=== PATIENT | female | born 1945 | race Caucasian/White ===

== ENCOUNTER → 2017-10-28 12:21 | Outpatient (CLI) | payer MEDICARE, SELFPAY ==
[2017-10-28 13:33] LABS: AST(SGOT) 45 U/L (15-37); Alanine Aminotransfer ALT/SGPT 38 U/L (13-56); Albumin, Serum 3.5 g/dL (3.2-5.0); Alkaline Phosphatase 51 U/L (45-117); Anion Gap 8 (5-15); BUN 20 mg/dL (7-18); BUN/Creat Ratio 28.6 RATIO (10-20); Calcium,Total 8.3 mg/dL (8.5-10.1); Chloride 106 mmol/L (98-107); EST Glomerular Filtration Rate 88 mL/min (>60); Est Glom Filt Rate - Afr Amer 106 mL/min (>60); Globulin 3.4 g/dL (2.2-4.2); Glucose 100 mg/dL (74-106); Protein, Total 6.9 g/dL (6.4-8.2); Sodium Level 142 mmol/L (136-145); Thyroid Stim Hormone (TSH) 0.43 uIU/mL (0.358-3.74)
[2017-10-28 18:14] LABS: Absolute Neutrophil Count 2.5 X10^3/uL (2.0-7.7); Basophil# 0.01 X10^3/uL; Basophil% 0.3 % (0-1); Eosinophil# 0.04 X10^3/uL; Eosinophils% 1.1 % (0-5); Hematocrit 38.7 % (37-47); Hemoglobin 12.6 g/dl (12.0-15.0); Mean Corp Hgb Conc 32.6 g/gl (32-36); Mean Corpuscular Volume 98.2 fL (81-99); Mean Platelet Vol. 10.3 fl (6.2-12.0); Monocyte# 0.27 X10^3/uL; Monocyte% 7.7 % (0-10); Neutrophil # 2.48 X10^3/uL (2.7-7.7); Neutrophil % 70.9 % (47-70); Platelet Count 155 K/mm3 (150-450); RBC Distribution Width CV 13.2 % (11.6-14.6); RBC Distribution Width SD 47.4 fl (35.1-43.9); Red Blood Count 3.94 M/mm3 (4.2-5.4); White Blood Count 3.5 K/mm3 (4.4-11.0)
[2017-10-28 18:18] LABS: POSITIVE COUNT NO; POSITIVE DIFFERENTIAL NO; POSITIVE MORPHOLOGY NO
[2017-10-29 09:44] LABS: Vitamin D,25 Hydroxy 54.5 ng/mL (29.95-100.01)
[2017-10-29 11:44] LABS: Hep C Antibodies 0.1 s/co ratio (0.0-0.9)
== END ==
PROVIDERS: Family Provider Family Medicine Geriatric Medicine; PCP Family Medicine Geriatric Medicine; Visit Provider Family Medicine Geriatric Medicine
DX: E11.9 Type 2 diabetes mellitus without complications (principal); E55.9 Vitamin D deficiency, unspecified; E78.4 Other hyperlipidemia; Z13.89 Encounter for screening for other disorder
CPT/HCPCS: 36415; 80053; 82306; 84443; 85025; 86803

== ENCOUNTER → 2017-12-12 12:04 | Outpatient (CLI) | payer MEDICARE, SELFPAY ==
[2017-12-12 13:15] LABS: ALB/GLOB Ratio 0.8 RATIO (0.9-2.4); AST(SGOT) 42 U/L (15-37); Alanine Aminotransfer ALT/SGPT 32 U/L (13-56); Albumin, Serum 3.1 g/dL (3.2-5.0); Alkaline Phosphatase 50 U/L (45-117); Anion Gap 8 (5-15); BUN 15 mg/dL (7-18); BUN/Creat Ratio 22.5 RATIO (10-20); Calcium,Total 8.1 mg/dL (8.5-10.1); Chloride 108 mmol/L (98-107); Creatinine, Serum 0.67 mg/dL (0.55-1.02); EST Glomerular Filtration Rate 93 mL/min (>60); Est Glom Filt Rate - Afr Amer 112 mL/min (>60); Globulin 3.7 g/dL (2.2-4.2); Glucose 76 mg/dL (74-106); Potassium 4.4 mmol/L (3.5-5.1); Protein, Total 6.8 g/dL (6.4-8.2); Sodium Level 138 mmol/L (136-145)
[2017-12-12 13:25] LABS: Absolute Lymphocyte Count 0.72 X10^3/ul (0.83-4.51); Absolute Neutrophil Count 1.8 X10^3/uL (2.0-7.7); Basophil# 0.02 X10^3/uL; Basophil% 0.6 % (0-1); Eosinophil# 0.04 X10^3/uL; Eosinophils% 1.3 % (0-5); Hematocrit 39.3 % (37-47); Hemoglobin 13.2 g/dl (12.0-15.0); Lymphocyte # 0.72 X10^3/ul (4.0); Lymphocyte % 23.2 % (19-41); Mean Corp Hgb Conc 33.6 g/gl (32-36); Mean Corpuscular Hgb 32.6 pg (27.0-32.0); Mean Platelet Vol. 9.8 fl (6.2-12.0); Monocyte% 16.1 % (0-10); Neutrophil # 1.83 X10^3/uL (2.7-7.7); Neutrophil % 58.8 % (47-70); Platelet Count 109 K/mm3 (150-450); RBC Distribution Width CV 13.7 % (11.6-14.6); Red Blood Count 4.05 M/mm3 (4.2-5.4); White Blood Count 3.1 K/mm3 (4.4-11.0)
[2017-12-12 13:31] LABS: POSITIVE COUNT NO; POSITIVE DIFFERENTIAL NO; POSITIVE MORPHOLOGY NO
--- NOTE | 2017-12-12 15:40 | RAD_ITS ---
STUDY: X-RAY - ABDOMEN/PELVIS REASON FOR EXAM: Female, 72 years old. Diarrhea. TECHNIQUE: AP supine and upright views of the abdomen and pelvis. COMPARISON: None. FINDINGS: Normal visualized lung bases. There is an abundance of fecal material throughout the colon. There is no demonstrated free abdominal air. The visualized liver, spleen and kidneys are grossly normal in size and morphology. Normal soft tissue structures. Narrowing and sclerosis of the symphysis pubis. RAD/Abd Inc Decub and/or Erect IMPRESSION: Large amount of fecal material is seen in the colon. Electronically Signed: Paulo Gray MD at 15:54 EDT Tel [phone], Service support ,
== END ==
PROVIDERS: Family Provider Family Medicine Geriatric Medicine; PCP Family Medicine Geriatric Medicine; Visit Provider Family Medicine Geriatric Medicine
DX: R19.7 Diarrhea, unspecified (principal)
CPT/HCPCS: 36415; 74019; 80053; 85025

== ENCOUNTER → 2017-12-15 15:16 | Outpatient (CLI) | payer MEDICARE, SELFPAY | PROVIDERS: Family Provider Family Medicine Geriatric Medicine; PCP Family Medicine Geriatric Medicine; Visit Provider Family Medicine Geriatric Medicine | DX: R19.7 Diarrhea, unspecified (principal) | CPT/HCPCS: 82274; 83630; 87177; 87209; 87493; 87506 ==

== ENCOUNTER → 2018-04-28 11:50 | Outpatient (CLI) | payer MEDICARE, SELFPAY ==
[2018-04-28 11:50] VITALS: BMI 25.0
[2018-04-28 13:23] LABS: Absolute Neutrophil Count 2.4 X10^3/uL (2.0-7.7); Basophil# 0.01 X10^3/uL; Basophil% 0.3 % (0-1); Eosinophils% 2.8 % (0-5); Hemoglobin 13.6 g/dl (12.0-15.0); Lymphocyte % 19.9 % (19-41); Mean Corp Hgb Conc 32.4 g/gl (32-36); Mean Corpuscular Hgb 32.3 pg (27.0-32.0); Mean Corpuscular Volume 99.8 fL (81-99); Mean Platelet Vol. 11.6 fl (6.2-12.0); Monocyte% 8.5 % (0-10); Neutrophil # 2.41 X10^3/uL (2.7-7.7); Neutrophil % 68.5 % (47-70); Platelet Count 139 K/mm3 (150-450); RBC Distribution Width CV 13.3 % (11.6-14.6); RBC Distribution Width SD 47.9 fl (35.1-43.9); Red Blood Count 4.21 M/mm3 (4.2-5.4); White Blood Count 3.5 K/mm3 (4.4-11.0)
[2018-04-28 13:24] LABS: POSITIVE COUNT NO; POSITIVE DIFFERENTIAL NO; POSITIVE MORPHOLOGY NO
[2018-04-28 13:45] LABS: AST(SGOT) 48 U/L (15-37); Alanine Aminotransfer ALT/SGPT 46 U/L (13-56); Albumin, Serum 3.6 g/dL (3.2-5.0); Alkaline Phosphatase 59 U/L (45-117); Anion Gap 7 (5-15); BUN 20 mg/dL (7-18); BUN/Creat Ratio 28.8 RATIO (10-20); Calcium,Total 8.7 mg/dL (8.5-10.1); Chloride 108 mmol/L (98-107); Creatinine, Serum 0.69 mg/dL (0.55-1.02); EST Glomerular Filtration Rate 88 mL/min (>60); Est Glom Filt Rate - Afr Amer 107 mL/min (>60); Globulin 3.6 g/dL (2.2-4.2); Glucose 70 mg/dL (74-106); Protein, Total 7.2 g/dL (6.4-8.2); Sodium Level 141 mmol/L (136-145); Thyroid Stim Hormone (TSH) 1.02 uIU/mL (0.358-3.74)
[2018-04-28 13:46] LABS: Vitamin D,25 Hydroxy 44.7 ng/mL (29.95-100.01)
== END ==
PROVIDERS: Family Provider Family Medicine Geriatric Medicine; PCP Family Medicine Geriatric Medicine; Visit Provider Family Medicine Geriatric Medicine
DX: E11.9 Type 2 diabetes mellitus without complications (principal); E55.9 Vitamin D deficiency, unspecified
CPT/HCPCS: 36415; 80053; 82306; 84443; 85025

== ENCOUNTER → 2018-08-25 13:19 | Outpatient (CLI) | payer MEDICARE, SELFPAY ==
[2018-06-24 15:16] VITALS: BMI 23.1
--- NOTE | 2018-08-25 13:22 | BI_ITS ---
MAMMOGRAPHY - BILATERAL SCREENING REASON FOR EXAM: Female, 72 years old. Routine annual screening examination. PERTINENT HISTORY: Remote left excisional breast biopsy. TECHNIQUE: Digital bilateral breast troy (3D mammographic acquisition) in the CC and MLO projections. 2-D mediolateral oblique (MLO) and craniocaudad (CC) views of both breasts were obtained. CAD: Full Field Digital Mammography with Computer Added Detection was performed. COMPARISON: Comparison is made with prior study March 28, 2016 and October 26, 2013. FINDINGS: Breast Composition: The breasts are heterogeneously dense, which may obscure small masses. There are no dominant masses or suspicious calcifications. Once again, focal area of architectural distortion is seen in the upper the mid aspect of the left breast most likely secondary to prior site of the biopsy and representing post operative scarring. No other significant abnormalities are identified. There has been no significant change since the prior study. BI/SCREEN MAMM (CAD) W/TROY BILAT IMPRESSION: Stable bilateral screening mammogram. Yearly follow-up mammogram recommended. (A) ASSESSMENT CATEGORY: BIRADS Category 2: Benign. A letter regarding these results will be sent to the patient by the facility within 30 days. Approximately 10% of breast cancers are not detected by mammography. A normal mammogram should not delay biopsy of a clinically suspicious abnormality. [id number] Electronically Signed: Paulo Gray, at 15:06 EDT , Service support ,
== END ==
PROVIDERS: Family Provider Family Medicine Geriatric Medicine; PCP Family Medicine Geriatric Medicine; Referring Provider Family Medicine Geriatric Medicine; Visit Provider Family Medicine Geriatric Medicine
DX: Z12.31 Encounter for screening mammogram for malignant neoplasm of breast (principal)
CPT/HCPCS: 77063; 77067

== ENCOUNTER → 2018-11-03 09:07 | Outpatient (CLI) | payer MEDICARE, SELFPAY ==
[2018-06-24 15:16] VITALS: BMI 23.1
[2018-11-03 13:05] LABS: Absolute Lymphocyte Count 0.57 X10^3/uL (0.83-4.51); Absolute Neutrophil Count 2.5 X10^3/uL (2.0-7.7); Basophil# 0.02 X10^3/uL; Basophil% 0.6 % (0-1); Eosinophil# 0.05 X10^3/uL; Eosinophils% 1.4 % (0-5); Hematocrit 41.4 % (37-47); Hemoglobin 13.8 g/dL (12.0-15.0); Lymphocyte # 0.57 X10^3/ul (4.0); Lymphocyte % 16.4 % (19-41); Mean Corp Hgb Conc 33.3 g/dL (32-36); Mean Platelet Vol. 10.9 fl (6.2-12.0); Monocyte% 8.6 % (0-10); NRBC Flagged by Analyzer 0 % (0-5); Neutrophil # 2.53 X10^3/uL (2.7-7.7); Neutrophil % 72.7 % (47-70); POSITIVE DIFFERENTIAL YES; Platelet Count 153 K/mm3 (150-450); RBC Distribution Width CV 12.6 % (11.6-14.6); RBC Distribution Width SD 45.3 fl (35.1-43.9); Red Blood Count 4.18 M/mm3 (4.2-5.4); White Blood Count 3.5 K/mm3 (4.4-11.0)
[2018-11-03 13:21] LABS: Differential Indicated SCAN CRITERIA MET
[2018-11-03 13:23] LABS: Differential Comment SCANNED; Platelet Estimate ADEQUATE (ADEQ); Red Cell Morphology NORM C+C NORMAL (NORM C&C)
[2018-11-03 13:25] LABS: Vitamin D,25 Hydroxy 56.3 ng/mL (29.95-100.01)
[2018-11-03 13:37] LABS: Albumin, Serum 3.4 g/dL (3.2-5.0); BUN 17 mg/dL (7-18); BUN/Creat Ratio 25.3 RATIO (10-20); Creatinine, Serum 0.67 mg/dL (0.55-1.02); EST Glomerular Filtration Rate 92 mL/min (>60); Est Glom Filt Rate - Afr Amer 111 mL/min (>60); Glucose 103 mg/dL (74-106); Protein, Total 7.1 g/dL (6.4-8.2)
[2018-11-03 13:38] LABS: ALB/GLOB Ratio 0.9 RATIO (0.9-2.4); AST(SGOT) 42 U/L (15-37); Alanine Aminotransfer ALT/SGPT 31 U/L (13-56); Alkaline Phosphatase 67 U/L (45-117); Anion Gap 4 (5-15); Calcium,Total 8.7 mg/dL (8.5-10.1); Chloride 105 mmol/L (98-107); Globulin 3.7 g/dL (2.2-4.2); Potassium 4.1 mmol/L (3.5-5.1); Sodium Level 138 mmol/L (136-145); Thyroid Stim Hormone (TSH) 1.91 uIU/mL (0.358-3.74)
[2018-11-04 14:26] LABS: Pathologist Review Reviewed
== END ==
PROVIDERS: Family Provider Family Medicine Geriatric Medicine; PCP Family Medicine Geriatric Medicine; Visit Provider Family Medicine Geriatric Medicine
DX: E55.9 Vitamin D deficiency, unspecified (principal); R53.83 Other fatigue
CPT/HCPCS: 36415; 80053; 82306; 84443; 85025

== ENCOUNTER → 2018-11-19 09:54 | Outpatient (CLI) | payer MEDICARE, SELFPAY ==
[2018-06-24 15:16] VITALS: BMI 23.1
--- NOTE | 2018-11-19 09:59 | BD_ITS ---
STUDY: DUAL ENERGY X-RAY ABSORPTIOMETRY / DXA REASON FOR EXAM: Female, 73 years old. The patient is postmenopausal. Loss of height. TECHNIQUE: Bone Mineral Density (BMD) measurements of lumbar spine and bilateral hips were obtained. COMPARISON: Comparison is made with prior examination dated April 03, 2016. FINDINGS: Lumbar Spine (L1-L4): g/cm2 (0.958) / T-score (-1.8) / Z-score (-0.1) Findings are suggestive of osteopenia with a moderate fracture risk. Increased thoracic kyphosis. Left Femur Total: g/cm2 (0.933) / T-score (-0.6) / Z-score (1.0) Left Femoral Neck: g/cm2 (0.962) / T-score (-0.5) / Z-score (1.2) Right Femur Total: g/cm2 (0.931) / T-score (-0.6) / Z-score (1.0) Right Femoral Neck: g/cm2 (0.964) / T-score (-0.5) / Z-score (1.2) The T-Scores on the most recent prior examination were: Lumbar Spine (L1-L4): There has been improvement of bone density since the previous examination. Left Femur Total: which represents a worsening of 1.5%. Right Femur Total: which represents a worsening of 1.4%. BD/Dexa Bone Density Study IMPRESSION: The patient is considered osteopenic as outlined below according to World [employer] Organization (WHO) criteria with a moderate fracture risk. There has been improvement of bone density since the previous examination. Reference Information: The T-score is the number of standard deviations above or below the standard which is normal for young adults at their peak bone mineral density. The World Health Organization (WHO) interprets the T-scores as follows: Above -1 Normal bone density Between -1 and -2.5 Osteopenia Equal to / or below -2.5 Osteoporosis As a practical clinical guideline, osteopenia may be graded as follows: Mild -1 through -1.5 Moderate -1.6 through -2.0 Severe -2.1 through -2.4 The Z-score is the number of standard deviations above or below age-matched controls. A Z-score of less than -1.5 would be considered abnormal. References: 1. NIH Osteoporosis and Related Bone Diseases http://www.osteo.org 2. International Society for Clinical Densitometry http://www.iscd.org 3. National Osteoporosis Foundation http://www.nof.org Electronically Signed: Paulo Gray, at 15:15 EDT , Service support ,
== END ==
PROVIDERS: Family Provider Family Medicine Geriatric Medicine; PCP Family Medicine Geriatric Medicine; Referring Provider Family Medicine Geriatric Medicine; Visit Provider Family Medicine Geriatric Medicine
DX: Z78.0 Asymptomatic menopausal state (principal)
CPT/HCPCS: 77080

== ENCOUNTER → 2018-11-25 15:04 | Outpatient (CLI) | payer MEDICARE, SELFPAY ==
[2018-06-24 15:16] VITALS: BMI 23.1
[2018-11-25 17:08] LABS: Absolute Lymphocyte Count 0.76 X10^3/uL (0.83-4.51); Basophil# 0.02 X10^3/uL; Basophil% 0.6 % (0-1); Eosinophil# 0.04 X10^3/uL; Eosinophils% 1.2 % (0-5); Hematocrit 40.9 % (37-47); Hemoglobin 13.5 g/dL (12.0-15.0); Lymphocyte # 0.76 X10^3/ul (4.0); Lymphocyte % 22.8 % (19-41); Mean Corpuscular Hgb 33.1 pg (27.0-32.0); Mean Corpuscular Volume 100.2 fL (81-99); Mean Platelet Vol. 10.9 fl (6.2-12.0); Monocyte# 0.52 X10^3/uL; Monocyte% 15.6 % (0-10); NRBC Flagged by Analyzer 0 % (0-5); Neutrophil # 1.99 X10^3/uL (2.7-7.7); Neutrophil % 59.8 % (47-70); Platelet Count 144 K/mm3 (150-450); RBC Distribution Width CV 13.2 % (11.6-14.6); Red Blood Count 4.08 M/mm3 (4.2-5.4); White Blood Count 3.3 K/mm3 (4.4-11.0)
[2018-11-25 17:37] LABS: ALB/GLOB Ratio 0.9 RATIO (0.9-2.4); AST(SGOT) 37 U/L (15-37); Alanine Aminotransfer ALT/SGPT 31 U/L (13-56); Albumin, Serum 3.3 g/dL (3.2-5.0); Alkaline Phosphatase 63 U/L (45-117); Anion Gap 6 (5-15); BUN 17 mg/dL (7-18); Calcium,Total 8.7 mg/dL (8.5-10.1); Chloride 109 mmol/L (98-107); Creatinine, Serum 0.65 mg/dL (0.55-1.02); EST Glomerular Filtration Rate 95 mL/min (>60); Est Glom Filt Rate - Afr Amer 115 mL/min (>60); Globulin 3.7 g/dL (2.2-4.2); Glucose 89 mg/dL (74-106); Sodium Level 141 mmol/L (136-145)
== END ==
PROVIDERS: Family Provider Family Medicine Geriatric Medicine; PCP Family Medicine Geriatric Medicine; Visit Provider Family Medicine Geriatric Medicine
DX: R53.83 Other fatigue (principal)
CPT/HCPCS: 36415; 80053; 85025

== ENCOUNTER 2018-12-04 07:55 | Day surgery (SDC) | payer MEDICARE, SELFPAY ==
[2018-06-24 15:16] VITALS: BMI 23.1
[2018-12-04] VITALS (7 sets, daily range): BP systolic 102–114; BP diastolic 57–68; PULSE 53–64; RESP 16; TEMP 36.4–36.6; O2SAT 96–100; BMI 22.3
[2018-12-04] MEDS: Lactated Ringers 1,000 ML 80 ML IV ×2 (08:36→14:06)
--- NOTE | 2018-12-04 09:30 | RAD_ITS ---
STUDY: X-RAY - RIGHT FOOT CLINICAL: Deformity, ORIF. TECHNIQUE: 7 intraoperative images of the foot. COMPARISON: None. FINDINGS: Status post bunionectomy with osteotomy of the first metatarsal bridged with 2 orthopedic screws. There is a threaded screw transfixing fusion of the second proximal interphalangeal joint. 48.6 seconds of fluoroscopy time was used. Electronically Signed: Jesu Cornejo MD at 15:00 EDT Tel , Service support , RAD/Foot min 3 Views
[2018-12-04] MEDS: Cefazolin 2 GM in 0.9% Normal Saline 100 ML IV (11:10)
[2018-12-04] MEDS: Bupivacaine Mpf 0.5% 30 ML VIAL (13:28)
--- NOTE | 2018-12-04 13:40 | RAD_ITS ---
STUDY: X-RAY - RIGHT FOOT CLINICAL: Postoperative. TECHNIQUE: 3 view(s) of the foot. COMPARISON: Intraoperative images obtained earlier the same day. FINDINGS: Normal talus, calcaneus, and tarsal bones. Normal visualized subtalar, talonavicular, calcaneocuboid, tarsal and tarsometatarsal articulations. Status post bunionectomy with osteotomy of the first metatarsal bridged with 2 orthopedic screws. Normal metatarsophalangeal joint of the great toe. Normal interphalangeal joint of the great toe. Normal phalanges of the great toe. Normal second through fifth metatarsophalangeal joints. There is a threaded screw transfixing fusion of the second proximal interphalangeal joint.. There is an overlying cast. RAD/Foot min 3 Views IMPRESSION: Status post bunionectomy and fusion of the second proximal interphalangeal joint. Electronically Signed: Jesu Cornejo MD at 14:59 EDT Tel , Service support ,
--- NOTE | 2018-12-04 13:41 | DCINST_ITS ---
Discharge Diet: No Restrictions Discharge Activity: May not drive while taking narcotic pain medications., May Not Shower Weight Bearing Status: No weight bearing - use crutches Keep extremity elevated above heart level: Right Leg Call your doctor if your incision/area has: Continuous Slow Oozing, Sudden Increased Bleeding, Increased Pain/ Swelling, Increased Redness, Foul Smelling Discharge, Swelling at the incision site Call your doctor if you observe: Fever of 101 or Higher, Coldness, Increased Pain, Numbness or Tingling, Swelling in the ankles, Prolonged hiccoughing, Calf discomfort, Uncontrolled pain Cleanse incision/area with: Keep Dressing Clean & Dry Allergies/Adverse Reactions: Allergies carbamazepine [From Tegretol] Allergy (Verified 12/04/18 08:18) Hives clonazepam [From Klonopin] Allergy (Verified 12/04/18 08:18) Other DIDN'T WORK TO REDUCE SEIZURES phenytoin sodium [From Dilantin] Allergy (Verified 12/04/18 08:18) Hives phenytoin sodium extended [From Dilantin] Allergy (Verified 12/04/18 08:18) Hives Medications to take at Discharge Niacin 50 mg PO DAILY 09/24/13 Primidone [Mysoline] 250 mg PO BID 09/24/13 Atorvastatin Calcium [Lipitor] 40 mg PO QHS 07/22/16 Calcium Carbonate [Calcium] 1,200 mg PO DAILY 07/22/16 Cranberry 500 mg PO DAILY 07/22/16 Lutein 20 mg PO DAILY 07/22/16 Multivitamin [Daily Multiple Vitamin] 1 ea PO DAILY 07/22/16 Alendronate Sodium [Fosamax] 70 mg PO QWEEK 10/31/16 Metoprolol Tartrate [Lopressor (beta chintan)] 75 mg PO BID #60 tab 11/01/16 Rivaroxaban [Xarelto] 20 mg PO DAILY@0600 #30 tab 11/01/16 levothyroxine 100 mcg capsule 100 mcg PO QDAY cap 04/28/17 Biotin 1 mg PO DAILY 12/01/18 Primary Care Physician: Neil Apodaca Chi, MD [Primary Care Provider] - Test Results: Test results from this visit will be discussed in further detail at your follow- up appointment, if applicable. Please Follow Up With: Alina Reyes DPM When: [facility]. Call [phone] sooner if questions. Proposed Discharge Date: 12/04/18
--- NOTE | 2018-12-04 14:12 | PCM.OPRPT ---
Problem List (1) Hallux valgus (acquired), right foot Status: Chronic (2) Hammer toe of right foot Status: Chronic (3) Right foot pain Status: Chronic Report of Operation Date of Procedure: 12/04/18 Pre-Operative Diagnosis: Hallux valgus with bunion deformity right foot. 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 Hammertoe correction with arthrodesis of the proximal interphalangeal joint and internal fixation, right foot Description of Surgical Findings:: Hemostasis: Well-padded pneumatic right ankle tourniquet, 98 minutes, 250 mmHg Materials: one mini FT Arthrex compression screw (28 mm), two 3.0 cannulated Arthrex short thread screws (16 and 18 mm) Complications: None Specimens: None The patient tolerated the procedure and anesthesia well. She was transported to the PACU with vital signs stable and vascular status intact the right lower extremity. Postoperative x-rays were obtained prior to leaving the operating room with deformity correction of the first ray and second toe now with a rectus hallux, reduced sesamoid apparatus, and rectus second toe. Hardware is in ideal alignment and trajectory. There are no acute injuries noted. She will remain nonweightbearing. Her postoperative orders were entered electronically. physician assistant: none - Surgeon: Alina Reyes DPM. Assistant Property Manager: Gisella Tinsley PGY3 Type of Anesthesia:: Local - Preoperative: One-to-one mixture of 1% lidocaine plain and 0.5% Marcaine plain administered in typical first and second ray block fashion, 10 mL Postoperative: One-to-one mixture 1% lidocaine plain and 0.5% Marcaine plain administered to right foot 7 mL, MAC Specimen's removed: none Estimated Blood Loss (mL): < 50 mL Description of Procedure: Indications: This 73-year-old female with significant past medical history of atrial fibrillation, diet controlled diabetes, hypertension, previous seizure, and previous pulmonary embolism on chronic anticoagulation continues to complain of right foot pain. She is unable to perform her exercise walking regiment that she is required to maintain proper cardiac health. Her pain is affecting her daily activities and she has failed conservative care including orthotics, improved shoe gear, padding, activity modification, and icing. Her preoperative x-rays demonstrate lateral hallux deviation abutting the second toe with increased intermetatarsal angle position and lateral sesamoid apparatus appearance. She has a prominent and hypertrophic medial eminence of the first metatarsal head with no cystic changes or other acute injuries. There is narrowing of the first metatarsal phalangeal joint with dorsal spurring noted consistent with degenerative joint change. The right second toe is dorsally contracted mainly at the proximal interphalangeal joint and appears to be long. The preoperative indications, planned procedure, possible benefits, risk, complication, and anticipated healing time is were discussed in detail with the patient. She understands and elects to proceed with surgery at this time. No guarantees were made. She understands risks and complications may include but are not limited to the following: pain, swelling, scarring, over under correction, hardware failure, blood clot, allergic reaction, chronic pain, need for further surgery, loss of limb, function, life. The surgical consent and limb were signed and I answered her questions. Medical clearance for the procedure was obtained by her primary care physician I reviewed her preoperative diagnostic data. It is noted she is on chronic anticoagulation including Xarelto and this was temporarily stopped; this will be resumed on postoperative day #1. Procedure in detail: The patient was transported to the operating room via cart and placed on the operating table in the supine position. Final verification of patient, surgery, limb designation was performed via the timeout procedure. MAC anesthesia was initiated by the anesthesia team. Local anesthetic was administered by the podiatry team. Preoperative Ancef was administered. A well-padded pneumatic right ankle tourniquet was placed. The right lower extremity was prepped and draped in the usual aseptic manner. An Esmarch bandage was used to exsanguinate the right lower extremity and the tourniquet was inflated at this time. Surgery began in the following manner: Attention was first directed to the dorsal medial first ray in which a 4 cm linear incision was made through the skin. Blunt dissection was performed down to the first metatarsophalangeal joint capsule layer taking care to identify, protect, and retract all neurovascular structures at this time and the remaining parts of the surgical case. Next, a fresh scalpel was used to perform a capsule incision and this was carefully reflected off of the first metatarsal head and proximal phalanx base to allow good exposure. The hypertrophic medial and dorsal eminence of the first metatarsal head was next resected with a sagittal saw taking care to preserve the sagittal sulcus. Next, lateral release was performed including the superficial intermetatarsal ligament, adductor tendon, and fibular sesamoid metatarsal ligament including the distal and proximal poles. The lateral collateral ligament was kept intact. Some plantar adhesions were still noted and a McGlamry elevator was used to help release this. The first metatarsal head was evaluated and is noted that the cartilage appears to be intact without osteochondral defects. Adequate lateral release was noted. At this time the osteotomy was performed with chevron shaped manner. The salima modification was performed to allow a larger dorsal arm. This was performed with a sagittal saw successfully and the capital fragment was transposed in a medial manner taking care not to shorten the first ray. The short thread screws were applied according to standard AO technique and solid fixation was achieved. Proper positioning of the osteotomy and hardware was confirmed with intraoperative fluoroscopy and direct visualization. A sagittal saw was next used to resect the remaining first metatarsal eminence due to transposition of the capital fragment as well as the proximal phalanx base. This was copiously irrigated with normal saline. Additional dorsal first metatarsal head and proximal phalanx base were resected utilizing rongeur and sagittal saw. This allowed improved dorsiflexion passive range of motion at this joint level. Copious irrigation was performed and the capsule was next reapproximated utilizing a biased closure to tighten the capsule with the hallux in a rectus functional loaded position. Next, attention was directed to the dorsal right second toe in which a 1 1/2 cm linear incision was made over the proximal interphalangeal joint. Blunt dissection was performed down to the extensor tendon taking care to identify, protect, and retract any neurovascular structures. A transverse incision was made through the extensor tendon and the proximal interphalangeal joint was entered with a 15 blade. The collateral ligaments were gently reflected off of the head of the proximal phalanx and also the base of the middle phalanx. A sagittal saw was next used to resect each joint surface to healthy bleeding subchondral bone. This was performed in total without difficulty. Next a wire was applied in a retrograde fashion across this joint and the FT Arthrex compression screw was applied. The arthrodesis site was well approximated and aligned and healthy bleeding subchondral bone was noted. Solid fixation was also achieved and this was confirmed clinically and with intraoperative fluoroscopy. The Kelikian push-up test was performed and additional correction was not deemed necessary at this time. Deep closure was performed with Vicryl including tendon reapproximation and deep layer. The tourniquet was deflated at this time and brisk capillary refill time was noted to all digits of the right foot. No pulsatile bleeding was noted. Minimal electrocauterization and pressure was applied to maintain hemostasis. The skin was next reapproximated utilizing 4-0 and 5-0 nylon utilizing horizontal mattress and simple suture technique. The postoperative injection was administered. A postoperative dressing consisting of Betadine soaked Adaptic, 4 x 4 gauze, abdominal pad, Kerlix, and Rad wrap were applied. Next, a well-padded right lower extremity posterior mold splint was applied with the right lower extremity in a rectus position. After procedure: The patient tolerated the procedure anesthesia well. She was transferred to the PACU with vital signs stable and vascular status intact to the right lower extremity. She was advised to ice and elevate for pain inflammation management. She was also provided with a postoperative pain medication prescription for use if needed. She was advised on safe and proper use. She was advised to remain nonweightbearing to the right lower extremity and to keep the dressing and splint intact. She has crutches to assist with this. Postoperative x-rays were reviewed as previously noted. No specimens were sent. She will follow-up at the [facility] in one week. She will be discharged home today. The postoperative orders were entered electronically. Alina Reyes DPM, [facility] Grafts/Implants Used: arthrex screws as noted - Complications none - Admit VTE Documentation VTE Present on Admission: No VTE Mechan Device Prophylaxis: SCD's VTE Pharm Prophylaxis ordered?: Yes
--- NOTE | 2018-12-15 14:17 | HP.PCM_ITS ---
Problem List (1) Hallux valgus (acquired), right foot Status: Chronic (2) Hammer toe of right foot Status: Chronic (3) Right foot pain Status: Chronic History of Present Illness Date of Admission: 12/04/18 Chief Complaint: The H & P performed by Dr. Apodaca on 11/25/18 was reviewed preoperative on 12/04/18. No changes were noted. The patient is a 73 year old F [] Past Medical History Past Medical History (Chronic Problems): Chronic Problems (Last Updated 11/10/17 @ 15:16 by Gisel Ryan) Hallux valgus (acquired), right foot (Chronic) Hammer toe of right foot (Chronic) Right foot pain (Chronic) Atrial flutter (Chronic) Pulmonary embolism (Chronic) Hyperlipidemia (Chronic) Paroxysmal atrial fibrillation (Chronic) Seizure disorder (Chronic) Medical History: Medical History (Last Updated 11/10/17 @ 15:16 by Gisel Ryan) Atrial flutter (Chronic) I48.92 Pulmonary embolism (Chronic) I26.99 Hyperlipidemia (Chronic) E78.5 Paroxysmal atrial fibrillation (Chronic) I48.0 Seizure disorder (Chronic) G40.909 Basal cell carcinoma C44.91 Hypothyroidism E03.9 Allergies carbamazepine [From Tegretol] Allergy (Verified 12/04/18 08:18) Hives clonazepam [From Klonopin] Allergy (Verified 12/04/18 08:18) Other DIDN'T WORK TO REDUCE SEIZURES phenytoin sodium [From Dilantin] Allergy (Verified 12/04/18 08:18) Hives phenytoin sodium extended [From Dilantin] Allergy (Verified 12/04/18 08:18) Hives Home Medications: Ambulatory Orders Medication Instructions Recorded Niacin 50 mg PO DAILY 09/24/13 Primidone [Mysoline] 250 mg PO BID 09/24/13 Atorvastatin Calcium [Lipitor] 40 mg PO QHS 07/22/16 Calcium Carbonate [Calcium] 1,200 mg PO DAILY 07/22/16 Cranberry 500 mg PO DAILY 07/22/16 Lutein 20 mg PO DAILY 07/22/16 Multivitamin [Daily Multiple 1 ea PO DAILY 07/22/16 Vitamin] Alendronate Sodium [Fosamax] 70 mg PO QWEEK 10/31/16 Metoprolol Tartrate [Lopressor 75 mg PO BID #60 tab 11/01/16 (beta chintan)] Rivaroxaban [Xarelto] 20 mg PO DAILY@0600 #30 tab 11/01/16 levothyroxine 100 mcg capsule 100 mcg PO QDAY cap 04/28/17 Biotin 1 mg PO DAILY 12/01/18 Surgical History: Surgical History (Last Reviewed 11/10/17 @ 08:34 by Gisel Ryan) H/O basal cell carcinoma excision Z98.890, Z85.828 History of lumpectomy of left breast Z98.890 History of tonsillectomy Z98.890, Z90.89 left carpal tunnel release Surgical History: no surgical history Psychiatric History: No pertinent psych hx SURVEILLANCE INSPECTOR History: No pertinent SURVEILLANCE INSPECTOR history Smoking Status: Never smoker Tobacco Use: Non-smoker - *Family History Maternal History Items: No pertinent history VTE Information - Inpt Only VTE Present on Admission: No VTE Mechan Device Prophylaxis: SCD's VTE Pharm Prophylaxis ordered?: Yes - Physical Exam Vital Signs Temp Pulse Resp BP Pulse Ox 97.8 F 61 16 114/68 100 12/04/18 14:05 12/04/18 14:05 12/04/18 14:05 12/04/18 14:05 12/04/18 14:05 Oxygen Delivery Method Room Air Weight: 60.8 kg Body Mass Index (BMI) 22.3
== END 2018-12-04 15:13 | disposition home or self-care (01) ==
LOC: SDC 08:01 → AC 08:02
PROVIDERS: Family Provider Family Medicine Geriatric Medicine; PCP Family Medicine Geriatric Medicine; Referring Provider Podiatrist; Visit Provider Podiatrist
PROC: (CPT 28292; principal; 2018-12-04 09:15)
DX: M20.11 Hallux valgus (acquired), right foot (principal); M21.611 Bunion of right foot; M20.41 Other hammer toe(s) (acquired), right foot; I48.91 Unspecified atrial fibrillation; I10 Essential (primary) hypertension; E78.00 Pure hypercholesterolemia, unspecified; E06.9 Thyroiditis, unspecified; R73.03 Prediabetes; Z86.711 Personal history of pulmonary embolism; Z79.01 Long term (current) use of anticoagulants; Z79.899 Other long term (current) drug therapy
CPT/HCPCS: 28285; 28296; 73630; 76000; C1713; J7120

== ENCOUNTER → 2019-02-17 14:21 | Outpatient (CLI) | payer MEDICARE, SELFPAY ==
[2019-01-28 14:20] VITALS: BMI 22.1
--- NOTE | 2019-02-17 14:23 | ECHOD_ITS ---
Reason For Study: AFIB Procedure This was a 2D Doppler, Color Flow transthoracic echocardiogram. Exam performed in department. Left Ventricle Normal size and thickness. The estimated ejection fraction is 65 %. Stage 2 diastolic dysfunction. No regional wall motion abnormalities noted. Right Ventricle Mildly dilated right ventricle. Normal systolic function. Atria Normal left atrium. Normal right atrium. Normal atrial septum. Mitral Valve The mitral valve is structurally normal. No prolapse or stenosis seen. Trivial mitral valve insufficiency. Tricuspid Valve Normal tricuspid valve. Mild (1+) tricuspid valve insufficiency. Right ventricular systolic pressure estimated to be 27 mmHg. Aortic Valve Trisinus/trileaflet aortic valve. Mild diffuse aortic valve thickening. Trivial aortic valve insufficiency. Pulmonic Valve Normal pulmonic valve. Trivial pulmonic valve insufficiency. Great Vessels Normal aortic root. Normal arch. Possible filling defect located in proximal main pulmonary artery vs echo artifact. Cannot exclude thrombus. Normal inferior vena cava. Inferior vena cava collapse with sniff. Pericardium/Pleural No pericardial effusion. MMode/2D Measurements & Calculations LVIDd: 4.2 cm IVSd: 0.95 cm Ao root diam: 3.3 cm LVIDs: 2.7 cm LVPWd: 0.92 cm RVDd: 3.8 cm FS: 35.1 % LAV(MOD-bp): 46.2 ml LA A4 area: 17.7 cm2 LA dimension(2D): 3.9 cm LAV(MOD-bp) Indexed: 27.4 ml/m2 LAV(MOD-sp2): 44.6 ml LAV(MOD-sp4): 47.6 ml RA A4 area: 18.9 cm2 Time Measurements MV dec time: 0.17 sec Doppler Measurements & Calculations MV E max ty: 86.1 cm/sec Lat Peak E' Ty: 9.8 cm/sec Med Peak E' Ty: 7.0 cm/sec MV A max ty: 74.1 cm/sec E/E' lat: 8.8 E/E' med: 12.4 MV E/A: 1.2 Ao V2 max: 137.5 cm/sec LV V1 max: 125.6 cm/sec PA V2 max: 96.1 cm/sec Ao max P.6 mmHg LV V1 max P.3 mmHg TR max ty: 249.2 cm/sec TR max P.9 mmHg Interpretation Summary The estimated ejection fraction is 65 %. Stage 2 diastolic dysfunction. Mildly dilated right ventricle. Trivial mitral valve insufficiency. Mild (1+) tricuspid valve insufficiency. Right ventricular systolic pressure estimated to be 27 mmHg. Trivial aortic valve insufficiency. Possible filling defect located in proximal main pulmonary artery vs echo artifact. Cannot exclude thrombus. Recommend clinical correlation or f/u CTA to exclude PA thrombus. Compared to echo report dated 10/31/2016, LV function has remained the same and RVSP has improved from 38 to 27 mm Hg. Ordering Physician: aRmos Sheridan Referring Physician: PER PIZARRO CHI Performed By: Beverly Vernon, ELAINE, RVT
== END ==
PROVIDERS: Family Provider Family Medicine Geriatric Medicine; PCP Family Medicine Geriatric Medicine; Referring Provider Internal Medicine Cardiovascular Disease; Visit Provider Internal Medicine Cardiovascular Disease
DX: I48.91 Unspecified atrial fibrillation (principal); I48.92 Unspecified atrial flutter; I26.99 Other pulmonary embolism without acute cor pulmonale
CPT/HCPCS: 93306

== ENCOUNTER 2019-02-25 13:30 | Outpatient (RCR) | payer MEDICARE, SELFPAY ==
[2018-12-04 08:20] VITALS: BMI 22.3
--- NOTE | 2019-01-19 15:59 | HP.PTEVAL_ITS ---
Patient's Visit Information RADHA ALEMAN is a 73 year old F referred to Physical Therapy by Alina Reyes DPM with a diagnosis of R s/p bunionectomy with internal fixation adn 2 hammer toe correction. Date of Evaluation: 01/19/19 Physical Therapist: Garth Garcia DPT, OCS, CSCS - Visit Plan Frequency: 3x /Week Duration: 2 Months Plan: 3x/week for 4-8 weeks. Start with: 1. foot STM, desensitazation massage to incisions, mobs to big toe and ankle and metatarsals grade 4 adn PROM big toe, metatarsals and ankle, distraction. . Progress to strenghtening and gait training as tolerated. Pt will be FWB out of boot 01/29 but is FWB in boot until that time. Gait training. - Subjective Findings: 7 weeks ago had a bunionectomy adn hammer toe correction due to pain. Sakshi cast then boot ever since. Starteing now to drive in athletic shoe. Wearing shoe to drive and no boot to walk at store etc. Not much pain lately. Only gets pain if she wears the shoes to walk out of the boot. Wears juliet bandage on foot. Sleeps well, has to be careful with foot in bed as it is sensitive. Using cane to get around much of time, no need prior to surgery. Not employed. Spends day doing yard work adn working out on TM at and some of equipment. Wants to get back to [employer]. 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 Lives alone in ranch with basement and can make it down there withotu much difficulty but slow in a step to pattern with handrail. Basic ADLs are OK juist slow. - Objective Walks with adn without cane with boot on R foot I, turns foot out and unable to push off at ankle due to boot. Trasnfers I to adn fro sit adn supine. L big toe stiff at 8 degrees passive ext adn 5 degrees felxion with slight discomfort. Incisions on top of foot adn 2nd toe have two steristrips left adn are healed without excessive redness or heat. Slightly expectedly swollen foot. Metatarsals medially are stiff in R foot, much better laterally. Ankle aROM R 0 DF, 40 PF, 15 inv adn 5 ev. L are 5 DF, 55 PF, 23 inv adn 12 eversion. Strength in R ankle not tested, L ankle 4/5 in all directions. 4+/5 knee strength B adn 4/5 hip strength B. Tightness present in HS and gastroc moderately. Sensation WNL to gross light touch in LE, slightly hypersensitve over 2nd tow incision R. SLS 20 L and 2-3 R. - Goals Goal 1:: Full Active ext ext R big toe, ankle DF to 5 degrees to walk normal Goal Time Frame: 6-8 Weeks Goal 2:: Walk without boot without antalgia normal community disatnces Goal Time Frame: 6-8 Weeks Goal 3:: steps reciprocal without rail without pain Goal Time Frame: 6-8 Weeks Goal 4:: Patient feel back to 100% normal activity including full HP workout adn TM walking Goal Time Frame: 6-8 Weeks - Rehabilitation Potential Physical Therapy Diagnosis: s/p bunionectomy and hammer toe. stiff and poor walking Rehabilitation Potential: Good - Anticipated Interventions Patient/Client Instruction: Educate patient on: Condition, Plan of Care For the Purpose of:: To increase ROM, To improve nutrient delivery to tissue, To improve muscle performance and motor function, To improve performance and independence with ADL's, To improve ability of physical actions for home/community/work/leisure, To improve gait and locomotor functions Therapeutic Exercise to Include: Strength training, Balance training, Postural training, Flexibilty training, Gait and locomotor training, In an aquatic setting For the Purpose of:: To improve nutrient delivery to tissue, To improve muscle performance and motor function, To increase tolerance to activity/condition/position, To improve ability of physical actions for home/community/work/leisure, To improve gait and locomotor functions Manual Therapy Techniques to Include: Mobilization, Passive ROM, Soft tissue mobilization For the Purpose of:: To increase ROM, To improve muscle performance and motor function, To increase tolerance to activity/condition/position, To improve ability of physical actions for home/community/work/leisure, To increase flexibility/ROM, To improve safety with gait Thank you for the opportunity to evaluate your patient. For Medicare and Medicare HMO plans, please review the plan of care and approve it. It will need to be FAXED BACK to us at [phone] for Medicare purposes. For Medicare only, by signing this I certify the plan of care. Please let me know if there are questions or concerns regarding this plan of care. Physician Signature: Date:
--- NOTE | 2019-02-12 14:57 | HP.PTREVAL ---
Alina Reyes DPM, It has been my pleasure to treat RADHA ALEMAN over the last 9 visits for R s/p bunionectomy with internal fixation adn 2 hammer toe correction. Please see the progress note below for an update on the physical therapy plan of care! Subjective: Better. I can move ankle better. I limp when I walk. Still in boot sometimes at home. No falls. No pain except base of big toe at times with stretching. Walking is not painful. Back to doctor in 3 weeks. saw her last week and is doig OK with healing. Sleep is good. Is walking on TM at home for 30 minutes Objective/Function: 20 passive ext big toe and flexion, actively to 10 ext adn 12 flexion. Ankle DF 5 degrees but tends to invert. Inversion 25 degrees, eversion 8. strength inv 4+, eversion4, DF 4, big toe flexion adn ext 3+. WWalking appears slow but normal, in [place] today. safe and good B step length. Stairs are reciprocal up and down with rail. Fair prognosis for continued improvement. Plan Plan: Pt wishes to f/u in two weeks to check big toe ROM that shw will continue to work on at home. vs 2x/week in PT. Will recheck for big toe ROM, walking, steps and consider back up to 2x/week if needed for ROM Goals Goal 1:: Full Active ext ext R big toe, ankle DF to 5 degrees to walk normal Goal Time Frame: 6-8 Weeks Goal Progress: Progressing Goal 2:: Walk without boot without antalgia normal community disatnces Goal Time Frame: 6-8 Weeks Goal Progress: Progressing Goal 3:: steps reciprocal without rail without pain Goal Time Frame: 6-8 Weeks Goal Progress: Goal Met Goal 4:: Patient feel back to 100% normal activity including full HP workout adn TM walking Goal Time Frame: 6-8 Weeks Goal Progress: Progressing Anticipated Interventions Patient/Client Instruction: Educate patient on: Condition, Plan of Care For the Purpose of:: To increase ROM, To improve nutrient delivery to tissue, To improve muscle performance and motor function, To improve performance and independence with ADL's, To improve ability of physical actions for home/community/work/leisure, To improve gait and locomotor functions Therapeutic Exercise to Include: Strength training, Balance training, Postural training, Flexibilty training, Gait and locomotor training, In an aquatic setting For the Purpose of:: To improve nutrient delivery to tissue, To improve muscle performance and motor function, To increase tolerance to activity/condition/position, To improve ability of physical actions for home/community/work/leisure, To improve gait and locomotor functions Manual Therapy Techniques to Include: Mobilization, Passive ROM, Soft tissue mobilization For the Purpose of:: To increase ROM, To improve muscle performance and motor function, To increase tolerance to activity/condition/position, To improve ability of physical actions for home/community/work/leisure, To increase flexibility/ROM, To improve safety with gait Please do not hesitate to contact me at [phone] by phone or if you have questions or concerns regarding this new plan of care! Sincerely, Garth Garcia, DPT, OCS, CSCS
--- NOTE | 2019-02-25 14:04 | HP.PTDCSUM ---
HP - PT D/C Summary It has been my pleasure to treat RADHA ALEMAN under orders from Alina Reyes DPM, for the diagnosis of R s/p bunionectomy with internal fixation adn 2 hammer toe correction for a total of 10 visit(s). Discharge Date: 02/25/19 Please see the following information for a summary of their discharge status. - Subjective Subjective: Been doing leg lifts for fitness. L anterior hip felt weird. Raked leaves a couple weeks ago and felt it in L hip which got worse. R foot foot doing really well. Will see doctor next week. Life is pretty normal with the foot. Not sure she is at 45 degree of toe flexion. Ankle moving well adn painfree. Toe or ankle not holding back a whole lot, may avoid bending toe when ambulating. Activities at home pretty normal due to foot adn sleeping well. - Overall Improvement % Improvement: 80 - Objective Objective/Function: 8 degrees active DF R. Has 28 degrees R big toe flexion and extension. Walking normally without antalgia and steps are normal reciprocal up and slight avoidance of big toe ext upon planting descending but not bothersome to patient at all. - Goals Goal 1:: Full Active ext ext R big toe, ankle DF to 5 degrees to walk normal Goal Progress: Progressing Goal 2:: Walk without boot without antalgia normal community disatnces Goal Progress: Goal Met Goal 3:: steps reciprocal without rail without pain Goal Progress: Goal Met Goal 4:: Patient feel back to 100% normal activity including full HP workout adn TM walking Goal Progress: Goal Met, L hip holds oanh - Plan Plan: d/c ...pt to doctor next week and should be sent back if doctor thinks she needs more motion, otherwise she is functionally doing rather well and without unexpected soreness. - D/C Information Discharge Comments: Doing well adn will f/u with doctor next week. still missing some big toe extension but functionally is sound. If there are questions or concerns regarding this patient's physical therapy, please feel free to call me at [phone]. Thank you for the referral of this patient. Sincerely, Garth Garcia, DPT, OCS, CSCS
== END 2019-02-25 19:00 | disposition home or self-care (01) ==
LOC: PT 13:30
PROVIDERS: Family Provider Family Medicine Geriatric Medicine; PCP Family Medicine Geriatric Medicine; Referring Provider Podiatrist; Visit Provider Podiatrist
DX: Z98.890 Other specified postprocedural states (principal)
CPT/HCPCS: 97110; 97140; 97162; 97530

== ENCOUNTER → 2019-03-03 07:50 | Outpatient (CLI) | payer MEDICARE, SELFPAY ==
[2019-01-28 14:20] VITALS: BMI 22.1
--- NOTE | 2019-03-03 07:53 | CT_ITS ---
STUDY: CTA CHEST REASON FOR EXAM: Female, 73 years old. Abnormal echo cardiogram. Questionable proximal pulmonary thrombus. Patient has a history of atrial fibrillation and basal cell carcinoma. RADIATION DOSAGE (If Supplied By Facility): CTDIvol = ( 3.74 ) mGy, DLP = ( 155.90 ) mGycm TECHNIQUE: The examination was performed with the intravenous administration of 75mL Isovue-370. Post-processing of the angiographic images was performed, with multiplanar reformation and 3D reconstruction. Individualized dose optimization techniques were used for this CT. COMPARISON: None. FINDINGS: Normal enhancement of the main pulmonary artery and right and left pulmonary arteries. Normal enhancement of the bilateral peripheral pulmonary arteries. There is no demonstrated pulmonary embolism. Normal thoracic aorta and visualized great vessels. There is no demonstrated aortic dissection. Normal heart and pericardium. There are visualized mediastinal lymph nodes, which are within normal size limits, and with normal morphology. Normal hilar regions. Normal visualized trachea and bronchi. The lungs are well expanded. Mild increased markings at the lung bases suggest mild linear atelectasis and/or scarring. Normal pleura. Normal chest wall structures. There are degenerative changes of thoracic spine. Normal visualized upper abdomen. CT/CTA Chest W/WO Contrast IMPRESSION: No evidence of pulmonary embolism. Findings suggestive of linear atelectasis and/or scarring at the lung bases. Electronically Signed: Paulo Gray, at 15:39 EST , Service support ,
[2019-03-03 08:11] LABS: CREATININE FINGERSTICK < 0.6 mg/dL (0.55-1.02); EGFR FINGERSTICK > 60.0000 mL/min (>60)
== END ==
PROVIDERS: Family Provider Family Medicine Geriatric Medicine; PCP Family Medicine Geriatric Medicine; Referring Provider Internal Medicine Cardiovascular Disease; Visit Provider Internal Medicine Cardiovascular Disease
DX: I48.0 Paroxysmal atrial fibrillation (principal); I26.99 Other pulmonary embolism without acute cor pulmonale; I48.92 Unspecified atrial flutter; Z79.01 Long term (current) use of anticoagulants
CPT/HCPCS: 71275; Q9967

== ENCOUNTER → 2019-05-04 11:53 | Outpatient (CLI) | payer MEDICARE, SELFPAY ==
[2019-01-28 14:20] VITALS: BMI 22.1
[2019-05-04 13:05] LABS: Absolute Lymphocyte Count 0.72 X10^3/uL (0.83-4.51); Absolute Neutrophil Count 1.7 X10^3/uL (2.0-7.7); Basophil# 0.01 X10^3/uL; Basophil% 0.3 % (0-1); Eosinophil# 0.05 X10^3/uL; Eosinophils% 1.7 % (0-5); Hematocrit 40.6 % (37-47); Hemoglobin 13.1 g/dL (12.0-15.0); Lymphocyte # 0.72 X10^3/ul (4.0); Lymphocyte % 25.1 % (19-41); Mean Corp Hgb Conc 32.3 g/dL (32-36); Mean Corpuscular Hgb 31.2 pg (27.0-32.0); Mean Corpuscular Volume 96.7 fL (81-99); Mean Platelet Vol. 10.7 fl (6.2-12.0); Monocyte# 0.39 X10^3/uL; Monocyte% 13.6 % (0-10); NRBC Flagged by Analyzer 0 % (0-5); Neutrophil % 59.3 % (47-70); Platelet Count 123 K/mm3 (150-450); RBC Distribution Width CV 13.1 % (11.6-14.6); RBC Distribution Width SD 46.8 fl (35.1-43.9); White Blood Count 2.9 K/mm3 (4.4-11.0)
[2019-05-04 13:25] LABS: ALB/GLOB Ratio 0.9 RATIO (0.9-2.4); AST(SGOT) 39 U/L (15-37); Alanine Aminotransfer ALT/SGPT 36 U/L (13-56); Albumin, Serum 3.5 g/dL (3.2-5.0); Alkaline Phosphatase 59 U/L (45-117); Anion Gap 6 (5-15); BUN 20 mg/dL (7-18); BUN/Creat Ratio 28.7 RATIO (10-20); Calcium,Total 8.7 mg/dL (8.5-10.1); Chloride 109 mmol/L (98-107); EST Glomerular Filtration Rate 88 mL/min (>60); Est Glom Filt Rate - Afr Amer 106 mL/min (>60); Globulin 3.7 g/dL (2.2-4.2); Glucose 85 mg/dL (74-106); Potassium 3.8 mmol/L (3.5-5.1); Protein, Total 7.2 g/dL (6.4-8.2); Sodium Level 142 mmol/L (136-145); Thyroid Stim Hormone (TSH) 0.95 uIU/mL (0.358-3.74); Vitamin D,25 Hydroxy 35.7 ng/mL (29.95-100.01)
== END ==
PROVIDERS: PCP Family Medicine Geriatric Medicine; Visit Provider Family Medicine Geriatric Medicine
DX: E11.9 Type 2 diabetes mellitus without complications (principal); E55.9 Vitamin D deficiency, unspecified
CPT/HCPCS: 36415; 80053; 82306; 84443; 85025

== ENCOUNTER → 2019-09-04 10:58 | Outpatient (CLI) | payer MEDICARE, SELFPAY ==
[2019-09-02 13:07] VITALS: BMI 21.8
[2019-09-04 12:03] LABS: AST(SGOT) 36 U/L (15-37); Alanine Aminotransfer ALT/SGPT 33 U/L (13-56); Albumin, Serum 3.5 g/dL (3.2-5.0); Alkaline Phosphatase 57 U/L (45-117); Bilirubin, Direct 0.13 mg/dL (0.00-0.30); Cholesterol 132 mg/dL (200); Globulin 3.6 g/dL (2.2-4.2); High Density Lipoprotein 71 mg/dL; Protein, Total 7.1 g/dL (6.4-8.2); Triglycerides 37 mg/dL; Very Low Density Lipoprotein 7 mg/dL (5-40)
== END ==
PROVIDERS: PCP Family Medicine Geriatric Medicine; Referring Provider Internal Medicine Cardiovascular Disease; Visit Provider Internal Medicine Cardiovascular Disease
DX: E78.5 Hyperlipidemia, unspecified (principal)
CPT/HCPCS: 36415; 80061; 80076

== ENCOUNTER → 2019-09-27 10:36 | Outpatient (CLI) | payer MEDICARE, SELFPAY ==
[2019-09-02 13:07] VITALS: BMI 21.8
--- NOTE | 2019-09-27 10:39 | STE_ITS ---
Reason For Study: ATRIAL FLUTTER/PALPITATIONS Stress Results Protocol: Shun Protocol Maximum Predicted HR: 148 bpm Target HR: 126 bpm % Maximum Predicted HR: 89 % DurationHeart Rate Stage (mm:ss) (bpm) BP Comment BASELINE 51 120/76 STAGE 1 3:00 97 120/62 STAGE 2 3:00 125 130/64SOB NOTED STAGE 3 1:00 131 / INCREASED SOB RECOVERY 72 120/62 Stress Duration: 7:00 mm:ss Maximum Stress HR: 131 bpm Baseline Echocardiogram Findings The estimated ejection fraction is 65 %. Stress Echo Wall motion Data Resting WM Intermediate WM Stress WM Resting Wall Motion Wall Motion Stress No regional wall motion No regional wall motion abnormalities noted. abnormalities noted. EKG Data The baseline ECG displays normal sinus rhythm. The patient exercised according to the regular Shun protocol for a total duration of 7:00. The maximum heart rate attained was 139 beats per minute. This was 93% of maximum predicted heart rate. The patient exercised into stage 3 of the Shun protocol. During stress, there were no ST or T wave changes noted to suggest ischemia. No clinical angina was noted. Interpretation Summary The estimated ejection fraction is 65 %. Normal, adequate, treadmill echocardiogram. Negative for ischemia by EKG and echocardiographic criteria. No anginal symptoms noted. Rare PVC noted. Appropriate blood pressure response to exercise. Average exercise capacity for age. Test terminated due to target heart rate achieved and dyspnea. Final LVEF is 75%. Patient tolerated procedure well. No complications. Ordering Physician: Ramos Sheridan Referring Physician: Ramos Sheridan Performed By: Thao Crenshaw RDCS, RVT
== END ==
PROVIDERS: PCP Family Medicine Geriatric Medicine; Referring Provider Internal Medicine Cardiovascular Disease; Visit Provider Internal Medicine Cardiovascular Disease
DX: I51.7 Cardiomegaly (principal); I48.92 Unspecified atrial flutter; I26.99 Other pulmonary embolism without acute cor pulmonale; I48.0 Paroxysmal atrial fibrillation; E78.5 Hyperlipidemia, unspecified; R00.2 Palpitations; I49.3 Ventricular premature depolarization; R06.00 Dyspnea, unspecified
CPT/HCPCS: 93017; 93350

== ENCOUNTER → 2019-11-09 12:03 | Outpatient (CLI) | payer MEDICARE, SELFPAY ==
[2019-09-02 13:07] VITALS: BMI 21.8
[2019-11-09 12:28] LABS: Absolute Lymphocyte Count 0.86 X10^3/uL (0.83-4.51); Absolute Neutrophil Count 2.2 X10^3/uL (2.0-7.7); Basophil# 0.01 X10^3/uL; Basophil% 0.3 % (0-1); Eosinophil# 0.06 X10^3/uL; Eosinophils% 1.7 % (0-5); Hematocrit 40.1 % (37-47); Hemoglobin 13.2 g/dL (12.0-15.0); Lymphocyte # 0.86 X10^3/ul (4.0); Lymphocyte % 24.9 % (19-41); Mean Corp Hgb Conc 32.9 g/dL (32-36); Mean Corpuscular Hgb 32.4 pg (27.0-32.0); Mean Corpuscular Volume 98.5 fL (81-99); Mean Platelet Vol. 10.5 fl (6.2-12.0); Monocyte# 0.35 X10^3/uL; Monocyte% 10.1 % (0-10); NRBC Flagged by Analyzer 0 % (0-5); Neutrophil # 2.18 X10^3/uL (2.7-7.7); Platelet Count 139 K/mm3 (150-450); RBC Distribution Width CV 12.8 % (11.6-14.6); RBC Distribution Width SD 46.7 fl (35.1-43.9); Red Blood Count 4.07 M/mm3 (4.2-5.4); White Blood Count 3.5 K/mm3 (4.4-11.0)
[2019-11-09 13:26] LABS: AST(SGOT) 42 U/L (15-37); Alanine Aminotransfer ALT/SGPT 38 U/L (13-56); Albumin, Serum 3.6 g/dL (3.2-5.0); Alkaline Phosphatase 57 U/L (45-117); Anion Gap 4 (5-15); BUN 19 mg/dL (7-18); BUN/Creat Ratio 27.8 RATIO (10-20); Calcium,Total 8.4 mg/dL (8.5-10.1); Chloride 107 mmol/L (98-107); Creatinine, Serum 0.68 mg/dL (0.55-1.02); EST Glomerular Filtration Rate 90 mL/min (>60); Est Glom Filt Rate - Afr Amer 108 mL/min (>60); Globulin 3.5 g/dL (2.2-4.2); Glucose 79 mg/dL (74-106); Potassium 4.1 mmol/L (3.5-5.1); Protein, Total 7.1 g/dL (6.4-8.2); Sodium Level 139 mmol/L (136-145); Thyroid Stim Hormone (TSH) 3.34 uIU/mL (0.358-3.74)
== END ==
PROVIDERS: PCP Family Medicine Geriatric Medicine; Visit Provider Family Medicine Geriatric Medicine
DX: R53.83 Other fatigue (principal); E55.9 Vitamin D deficiency, unspecified
CPT/HCPCS: 36415; 80053; 82306; 84443; 85025

== ENCOUNTER → 2019-12-28 14:52 | Outpatient (CLI) | payer MEDICARE, SELFPAY ==
[2019-09-02 13:07] VITALS: BMI 21.8
--- NOTE | 2019-12-28 14:59 | RAD_ITS ---
STUDY: X-RAY - ABDOMEN/PELVIS REASON FOR EXAM: Female, 74 years old. Diarrhea TECHNIQUE: Two AP supine views of the abdomen and pelvis. COMPARISON: None. FINDINGS: There is no bowel obstruction. There is a large amount of stool in the colon, consistent with constipation. The visualized osseous structures are within normal limits. RAD/Abdomen Single View IMPRESSION: No bowel obstruction. Constipation. Electronically Signed: Andrew Ritchie, at 16:32 EDT Tel , Service support ,
[2019-12-28 15:10] LABS: Absolute Lymphocyte Count 0.74 X10^3/uL (0.83-4.51); Absolute Neutrophil Count 4.2 X10^3/uL (2.0-7.7); Basophil# 0.02 X10^3/uL; Basophil% 0.4 % (0-1); Eosinophil# 0.08 X10^3/uL; Eosinophils% 1.4 % (0-5); Hematocrit 41.8 % (37-47); Hemoglobin 13.6 g/dL (12.0-15.0); Lymphocyte # 0.74 X10^3/ul (4.0); Lymphocyte % 13.2 % (19-41); Mean Corp Hgb Conc 32.5 g/dL (32-36); Mean Corpuscular Hgb 32.4 pg (27.0-32.0); Mean Corpuscular Volume 99.5 fL (81-99); Mean Platelet Vol. 10.9 fl (6.2-12.0); Monocyte% 10.7 % (0-10); NRBC Flagged by Analyzer 0 % (0-5); Neutrophil # 4.16 X10^3/uL (2.7-7.7); Neutrophil % 74.1 % (47-70); Platelet Count 157 K/mm3 (150-450); RBC Distribution Width CV 13.2 % (11.6-14.6); RBC Distribution Width SD 48.3 fl (35.1-43.9); White Blood Count 5.6 K/mm3 (4.4-11.0)
[2019-12-28 15:26] LABS: ALB/GLOB Ratio 0.9 RATIO (0.9-2.4); AST(SGOT) 34 U/L (15-37); Alanine Aminotransfer ALT/SGPT 30 U/L (13-56); Albumin, Serum 3.6 g/dL (3.2-5.0); Alkaline Phosphatase 69 U/L (45-117); Anion Gap 3 (5-15); BUN 26 mg/dL (7-18); BUN/Creat Ratio 30.2 RATIO (10-20); Calcium,Total 8.8 mg/dL (8.5-10.1); Chloride 108 mmol/L (98-107); Creatinine, Serum 0.86 mg/dL (0.55-1.02); EST Glomerular Filtration Rate 69 mL/min (>60); Est Glom Filt Rate - Afr Amer 83 mL/min (>60); Globulin 3.8 g/dL (2.2-4.2); Glucose 109 mg/dL (74-106); Protein, Total 7.4 g/dL (6.4-8.2); Sodium Level 139 mmol/L (136-145)
== END ==
LOC: POLAB3 14:53 → RAD 14:58
PROVIDERS: PCP Family Medicine Geriatric Medicine; Referring Provider Family Medicine Geriatric Medicine; Visit Provider Family Medicine Geriatric Medicine
DX: R19.7 Diarrhea, unspecified (principal); N39.0 Urinary tract infection, site not specified
CPT/HCPCS: 36415; 74018; 80053; 85025; 87086; 87088

== ENCOUNTER → 2020-05-09 14:10 | Outpatient (CLI) | payer MEDICARE, SELFPAY ==
[2020-04-10 13:47] VITALS: BMI 23.6
[2020-05-09 14:30] LABS: Absolute Lymphocyte Count 0.69 X10^3/uL (0.83-4.51); Absolute Neutrophil Count 3.8 X10^3/uL (2.0-7.7); Eosinophil# 0.04 X10^3/uL; Eosinophils% 0.8 % (0-5); Hematocrit 39.4 % (37-47); Hemoglobin 12.9 g/dL (12.0-15.0); Lymphocyte # 0.69 X10^3/ul (4.0); Lymphocyte % 14.1 % (19-41); Mean Corp Hgb Conc 32.7 g/dL (32-36); Mean Corpuscular Hgb 32.2 pg (27.0-32.0); Mean Corpuscular Volume 98.3 fL (81-99); Mean Platelet Vol. 9.9 fl (6.2-12.0); Monocyte# 0.34 X10^3/uL; NRBC Flagged by Analyzer 0 % (0-5); Neutrophil % 77.9 % (47-70); Platelet Count 157 K/mm3 (150-450); RBC Distribution Width CV 13.2 % (11.6-14.6); RBC Distribution Width SD 47.8 fl (35.1-43.9); Red Blood Count 4.01 M/mm3 (4.2-5.4); White Blood Count 4.9 K/mm3 (4.4-11.0)
[2020-05-09 15:03] LABS: ALB/GLOB Ratio 1.1 RATIO (0.9-2.4); AST(SGOT) 36 U/L (15-37); Alanine Aminotransfer ALT/SGPT 36 U/L (13-56); Albumin, Serum 3.7 g/dL (3.2-5.0); Alkaline Phosphatase 56 U/L (45-117); Anion Gap 5 (5-15); BUN 22 mg/dL (7-18); BUN/Creat Ratio 29.5 RATIO (10-20); Calcium,Total 8.9 mg/dL (8.5-10.1); Chloride 107 mmol/L (98-107); Creatinine, Serum 0.75 mg/dL (0.55-1.02); EST Glomerular Filtration Rate 81 mL/min (>60); Est Glom Filt Rate - Afr Amer 98 mL/min (>60); Globulin 3.5 g/dL (2.2-4.2); Glucose 80 mg/dL (74-106); Potassium 3.9 mmol/L (3.5-5.1); Protein, Total 7.2 g/dL (6.4-8.2); Sodium Level 140 mmol/L (136-145); Thyroid Stim Hormone (TSH) 0.88 uIU/mL (0.358-3.74)
== END ==
PROVIDERS: PCP Family Medicine Geriatric Medicine; Referring Provider Family Medicine Geriatric Medicine; Visit Provider Family Medicine Geriatric Medicine
DX: E11.9 Type 2 diabetes mellitus without complications (principal); E55.9 Vitamin D deficiency, unspecified
CPT/HCPCS: 36415; 80053; 82306; 84443; 85025

== ENCOUNTER → 2020-07-24 10:31 | Outpatient (CLI) | payer MEDICARE, SELFPAY ==
[2020-04-10 13:47] VITALS: BMI 23.6
--- NOTE | 2020-07-24 10:33 | VDLE_ITS ---
Reason For Study: EDEMA RIGHT LEFT CFV is compressible, spontaneous, phasic, GSV is normal. competent and demonstrates normal CFV is compressible, spontaneous, phasic, augmentation. competent, and demonstrates normal Procedure augmentation. This is a venous duplex using B-mode, color FV is compressible, spontaneous, phasic, flow and spectral Doppler. competent and demonstrates normal Exam performed in department. augmentation. A preliminary report was called and/or faxed POP V is compressible, spontaneous, phasic, to Dr. Apodaca @ 11 am. and demonstrates reflux > 1.0 seconds. T/P Trunk is compressible. PTV is compressible. LT PerV is compressible. VL/Venous Duplex US, Unilateral Interpretation Summary There is no evidence of left lower extremity deep vein thrombosis. Left great s aphenous vein appears patent and compressible segmentally. Incompetent left popliteal vein Patent and compressible right common femoral vein Ordering Physician: Neil Apodaca Referring Physician: Neil Apodaca Chi Performed By: Thao Crenshaw, ELAINE, RVT
--- NOTE | 2020-07-24 10:55 | RAD_ITS ---
STUDY: X-RAY - LEFT KNEE REASON FOR EXAM: Female, 74 years old. KNEE PAIN TECHNIQUE: 4 view(s) of the knee. COMPARISON: None. FINDINGS: No acute fracture, dislocation or osseous destruction. Moderate lateral compartment arthrosis. Minimal medial compartment arthrosis. Normal patellofemoral spacing. Mild soft tissue swelling. Small joint effusion. Chondrocalcinosis. RAD/Knee 4 or More Views IMPRESSION: Left knee intact Degenerative changes, as about Small joint effusion with mild soft tissue swelling Electronically Signed: Garth Ma DO at 11:10 EDT Tel , Service support ,
== END ==
PROVIDERS: PCP Family Medicine Geriatric Medicine; Referring Provider Family Medicine Geriatric Medicine; Visit Provider Family Medicine Geriatric Medicine
DX: R60.0 Localized edema (principal); M17.12 Unilateral primary osteoarthritis, left knee
CPT/HCPCS: 73564; 93971

== ENCOUNTER → 2020-08-22 10:09 | Outpatient (CLI) | payer MEDICARE, SELFPAY ==
[2020-04-10 13:47] VITALS: BMI 23.6
--- NOTE | 2020-08-22 10:45 | MRI_ITS ---
STUDY: MRI LEFT KNEE REASON FOR EXAM: Left knee joint pain, posterior swelling for several months. TECHNIQUE: Standardized fat and water weighted pulse sequences were obtained in all 3 orthogonal planes. COMPARISON: Radiographs 07/24/2020. FINDINGS: There is a small radial tear at the root of the posterior horn of the medial meniscus (T2 coronal image 12) and a very small vertical tear of the inferior articular surface of the posterior horn of the medial meniscus (proton-density sagittal image 10). There is mild arthrosis of the medial femorotibial compartment with mild partial-thickness chondral loss of the medial femoral condyle (T2 sagittal image 8). There is slight subchondral bone edema of the lateral tibial plateau, a stress phenomenon. Normal medial collateral ligamentous complex (MCL). Normal distal semimembranosus, gracilis and semitendinosus tendons. Normal lateral meniscus. Normal hyaline cartilage of the lateral femorotibial compartment. Normal lateral femoral condyle and tibial plateau. Normal proximal tibiofibular articulation. Normal lateral collateral (fibular) ligament. Normal popliteus tendon. Normal biceps femoris tendon. Normal anterior cruciate ligament (ACL). Normal posterior cruciate ligament (PCL). Normal congruent patellofemoral articulation. There is low-grade chondromalacia of the lateral patellar facet (T2 axial image 11). Normal medial and lateral patellar retinaculum. There is mild tendinosis of the distal quadriceps and proximal patellar tendons (T2 sagittal images 12-14). Normal Hoffa''s fat pad. There is a [id number] sized joint effusion. There is no popliteal cyst. There is mild edema in the anterior subcutis adipose space. The otherwise visualized osseous structures are unremarkable. MRI/Lower Ext Joint Only (Routine) IMPRESSION: Small medial meniscal tears. Mild arthrosis of the medial femorotibial compartment. Low-grade chondromalacia patellae. Mild tendinosis of the distal quadriceps and proximal patellar tendons. Joint effusion. Electronically Signed: Jesu Cornejo MD at 8:28 EDT Tel , Service support ,
== END ==
PROVIDERS: PCP Family Medicine Geriatric Medicine; Referring Provider Family Medicine Geriatric Medicine; Visit Provider Family Medicine Geriatric Medicine
DX: M17.12 Unilateral primary osteoarthritis, left knee (principal)
CPT/HCPCS: 73721

== ENCOUNTER → 2020-11-09 09:56 | Outpatient (CLI) | payer MEDICARE, SELFPAY ==
[2020-11-09 12:26] LABS: Absolute Lymphocyte Count 0.62 X10^3/uL (0.83-4.51); Absolute Neutrophil Count 2.2 X10^3/uL (2.0-7.7); Basophil# 0.02 X10^3/uL; Basophil% 0.6 % (0-1); Eosinophil# 0.07 X10^3/uL; Eosinophils% 2.1 % (0-5); Hemoglobin 12.3 g/dL (12.0-15.0); Lymphocyte # 0.62 X10^3/ul (0.83-4.51); Lymphocyte % 18.7 % (19-41); Mean Corp Hgb Conc 32.4 g/dL (32-36); Mean Corpuscular Hgb 32.4 pg (27.0-32.0); Mean Platelet Vol. 11.2 fl (6.2-12.0); Monocyte# 0.41 X10^3/uL; Monocyte% 12.3 % (0-10); NRBC Flagged by Analyzer 0 % (0-5); Neutrophil # 2.19 X10^3/uL (2.7-7.7); Platelet Count 142 K/mm3 (150-450); RBC Distribution Width SD 47.8 fl (35.1-43.9); White Blood Count 3.3 K/mm3 (4.4-11.0)
[2020-11-09 12:47] LABS: Vitamin D,25 Hydroxy 58.4 ng/mL
[2020-11-09 12:51] LABS: AST(SGOT) 32 U/L (15-37); Alanine Aminotransfer ALT/SGPT 32 U/L (13-56); Albumin, Serum 3.5 g/dL (3.2-5.0); Alkaline Phosphatase 50 U/L (45-117); Anion Gap 4 (5-15); BUN 17 mg/dL (7-18); BUN/Creat Ratio 29.8 RATIO (10-20); Calcium,Total 8.5 mg/dL (8.5-10.1); Chloride 108 mmol/L (98-107); Creatinine, Serum 0.57 mg/dL (0.55-1.02); EST Glomerular Filtration Rate 110 mL/min (>60); Est Glom Filt Rate - Afr Amer 133 mL/min (>60); Globulin 3.4 g/dL (2.2-4.2); Glucose 84 mg/dL (74-106); Protein, Total 6.9 g/dL (6.4-8.2); Sodium Level 141 mmol/L (136-145); Thyroid Stim Hormone (TSH) 1.01 uIU/mL (0.358-3.74)
== END ==
PROVIDERS: PCP Family Medicine Geriatric Medicine; Visit Provider Family Medicine Geriatric Medicine
DX: E55.9 Vitamin D deficiency, unspecified (principal); R53.83 Other fatigue
CPT/HCPCS: 36415; 80053; 82306; 84443; 85025

== ENCOUNTER 2020-11-13 13:00 | Outpatient (RCR) | payer MEDICARE, SELFPAY ==
[2020-08-30 13:37] VITALS: BMI 22.8
--- NOTE | 2020-09-27 13:56 | HP.PTEVAL_ITS ---
Patient's Visit Information RADHA ALEMAN is a 74 year old F referred to Physical Therapy by Dr. Hussein Burr MD with a diagnosis of UNILATERAL PRIMARY OA,AND MEDIAL MENISCUS TEAR ,LEFT KNEE,PAIN R- SHOULDER. Date of Evaluation: 09/27/20 Physical Therapist: Renan Saavedra, PT, Cert MDT, OCS - Visit Plan Frequency: 1-2x /Week Duration: 2-4 Weeks Plan: PT INTERVETIONS RTC/SCAPULAR STRENGTHENING,POSTURAL EX'S,QUADS/HAMS/HIP STRENGTEHNING AND FUNCTION STRENGTHENING - Subjective This 74 y/o female presents to physical therapy with left knee and right shoulder pain. Patient has had knee pain in May no mechanism of injury . Initially seen family DR did cortisone injections ,didn't' get better recommended to DR Burr. Although , knee is better in August . Patient had MRI knee showed small meniscus tear.Aggravating factors initial symptoms difficulty with squatting ,kneeling and stairs. Alleviating factors rest. Had MRI showed mild tear. But pain is better. Pain in shoulder many years . Aggravating factors lifting OH and reaching. Alleviating factors rest. Denies paresthesia/tingling. Pain located anterior shoulder. Described as ache . Patient symptoms can affects sleep. Patient initially had swelling in knee. Patient symptoms knee and back affects QOL and function with housework tasks. Patient goal to get stronger and decrease knee pain. SOCIAL: . VOCATION: RETIRED - Pain Right Shoulder Pain Intensity (Out of 10): 2 Pain Intensity Range: 10 Comment: MOVEMENTS - Objective POSTURE: mild forward posture, round heads mild/mod thoracic posture. GAIT: reciprocal pattern ,. NEURO: denies paresthesia/tingling ,reflexes intact. PALPATION: UNREMRAKABLE. EDEMA: absent. AROM: supine knee flexion 0-140 degrees. FLEXABLITY: hams mild tight. MMT: QUADS/HAMS 4/5,HIP FLEXION ,HIP ABD,HIP ADD,ER/R 4-/5. AROM SHOULDER: flexion/abduction 150 degrees ,ER 90 degrees 90 ,IR T10. MMT: RTC 4/5 ,deltoid strength 4-/5,scapular 4-/5 - Special Tests L Knee Danie - Meniscus: Negative L Knee Apley - Meniscus: Negative L Knee Disco Test - Meniscus: Negative L Knee Fauzia - ACL: Negative L Knee Anterior Drawer - ACL: Negative L Knee Valgus - MCL: Negative L Knee Varus - LCL: Negative L Knee Patellar Apprehension - PFS: Negative L Knee Patellar Grind - PFS: Negative R Shoulder External Rotation Lag Test - RC Tear: Negative R Shoulder Supine Impingement Test - RC Tear: Negative R Shoulder Lift Off Test - Subscapular Tear: Negative R Shoulder Neer - Impingement: Negative R Shoulder Marley José - Impingement: Negative R Shoulder Speeds Test - Labrum/Biceps: Negative R Shoulder AC Resisted - AC: Negative R Shoulder Shrug Sign - OA/Adhesive Capsulitis: Negative - Goals Goal 1:: I with HEP Goal Time Frame: 2-4 Weeks Goal 2:: pain with left knee and right shoulder by 75% or> to improve function and ADL'S Goal Time Frame: 2-4 Weeks Goal 3:: Patient improve IADL'S and function with gait and stairs with min limitations Goal Time Frame: 2-4 Weeks Goal 4:: Patient to improve LFES score by 5 points > to improve QOL Goal Time Frame: 2-4 Weeks - Rehabilitation Potential Physical Therapy Diagnosis: Patient had knee pain with mild meniscus tear with pain and weakness, along with right shoulder pain with tendonitis thus impairs function and ADLS' Rehabilitation Potential: Good - Anticipated Interventions Patient/Client Instruction: Educate patient on: Condition, Plan of Care For the Purpose of:: To decrease pain, To increase ROM, To improve muscle performance and motor function, To improve ability to perform ADL's, To increase tolerance to activity/condition/position, To improve performance and independence with ADL's, To improve ability of physical actions for home/community/work/leisure, To decrease soft tissue restriction, To increase flexibility/ROM, To assume or resume ADL's, To reduce risk of recurrence, To improve tolerance to ADL's Therapeutic Exercise to Include: Strength training, Endurance training, Postural training, Active ROM, Scapular Strength/Stabilization Comment: QUAD/HAMS,. RTC For the Purpose of:: To decrease pain, To increase ROM, To increase oxygenation perfusion, To improve ability to perform ADL's, To increase tolerance to activity/condition/position, To improve performance and independence with ADL's, To improve ability of physical actions for home/community/work/leisure, To improve gait and locomotor functions, To improve health of tissue, To decrease soft tissue restriction, To increase flexibility/ROM, To assume or resume ADL's, To reduce risk of recurrence, To improve ability to perform tasks related to life management Thank you for the opportunity to evaluate your patient. For Medicare and Medicare HMO plans, please review the plan of care and approve it. It will need to be FAXED BACK to us at [phone] for Medicare purposes. For Medicare only, by signing this I certify the plan of care. Please let me know if there are questions or concerns regarding this plan of care. Physician Signature: Date:
--- NOTE | 2020-11-13 13:41 | HP.PTDCSUM ---
It has been my pleasure to treat RADHA ALEMAN referred by Dr. Hussein Burr MD, with the diagnosis of UNILATERAL PRIMARY OA,AND MEDIAL MENISCUS TEAR ,LEFT KNEE,PAIN R- SHOULDER for a total of 4 visit(s). Discharge Date: Please see the following information for a summary of their discharge status. Subjective: Doing well no pain . Ready for d/c have been exercises om own Right Shoulder Pain Intensity (Out of 10): 0 % Improvement: 90 Objective/Function: GAIT : NORMAL. AROM:0-135 DEGREES. MMT: QUADS/HAMS 5/5,RTC 4/5,DELTOID 4/5. AROM SHOULDER WNL Goal 1:: I with HEP Goal Progress: Goal Met Goal 2:: pain with left knee and right shoulder by 75% or> to improve function and ADL'S Goal 3:: Patient improve IADL'S and function with gait and stairs with min limitations Goal Progress: Goal Met Goal 4:: Patient to improve LFES score by 5 points > to improve QOL Goal Progress: Goal Met Plan: D/C TO HEP If there are questions or concerns regarding this patient's physical therapy, please feel free to call me at [phone]. Thank you for the referral of this patient. Sincerely, Renan Saavedra, PT, Cert MDT, OCS Balance/Gait/Functional tests - Balance/Special Test Scores Lower Extremity Functional Score: 71
== END 2020-11-13 19:00 | disposition home or self-care (01) ==
LOC: PT 13:00
PROVIDERS: PCP Family Medicine Geriatric Medicine; Referring Provider Orthopaedic Surgery; Visit Provider Orthopaedic Surgery
DX: S83.242D Other tear of medial meniscus, current injury, left knee, subsequent encounter (principal); M17.12 Unilateral primary osteoarthritis, left knee; M25.511 Pain in right shoulder
CPT/HCPCS: 97110; 97162

== ENCOUNTER → 2020-12-04 13:31 | Outpatient (CLI) | payer MEDICARE, SELFPAY ==
--- NOTE | 2020-12-04 13:32 | BI_ITS ---
MAMMOGRAPHY - BILATERAL SCREENING REASON FOR EXAM: Female, 75 years old. Routine annual screening examination. PERTINENT HISTORY: Non-contributory. Remote left excisional breast biopsy. TECHNIQUE: Digital bilateral breast troy (3D mammographic acquisition) in the CC and MLO projections. 2-D mediolateral oblique (MLO) and craniocaudad (CC) views of both breasts were obtained. CAD: Full Field Digital Mammography with Computer Added Detection was performed. COMPARISON: Comparison is made with prior study dated 08/25/2018 and 03/28/2016. FINDINGS: Breast Composition: The breasts are heterogeneously dense, which may obscure small masses. There are no dominant masses or suspicious calcifications. Stable focal area of architectural distortion in the upper mid aspect of the left breast suggestive of prior biopsy. No other significant abnormalities are identified. There has been no significant change since the prior study. BI/SCRN MAMM (CAD)W/TROY BILAT IMPRESSION: Stable bilateral screening mammogram. Yearly follow-up mammogram recommended. (A) ASSESSMENT CATEGORY: BIRADS Category 2: Benign. A letter regarding these results will be sent to the patient by the facility within 30 days. Approximately 10% of breast cancers are not detected by mammography. A normal mammogram should not delay biopsy of a clinically suspicious abnormality. [id number] Electronically Signed: Paulo Gray MD at 14:29 EDT , Service support ,
== END ==
PROVIDERS: PCP Family Medicine Geriatric Medicine; Visit Provider Family Medicine Geriatric Medicine
DX: Z12.31 Encounter for screening mammogram for malignant neoplasm of breast (principal)
CPT/HCPCS: 77063; 77067

== ENCOUNTER → 2021-01-30 17:21 | Outpatient (CLI) | payer MEDICARE, SELFPAY ==
--- NOTE | 2021-01-30 17:45 | RAD_ITS ---
STUDY: X-RAY - ABDOMEN/PELVIS REASON FOR EXAM: Female, 75 years old. ABD PAIN TECHNIQUE: AP supine and upright views of the abdomen and pelvis. COMPARISON: None. FINDINGS: Normal visualized lung bases. There is an unremarkable bowel gas pattern. There is no demonstrated free abdominal air. The visualized liver, spleen and kidneys are grossly normal in size and morphology. Normal soft tissue structures. Normal visualized osseous structures. RAD/Abd Inc Decub and/or Erect IMPRESSION: Normal x-ray examination of the abdomen and pelvis. Electronically Signed: Clay Carbone MD at 17:06 EST Tel , Service support ,
== END ==
PROVIDERS: PCP Family Medicine Geriatric Medicine; Referring Provider Family Medicine Geriatric Medicine; Visit Provider Family Medicine Geriatric Medicine
DX: R10.9 Unspecified abdominal pain (principal)
CPT/HCPCS: 74019

== ENCOUNTER 2021-05-10 11:20 | Outpatient (CLI) | payer MEDICARE, SELFPAY ==
[2021-05-10 12:37] LABS: Absolute Lymphocyte Count 0.75 X10^3/uL (0.83-4.51); Basophil# 0.01 X10^3/uL; Basophil% 0.3 % (0-1); Eosinophil# 0.04 X10^3/uL; Eosinophils% 1.3 % (0-5); Hematocrit 38.2 % (37-47); Hemoglobin 12.6 g/dL (12.0-15.0); Lymphocyte # 0.75 X10^3/ul (0.83-4.51); Lymphocyte % 23.7 % (19-41); Mean Platelet Vol. 11.1 fl (6.2-12.0); Monocyte% 12.7 % (0-10); NRBC Flagged by Analyzer 0 % (0-5); Neutrophil # 1.96 X10^3/uL (2.7-7.7); Platelet Count 150 K/mm3 (150-450); RBC Distribution Width CV 13.3 % (11.6-14.6); RBC Distribution Width SD 47.8 fl (35.1-43.9); Red Blood Count 3.94 M/mm3 (4.2-5.4); White Blood Count 3.2 K/mm3 (4.4-11.0)
[2021-05-10 13:00] LABS: AST(SGOT) 34 U/L (15-37); Alanine Aminotransfer ALT/SGPT 29 U/L (13-56); Albumin, Serum 3.4 g/dL (3.2-5.0); Alkaline Phosphatase 65 U/L (45-117); Anion Gap 5 (5-15); BUN 23 mg/dL (7-18); Calcium,Total 8.5 mg/dL (8.5-10.1); Chloride 107 mmol/L (98-107); Creatinine, Serum 0.66 mg/dL (0.55-1.02); EST Glomerular Filtration Rate 93 mL/min (>60); Est Glom Filt Rate - Afr Amer 113 mL/min (>60); Globulin 3.4 g/dL (2.2-4.2); Glucose 79 mg/dL (74-106); Protein, Total 6.8 g/dL (6.4-8.2); Sodium Level 138 mmol/L (136-145); Thyroid Stim Hormone (TSH) 1.53 uIU/mL (0.358-3.74)
[2021-05-10 13:15] LABS: Vitamin D,25 Hydroxy 48.5 ng/mL
== END 2021-05-10 23:59 | disposition home or self-care (01) ==
LOC: POLAB3 11:22
PROVIDERS: PCP Family Medicine Geriatric Medicine; Visit Provider Family Medicine Geriatric Medicine
DX: E55.9 Vitamin D deficiency, unspecified (principal); R53.83 Other fatigue
CPT/HCPCS: 36415; 80053; 82306; 84443; 85025

== ENCOUNTER → 2021-10-16 | Outpatient (CLI) | payer MEDICARE, SELFPAY ==
[2021-10-16 16:25] LABS: Absolute Lymphocyte Count 0.83 X10^3/uL (0.83-4.51); Basophil# 0.01 X10^3/uL; Basophil% 0.3 % (0-1); Eosinophil# 0.06 X10^3/uL; Eosinophils% 1.8 % (0-5); Hemoglobin 12.9 g/dL (12.0-15.0); Lymphocyte # 0.83 X10^3/ul (0.83-4.51); Lymphocyte % 25.2 % (19-41); Mean Corp Hgb Conc 33.1 g/dL (32-36); Mean Corpuscular Hgb 32.5 pg (27.0-32.0); Mean Corpuscular Volume 98.2 fL (81-99); Mean Platelet Vol. 10.8 fl (6.2-12.0); Monocyte# 0.37 X10^3/uL; Monocyte% 11.2 % (0-10); NRBC Flagged by Analyzer 0 % (0-5); Neutrophil # 2.01 X10^3/uL (2.7-7.7); Neutrophil % 61.2 % (47-70); Platelet Count 156 K/mm3 (150-450); RBC Distribution Width CV 13.2 % (11.6-14.6); RBC Distribution Width SD 47.5 fl (35.1-43.9); Red Blood Count 3.97 M/mm3 (4.2-5.4); White Blood Count 3.3 K/mm3 (4.4-11.0)
[2021-10-16 16:52] LABS: Anion Gap 5 (5-15); BUN 19 mg/dL (7-18); Calcium,Total 8.9 mg/dL (8.5-10.1); Chloride 108 mmol/L (98-107); Creatinine, Serum 0.63 mg/dL (0.55-1.02); EST Glomerular Filtration Rate 97 mL/min (>60); Est Glom Filt Rate - Afr Amer 118 mL/min (>60); Glucose 97 mg/dL (74-106); Potassium 4.1 mmol/L (3.5-5.1); Sodium Level 140 mmol/L (136-145)
== END | disposition home or self-care (01) ==
LOC: POLAB3 14:41
PROVIDERS: PCP Family Medicine Geriatric Medicine; Visit Provider Family Medicine Geriatric Medicine
DX: R42 Dizziness and giddiness (principal)
CPT/HCPCS: 36415; 80048; 85025

== ENCOUNTER → 2021-11-15 | Outpatient (CLI) | payer MEDICARE, SELFPAY ==
[2021-11-15 12:22] LABS: Absolute Lymphocyte Count 0.76 X10^3/uL (0.83-4.51); Absolute Neutrophil Count 2.6 X10^3/uL (2.0-7.7); Basophil# 0.01 X10^3/uL; Basophil% 0.3 % (0-1); Eosinophil# 0.07 X10^3/uL; Eosinophils% 1.9 % (0-5); Hematocrit 38.7 % (37-47); Hemoglobin 12.6 g/dL (12.0-15.0); Lymphocyte # 0.76 X10^3/ul (0.83-4.51); Lymphocyte % 20.1 % (19-41); Mean Corp Hgb Conc 32.6 g/dL (32-36); Mean Corpuscular Volume 98.2 fL (81-99); Mean Platelet Vol. 10.6 fl (6.2-12.0); Monocyte# 0.38 X10^3/uL; Monocyte% 10.1 % (0-10); NRBC Flagged by Analyzer 0 % (0-5); Neutrophil # 2.55 X10^3/uL (2.7-7.7); Neutrophil % 67.3 % (47-70); Platelet Count 154 K/mm3 (150-450); RBC Distribution Width CV 13.1 % (11.6-14.6); RBC Distribution Width SD 46.9 fl (35.1-43.9); Red Blood Count 3.94 M/mm3 (4.2-5.4); White Blood Count 3.8 K/mm3 (4.4-11.0)
[2021-11-15 12:51] LABS: AST(SGOT) 37 U/L (15-37); Alanine Aminotransfer ALT/SGPT 26 U/L (13-56); Albumin, Serum 3.4 g/dL (3.2-5.0); Alkaline Phosphatase 65 U/L (45-117); Anion Gap 6 (5-15); BUN 20 mg/dL (7-18); BUN/Creat Ratio 27.1 RATIO (10-20); Calcium,Total 8.6 mg/dL (8.5-10.1); Chloride 108 mmol/L (98-107); Creatinine, Serum 0.74 mg/dL (0.55-1.02); EST Glomerular Filtration Rate 81 mL/min (>60); Est Glom Filt Rate - Afr Amer 99 mL/min (>60); Globulin 3.3 g/dL (2.2-4.2); Glucose 107 mg/dL (74-106); Potassium 4.4 mmol/L (3.5-5.1); Protein, Total 6.7 g/dL (6.4-8.2); Sodium Level 141 mmol/L (136-145); Thyroid Stim Hormone (TSH) 1.44 uIU/mL (0.358-3.74)
== END | disposition home or self-care (01) ==
LOC: POLAB3 09:30
PROVIDERS: PCP Family Medicine Geriatric Medicine; Visit Provider Family Medicine Geriatric Medicine
DX: E55.9 Vitamin D deficiency, unspecified (principal); R53.83 Other fatigue
CPT/HCPCS: 36415; 80053; 82306; 84443; 85025

== ENCOUNTER → 2021-12-18 | Outpatient (CLI) | payer MEDICARE, SELFPAY ==
--- NOTE | 2021-12-18 16:19 | RAD_ITS ---
STUDY: X-RAY - PELVIS AND LEFT HIP REASON FOR EXAM: Female, 76 years old. HIP PAIN TECHNIQUE: 3 views of the pelvis and hip. COMPARISON: None. FINDINGS: There is a non-specific bowel gas pattern. Normal visualized soft tissue structures. Normal bilateral iliac wings, sacroiliac joints and visualized sacrum. Normal bilateral superior and inferior pubic rami. Normal pubic symphysis. Normal bilateral ischial tuberosities. There are osteoarthritic changes of the femoral head with marginal osteophyte formation. There is cortical sclerosis with sub-cortical cyst formation of the acetabulum. There is mild articular joint space narrowing of the hip. RAD/HIP, UNI W/ Pelvis 2-3 Views IMPRESSION: Mild arthrosis. Electronically Signed: Clay Carbone MD at 16:58 EDT ,
--- NOTE | 2021-12-18 16:38 | RAD_ITS ---
STUDY: X-RAY - LUMBAR SPINE REASON FOR EXAM: Female, 76 years old. LOW BACK PAIN TECHNIQUE: 3 view(s) of the lumbar spine were obtained. COMPARISON: 02/03/2013 FINDINGS: Normal lumbar lordosis. There is no substantial scoliosis. There is a normal alignment of the vertebrae. There is multilevel endplate spondylosis of the lumbar vertebrae. There is multi-level degenerative disc disease with multi-level disc space narrowing. Facet hypertrophy in the lower lumbar spine. The soft tissue structures are unremarkable. RAD/Lumbar Spine 2 or 3 Views IMPRESSION: Degenerative changes of the spine, as detailed above. MRI may be useful. Electronically Signed: Clay Carbone MD at 16:57 EDT ,
== END | disposition home or self-care (01) ==
LOC: RAD 16:18
PROVIDERS: PCP Family Medicine Geriatric Medicine; Referring Provider Family Medicine Geriatric Medicine; Visit Provider Family Medicine Geriatric Medicine
DX: M54.50 Low back pain, unspecified (principal); M16.12 Unilateral primary osteoarthritis, left hip
CPT/HCPCS: 72100; 73502

== ENCOUNTER → 2022-04-11 | Outpatient (CLI) | payer MEDICARE, SELFPAY ==
--- NOTE | 2022-04-11 14:06 | ECHOD_ITS ---
Reason For Study: MURMUR Procedure This was a 2D Doppler, Color Flow transthoracic echocardiogram. The exam was of adequate technical quality. Exam performed in department. Left Ventricle Normal LV size. Left ventricular systolic function is normal. The estimated ejection fraction is 70 %. No evidence for diastolic dysfunction. No regional wall motion abnormalities noted. Right Ventricle Normal RV size. Normal systolic function. Atria Normal left atrium. Normal right atrium. No doppler evidence for ASD. Mitral Valve There is no mitral annular calcification. Normal mitral valve. Mild (1+) mitral valve insufficiency. Tricuspid Valve Normal tricuspid valve. Mild eccentric tricuspid valve insufficiency. Right ventricular systolic pressure estimated to be 28 mmHg. Aortic Valve Trisinus/trileaflet aortic valve. Normal aortic valve. Pulmonic Valve The pulmonic valve is not well visualized. Great Vessels Normal sized aortic root. Pericardium/Pleural Trivial pericardial effusion. There are no echocardiographic indications of cardiac tamponade. MMode/2D Measurements & Calculations LVIDd: 4.1 cm IVSd: 1.1 cm Ao root diam: 3.5 cm LVIDs: 3.0 cm LVPWd: 1.1 cm RVDd: 3.1 cm FS: 27.2 % LAV(MOD-bp): 48.2 ml LVAd ap4: 25.7 cm2 LVAd ap2: 27.3 cm2 LAV(MOD-bp) Indexed: 27.5 ml/m2 LVLd ap4: 7.0 cm LVLd ap2: 7.3 cm LAV(MOD-sp2): 53.4 ml EDV(MOD-sp4): 75.5 ml EDV(MOD-sp2): 84.8 ml LAV(MOD-sp4): 42.4 ml EDV(sp4-el): 79.7 ml EDV(sp2-el): 87.2 ml LVAs ap4: 12.7 cm2 LVAs ap2: 12.4 cm2 LVLs ap4: 5.6 cm LVLs ap2: 5.8 cm ESV(MOD-sp4): 25.0 ml ESV(MOD-sp2): 22.8 ml ESV(sp4-el): 24.6 ml ESV(sp2-el): 22.5 ml EF(MOD-sp4): 66.9 % EF(MOD-sp2): 73.1 % EF(sp4-el): 69.1 % SV(MOD-sp4): 50.5 ml SV(MOD-sp2): 62.0 ml SV(sp4-el): 55.1 ml LA dimension(2D): 4.2 cm LA A4 area: 16.0 cm2 RA A4 area: 20.2 cm2 Time Measurements MV dec time: 0.21 sec Doppler Measurements & Calculations MV E max ty: 80.7 cm/sec Lat Peak E' Ty: 9.4 cm/sec Med Peak E' Ty: 7.3 cm/sec MV A max ty: 95.8 cm/sec E/E' lat: 8.6 E/E' med: 11.1 MV E/A: 0.84 MV dec slope: 379.4 cm/sec2 Ao V2 max: 159.1 cm/sec LV V1 max: 144.1 cm/sec Ao max P.1 mmHg LV V1 max P.3 mmHg Ao V2 mean: 116.2 cm/sec LV V1 mean P.3 mmHg Ao mean P.1 mmHg LV V1 mean: 96.7 cm/sec Ao V2 VTI: 42.5 cm LV V1 VTI: 35.5 cm AV (velocity ratio): 0.84 PA V2 max: 116.5 cm/sec TR max ty: 248.6 cm/sec TR max P.7 mmHg ECHO/Echo Complete Interpretation Summary Left ventricular systolic function is normal. The estimated ejection fraction is 70 %. Mild (1+) mitral valve insufficiency. Mild eccentric tricuspid valve insufficiency. Trivial pericardial effusion. There are no echocardiographic indications of cardiac tamponade. Right ventricular systolic pressure estimated to be 28 mmHg. No evidence for diastolic dysfunction. Ordering Physician: Michael Lepe Referring Physician: Neil Apodaca Chi Performed By: Thao Crenshaw, RDSIERRA, RVT
== END | disposition home or self-care (01) ==
LOC: CVS 14:05
PROVIDERS: PCP Family Medicine Geriatric Medicine; Visit Provider Internal Medicine Cardiovascular Disease
DX: R01.1 Cardiac murmur, unspecified (principal)
CPT/HCPCS: 93306

== ENCOUNTER → 2022-05-15 | Outpatient (CLI) | payer MEDICARE, SELFPAY ==
[2022-05-15 13:27] LABS: Absolute Lymphocyte Count 0.62 X10^3/uL (0.83-4.51); Absolute Neutrophil Count 1.8 X10^3/uL (2.0-7.7); Basophil# 0.01 X10^3/uL; Basophil% 0.4 % (0-1); Eosinophil# 0.04 X10^3/uL; Eosinophils% 1.4 % (0-5); Hematocrit 39.5 % (37-47); Hemoglobin 13.1 g/dL (12.0-15.0); Lymphocyte # 0.62 X10^3/ul (0.83-4.51); Mean Corp Hgb Conc 33.2 g/dL (32-36); Mean Corpuscular Hgb 32.2 pg (27.0-32.0); Mean Corpuscular Volume 97.1 fL (81-99); Mean Platelet Vol. 10.5 fl (6.2-12.0); Monocyte# 0.31 X10^3/uL; NRBC Flagged by Analyzer 0 % (0-5); Neutrophil # 1.82 X10^3/uL (2.7-7.7); Neutrophil % 64.5 % (47-70); Platelet Count 160 K/mm3 (150-450); RBC Distribution Width CV 12.7 % (11.6-14.6); RBC Distribution Width SD 45.5 fl (35.1-43.9); Red Blood Count 4.07 M/mm3 (4.2-5.4); White Blood Count 2.8 K/mm3 (4.4-11.0)
[2022-05-15 14:44] LABS: Vitamin D,25 Hydroxy 54.4 ng/mL
[2022-05-15 15:00] LABS: ALB/GLOB Ratio 1.1 RATIO (0.9-2.4); AST(SGOT) 33 U/L (15-37); Alanine Aminotransfer ALT/SGPT 28 U/L (13-56); Albumin, Serum 3.6 g/dL (3.2-5.0); Alkaline Phosphatase 54 U/L (45-117); Anion Gap 9 (5-15); BUN 17 mg/dL (7-18); BUN/Creat Ratio 25.8 RATIO (10-20); Calcium,Total 9.1 mg/dL (8.5-10.1); Chloride 108 mmol/L (98-107); Creatinine, Serum 0.66 mg/dL (0.55-1.02); EST Glomerular Filtration Rate 93 mL/min (>60); Est Glom Filt Rate - Afr Amer 112 mL/min (>60); Globulin 3.2 g/dL (2.2-4.2); Glucose 85 mg/dL (74-106); Potassium 4.2 mmol/L (3.5-5.1); Protein, Total 6.8 g/dL (6.4-8.2); Sodium Level 142 mmol/L (136-145)
== END | disposition home or self-care (01) ==
LOC: POLAB3 11:37
PROVIDERS: PCP Family Medicine Geriatric Medicine; Visit Provider Family Medicine Geriatric Medicine
DX: R53.83 Other fatigue (principal); E55.9 Vitamin D deficiency, unspecified
CPT/HCPCS: 36415; 80053; 82306; 84443; 85025

== ENCOUNTER → 2022-06-28 | Outpatient (CLI) | payer SELFPAY ==
--- NOTE | 2022-06-28 13:11 | CT_ITS ---
STUDY: CT CHEST, LIMITED REASON FOR EXAM: Female, [address] cardiac exam with Overread. RADIATION DOSAGE (If Supplied By Facility): CTDIvol = ( 12.19 ) mGy, DLP = ( 195.04 ) mGycm. Individualized dose optimization techniques were used for this CT.? TECHNIQUE: Axial CT images of the mid chest are obtained. COMPARISON: None. FINDINGS: No evidence of underlying cardiac definitive calcifications are present. No pericardial effusion is present. Lung parenchyma demonstrates mild peripheral chronic fibrotic changes with no evidence of focal consolidation or acute process. Surrounding soft tissues are normal in appearance. No evidence of mediastinal lymphadenopathy. Osseous structures demonstrate degenerative changes with no evidence of focal lytic lesions. CT/Limited Chest CT Cardiac Only IMPRESSION: Limited evaluation of the chest demonstrates minimal peripheral chronic fibrotic changes with no evidence of acute process or focal consolidation. Electronically Signed: Deepak Julian DO at 16:57 EDT ,
--- NOTE | 2022-07-10 16:01 | CA.SCORE ---
Calcium Scoring Date of Study:: 06/28/22 Coronary Calcium Scoring: High-resolution Computed Tomographic imaging of the chest was performed on [06/28/2022], with particular attention paid to the coronary arteries. Images from the examination were analyzed for the presence and extent of coronary artery calcification , using coronary calcium quantification software. The patient tolerated the procedure well and there were no complications. The results of the coronary calcification analysis are provided below. Findings Coronary Artery Left Main (LM): 0 Left Anterior Descending (LAD): 0 Left Circumflex (LCX): 0 Right Coronary Artery (RCA): 0 Total Agatston Score: 0 Percentile Rankin Calcium Scoring Interpretation: Different methods to categorize the overall amount of coronary plaque. Overall amount CAC SIS Visual of coronary plaque P1 Mild -100 <2 1-2 vessels with mild amount of plaque P2 Moderate 101-300 3-4 1-2 vessels with moderate amount, 3 vessels with mild amount of plaque P3 Severe 301-999 5-7 3 vessels with moderate amount, 1 vessel with severe amount of plaque P4 Extensive >1000 >8 2-3 vessels with severe amount of plaque Conclusion: No significant atherosclerotic plaque noted.
== END | disposition home or self-care (01) ==
LOC: CT 13:09
PROVIDERS: PCP Family Medicine Geriatric Medicine; Referring Provider Family Medicine Geriatric Medicine; Visit Provider Family Medicine Geriatric Medicine
DX: R07.9 Chest pain, unspecified (principal)
CPT/HCPCS: 75571; 76380

== ENCOUNTER → 2022-07-08 | Outpatient (CLI) | payer MEDICARE, SELFPAY ==
--- NOTE | 2022-07-08 15:01 | CT_ITS ---
INDICATION: Trauma, closed head injury EXAMINATION: CT BRAIN - CT Head or Brain W/O Contrast Injection TECHNIQUE: Multiple axial images were obtained of the head without intravenous contrast. A radiation dose optimization technique was used for this scan. IV Contrast dosage and agent: None. COMPARISON: None FINDINGS: BRAIN PARENCHYMA: No intra- or extra-axial hemorrhage. No evidence of acute infarct. No intracranial mass or mass effect. Posterior fossa structures are unremarkable. CSF SPACES: Appropriate for age. No hydrocephalus. Basal cisterns are patent. CALVARIUM, SKULL BASE, PARANASAL SINUSES AND MASTOID AIR CELLS: Clear. No acute fracture. ORBITS: Both globes, extraocular muscles, optic nerves and retrobulbar fat appear unremarkable. CT/Brain/Head without Contrast IMPRESSION: No acute intracranial findings. Electronically Signed: Michael Lucio MD at 16:21 EDT ,
--- NOTE | 2022-07-08 15:02 | RAD_ITS ---
INDICATION: Trauma, fall, wrist pain EXAMINATION/TECHNIQUE: X-RAY - RIGHT XR Wrist Min 3 Views 3 VIEWS COMPARISON: Right hand series same date FINDINGS: SOFT TISSUES: No soft tissue swelling or gas. No radiopaque foreign body. Calcifications in the triangular fibrocartilage. BONES/JOINTS: No acute fracture. Joint spaces anatomically aligned with mild degenerative changes. No sclerotic or destructive changes observed. RAD/Wrist min 3 Views IMPRESSION: No acute bony injury. Electronically Signed: Michael Lucio MD at 16:12 EDT ,
--- NOTE | 2022-07-08 15:05 | RAD_ITS ---
INDICATION: Trauma, fall, wrist pain EXAMINATION/TECHNIQUE: X-RAY - RIGHT XR Hand Min 3 Views 3 VIEWS COMPARISON: Right wrist series same date FINDINGS: SOFT TISSUES: No soft tissue swelling or gas. Metallic ring obscures portions of the fourth proximal phalanx. Calcifications in the triangular fibrocartilage. BONES/JOINTS: No acute fracture. Joint spaces anatomically aligned with mild degenerative changes. No sclerotic or destructive changes observed. RAD/Hand Min 3 Views IMPRESSION: No acute bony injury. Electronically Signed: Michael Lucio MD at 15:49 EDT ,
== END | disposition home or self-care (01) ==
PROVIDERS: PCP Family Medicine Geriatric Medicine; Referring Provider Family Medicine Geriatric Medicine; Visit Provider Family Medicine Geriatric Medicine
DX: S09.90XA Unspecified injury of head, initial encounter (principal); M25.531 Pain in right wrist
CPT/HCPCS: 70450; 73110; 73130

== ENCOUNTER → 2022-08-06 08:37 | Outpatient (REF) | payer SELFPAY | LOC: NS 08:37 | PROVIDERS: PCP Family Medicine Geriatric Medicine | DX: Z00.00 Encounter for general adult medical examination without abnormal findings (principal) ==

== ENCOUNTER 2022-09-24 14:20 | Inpatient (IN) | payer MEDICARE, SELFPAY ==
[2022-09-24 14:21] VITALS: BP 145/60; PULSE 58; RESP 16; TEMP 36.4; O2SAT 97; BMI 23.4
--- NOTE | 2022-09-24 15:51 | EDS_ITS ---
HPI History of Present Illness Chief Complaint: Abd Pain [facility] Medical History Atrial flutter Basal cell carcinoma Degeneration of meniscus of left knee Encounter for screening for COVID-19 Encounter for screening for other viral diseases Hyperlipidemia Hypothyroidism Paroxysmal atrial fibrillation Pulmonary embolism Seizure disorder Synovial cyst of popliteal space [Aragon], left knee Home Medications primidone 250 mg tablet 250 mg PO BID seizure 09/24/13 [History Last Taken 10/30/16] atorvastatin 40 mg tablet 40 mg PO QHS cholesterol 07/22/16 [History Last Taken 10/30/16] lutein 20 mg capsule 20 mg PO DAILY 07/22/16 [History Last Taken 10/30/16] multivitamin 1 ea PO DAILY 07/22/16 [History Last Taken 10/30/16] rivaroxaban 20 mg tablet 20 mg PO DAILY@0600 A-Fib #30 tabs 11/01/16 [Rx Last Taken 12/01/18] calcium carbonate 600 mg-vitamin D3 12.5 mcg (500 unit) capsule (Calcium 600 with Vitamin D3) 1 cap PO DAILY 04/10/20 [History Last Taken Unknown] magnesium oxide 500 mg tablet 500 mg PO DAILY 04/10/20 [History Last Taken Unknown] levothyroxine 100 mcg tablet 100 mcg PO DAILY hypothyroid 03/05/21 [History Last Taken Unknown] Saccharomyces boulardii 250 mg capsule (Daily Probiotic (S. boulardii)) 250 mg PO BID 09/06/21 [History Last Taken Unknown] diclofenac sodium 1 % topical gel (Voltaren Arthritis Pain) 4 g topical TID #100 grams 09/07/21 [Rx Last Taken Unknown] metoprolol tartrate 50 mg tablet 50 mg PO BID BP 04/03/22 [History Last Taken Unknown] niacin 50 mg tablet 50 mg PO DAILY 04/03/22 [History Last Taken Unknown] turmeric 400 mg capsule 400 mg PO DAILY 04/03/22 [History Last Taken Unknown] Allergy/AdvReac Type Severity Reaction Status Date / Time carbamazepine [From Tegretol] Allergy Hives Verified 04/03/22 13:44 clonazepam [From Klonopin] Allergy Other Verified 04/03/22 13:44 phenytoin sodium Allergy Hives Verified 04/03/22 13:44 [From Dilantin] phenytoin sodium extended Allergy Hives Verified 04/03/22 13:44 [From Dilantin] Family History Father FHx: prostate cancer Other Diabetes Heart disease Surgical History H/O basal cell carcinoma excision History of bunionectomy of right great toe (12/04/18) History of lumpectomy of left breast History of ptosis repair (~01/2021) History of tonsillectomy left carpal tunnel release Social History Smoking Status: Never smoker alcohol intake: never substance use type: does not use caffeine: No EXAM Physical Exam Const Vital Signs: 09/24/22 14:21 09/24/22 17:52 Temperature 97.5 F L Temperature Source Temporal Pulse Rate 58 L 50 L Respiratory Rate 16 16 Blood Pressure 145/60 H 111/54 L Blood Pressure Mean 88 73 Pulse Ox 97 98 Oxygen Delivery Method Room Air Room Air MDM MDM MDM Narrative Medical decision making narrative: HISTORY OF PRESENT ILLNESS: 76-year-old female here with abdominal pain. She states approximately 8 AM she developed severe epigastric pain. States the pain is constant severe nonradiating. Denies any syncope. Notes history of H. pylori and gallstones. Denies any history of cholecystectomy. No vomiting no fever. No chest pain or shortness of breath endorsed. REVIEW OF SYSTEMS: Pertinent positives: Abdominal pain Pertinent negatives: Chest pain, shortness of breath PHYSICAL EXAM: Nursing triage notes reviewed, Vital signs reviewed Constitutional: please see mdm HENT: MMM Eyes: Pupils equal round and reactive to light, Extraocular muscles intact Neck: No stridor, no JVD, full neck ROM Lungs: Clear to auscultation, No wheezing or rales. No increased work of breathing, no conversational dyspnea, no accessory muscle use, no nasal flaring. No respiratory distress noted Heart: Regular rate and rhythm, No murmurs, No rubs and No gallops, 2+ distal pulses (radial, femoral, posterior tibial) in all extremities Abdomen: Soft, epigastric and right upper quadrant TTP, negative Zaidi sign. No rigidity, rebound or guarding, no obvious peritoneal signs, no palpable pulsatile abdominal masses, no auscultated abdominal bruit : No CVAT Extremities: No edema Neuro: No focal neurological deficits, cranial nerves II through XII intact, 5/5 strength in all extremities. Intact sensation to light touch in all extremities, 2+ reflexes bilateral patella tendons. Normal gait. No ataxia. Skin: No rash or lesions noted MEDICAL DECISION MAKING: Chief Complaint: Abdominal pain External records reviewed: No recent CT scans of the abdomen or pelvis Factors affecting care: A-fib on Xarelto Consults: General surgery ALL IMAGES (IF OBTAINED) HAVE BEEN PERSONALLY REVIEWED AND INTERPRETED BY MYSELF. EKG with sinus bradycardia, normal axis, normal ID interval, no obvious STEMI MDM Narrative: Patient was hemodynamically stable, afebrile, nontoxic-appearing I considered the following differential diagnosis: Obstruction, perforation, pancreatitis, hepatobiliary pathology, UTI, appendicitis, intra-abdominal abscess, diverticulitis, pyelonephritis, AAA I obtained a broad lab and imaging including right quadrant ultrasound and CT scan and ultrasound work-up to further elucidate the etiology of the patient's complaints. Retrocardial ultrasound was remarkable for acute cholecystitis. CT scan showed no evidence of acute pathology in the abdomen. Labs surprisingly were unremarkable for elevations in lipase, signs of obstruction with elevations in LFTs or alkaline phosphatase, no evidence of systemic inflammation with a normal white blood cell count. Despite this I did consult general surgery for recommendations in regards to the patient's concerning ultrasound findings. Dr. Brand recommended admission for observation and possible surgical invention patient was admitted in stable condition. The patient and/or family, caregivers express understanding. The patient and/or family, caregivers agrees with the plan. Total critical care time today provided was at least 0 minutes. This excludes separately billable procedures. Critical care time (if documented) is secondary to the patient having high probability of clinically significant/life threatening deterioration in the patient's condition which required my urgent intervention. Shared decision making: I will have a discussion with the patient and or visitors regarding risk/benefits of further testing or admission. They will be made aware of of the risk/benefits inherent in this decision they will be given the opportunity to voice understanding. Lab Data Attestation: I reviewed the patient's lab results. Labs: Laboratory Results - last 24 hr 09/24/22 09/24/22 09/24/22 16:30 17:07 17:45 WBC 6.3 RBC 4.20 Hgb 14.2 Hct 40.9 MCV 97.4 MCH 33.8 H MCHC 34.7 RDW Std Deviation 48.1 H RDW Coeff of Ismael 13.4 Plt Count 169 MPV 9.9 Immature Gran % (Auto) 0.200 Neut % (Auto) 92.0 H Lymph % (Auto) 3.2 L [place] % (Auto) 4.4 Eos % (Auto) 0.0 Baso % (Auto) 0.2 Absolute Neuts (auto) 5.8 Absolute Lymphs (auto) 0.20 L Nucleated RBC % 0 Differential Comment SCANNED Sodium Cancelled 138 Potassium Cancelled 3.8 Chloride Cancelled 107 Carbon Dioxide Cancelled 24.0 Anion Gap Cancelled 7 BUN Cancelled 15 Creatinine Cancelled 0.67 Estim Creat Clear Calc Cancelled 43.74 Est GFR (MDRD) Af Amer Cancelled 110 Est GFR (MDRD) Non-Af Cancelled 91 BUN/Creatinine Ratio Cancelled 22.3 H Glucose Cancelled 125 H Calcium Cancelled 8.7 Total Bilirubin 0.40 Direct Bilirubin 0.16 AST 30 ALT 26 Alkaline Phosphatase 69 Troponin I High Sens Cancelled 17 Total Protein 7.2 Albumin 3.8 Globulin 3.4 Lipase Cancelled 27 Urine Color Yellow Urine Clarity Clear Urine pH 6.0 Ur Specific [place] 1.015 Urine Protein 15 H Urine Glucose (UA) Normal Urine Ketones 150 A* Urine Occult Blood Negative Urine Nitrite Negative Urine Bilirubin Negative Urine Urobilinogen Normal Ur Leukocyte Esterase 25 H Urine RBC 0 SEEN Urine WBC 0-5 SEEN Ur Squamous Epith Cells 0 SEEN Urine Bacteria 0 SEEN Urine Mucus 1+ Radiography Diagnostic Testing: Clinical Impression(s) from Imaging Studies Abdomen/Pelvis CT 09/24/22 16:14 IMPRESSION: 1. Biliary stasis with suspected acalculous cholecystitis. 2. Distal large bowel thickening, urinary bladder wall thickening, and periportal edema raise suspicion for portal hypertension. Electronically Signed: Michael Aguilar MD at 19:29 EDT , Gallbladder Ultrasound 09/24/22 16:15 IMPRESSION: Diffuse biliary dilation suspicious for distal obstruction. Distended gallbladder with debris and sludge, gallbladder wall thickening, and pericholecystic fluid is suspicious for acute cholecystitis. Electronically Signed: Michael Aguilar MD at 18:21 EDT , Discharge Plan Dx/Rx/DC Orders Clinical Impression: Acute cholecystitis Disposition Disposition: Acute Care Hospital [facility] Discharge Date/Time: 09/24/22 21:30
--- NOTE | 2022-09-24 16:12 | EKG12_ITS ---
Test Reason : ABD PAIN Blood Pressure : / mmHG Vent. Rate : 041 BPM Atrial Rate : 041 BPM P-R Int : 186 ms QRS Dur : 088 ms QT Int : 480 ms P-R-T Axes : 051 038 068 degrees QTc Int : 396 ms Marked sinus bradycardia with Premature atrial complexes Abnormal ECG Confirmed by BRENDA LOGAN, CHALINO ([id number]), editor school photograph KEENA BALL ([id number]) on 09/25/2022 10:57:02 AM Referred By: Confirmed By:CHALINO GUTIERREZ MD
--- NOTE | 2022-09-24 16:14 | CT_ITS ---
STUDY: CT ABDOMEN AND PELVIS WITH CONTRAST REASON FOR EXAM: Female, 76 years old. Epigastric abdominal pain RADIATION DOSAGE (If Supplied By Facility): CTDIvol = ( 19.32 ) mGy, DLP = ( 451.76 ) mGycm TECHNIQUE: IV 97mL Isovue-370 was administered. Transaxial images were obtained from the dome of the diaphragm to the symphysis pubis. Multiplanar coronal and sagittal images were reformatted. Individualized Dose Optimization Techniques Were Used For This CT. COMPARISON: Concurrent gallbladder ultrasound FINDINGS: The visualized lung bases are unremarkable. The visualized portions of the heart are within normal limits. Periportal edema. Distended gallbladder with wall thickening/pericholecystic fluid. No radiodense calculus. Dilated common bile duct. Normal spleen. Normal pancreas. Normal bilateral adrenal glands. Normal visualized stomach. Normal small intestine. Decompressed large bowel distal to the splenic flecture with diffuse circumferential wall thickening. The appendix is visualized and appears normal. Normal abdominal aorta. No retroperitoneal adenopathy. Normal right kidney. Normal left kidney. Circumferential urinary bladder wall thickening. Small right urinary bladder diverticulum. Normal visualized uterus. Normal abdominal wall. Normal osseous structures. CT/Abdomen/Pelvis W IV Cont ONLY IMPRESSION: 1. Biliary stasis with suspected acalculous cholecystitis. 2. Distal large bowel thickening, urinary bladder wall thickening, and periportal edema raise suspicion for portal hypertension. Electronically Signed: Michael Aguilar MD at 19:29 EDT ,
--- NOTE | 2022-09-24 16:15 | US_ITS ---
INDICATION: PAIN EXAMINATION: Ultrasound US Abdomen RUQ (limited) TECHNIQUE: Morrow scale and color doppler imaging was performed of the right upper quadrant. COMPARISON: None. FINDINGS: LIVER: There is heterogeneous echotexture. Dilated intrahepatic bile ducts. No focal hepatic lesion. There is no free fluid. GALLBLADDER AND BILIARY TREE: Distended gallbladder with debris, sludge, and trace pericholecystic fluid. 4 mm gallbladder wall thickness. The proximal common bile duct measures 21 mm. Sonographic Zaidi''s sign: Negative. PANCREAS: No focal abnormality is demonstrated in the pancreas. No pancreatic ductal dilatation. RIGHT KIDNEY: 10.4 x 5.5 x 4.0 cm. No hydronephrosis. US/Gallbladder IMPRESSION: Diffuse biliary dilation suspicious for distal obstruction. Distended gallbladder with debris and sludge, gallbladder wall thickening, and pericholecystic fluid is suspicious for acute cholecystitis. Electronically Signed: Michael Aguilar MD at 18:21 EDT ,
[2022-09-24] MEDS: 0.9% Normal Saline 1,000 ML 1000 ML IV (16:29)
[2022-09-24] MEDS: Ondansetron 4 MG/2 ML Vial IV (16:29)
[2022-09-24] MEDS: Morphine 4 MG/ML Syringe IV ×2 (16:30→19:55)
[2022-09-24 17:15] LABS: Absolute Neutrophil Count 5.8 X10^3/uL (2.0-7.7); Basophil# 0.01 X10^3/uL; Basophil% 0.2 % (0-1); Differential Indicated SCAN CRITERIA MET; Hematocrit 40.9 % (37-47); Hemoglobin 14.2 g/dL (12.0-15.0); Lymphocyte % 3.2 % (19-41); Mean Corp Hgb Conc 34.7 g/dL (32-36); Mean Corpuscular Hgb 33.8 pg (27.0-32.0); Mean Corpuscular Volume 97.4 fL (81-99); Mean Platelet Vol. 9.9 fl (6.2-12.0); Monocyte# 0.28 X10^3/uL; Monocyte% 4.4 % (0-10); NRBC Flagged by Analyzer 0 % (0-5); Neutrophil # 5.82 X10^3/uL (2.7-7.7); POSITIVE DIFFERENTIAL YES; Platelet Count 169 K/mm3 (150-450); RBC Distribution Width CV 13.4 % (11.6-14.6); RBC Distribution Width SD 48.1 fl (35.1-43.9); White Blood Count 6.3 K/mm3 (4.4-11.0)
[2022-09-24 17:17] LABS: Differential Comment SCANNED
[2022-09-24 17:42] LABS: Anion Gap 7 (5-15); BUN 15 mg/dL (7-18); BUN/Creat Ratio 22.3 RATIO (10-20); Calcium,Total 8.7 mg/dL (8.5-10.1); Chloride 107 mmol/L (98-107); Creatinine, Serum 0.67 mg/dL (0.55-1.02); EST Glomerular Filtration Rate 91 mL/min (>60); Est Glom Filt Rate - Afr Amer 110 mL/min (>60); Estimated Creatinine Clearance 43.74 ml/min; Glucose 125 mg/dL (74-106); Lipase 27 U/L (13-75); Potassium 3.8 mmol/L (3.5-5.1); Sodium Level 138 mmol/L (136-145); Troponin-I HS 17 pg/mL (3.0-54.0)
[2022-09-24 17:51] LABS: Bacteria 0 SEEN /hpf (None Seen); Red Blood Cells-Urine 0 SEEN /hpf (0-5); Squamous Epithelial Cells - UA 0 SEEN /hpf (5-10)
[2022-09-24 17:52] VITALS: BP 111/54; PULSE 50; RESP 16; O2SAT 98
[2022-09-24 17:54] LABS: Color, Urine Yellow (Yellow); Glucose, Dipstick Normal (Normal); Leukocyte Esterase-Dipstick 25 /ul (Negative); Nitrite-Dipstick Negative (Negative); Occult Blood-Urine Negative /ul (Negative); Protein-Dipstick 15 mg/dl (Negative); Specific Gravity, Urine 1.015 (1.002-1.030); Urine Bilirubin Dipstick Negative (Negative); Urine Clarity Clear (Clear); Urine Urobilinogen Normal (Normal)
[2022-09-24 17:56] LABS: Ketone-Dipstick 150 mg/dl (Negative)
[2022-09-24 18:00] LABS: White Blood Cells 0-5 SEEN /hpf (0-5)
[2022-09-24 18:01] LABS: Mucous, Urine 1+ /hpf (<or=2+)
[2022-09-24 19:09] LABS: AST(SGOT) 30 U/L (15-37); Alanine Aminotransfer ALT/SGPT 26 U/L (13-56); Albumin, Serum 3.8 g/dL (3.2-5.0); Alkaline Phosphatase 69 U/L (45-117); Bilirubin, Direct 0.16 mg/dL (0.00-0.30); Globulin 3.4 g/dL (2.2-4.2); Protein, Total 7.2 g/dL (6.4-8.2)
--- NOTE | 2022-09-24 20:30 | PCM.CONS.GEN ---
Assessment & Plan Assessment/Plan (1) Cholecystitis: (2) Intractable abdominal pain: PLAN: Plan Intractable right upper quadrant pain Likely cholecystitis; primary biliary cholangitis; primary sclerosing cholangitis or other. Impression of abdomen/pelvis CT radiologist: 1. Biliary stasis with suspected acalculous cholecystitis. 2. Distal large bowel thickening, urinary bladder wall thickening, and periportal edema raise suspicion for portal hypertension. Abdomen/pelvis CT was interpreted by radiologist and I agree with interpretation. Gallbladder ultrasound: Impression by radiologist: Diffuse biliary dilation suspicious for distal obstruction. Distended gallbladder with debris and sludge, gallbladder wall thickening, and pericholecystic fluid is suspicious for acute cholecystitis. Hold home Lipitor. Trend CMP Started on [facility] emergency department and continued. General surgery is primary and is considering getting a HIDA scan since patient does not have leukocytosis, fever or does not look extremely sick. We will get anti-smooth body antibody; antimitochondrial antibodies; copper level; EBV and CMV antibodies. Acute hepatitis panel. White count of 9000 on presentation. Trend. History of PE/A-flutter/A-fib Xarelto held as patient is surgical candidate. Sinus rhythm with first-degree AV block and PACs. Hold metoprolol. Seizure disorder Stable Primidone continued. DVT prophylaxis: SCDs ordered HPI Consult Data Date of Consult: 09/25/22 HPI Narrative Reason for Consultation: Right upper quadrant HPI Narrative: RADHA ALEMAN, is a 76 F with a significant history of atrial flutter/paroxysmal A-fib/pulmonary embolism and seizure disorder who presents to emergency department with right upper quadrant pain that radiates to her entire upper part of her abdomen. The pain started about 8:45 AM. The pain started suddenly. She ate a large food before her pain started between 2:30 PM to 4:15 PM a day before presentation. The food consisted of lentil spaghetti, vegetarian meat, 3 piece of bread, one fourth chocolate cream pie and milk. The pain came on suddenly. Of note on Aug 02 2022 patient also had abdominal pain. Her pain started instantly after eating ice cream. She felt gas at the abdomen at that time. Also on September 22 2022 six hours after eating fruit salads; scrambled eggs sandwich,; 3 piece of bread; almond butter; 1 piece cheese; milk and cookies she began to have pain. She got into a habit of documenting what she eats after her primary care doctor in 2014 diagnosis her with prediabetes. Because she lost about 50 pounds weight with she did not develop diabetes. She reports some nausea without vomiting. She denies fever. She denies any aggravating factor to her pain. She reported morphine at the emergency department helped her pain. [facility] Medical History Atrial flutter Basal cell carcinoma Degeneration of meniscus of left knee Encounter for screening for COVID-19 Encounter for screening for other viral diseases Hyperlipidemia Hypothyroidism Paroxysmal atrial fibrillation Pulmonary embolism Seizure disorder Synovial cyst of popliteal space [Aragon], left knee Home Medications primidone 250 mg tablet 250 mg PO BID seizure 09/24/13 [History Last Taken 10/30/16] atorvastatin 40 mg tablet 40 mg PO QHS cholesterol 07/22/16 [History Last Taken 10/30/16] lutein 20 mg capsule 20 mg PO DAILY 07/22/16 [History Last Taken 10/30/16] multivitamin 1 ea PO DAILY 07/22/16 [History Last Taken 10/30/16] rivaroxaban 20 mg tablet 20 mg PO DAILY@0600 A-Fib #30 tabs 11/01/16 [Rx Last Taken 12/01/18] calcium carbonate 600 mg-vitamin D3 12.5 mcg (500 unit) capsule (Calcium 600 with Vitamin D3) 1 cap PO DAILY 04/10/20 [History Last Taken Unknown] magnesium oxide 500 mg tablet 500 mg PO DAILY 04/10/20 [History Last Taken Unknown] levothyroxine 100 mcg tablet 100 mcg PO DAILY hypothyroid 03/05/21 [History Last Taken Unknown] Saccharomyces boulardii 250 mg capsule (Daily Probiotic (S. boulardii)) 250 mg PO BID 09/06/21 [History Last Taken Unknown] diclofenac sodium 1 % topical gel (Voltaren Arthritis Pain) 4 g topical TID #100 grams 09/07/21 [Rx Last Taken Unknown] metoprolol tartrate 50 mg tablet 50 mg PO BID BP 04/03/22 [History Last Taken Unknown] niacin 50 mg tablet 50 mg PO DAILY 04/03/22 [History Last Taken Unknown] turmeric 400 mg capsule 400 mg PO DAILY 04/03/22 [History Last Taken Unknown] Allergy/AdvReac Type Severity Reaction Status Date / Time carbamazepine [From Tegretol] Allergy Hives Verified 04/03/22 13:44 clonazepam [From Klonopin] Allergy Other Verified 04/03/22 13:44 phenytoin sodium Allergy Hives Verified 04/03/22 13:44 [From Dilantin] phenytoin sodium extended Allergy Hives Verified 04/03/22 13:44 [From Dilantin] Family History Father FHx: prostate cancer Other Diabetes Heart disease Surgical History H/O basal cell carcinoma excision History of bunionectomy of right great toe (12/04/18) History of lumpectomy of left breast History of ptosis repair (~01/2021) History of tonsillectomy left carpal tunnel release Social History Smoking Status: Never smoker alcohol intake: never substance use type: does not use caffeine: No ROS ROS Narrative Pertinent positives and pertinent negatives as noted in HPI. All other systems were reviewed and are negative Physical Exam Narrative Physical exam: General: Well-nourished, well-developed. Head: Normocephalic, atraumatic, no tenderness Eyes: Vision is grossly intact. EOMI ENT, no trauma, dry mucous membranes, no rhinorrhea Neck: Nontender, No thyromegaly. CVS: Regular rate and rhythm. S1-S2 present. No murmur, gallop or rub. Respiratory : clear to auscultation bilaterally, chest wall nontender Abdomen: Soft, tender to palpation, nondistended, normal bowel sounds, no masses : Deferred Back: Nontender, no CVA tenderness, no midline spinal tenderness. Extremities: Nontender full range of motion, no trauma Skin: Normal color, no trauma, abrasions Neuro: Alert, oriented, cranial nerves II through XII grossly intact. Psychiatry: Normal mood. Normal affect. Not depressed. Not anxious. Lab / Micro Data 09/25/22 04:30 09/25/22 04:30 Labs: Laboratory Results - last 24 hr 09/24/22 16:30: Sodium Cancelled, Potassium Cancelled, Chloride Cancelled, Carbon Dioxide Cancelled, Anion Gap Cancelled, BUN Cancelled, Creatinine Cancelled, Estim Creat Clear Calc Cancelled, Est GFR (MDRD) Af Amer Cancelled, Est GFR (MDRD) Non-Af Cancelled, BUN/Creatinine Ratio Cancelled, Glucose Cancelled, Calcium Cancelled, Troponin I High Sens Cancelled, Lipase Cancelled 09/24/22 17:07: WBC 6.3, RBC 4.20, Hgb 14.2, Hct 40.9, MCV 97.4, MCH 33.8 H, MCHC 34.7, RDW Std Deviation 48.1 H, RDW Coeff of Ismael 13.4, Plt Count 169, MPV 9.9, Immature Gran % (Auto) 0.200, Neut % (Auto) 92.0 H, Lymph % (Auto) 3.2 L, [place] % (Auto) 4.4, Eos % (Auto) 0.0, Baso % (Auto) 0.2, Absolute Neuts (auto) 5.8, Absolute Lymphs (auto) 0.20 L, Nucleated RBC % 0, Differential Comment SCANNED, Sodium 138, Potassium 3.8, Chloride 107, Carbon Dioxide 24.0, Anion Gap 7, BUN 15, Creatinine 0.67, Estim Creat Clear Calc 43.74, Est GFR (MDRD) Af Amer 110, Est GFR (MDRD) Non-Af 91, BUN/Creatinine Ratio 22.3 H, Glucose 125 H, Calcium 8.7, Total Bilirubin 0.40, Direct Bilirubin 0.16, AST 30, ALT 26, Alkaline Phosphatase 69, Troponin I High Sens 17, Total Protein 7.2, Albumin 3.8, Globulin 3.4, Lipase 27 09/24/22 17:45: Urine Color Yellow, Urine Clarity Clear, Urine pH 6.0, Ur Specific [place] 1.015, Urine Protein 15 H, Urine Glucose (UA) Normal, Urine Ketones 150 A*, Urine Occult Blood Negative, Urine Nitrite Negative, Urine Bilirubin Negative, Urine Urobilinogen Normal, Ur Leukocyte Esterase 25 H, Urine RBC 0 SEEN, Urine WBC 0-5 SEEN, Ur Squamous Epith Cells 0 SEEN, Urine Bacteria 0 SEEN, Urine Mucus 1+ Radiology Impression Abdomen/Pelvis CT 09/24/22 16:14 IMPRESSION: 1. Biliary stasis with suspected acalculous cholecystitis. 2. Distal large bowel thickening, urinary bladder wall thickening, and periportal edema raise suspicion for portal hypertension. Electronically Signed: Michael Aguilar MD at 19:29 EDT , Gallbladder Ultrasound 09/24/22 16:15 IMPRESSION: Diffuse biliary dilation suspicious for distal obstruction. Distended gallbladder with debris and sludge, gallbladder wall thickening, and pericholecystic fluid is suspicious for acute cholecystitis. Electronically Signed: Michael Aguilar MD at 18:21 EDT , Charges/Coding Visit Charges Inpatient E&M: 04772 Init Hosp L3
--- NOTE | 2022-09-24 20:34 | HP.PCM.SX_ITS ---
HPI - General HPI Narrative RADHA ALEMAN, is a 76 F who presents with abdominal pain. She reports abdominal pain started this morning. She reports no nausea or vomiting. She says the pain is in her epigastric and right upper quadrant. She says she had similar pain about a month ago and a month before that. It is usually after eating f atty foods. Patient does not report any radiation of pain. She denies any other abdominal pain. [facility]LY [facility] Medical History Atrial flutter Basal cell carcinoma Degeneration of meniscus of left knee Encounter for screening for COVID-19 Encounter for screening for other viral diseases Hyperlipidemia Hypothyroidism Paroxysmal atrial fibrillation Pulmonary embolism Seizure disorder Synovial cyst of popliteal space [Aragon], left knee Home Medications primidone 250 mg tablet 250 mg PO BID 09/24/13 [History Last Taken 10/30/16] atorvastatin 40 mg tablet 40 mg PO QHS 07/22/16 [History Last Taken 10/30/16] lutein 20 mg capsule 20 mg PO DAILY 07/22/16 [History Last Taken 10/30/16] multivitamin 1 ea PO DAILY 07/22/16 [History Last Taken 10/30/16] rivaroxaban 20 mg tablet 20 mg PO DAILY@0600 #30 tabs 11/01/16 [Rx Last Taken 12/01/18] calcium carbonate 600 mg-vitamin D3 12.5 mcg (500 unit) capsule (Calcium 600 with Vitamin D3) 1 cap PO DAILY 04/10/20 [History Last Taken Unknown] magnesium oxide 500 mg tablet 500 mg PO DAILY 04/10/20 [History Last Taken Unknown] levothyroxine 100 mcg tablet 100 mcg PO DAILY 03/05/21 [History Last Taken Unk nown] Saccharomyces boulardii 250 mg capsule (Daily Probiotic (S. boulardii)) 250 mg PO BID 09/06/21 [History Last Taken Unknown] diclofenac sodium 1 % topical gel (Voltaren Arthritis Pain) 4 g topical TID #100 grams 09/07/21 [Rx Last Taken Unknown] metoprolol tartrate 50 mg tablet 50 mg PO BID 04/03/22 [History Last Taken Unknown] niacin 50 mg tablet 50 mg PO DAILY 04/03/22 [History Last Taken Unknown] turmeric 400 mg capsule 400 mg PO DAILY 04/03/22 [History Last Taken Unknown] Allergy/AdvReac Type Severity Reaction Status Date / Time carbamazepine [From Tegretol] Allergy Hives Verified 04/03/22 13:44 clonazepam [From Klonopin] Allergy Other Verified 04/03/22 13:44 phenytoin sodium Allergy Hives Verified 04/03/22 13:44 [From Dilantin] phenytoin sodium extended Allergy Hives Verified 04/03/22 13:44 [From Dilantin] Surgical History H/O basal cell carcinoma excision History of bunionectomy of right great toe (12/04/18) History of lumpectomy of left breast History of ptosis repair (~01/2021) History of tonsillectomy left carpal tunnel release Social History Smoking Status: Never smoker alcohol intake: never substance use type: does not use caffeine: No ROS Constitutional Constitutional: Denies anorexia, chills, fatigue or fever(s) Eyes Eyes: Denies blurry vision ENT HEENT: Denies abnormal hearing Cardiovascular Cardiovascular: Denies chest pain Respiratory/Chest Respiratory/Chest: Denies cough or dyspnea Gastrointestinal Gastrointestinal: Reports abdominal pain and diarrhea; Denies dysphagia, hematemesis, nausea or vomiting Genitourinary Genitourinary: Denies change in urinary stream Musculoskeletal Musculoskeletal: Denies abnormal gait Integumentary Integumentary: Denies jaundice Neurologic Neurologic: Denies dizziness Psychiatric Psychiatric: Denies anxiety Endocrine Endocrinology: Denies flushing Hematologic/Lymphatic Hematologic/Lymphatic: Denies easy bleeding Vital Signs Vital Signs Vital Signs: 09/24/22 14:21 09/24/22 17:52 Temperature 97.5 F L Temperature Source Temporal Pulse Rate 58 L 50 L Respiratory Rate 16 16 Blood Pressure 145/60 H 111/54 L Blood Pressure Mean 88 73 Pulse Ox 97 98 Oxygen Delivery Method Room Air Room Air Weight Weight: 141 lb Body Mass Index (BMI) 23.4 Physical Exam Const oriented x3 and no apparent distress Resp normal respiratory effort Cardio regular rate and regular rhythm GI soft to palpation Inspection: Negative for abdominal distention Palpation: tender RUQ Extremity normal to inspection Results Lab / Micro Data 09/24/22 17:07 09/24/22 17:07 Labs: Laboratory Results - last 24 hr 09/24/22 16:30: Sodium Cancelled, Potassium Cancelled, Chloride Cancelled, Carbon Dioxide Cancelled, Anion Gap Cancelled, BUN Cancelled, Creatinine Cancelled, Estim Creat Clear Calc Cancelled, Est GFR (MDRD) Af Amer Cancelled, Est GFR (MDRD) Non-Af Cancelled, BUN/Creatinine Ratio Cancelled, Glucose Cancelled, Calcium Cancelled, Troponin I High Sens Cancelled, Lipase Cancelled 09/24/22 17:07: WBC 6.3, RBC 4.20, Hgb 14.2, Hct 40.9, MCV 97.4, MCH 33.8 H, MCHC 34.7, RDW Std Deviation 48.1 H, RDW Coeff of Ismael 13.4, Plt Count 169, MPV 9.9, Immature Gran % (Auto) 0.200, Neut % (Auto) 92.0 H, Lymph % (Auto) 3.2 L, [place] % (Auto) 4.4, Eos % (Auto) 0.0, Baso % (Auto) 0.2, Absolute Neuts (auto) 5.8, Absolute Lymphs (auto) 0.20 L, Nucleated RBC % 0, Differential Comment SCANNED, Sodium 138, Potassium 3.8, Chloride 107, Carbon Dioxide 24.0, Anion Gap 7, BUN 15, Creatinine 0.67, Estim Creat Clear Calc 43.74, Est GFR (MDRD) Af Amer 110, Est GFR (MDRD) Non-Af 91, BUN/Creatinine Ratio 22.3 H, Glucose 125 H, Calcium 8.7, Total Bilirubin 0.40, Direct Bilirubin 0.16, AST 30, ALT 26, Alkaline Phosphatase 69, Troponin I High Sens 17, Total Protein 7.2, Albumin 3.8, Globulin 3.4, Lipase 27 09/24/22 17:45: Urine Color Yellow, Urine Clarity Clear, Urine pH 6.0, Ur Specific [employer] 1.015, Urine Protein 15 H, Urine Glucose (UA) Normal, Urine Ketones 150 A*, Urine Occult Blood Negative, Urine Nitrite Negative, Urine Bilirubin Negative, Urine Urobilinogen Normal, Ur Leukocyte Esterase 25 H, Urine RBC 0 SEEN, Urine WBC 0-5 SEEN, Ur Squamous Epith Cells 0 SEEN, Urine Bacteria 0 SEEN, Urine Mucus 1+ Radiology Impression Abdomen/Pelvis CT 09/24/22 16:14 IMPRESSION: 1. Biliary stasis with suspected acalculous cholecystitis. 2. Distal large bowel thickening, urinary bladder wall thickening, and periportal edema raise suspicion for portal hypertension. Electronically Signed: Michael Aguilar MD at 19:29 EDT , Gallbladder Ultrasound 09/24/22 16:15 IMPRESSION: Diffuse biliary dilation suspicious for distal obstruction. Distended gallbladder with debris and sludge, gallbladder wall thickening, and pericholecystic fluid is suspicious for acute cholecystitis. Electronically Signed: Michael Aguilar MD at 18:21 EDT , Assessment & Plan Assessment/Plan (1) Cholecystitis: PLAN: The patient presents to the emergency room with right upper quadrant pain. Her white count is normal but she does have a left shift. Patient's ultrasound showed thickening of the gallbladder wall but no gallstones. The patient CT scan shows biliary stasis and a thickened ascending colon and thickened bladder and there was suggestion of portal hypertension. Patient's LFTs are normal. This seems confusing as the picture does not line up to acute cholecystitis. It would be abnormal for somebody to get a calculus cholecystitis at her age who is normal eating a regular diet. I will admit the patient and start her on antibiotics and check a HIDA in the morning. I am also consulting medicine and GI for their input to see if they have any idea as to what is going on. I will hold the patient's Xarelto and her turmeric. Juan Diego Brand MD Pager: [facility] [address] [place] [address], [address] [place] [address] Office:
[2022-09-24 21:20] VITALS: BP 122/89; PULSE 84; RESP 18; TEMP 36.4; O2SAT 99
[2022-09-24 21:36] VITALS: BMI 23.5
[2022-09-24 21:49] VITALS: BP 114/67; PULSE 58; RESP 16; TEMP 37.6; O2SAT 97
[2022-09-24] MEDS: 0.9% Normal Saline 1,000 ML 125 ML IV (22:00)
[2022-09-25] MEDS: Ondansetron 4 MG/2 ML Vial IV ×3 (00:20→21:53)
[2022-09-25] MEDS: Morphine 2 MG/ML Syringe IV ×4 (00:20→21:53)
[2022-09-25 02:33] VITALS: BP 113/53; PULSE 58; RESP 18; TEMP 37.4; O2SAT 96
[2022-09-25] MEDS: 0.9% Saline Lock 10 ML Syringe IV (02:34)
[2022-09-25 04:16] VITALS: BP 109/56; PULSE 56; RESP 18; TEMP 37.2; O2SAT 93
[2022-09-25 05:03] LABS: Absolute Neutrophil Count 7.6 X10^3/uL (2.0-7.7); Hematocrit 36.7 % (37-47); Hemoglobin 12.4 g/dL (12.0-15.0); Lymphocyte % 4.5 % (19-41); Mean Corp Hgb Conc 33.8 g/dL (32-36); Mean Corpuscular Hgb 32.5 pg (27.0-32.0); Mean Corpuscular Volume 96.1 fL (81-99); Mean Platelet Vol. 10.1 fl (6.2-12.0); Monocyte% 10.1 % (0-10); NRBC Flagged by Analyzer 0 % (0-5); Neutrophil # 7.62 X10^3/uL (2.7-7.7); Neutrophil % 85.1 % (47-70); POSITIVE DIFFERENTIAL YES; Platelet Count 156 K/mm3 (150-450); RBC Distribution Width CV 13.5 % (11.6-14.6); RBC Distribution Width SD 47.7 fl (35.1-43.9); Red Blood Count 3.82 M/mm3 (4.2-5.4)
[2022-09-25 05:19] LABS: Differential Indicated SCAN CRITERIA MET
[2022-09-25] MEDS: 0.9% Normal Saline 1,000 ML 125 ML IV ×3 (05:44→21:53)
[2022-09-25 05:48] LABS: AST(SGOT) 35 U/L (15-37); Alanine Aminotransfer ALT/SGPT 26 U/L (13-56); Albumin, Serum 3.1 g/dL (3.2-5.0); Alkaline Phosphatase 58 U/L (45-117); Anion Gap 5 (5-15); BUN 13 mg/dL (7-18); BUN/Creat Ratio 17.2 RATIO (10-20); Calcium,Total 7.8 mg/dL (8.5-10.1); Chloride 107 mmol/L (98-107); Creatinine, Serum 0.76 mg/dL (0.55-1.02); EST Glomerular Filtration Rate 79 mL/min (>60); Est Glom Filt Rate - Afr Amer 96 mL/min (>60); Estimated Creatinine Clearance 43.74 ml/min; Globulin 3.1 g/dL (2.2-4.2); Glucose 128 mg/dL (74-106); Potassium 3.7 mmol/L (3.5-5.1); Protein, Total 6.2 g/dL (6.4-8.2); Sodium Level 137 mmol/L (136-145)
--- NOTE | 2022-09-25 05:55 | NM_ITS ---
CLINICAL: 76-year-old female with history of abdominal pain and nausea. RADIONUCLIDE HEPATOBILIARY SCINTIGRAPHY COMPARISON: Abdominal ultrasound report 09/24/2022 CT of the abdomen-pelvis report 09/24/2022 FINDINGS: Following the intravenous administration of 5.6 mCi of 99m Tc Mebrofenin, hepatobiliary images reveal: 1. Relatively prompt and homogeneous radiopharmaceutical concentration is noted by a normal sized liver. No parenchymal defects are identified. 2. Gallbladder activity is not identified during 120 minutes of sequential imaging. 3. Small intestinal tract is observed at 7 minutes post radiopharmaceutical administration. 4. Washout of the radiopharmaceutical by the hepatic parenchyma occurs appears qualitatively normal. NM/Hepatobilliary Imaging IMPRESSION: 1. ABNORMAL 99m Tc Mebrofenin hepatobiliary imaging examination. A. Nonvisualization of the gallbladder at 60, 240 minutes post radiopharmaceutical administration is consistent with a high probability of cholecystitis (acute or chronic) in patients with intermediate to high pretest probabilities of hepatobiliary disease and who have fasted for more than 4 and less than 24 hours. (Sofi et al, Nucl Med Olga [employer] Press pg. 35, 1980). Electronically Signed: Clay West, at 10:19 EDT ,
[2022-09-25 06:36] LABS: Differential Comment SCANNED
[2022-09-25 10:15] VITALS: BP 110/58; PULSE 58; RESP 18; TEMP 38.4; O2SAT 96
--- NOTE | 2022-09-25 11:06 | PCM.PN.SRG ---
Subjective Subjective Patient complaining of right upper quadrant pain and nausea Objective Data Objective Data Vital Signs: Vital Signs Temp Pulse Resp BP Pulse Ox O2 Del Method 101.1 F H 58 L 18 110/58 L 96 Room Air 09/25/22 10:15 09/25/22 10:15 09/25/22 10:15 09/25/22 10:15 09/25/22 10:15 09/25/22 10:15 Oxygen Delivery Method Room Air Weight: 141 lb 5.061 oz Body Mass Index (BMI) 23.5 Intake & Output: Intake and Output for Last 24 Hours 09/23/22 09/24/22 09/25/22 23:59 23:59 23:59 Intake Total 1110 / 1110 1066.67 / 1066.67 Balance 1110 / 1110 1066.67 / 1066.67 Lab / Micro Data 09/25/22 04:30 09/25/22 04:30 Labs: Laboratory Results - last 24 hr 09/24/22 16:30: Sodium Cancelled, Potassium Cancelled, Chloride Cancelled, Carbon Dioxide Cancelled, Anion Gap Cancelled, BUN Cancelled, Creatinine Cancelled, Estim Creat Clear Calc Cancelled, Est GFR (MDRD) Af Amer Cancelled, Est GFR (MDRD) Non-Af Cancelled, BUN/Creatinine Ratio Cancelled, Glucose Cancelled, Calcium Cancelled, Troponin I High Sens Cancelled, Lipase Cancelled 09/24/22 17:07: WBC 6.3, RBC 4.20, Hgb 14.2, Hct 40.9, MCV 97.4, MCH 33.8 H, MCHC 34.7, RDW Std Deviation 48.1 H, RDW Coeff of Ismael 13.4, Plt Count 169, MPV 9.9, Immature Gran % (Auto) 0.200, Neut % (Auto) 92.0 H, Lymph % (Auto) 3.2 L, [place] % (Auto) 4.4, Eos % (Auto) 0.0, Baso % (Auto) 0.2, Absolute Neuts (auto) 5.8, Absolute Lymphs (auto) 0.20 L, Nucleated RBC % 0, Differential Comment SCANNED, Sodium 138, Potassium 3.8, Chloride 107, Carbon Dioxide 24.0, Anion Gap 7, BUN 15, Creatinine 0.67, Estim Creat Clear Calc 43.74, Est GFR (MDRD) Af Amer 110, Est GFR (MDRD) Non-Af 91, BUN/Creatinine Ratio 22.3 H, Glucose 125 H, Calcium 8.7, Total Bilirubin 0.40, Direct Bilirubin 0.16, AST 30, ALT 26, Alkaline Phosphatase 69, Troponin I High Sens 17, Total Protein 7.2, Albumin 3.8, Globulin 3.4, Lipase 27 09/24/22 17:45: Urine Color Yellow, Urine Clarity Clear, Urine pH 6.0, Ur Specific [place] 1.015, Urine Protein 15 H, Urine Glucose (UA) Normal, Urine Ketones 150 A*, Urine Occult Blood Negative, Urine Nitrite Negative, Urine Bilirubin Negative, Urine Urobilinogen Normal, Ur Leukocyte Esterase 25 H, Urine RBC 0 SEEN, Urine WBC 0-5 SEEN, Ur Squamous Epith Cells 0 SEEN, Urine Bacteria 0 SEEN, Urine Mucus 1+ 09/25/22 04:30: WBC 9.0, RBC 3.82 L, Hgb 12.4, Hct 36.7 L, MCV 96.1, MCH 32.5 H, MCHC 33.8, RDW Std Deviation 47.7 H, RDW Coeff of Ismael 13.5, Plt Count 156, MPV 10.1, Immature Gran % (Auto) 0.300, Neut % (Auto) 85.1 H, Lymph % (Auto) 4.5 L, [place] % (Auto) 10.1 H, Eos % (Auto) 0.0, Baso % (Auto) 0.0, Absolute Neuts (auto) 7.6, Absolute Lymphs (auto) 0.40 L, Nucleated RBC % 0, Differential Comment SCANNED, Sodium 137, Potassium 3.7, Chloride 107, Carbon Dioxide 25.0, Anion Gap 5, BUN 13, Creatinine 0.76, Estim Creat Clear Calc 43.74, Est GFR (MDRD) Af Amer 96, Est GFR (MDRD) Non-Af 79, BUN/Creatinine Ratio 17.2, Glucose 128 H, Calcium 7.8 L, Total Bilirubin 0.50, AST 35, ALT 26, Alkaline Phosphatase 58, Total Protein 6.2 L, Albumin 3.1 L, Globulin 3.1, Albumin/Globulin Ratio 1.0 Radiography Diagnostic Testing: Radiology Impression Abdomen/Pelvis CT 09/24/22 16:14 IMPRESSION: 1. Biliary stasis with suspected acalculous cholecystitis. 2. Distal large bowel thickening, urinary bladder wall thickening, and periportal edema raise suspicion for portal hypertension. Electronically Signed: Michael Aguilar MD at 19:29 EDT , Gallbladder Ultrasound 09/24/22 16:15 IMPRESSION: Diffuse biliary dilation suspicious for distal obstruction. Distended gallbladder with debris and sludge, gallbladder wall thickening, and pericholecystic fluid is suspicious for acute cholecystitis. Electronically Signed: Michael Aguilar MD at 18:21 EDT , Hepatobiliary Scan Nuclear Medicine 09/25/22 05:55 IMPRESSION: 1. ABNORMAL 99m Tc Mebrofenin hepatobiliary imaging examination. A. Nonvisualization of the gallbladder at 60, 240 minutes post radiopharmaceutical administration is consistent with a high probability of cholecystitis (acute or chronic) in patients with intermediate to high pretest probabilities of hepatobiliary disease and who have fasted for more than 4 and less than 24 hours. (Sofi et al, Nucl Med [employer]ga [employer]io Press pg. 35, 1981). Electronically Signed: Clay West, at 10:19 EDT , Physical Exam Const oriented x3 Resp normal respiratory effort Cardio regular rate and regular rhythm GI soft to palpation Palpation: tender RUQ Assessment & Plan Assessment/Plan (1) Acute cholecystitis: PLAN: Patient had a HIDA scan today which shows nonfilling of the gallbladder. Plan for laparoscopic cholecystectomy tomorrow. Patient is on Xarelto and turmeric which are being held and I will give it 1 more day and operate tomorrow. I discussed the procedure in detail with the patient. I discussed the risks, benefits, and alternatives of the procedure. I discussed the risks including but not limited to bleeding, infection, injury to surrounding organs such as the liver, bile duct, bowels. I did discuss the possibility of having to convert to an open procedure as well as the possibility that if any injuries occurred this may necessitate further surgery at a tertiary care center. Juan Diego Brand MD Pager: [facility] [place] [facility] [address] [place] [address] [address] [place] [address] Office:
--- NOTE | 2022-09-25 15:04 | CASEMGMT ---
PARIS BRANNON Assessment: Face to Face with pt for initial transition planning/care coordination assessment. RN SALUD introduced self and role at [facility], pt voices understanding and consents to assessment. Pt is A/O x4 and answers all questions appropriately at this time. Pt sitting up in chair in no distress. Care providers, pharmacy, and demographics verified/updated. Admitting Dx: cholecystitis PCP:Paulie Specialists:KE, cardio Preferred Pharmacy: [facility] Retail Insurance: FFWD [facility] Prescription Benefit: yes LNOK: Humphrey Myers, brother; Jannet Almanza, cousin Living Arrangements: Pt lives alone in a single story home with 2 steps to enter. Pt reports she is I in ADL's and denies concerns at home. Transportation: Pt drives self and denies concerns with transportation. DME/HHC/SNF: Pt has a cane and walker at home, she sometimes uses the cane. Pt denies hx of HHC or SNF stays. Pt states no concerns with going home at time of dc. Pt states no further concerns/needs. CM to follow. Advised pt to ask CM if any further question/concerns/needs arise, voices understanding. Pt Goal: Home Plan: Home
[2022-09-25 16:00] VITALS: PULSE 56; RESP 18
[2022-09-25 17:52] VITALS: BP 103/49; PULSE 57; RESP 18; TEMP 37.2; O2SAT 96
[2022-09-25 21:33] VITALS: BP 109/54; PULSE 69; RESP 18; TEMP 36.6; O2SAT 94
[2022-09-25] MEDS: Primidone 250 MG Tablet PO (21:52)
[2022-09-26] VITALS (19 sets, daily range): BP systolic 116–137; BP diastolic 58–70; PULSE 61–89; RESP 15–18; TEMP 36.1–37.7; O2SAT 92–100; BMI 23.5; BMI 23.3
--- NOTE | 2022-09-26 | GALL_PTH ---
PATIENT: RADHA ALEMAN LOC: MS3 U#:[id number] AGE/SX: 76/F ROOM: SC316 RE09/24/[address]: Dr. Juan Diego Brand MD : 1945 BED: 1 DIS: 09/28/2022 SPEC #: [id number] RECD: 09/26/22 13:10 STATUS: CORNELIA RUBI #: [id number] LIDYA: 09/26/22 00:[address]: Juan Diego Brand DEPT: SURGICAL PATHOLOGY RECD BY: Irlanda García ENTERED: 09/26/22 14:01 SP TYPE: OLINDA MENDEZ DR: DO Dr. Tobi Dailey MD Dr. Tai Chi Kwok, MD Tissues: Gallbladder, NOS Procedures: Surgery Specimen Level III HEADER OPERATION: Laparoscopic cholecystectomy with IOC PRE-OP DIAGNOSIS: Cholecystitis TISSUE SUBMITTED: Gallbladder MICROSCOPIC DIAGNOSIS Gallbladder, cholecystectomy: Acute and chronic cholecystitis. AM:mickey 09/27/2022 MICROSCOPIC DESCRIPTION Slides are reviewed. GROSS DESCRIPTION Received is one container labeled with the patient's name and designated gallbladder. The specimen consists of a gallbladder measuring 12.5 cm in length and up to 6.5 cm in diameter. The external surface is pink-donovan, smooth and glistening for the most part. Focally it is granular, hemorrhagic and contains cautery artifact. The gallbladder contains hemorrhagic bile. No stones are identified in the container or in the gallbladder. The mucosa is congested and hemorrhagic. The gallbladder wall measures up to 0.8 cm in thickness. [employer] sections from the gallbladder and the cystic duct are submitted in two cassette. / SJ:mickey 09/26/2022 TC:2 CPT: 99862
[2022-09-26] MEDS: 0.9% Normal Saline 1,000 ML 125 ML IV (04:11)
[2022-09-26 05:07] LABS: CMV Acute Antibody IgM < 30.0 AU/mL (0.0-29.9)
[2022-09-26 05:23] LABS: Thyroid Stim Hormone (TSH) 2.52 uIU/mL (0.358-3.74)
[2022-09-26] MEDS: Levothyroxine 100 MCG Tablet PO (05:51)
--- NOTE | 2022-09-26 06:00 | EKG12_ITS ---
Test Reason : PRE-OP Blood Pressure : / mmHG Vent. Rate : 082 BPM Atrial Rate : 082 BPM P-R Int : 178 ms QRS Dur : 086 ms QT Int : 382 ms P-R-T Axes : 030 033 021 degrees QTc Int : 446 ms Normal sinus rhythm Normal ECG When compared with ECG of 24-SEP-2022 16:25, Premature atrial complexes are no longer Present Vent. rate has increased BY 41 BPM Nonspecific T wave abnormality now evident in Inferior leads Confirmed by BRENDA LOGAN, CHALINO ([id number]), film editor KEENA BALL ([id number]) on 09/27/2022 12:57:24 PM Referred By: PRIYA Confirmed By:CHALINO GUTIERREZ MD
--- NOTE | 2022-09-26 08:41 | PCM.PN.SRG ---
Subjective Subjective Patient reports ongoing right upper quadrant pain. Objective Data Objective Data Vital Signs: Vital Signs Temp Pulse Resp BP Pulse Ox O2 Del Method 99.8 F H 81 18 120/58 L 92 Room Air 09/26/22 04:05 09/26/22 04:05 09/26/22 04:05 09/26/22 04:05 09/26/22 04:05 09/26/22 04:05 Oxygen Delivery Method Room Air Weight: 141 lb 5.061 oz Body Mass Index (BMI) 23.5 Intake & Output: Intake and Output for Last 24 Hours 09/24/22 09/25/22 09/26/22 23:59 23:59 23:59 Intake Total 1110 / 1110 3345.42 / 3345.42 907.5 / 907.5 Output Total 200 / 200 Balance 1110 / 1110 3345.42 / 3345.42 707.5 / 707.5 Lab / Micro Data 09/25/22 04:30 09/25/22 04:30 Labs: Laboratory Results - last 24 hr 09/25/22 04:30: CMV IgM Ab < 30.0 09/26/22 04:35: TSH 2.52 Radiography Diagnostic Testing: Radiology Impression Hepatobiliary Scan Nuclear Medicine 09/25/22 05:55 IMPRESSION: 1. ABNORMAL 99m Tc Mebrofenin hepatobiliary imaging examination. A. Nonvisualization of the gallbladder at 60, 240 minutes post radiopharmaceutical administration is consistent with a high probability of cholecystitis (acute or chronic) in patients with intermediate to high pretest probabilities of hepatobiliary disease and who have fasted for more than 4 and less than 24 hours. (Sofi et al, Nucl Med Olga Rosio Press pg. 35, 1980). Electronically Signed: Clay West, at 10:19 EDT , Physical Exam Const oriented x3 Resp normal respiratory effort GI Palpation: tender RUQ Assessment & Plan Assessment/Plan (1) Acute cholecystitis: PLAN: Patient will have laparoscopic cholecystectomy this morning. She has been off her Xarelto for 3 days now. I discussed the procedure in detail with the patient. I discussed the risks, benefits, and alternatives of the procedure. I discussed the risks including but not limited to bleeding, infection, injury to surrounding organs such as the liver, bile duct, bowels. I did discuss the possibility of having to convert to an open procedure as well as the possibility that if any injuries occurred this may necessitate further surgery at a tertiary care center. Juan Diego Brand MD Pager: [facility] [address] [place] [address] [address] [place] [address] Office:
[2022-09-26] MEDS: 0.9% Normal Saline 1,000 ML 15 ML IV (09:01)
--- NOTE | 2022-09-26 09:36 | NURSING ---
This Nurse attempt to update listed contacts on profile as per pt request. Pt has lost her cell phone and is unable to make calls. No success with updates.
[2022-09-26] MEDS: Bupivacaine 0.25% 30 ML Vial (11:06)
--- NOTE | 2022-09-26 11:10 | RAD_ITS ---
STUDY: INTRAOPERATIVE CHOLANGIOGRAM. REASON FOR EXAM: Female, 76 years old. Laparoscopic cholecystectomy. FLUOROSCOPY TIME (if supplied): ( 14.5 seconds ) minutes/seconds 6.09 mGy TECHNIQUE: An intraoperative cholangiogram was performed by the surgeon. Imaging was submitted. COMPARISON: None. FINDINGS: Minimally dilated common bile duct. No intraluminal filling defect is seen. There is free flow contrast into the duodenum. RAD/Cholangiogram/ O R,Initial IMPRESSION: Minimally dilated common bile duct. No intraluminal filling defect is seen. Electronically Signed: Paulo Gray MD at 12:34 EDT ,
--- NOTE | 2022-09-26 11:16 | OP.PCM_ITS ---
Report of Operation Date of Procedure: 09/26/22 Pre-Operative Diagnosis: Acute cholecystitis Post-Operative Diagnosis: Acute cholecystitis with hydrops Surgery/Procedure Performed:: Laparoscopic cholecystectomy with cholangiogram Specimen's removed: Gallbladder Description of Procedure: After obtaining informed consent patient was brought back to the operating room. General anesthesia was induced. The abdomen was prepped and draped in usual sterile fashion. A small midline incision was made superior to the umbilicus and deepened to the level of fascia. The fascia was elevated and incised. Next the peritoneum was elevated and incised in the same fashion. Finger sweep was performed and the Balbuena trocar was placed into the abdomen. The balloon was inflated. The abdomen was inflated to 15 mmHg. Next a camera was introduced into the abdomen and the abdomen was inspected. Next under direct visualization three 5-mm ports were placed one subxiphoid and 2 subcostal. Next the gallbladder was elevated and retracted toward the right shoulder. The peritoneum was stripped from the gallbladder. The infundibulum was located and retracted laterally. Next the triangle of Calot was dissected and the cystic duct and cystic artery were identified. Cholangiograms were performed. The Squires clamp was used to clamp across the infundibulum and the catheter needle was inserted into the gallbladder. The gallbladder did not flush into the cystic duct. Next a maite was made in the right upper quadrant and a Ranfac catheter was placed into the abdomen. A clip was placed on the proximal cystic duct and then scissors were used to open the cystic duct and the Ranfac was placed into the cystic duct and then a clip was placed over it and it was flush. Under fluoroscopy contrast was instilled into the gallbladder and the common duct, cystic duct as well as proximal hepatic ducts were identified. There was good filling of the duodenum. There were no filling defects noted in the common bile duct. The clip was removed as well as the catheter and the infundibulum was grasped once more. Three hemolock clips were placed across the cystic duct. The cystic duct was then divided leaving 2 clips on the stump. The cystic artery was clipped and divided in the same fashion. The hook cautery was then used to take the gallbladder off of the gallbladder bed. Hemostasis was obtained using argon beam and Surgicel powder.. Gallbladder fossa was irrigated and no active bleeding or bile leakage was noted. Next the camera was introduced in the subxiphoid port. An Endopouch bag was placed through the u mbilical port and the gallbladder was placed into it. The gallbladder was then removed through the umbilical incision. The camera was then reinserted through the umbilical port. The gallbladder fossa was inspected once more and noted to be hemostatic with no leaking bile. The abdomen was suctioned dry. The 5 mm ports were removed under direct visualization. The umbilical port was then removed and the air was removed from the abdomen. Next using an 0 Vicryl suture the umbilical fascia was closed in a [id number] fashion. The umbilical port site was irrigated local anesthetic was administered to all the incisions. All the incisions were closed with interrupted subcuticular 4-0 Monocryl sutures followed by Steri-Strips and dressings. The patient was awoken and taken to PACU in stable condition. Admit VTE Documentation VTE Mechan Device Prophylaxis: SCD's
[2022-09-26 13:07] LABS: Anti-Mitochondrial AB <20.0 Units (0.0-20.0)
[2022-09-26] MEDS: 0.9% Saline Lock 10 ML Syringe IV (18:59)
[2022-09-26] MEDS: Morphine 2 MG/ML Syringe IV (18:59)
--- NOTE | 2022-09-26 20:14 | PN.HOSP_ITS ---
Reason for Visit Reason for Visit: Diagnoses Acute cholecystitis (09/24/22) Cholecystitis, unspecified (09/24/22) Unspecified abdominal pain (09/24/22) Subjective Subjective Patient was seen and examined tonight, she underwent a laparoscopic layton cystectomy today, she states she would like to get up tonight to walk around and passed gas. Patient denies any chills or fever at this time, she denies any severe abdominal discomfort. Objective Data Objective Data Vital Signs: Vital Signs Temp Pulse Resp BP Pulse Ox O2 Del Method O2 Flow Rate 99.0 F 78 18 119/64 98 Room Air 2 09/26/22 18:46 09/26/22 18:46 09/26/22 18:46 09/26/22 18:46 09/26/22 18:46 09/26/22 18:46 09/26/22 14:57 Oxygen Flow Rate (L/min) 2 Oxygen Delivery Method Room Air Weight: 64.1 kg Body Mass Index (BMI) 23.5 Intake & Output: Intake and Output for Last 24 Hours 09/24/22 09/25/22 09/26/22 23:59 23:59 23:59 Intake Total 1110 / 1110 3345.42 / 3345.42 1717.5 / 1717.5 Output Total 200 / 200 Balance 1110 / 1110 3345.42 / 3345.42 1517.5 / 1517.5 Lab / Micro Data 09/27/22 06:15 09/27/22 06:15 Labs: Laboratory Results - last 24 hr 09/25/22 04:30: Anti-Mitochondrial Ab <20.0, CMV IgM Ab < 30.0 09/26/22 04:35: TSH 2.52 Radiography Diagnostic Testing: Radiology Impression Cholangiogram 09/26/22 11:10 IMPRESSION: Minimally dilated common bile duct. No intraluminal filling defect is seen. Electronically Signed: Paulo Gray MD at 12:34 EDT , Physical Exam Const alert, oriented x3 and no apparent distress General Appearance: cooperative, well kempt and well developed Orientation / Consciousness: awake, oriented to person, oriented to place and oriented to time HEENT normocephalic, head/scalp atraumatic and moist oral mucous membranes Eyes PERRL, EOMs intact bilaterally and conjunctivae normal Neck supple, no JVD, thyroid normal and no carotid bruits General: trachea midline Resp normal respiratory effort and clear to auscultation bilaterally Auscultation: Negative for rales, rhonchi or wheezes Cardio regular rate, regular rhythm, no murmurs, no rub and no gallops GI GI Narrative: Abdomen is not distended at this time, there are no bowel sounds noted on auscultation Extremity no clubbing, cyanosis or edema Skin no rashes or lesions noted General Skin Exam: no breakdown Neuro oriented x3, CN's II-XII intact bilaterally, no focal motor deficits and no sensory deficits noted Sensorium / Orientation: awake and alert Speech: speech normal Psych affect normal Assessment & Plan Assessment/Plan (1) Acute cholecystitis: PLAN: Plan 1. Acute cholecystitis-again patient underwent laparoscopic cholecystectomy today, postop care per surgery at this time #2 paroxysmal atrial fib/flutter-patient is off Xarelto at this time, patient's metoprolol is being held due to her n.p.o. status #3 hyperlipidemia-patient is n.p.o., however statin is being held at this time #4 seizure disorder-patient's primidone is being held at this time Total clinical time spent by myself addressing the patient's medical issues, reviewing all of her data, and collaborating with patient's care team: 35- minutes Charges/Coding Visit Charges Inpatient E&M: 38837 Subs Hosp L2
[2022-09-26] MEDS: Primidone 250 MG Tablet PO (21:10)
[2022-09-27 03:37] VITALS: BP 111/64; PULSE 72; RESP 18; TEMP 36.9; O2SAT 96
[2022-09-27 03:42] VITALS: BMI 23.3
[2022-09-27] MEDS: 0.9% Normal Saline 1,000 ML 60 ML IV ×2 (06:16→22:36)
[2022-09-27] MEDS: Levothyroxine 100 MCG Tablet PO (06:24)
[2022-09-27 06:51] LABS: Absolute Lymphocyte Count 0.52 X10^3/uL (0.83-4.51); Absolute Neutrophil Count 6.4 X10^3/uL (2.0-7.7); Basophil# 0.01 X10^3/uL; Basophil% 0.1 % (0-1); Hematocrit 37.6 % (37-47); Hemoglobin 12.3 g/dL (12.0-15.0); Lymphocyte # 0.52 X10^3/ul (0.83-4.51); Lymphocyte % 6.8 % (19-41); Mean Corp Hgb Conc 32.7 g/dL (32-36); Mean Corpuscular Hgb 32.3 pg (27.0-32.0); Mean Corpuscular Volume 98.7 fL (81-99); Mean Platelet Vol. 11.1 fl (6.2-12.0); Monocyte# 0.61 X10^3/uL; NRBC Flagged by Analyzer 0 % (0-5); Neutrophil # 6.44 X10^3/uL (2.7-7.7); Neutrophil % 84.4 % (47-70); POSITIVE DIFFERENTIAL YES; Platelet Count 152 K/mm3 (150-450); RBC Distribution Width CV 13.6 % (11.6-14.6); Red Blood Count 3.81 M/mm3 (4.2-5.4); White Blood Count 7.6 K/mm3 (4.4-11.0)
[2022-09-27 06:54] LABS: Differential Indicated SCAN CRITERIA MET
[2022-09-27 07:40] LABS: ALB/GLOB Ratio 0.6 RATIO (0.9-2.4); AST(SGOT) 43 U/L (15-37); Alanine Aminotransfer ALT/SGPT 34 U/L (13-56); Albumin, Serum 2.1 g/dL (3.2-5.0); Alkaline Phosphatase 52 U/L (45-117); Anion Gap 5 (5-15); BUN 13 mg/dL (7-18); BUN/Creat Ratio 22.8 RATIO (10-20); Calcium,Total 7.7 mg/dL (8.5-10.1); Chloride 111 mmol/L (98-107); Creatinine, Serum 0.57 mg/dL (0.55-1.02); EST Glomerular Filtration Rate 110 mL/min (>60); Est Glom Filt Rate - Afr Amer 133 mL/min (>60); Estimated Creatinine Clearance 43.74 ml/min; Globulin 3.7 g/dL (2.2-4.2); Glucose 94 mg/dL (74-106); Potassium 3.4 mmol/L (3.5-5.1); Protein, Total 5.8 g/dL (6.4-8.2); Sodium Level 140 mmol/L (136-145)
[2022-09-27 08:11] LABS: Platelet Estimate ADEQUATE (ADEQ); Red Cell Morphology NORM C+C NORMAL (NORM C&C)
--- NOTE | 2022-09-27 08:27 | PN.SURG_ITS ---
Subjective Subjective Patient still does not report any bowel function. She denies nausea. Objective Data Objective Data Vital Signs: Vital Signs Temp Pulse Resp BP Pulse Ox O2 Del Method O2 Flow Rate 98.5 F 72 18 111/64 96 Nasal Cannula 2 09/27/22 03:37 09/27/22 03:37 09/27/22 03:37 09/27/22 03:37 09/27/22 03:37 09/27/22 03:37 09/27/22 03:37 Oxygen Flow Rate (L/min) 2 Oxygen Delivery Method Nasal Cannula Weight: 141 lb 5.061 oz Body Mass Index (BMI) 23.5 Intake & Output: Intake and Output for Last 24 Hours 09/25/22 09/26/22 09/27/22 23:59 23:59 23:59 Intake Total 3345.42 / 3345.42 1717.5 / 1717.5 110 / 110 Output Total 600 / 600 200 / 200 Balance 3345.42 / 3345.42 1117.5 / 1117.5 -90 / -90 Lab / Micro Data 09/27/22 06:15 09/27/22 06:15 Labs: Laboratory Results - last 24 hr 09/25/22 04:30: Anti-Mitochondrial Ab <20.0 09/27/22 06:15: WBC 7.6, RBC 3.81 L, Hgb 12.3, Hct 37.6, MCV 98.7, MCH 32.3 H, MCHC 32.7, RDW Std Deviation 50.0 H, RDW Coeff of Ismael 13.6, Plt Count 152, MPV 11.1, Immature Gran % (Auto) 0.700, Neut % (Auto) 84.4 H, Lymph % (Auto) 6.8 L, Taliaferro % (Auto) 8.0, Eos % (Auto) 0.0, Baso % (Auto) 0.1, Absolute Neuts (auto) 6.4, Absolute Lymphs (auto) 0.52 L, Nucleated RBC % 0, Platelet Estimate ADEQUATE, RBC Morphology NORM C+C, Sodium 140, Potassium 3.4 L, Chloride 111 H, Carbon Dioxide 24.0, Anion Gap 5, BUN 13, Creatinine 0.57, Estim Creat Clear Calc 43.74, Est GFR (MDRD) Af Amer 133, Est GFR (MDRD) Non-Af 110, BUN/Creatinine Ratio 22.8 H, Glucose 94, Calcium 7.7 L, Total Bilirubin 0.50, AST 43 H, ALT 34, Alkaline Phosphatase 52, Total Protein 5.8 L, Albumin 2.1 L, Globulin 3.7, Albumin/Globulin Ratio 0.6 L Radiography Diagnostic Testing: Radiology Impression Cholangiogram 09/26/22 11:10 IMPRESSION: Minimally dilated common bile duct. No intraluminal filling defect is seen. Electronically Signed: Paulo Gray MD at 12:34 EDT , Physical Exam Const oriented x3 Resp normal respiratory effort GI soft to palpation Palpation: tender Assessment & Plan Assessment/Plan (1) Acute cholecystitis: PLAN: Patient had acute cholecystitis. I will wait 1 more day to resume her blood thinners. The patient is not passing any flatus yet and she had a very distended cecum during surgery. When she starts passing flatus I will start advancing her diet. I discontinued her antibiotics today. Juan Diego Brand MD Pager: [facility] [address] [place] [address], [address] [place] [address] Office:
[2022-09-27 09:30] VITALS: BP 118/76; PULSE 76; RESP 18; TEMP 36.8; O2SAT 97
[2022-09-27] MEDS: Potassium Chloride 10mEq/100mL 10 MEQ/100 ML IV.SOLN. 100 MEQ IV BOLUS (09:50)
[2022-09-27] MEDS: Primidone 250 MG Tablet PO ×2 (09:50→19:48)
[2022-09-27 10:46] VITALS: BMI 23.3
[2022-09-27] MEDS: Potassium Chloride 10mEq/100mL 10 MEQ/100 ML IV.SOLN. 80 MEQ IV BOLUS (10:47)
[2022-09-27 14:46] VITALS: BMI 23.3
[2022-09-27 15:30] VITALS: BP 117/72; PULSE 83; RESP 18; TEMP 36.9; O2SAT 97
--- NOTE | 2022-09-27 17:46 | PN.HOSP_ITS ---
Reason for Visit Reason for Visit: Diagnoses Acute cholecystitis (09/24/22) Cholecystitis, unspecified (09/24/22) Unspecified abdominal pain (09/24/22) Subjective Subjective Patient was seen and examined today, she was placed on oxygen last night to make her feel better according to the patient, I discouraged her use of oxygen stating that she could get bloating in the abdomen from wearing the oxygen. Patient is passing flatus, she has bowel sounds today. Objective Data Objective Data Vital Signs: Vital Signs Temp Pulse Resp BP Pulse Ox O2 Del Method O2 Flow Rate 98.5 F 83 18 117/72 97 Room Air 2 09/27/22 15:30 09/27/22 15:30 09/27/22 15:30 09/27/22 15:30 09/27/22 15:30 09/27/22 16:00 09/27/22 10:00 Oxygen Flow Rate (L/min) 2 Oxygen Delivery Method Room Air Weight: 64.1 kg Body Mass Index (BMI) 23.5 Intake & Output: Intake and Output for Last 24 Hours 09/25/22 09/26/22 09/27/22 23:59 23:59 23:59 Intake Total 3345.42 / 3345.42 1717.5 / 1717.5 464.79 / 464.79 Output Total 600 / 600 500 / 500 Balance 3345.42 / 3345.42 1117.5 / 1117.5 -35.21 / -35.21 Lab / Micro Data 09/27/22 06:15 09/27/22 06:15 Labs: Laboratory Results - last 24 hr 09/27/22 06:15: WBC 7.6, RBC 3.81 L, Hgb 12.3, Hct 37.6, MCV 98.7, MCH 32.3 H, MCHC 32.7, RDW Std Deviation 50.0 H, RDW Coeff of Ismael 13.6, Plt Count 152, MPV 11.1, Immature Gran % (Auto) 0.700, Neut % (Auto) 84.4 H, Lymph % (Auto) 6.8 L, [place] % (Auto) 8.0, Eos % (Auto) 0.0, Baso % (Auto) 0.1, Absolute Neuts (auto) 6.4, Absolute Lymphs (auto) 0.52 L, Nucleated RBC % 0, Platelet Estimate ADEQUATE, RBC Morphology NORM C+C, Sodium 140, Potassium 3.4 L, Chloride 111 H, Carbon Dioxide 24.0, Anion Gap 5, BUN 13, Creatinine 0.57, Estim Creat Clear Calc 43.74, Est GFR (MDRD) Af Amer 133, Est GFR (MDRD) Non-Af 110, BUN/Creatinine Ratio 22.8 H, Glucose 94, Calcium 7.7 L, Total Bilirubin 0.50, AST 43 H, ALT 34, Alkaline Phosphatase 52, Total Protein 5.8 L, Albumin 2.1 L, Globulin 3.7, Albumin/Globulin Ratio 0.6 L Physical Exam Const alert, no apparent distress and healthy appearing General Appearance: cooperative, well kempt and well developed Orientation / Consciousness: awake, oriented to person, oriented to place and oriented to time HEENT normocephalic and moist oral mucous membranes Eyes PERRL, EOMs intact bilaterally and conjunctivae normal Neck supple, no JVD, thyroid normal and no carotid bruits General: trachea midline Resp normal respiratory effort, no retractions, no use of accessory muscles and clear to auscultation bilaterally Auscultation: Negative for rales, rhonchi or wheezes Cardio regular rate, regular rhythm, S1 normal heart sound, S2 normal heart sound, no murmurs, no rub and no gallops GI normal to inspection, nondistended, normoactive bowel sounds, soft to palpation and non-tender Extremity no clubbing, cyanosis or edema Skin no rashes or lesions noted General Skin Exam: no breakdown Neuro CN's II-XII intact bilaterally, moves all extremities, no focal motor deficits and no sensory deficits noted Sensorium / Orientation: awake, alert, oriented to person and oriented to place Speech: speech normal Psych affect normal Assessment & Plan Assessment/Plan (1) Acute cholecystitis: PLAN: Plan 1. Acute cholecystitis-again patient underwent laparoscopic cholecystectomy yesterday, postop care per general surgery #2 paroxysmal atrial fib/flutter-patient is off Xarelto at this time, patient's metoprolol is being held due to her n.p.o. status #3 hyperlipidemia-patient is n.p.o., however statin is being held at this time #4 seizure disorder-patient's primidone is being held at this time Total clinical time spent by myself addressing the patient's medical issues, reviewing all of her data, and collaborating with patient's care team: 25-yodit regina Charges/Coding Visit Charges Inpatient E&M: 57790 Subs Hosp L1
[2022-09-27 18:36] VITALS: BMI 23.3
[2022-09-27 19:41] VITALS: BP 118/67; PULSE 65; RESP 18; TEMP 37.9; O2SAT 96
[2022-09-27] MEDS: Acetaminophen 325 MG Tablet 650 MG PO (19:47)
[2022-09-27 22:39] VITALS: TEMP 36.9
[2022-09-28 01:50] VITALS: BP 127/68; PULSE 61; RESP 20; TEMP 37.1; O2SAT 97
[2022-09-28 01:56] VITALS: PULSE 70
[2022-09-28 03:08] LABS: Anti-Smooth Muscle ABS 20 Units (0-19); Copper, Serum or Plasma 73 ug/dL (80-158); EBV Acute VCA IgM < 36.0 U/mL (0.0-35.9); EBV-VCA IgG > 600.0 U/mL (0.0-17.9); HEPATITIS B SURFACE AG Negative (Negative); Hep C Antibodies Non Reactive (Non Reactive); Hepatitis A IgM Antibody Negative (Negative); Hepatitis B Core AB IgM Negative (Negative)
[2022-09-28] MEDS: Acetaminophen 325 MG Tablet 650 MG PO (04:17)
[2022-09-28] MEDS: Levothyroxine 100 MCG Tablet PO (06:40)
--- NOTE | 2022-09-28 06:41 | DS.PCM_ITS ---
Providers Date of Admission: 09/24/22 Primary Care Physician: Dr. Neil Apodaca MD Consultations 09/24/22 21:36 Consult: Gastroenterology Routine Consulting Provider: [facility] Reason for Consult: possible liver disease, thickened colon EMERGENT Consult: No Notified: Yes Date Notified: 09/24/22 Time Notified: 20:28 Method of Notification: Verbal Consult: Hospitalist Routine Consulting Provider: Kofi Santiago Reason for Consult: medical evaluation EMERGENT Consult: No Notified: Yes Date Notified: 09/24/22 Time Notified: 20:28 Method of Notification: Verbal Reason For Visit: CHOLECYSTITIS Diagnosis Discharge Diagnosis (1) Acute cholecystitis: Status: Acute Code(s): K81.0 - Acute cholecystitis Plan: Patient had acute cholecystitis. I will wait 1 more day to resume her blood thinners. The patient is not passing any flatus yet and she had a very distended cecum during surgery. When she starts passing flatus I will start advancing her diet. I discontinued her antibiotics today. Juan Diego Brand MD Pager: [facility] [address] [place] [address], [address] [place] [address] Office: Medications at Discharge Home Medications primidone 250 mg tablet 250 mg PO BID seizure 09/24/13 atorvastatin 40 mg tablet 40 mg PO QHS cholesterol 07/22/16 lutein 20 mg capsule 20 mg PO DAILY 07/22/16 multivitamin 1 ea PO DAILY 07/22/16 rivaroxaban 20 mg tablet 20 mg PO DAILY@0600 A-Fib #30 tabs 11/01/16 calcium carbonate 600 mg-vitamin D3 12.5 mcg (500 unit) capsule (Calcium 600 w ith Vitamin D3) 1 cap PO DAILY 04/10/20 magnesium oxide 500 mg tablet 500 mg PO DAILY 04/10/20 levothyroxine 100 mcg tablet 100 mcg PO DAILY hypothyroid 03/05/21 Saccharomyces boulardii 250 mg capsule (Daily Probiotic (S. boulardii)) 250 mg PO BID 09/06/21 diclofenac sodium 1 % topical gel (Voltaren Arthritis Pain) 4 g topical TID #100 grams 09/07/21 metoprolol tartrate 50 mg tablet 50 mg PO BID BP 04/03/22 niacin 50 mg tablet 50 mg PO DAILY 04/03/22 turmeric 400 mg capsule 400 mg PO DAILY 04/03/22 acetaminophen 325 mg tablet 650 mg (2 x 325 mg) PO Q4H PRN PRN pain 1-10/fever #0 tabs 09/28/22 Hospital Course Operations cholecystecomy Summary of Care Provided Hospital Course: Patient was admitted with abdominal pain. After holding Xarelto for two days she was taken for laparoscopic cholecystectomy. She had a distended colon so she was kept NPO until flatus then diet was advanced. SHe was discharged after tolerating diet Weight / BMI Weight Weight: 141 lb 5.061 oz Body Mass Index (BMI) 23.5 ABG / Lab / Microbiology Data 09/27/22 06:15 09/27/22 06:15 Laboratory: Laboratory Results - last 24 hr 09/25/22 04:30: Serum Copper 73 L, Anti-Smooth Muscle Ab 20 H, EBV Capsid Ag IgG Ab > 600.0 H, EBV Capsid Ag IgM Ab < 36.0, EBV Nuclear Ag IgG Ab 539.0 H, EBV Antibody Interp Comment, Hepatitis A IgM Ab Negative, Hep Bs Antigen Negative, Hep B Core IgM Ab Negative, Hepatitis C Ab (EIA) Non Reactive, Hep C Ab Comment Comment 09/27/22 06:15: WBC 7.6, RBC 3.81 L, Hgb 12.3, Hct 37.6, MCV 98.7, MCH 32.3 H, MCHC 32.7, RDW Std Deviation 50.0 H, RDW Coeff of Ismael 13.6, Plt Count 152, MPV 11.1, Immature Gran % (Auto) 0.700, Neut % (Auto) 84.4 H, Lymph % (Auto) 6.8 L, [place] % (Auto) 8.0, Eos % (Auto) 0.0, Baso % (Auto) 0.1, Absolute Neuts (auto) 6.4, Absolute Lymphs (auto) 0.52 L, Nucleated RBC % 0, Platelet Estimate ADEQUATE, RBC Morphology NORM C+C, Sodium 140, Potassium 3.4 L, Chloride 111 H, Carbon Dioxide 24.0, Anion Gap 5, BUN 13, Creatinine 0.57, Estim Creat Clear Calc 43.74, Est GFR (MDRD) Af Amer 133, Est GFR (MDRD) Non-Af 110, BUN/Creatinine Ratio 22.8 H, Glucose 94, Calcium 7.7 L, Total Bilirubin 0.50, AST 43 H, ALT 34, Alkaline Phosphatase 52, Total Protein 5.8 L, Albumin 2.1 L, Globulin 3.7, Albumin/Globulin Ratio 0.6 L D/C Instructions Discharge Diet: Light diet - advance as tolerated Discharge Activity: May Not Drive (for 2-3 days or while taking narcotic pain medications.) and - (Do not drive, work heavy equipment or sign legal documents for 24 hours.) May shower in (days): 1 Lifting Restrictions: 20 lbs for 2 weeks Additional Activity Instructions: Pain medication may cause nausea. You should typically eat light foods as you take your pain medications. Pain medication may also cause constipation. If this is a problem for you, please discuss with your doctor. Call your doctor if your incision/area has: Continuous Slow Oozing, Sudden Increased Bleeding, Increased Pain/ Swelling, Increased Redness and Foul Smelling Discharge Call your doctor if you observe: Fever of 101 or Higher Suture Line Care: Avoid Pulling/Pushing and Avoid Pinching/Bending Remove Dressing in: 2 days Additional Dressing/Incision Instructions: Leave operative bandaids on for 2 days. When you remove dressing, leave Steri-Strips on until your follow-up appointment, or until the Steri-Strips fall off on their own. Please Follow Up With: Juan Diego Brand MD When: Please call to schedule 2 week follow up appointment. [phone] Meaningful Use Info Meaningful Use Diagnoses (Choose all that apply): None applicable Discharge Plan Admission Admit Date/Time: 09/24/22 20:27 Attending Provider: Juan Diego Brand Primary Care Provider: Neil Apodaca Chi Consulting Providers: Tobi Villatoro Mark Instructions Additional Instructions / Restrictions: Resume Xarelto Friday Discharge Orders/Prescriptions Prescriptions: New acetaminophen 325 mg Tablet 650 mg PO Q4H PRN PRN (Reason: pain 1-10/fever) Qty: 0 0RF Continued magnesium oxide 500 mg tablet 500 mg PO DAILY metoprolol tartrate 50 mg tablet 50 mg PO BID calcium carbonate-vitamin D3 [Calcium 600 with Vitamin D3] 600 mg(1,500mg) - 500 unit capsule 1 cap PO DAILY levothyroxine 100 mcg tablet 100 mcg PO DAILY niacin 50 mg tablet 50 mg PO DAILY turmeric 400 mg capsule 400 mg PO DAILY Saccharomyces boulardii [Daily Probiotic (S. boulardii)] 250 mg capsule 250 mg PO BID diclofenac sodium [Voltaren Arthritis Pain] 1 % gel 4 g topical TID Qty: 100 5RF Rx Instructions: apply to single knee primidone 250 MG tablet 250 mg PO BID Patient Comments: SEIZURES atorvastatin 40 MG tablet 40 mg PO QHS Patient Comments: CHOLESTEROL multivitamin 1 EACH tablet 1 ea PO DAILY Patient Comments: SUPPLEMENT lutein 20 MG capsule 20 mg PO DAILY Patient Comments: SUPPLEMENT rivaroxaban 20 MG tablet 20 mg PO DAILY@0600 Qty: 30 0RF Referrals / Follow Up: Neil Apodaca Chi, MD [Primary Care Provider] - Disposition Disposition (needs filled in before D/C Order can be placed): Home, Self Care
[2022-09-28 08:00] VITALS: BP 118/66; PULSE 64; RESP 18; TEMP 36.8; O2SAT 97
--- NOTE | 2022-09-28 09:27 | PN.HOSP_ITS ---
Reason for Visit Reason for Visit: Diagnoses Acute cholecystitis (09/24/22) Cholecystitis, unspecified (09/24/22) Unspecified abdominal pain (09/24/22) Subjective Subjective Patient was seen and examined today, patient tells me that she had a small bowel movement yesterday, she continues to pass gas. She does not complain of any severe abdominal pain. Objective Data Objective Data Vital Signs: Vital Signs Temp Pulse Resp BP Pulse Ox O2 Del Method O2 Flow Rate 98.8 F 70 20 H 127/68 H 97 Room Air 2 09/28/22 01:50 09/28/22 01:56 09/28/22 01:50 09/28/22 01:50 09/28/22 01:50 09/28/22 01:56 09/27/22 10:00 Oxygen Flow Rate (L/min) 2 Oxygen Delivery Method Room Air Weight: 64.1 kg Body Mass Index (BMI) 23.5 Intake & Output: Intake and Output for Last 24 Hours 09/26/22 09/27/22 09/28/22 23:59 23:59 23:59 Intake Total 1717.5 / 1717.5 1544.79 / 1544.79 800 / 800 Output Total 600 / 600 500 / 500 500 / 500 Balance 1117.5 / 1117.5 1044.79 / 1044.79 300 / 300 Lab / Micro Data 09/27/22 06:15 09/27/22 06:15 Labs: Laboratory Results - last 24 hr 09/25/22 04:30: Serum Copper 73 L, Anti-Smooth Muscle Ab 20 H, EBV Capsid Ag IgG Ab > 600.0 H, EBV Capsid Ag IgM Ab < 36.0, EBV Nuclear Ag IgG Ab 539.0 H, EBV Antibody Interp Comment, Hepatitis A IgM Ab Negative, Hep Bs Antigen Negative, Hep B Core IgM Ab Negative, Hepatitis C Ab (EIA) Non Reactive, Hep C Ab Comment Comment Physical Exam Narrative alert, no apparent distress and healthy appearing General Appearance: cooperative, well kempt and well developed Orientation / Consciousness: awake, oriented to person, oriented to place and oriented to time HEENT normocephalic and moist oral mucous membranes Eyes PERRL, EOMs intact bilaterally and conjunctivae normal Neck supple, no JVD, thyroid normal and no carotid bruits General: trachea midline Resp normal respiratory effort, no retractions, no use of accessory muscles and clear to auscultation bilaterally Auscultation: Negative for rales, rhonchi or wheezes Cardio regular rate, regular rhythm, S1 normal heart sound, S2 normal heart sound, no murmurs, no rub and no gallops GI normal to inspection, nondistended, normoactive bowel sounds, soft to palpation and non-tender Extremity no clubbing, cyanosis or edema Skin no rashes or lesions noted General Skin Exam: no breakdown Neuro CN's II-XII intact bilaterally, moves all extremities, no focal motor deficits and no sensory deficits noted Sensorium / Orientation: awake, alert, oriented to person and oriented to place Speech: speech normal Psych affect normal Assessment & Plan Assessment/Plan (1) Acute cholecystitis: PLAN: Plan 1. Acute cholecystitis-it appears that surgery will discharge the patient today, she remains medically stable, she is resume her home medications at the time of discharge #2 paroxysmal atrial fib/flutter-patient is off Xarelto at this time, patient's metoprolol is being held due to her n.p.o. status #3 hyperlipidemia-patient is n.p.o., however statin is being held at this time #4 seizure disorder-patient's primidone is being held at this time Total clinical time spent by myself addressing the patient's medical issues, reviewing all of her data, and collaborating with patient's care team: 25- minutes Charges/Coding Visit Charges Inpatient E&M: 38668 [facility] L1
[2022-09-28 10:05] VITALS: PULSE 64
[2022-09-28] MEDS: Metoprolol Tartrate 50 MG Tablet PO (10:05)
[2022-09-28] MEDS: Primidone 250 MG Tablet PO (10:05)
--- NOTE | 2022-09-28 11:04 | DCINST_ITS ---
Discharge Instructions Diet Discharge Diet: Light diet - advance as tolerated Activity May shower in (days): 1 Additional Activity Instructions:: Pain medication may cause nausea. You should typically eat light foods as you take your pain medications. Pain medication may also cause constipation. If this is a problem for you, please discuss with your doctor. Dressing / Incision Call your doctor if your incision/area has: Continuous Slow Oozing, Sudden Increased Bleeding, Increased Pain/ Swelling, Increased Redness and Foul Smelling Discharge Call your doctor if you observe: Fever of 101 or Higher Suture Line Care: Avoid Pulling/Pushing and Avoid Pinching/Bending Additional Dressing/Incision Instructions:: Leave operative bandaids on for 2 days. When you remove dressing, leave Steri-Strips on until your follow-up appointment, or until the Steri-Strips fall off on their own. Follow Up Care Please Follow Up With: Juan Diego Brand MD Test Results: Test results from this visit will be discussed in further detail at your follow- up appointment, if applicable. Discharge Plan Admission Admit Date/Time: 09/24/22 20:27 Primary Reason for Your Visit: Gallbladder removal Attending Provider: Juan Diego Brand Primary Care Provider: Neil Apodaca Chi Consulting Providers: Tobi Villatoro; Ari Eaton Instructions Additional Instructions / Restrictions: Resume Xarelto Friday Discharge Orders/Prescriptions Prescriptions: New acetaminophen 325 mg Tablet 650 mg PO Q4H PRN PRN (Reason: pain 1-10/fever) Qty: 0 0RF Continued magnesium oxide 500 mg tablet 500 mg PO DAILY metoprolol tartrate 50 mg tablet 50 mg PO BID calcium carbonate-vitamin D3 [Calcium 600 with Vitamin D3] 600 mg(1,500mg) - 500 unit capsule 1 cap PO DAILY levothyroxine 100 mcg tablet 100 mcg PO DAILY niacin 50 mg tablet 50 mg PO DAILY turmeric 400 mg capsule 400 mg PO DAILY Saccharomyces boulardii [Daily Probiotic (S. boulardii)] 250 mg capsule 250 mg PO BID diclofenac sodium [Voltaren Arthritis Pain] 1 % gel 4 g topical TID Qty: 100 5RF Rx Instructions: apply to single knee primidone 250 MG tablet 250 mg PO BID Patient Comments: SEIZURES atorvastatin 40 MG tablet 40 mg PO QHS Patient Comments: CHOLESTEROL multivitamin 1 EACH tablet 1 ea PO DAILY Patient Comments: SUPPLEMENT lutein 20 MG capsule 20 mg PO DAILY Patient Comments: SUPPLEMENT rivaroxaban 20 MG tablet 20 mg PO DAILY@0600 Qty: 30 0RF Referrals / Follow Up: Neil Apodaca Chi, MD [Primary Care Provider] - Disposition Disposition (needs filled in before D/C Order can be placed): Home, Self Care
--- NOTE | 2022-09-28 11:08 | PCM.PN.SRG ---
Subjective Subjective Patient seen and examined during AM rounds she is found resting in bed eating breakfast. She confirms a small bowel movement this morning and tolerance of her regular diet without any nausea. She is not having any significant abdominal discomfort. Objective Data Objective Data Vital Signs: Vital Signs Temp Pulse Resp BP Pulse Ox O2 Del Method O2 Flow Rate 98.3 F 64 18 118/66 97 Room Air 2 09/28/22 08:00 09/28/22 10:05 09/28/22 08:00 09/28/22 08:00 09/28/22 08:00 09/28/22 10:02 09/27/22 10:00 Oxygen Flow Rate (L/min) 2 Oxygen Delivery Method Room Air Weight: 141 lb 5.061 oz Body Mass Index (BMI) 23.5 Intake & Output: Intake and Output for Last 24 Hours 09/26/22 09/27/22 09/28/22 23:59 23:59 23:59 Intake Total 1717.5 / 1717.5 1544.79 / 1544.79 910 / 910 Output Total 600 / 600 500 / 500 500 / 500 Balance 1117.5 / 1117.5 1044.79 / 1044.79 410 / 410 Lab / Micro Data 09/27/22 06:15 09/27/22 06:15 Labs: Laboratory Results - last 24 hr 09/25/22 04:30: Serum Copper 73 L, Anti-Smooth Muscle Ab 20 H, EBV Capsid Ag IgG Ab > 600.0 H, EBV Capsid Ag IgM Ab < 36.0, EBV Nuclear Ag IgG Ab 539.0 H, EBV Antibody Interp Comment, Hepatitis A IgM Ab Negative, Hep Bs Antigen Negative, Hep B Core IgM Ab Negative, Hepatitis C Ab (EIA) Non Reactive, Hep C Ab Comment Comment Physical Exam Const oriented x3 and no apparent distress Resp normal respiratory effort GI GI Narrative: Operative dressings initially intact with mild serosanguineous strikethrough. When these dressings are removed patient's Steri-Strips remain intact. There is no jose-incisional erythema. Patient has some expected tenderness right about her port sites, but otherwise her abdominal exam is benign. Assessment & Plan Assessment/Plan (1) Status post laparoscopic cholecystectomy: PLAN: This is a 76-year-old female who is postoperative day 2 from laparoscopic cholecystectomy with intraoperative cholangiography. Postoperatively she experienced a bit of a ileus, but then began passing flatus yesterday so a diet was advanced. This diet advancement has been tolerated and patient has since had a bowel movement. Her abdominal exam also appears reassuring. She had several questions related to how she may have first developed her cholecystitis and what her postoperative expectations should be. These questions were answered to her satisfaction and given her clinical improvements, discharge to home has been arranged. Patient confirms social support through her neighbors. I have also reminded her that she is due to resume all of her home medications upon discharge?including her Xarelto which had initially been held on the account of her procedure. Lastly, I have reminded her of our expectation to see her as an outpatient with Dr. Brand to confirm healing and review her pathology. Charges/Coding Visit Charges Inpatient E&M: 60335 Subs Hosp L2
[2022-09-28 14:00] VITALS: BP 108/62; PULSE 56; RESP 18; TEMP 36.9; O2SAT 98
== END 2022-09-28 16:20 | disposition home or self-care (01) | DRG 418 ==
LOC: ED 16:33 → MS3 20:52
PROVIDERS: Anesthesiology; Hospitalist; Admitting Provider Surgery; Emergency Provider Emergency Medicine; PCP Family Medicine Geriatric Medicine; Visit Provider Surgery
PROC: 0FT44ZZ Resection of Gallbladder, Percutaneous Endoscopic Approach (ICD-10-PCS; CPT 47610; principal; 2022-09-26 11:50)
DX: K81.2 Acute cholecystitis with chronic cholecystitis (principal); I48.92 Unspecified atrial flutter; K82.1 Hydrops of gallbladder; G40.909 Epilepsy, unspecified, not intractable, without status epilepticus; I48.0 Paroxysmal atrial fibrillation; E03.9 Hypothyroidism, unspecified; I44.0 Atrioventricular block, first degree; E78.5 Hyperlipidemia, unspecified; I49.1 Atrial premature depolarization; K63.89 Other specified diseases of intestine; Z79.01 Long term (current) use of anticoagulants; Z79.899 Other long term (current) drug therapy; Z86.711 Personal history of pulmonary embolism
CPT/HCPCS: 36415; 74177; 74300; 76000; 76705; 78226; 80048; 80053; 80074; 80076; 81001; 82525; 83516; 83690; 84443; 84484; 85025; 86645; 86664; 86665; 88304; 93005; 99284; A9537; J7030; Q9967; A4216; J2405

== ENCOUNTER → 2022-11-20 | Outpatient (CLI) | payer MEDICARE, SELFPAY ==
[2022-11-20 11:22] LABS: Absolute Lymphocyte Count 0.63 X10^3/uL (0.83-4.51); Absolute Neutrophil Count 2.2 X10^3/uL (2.0-7.7); Basophil# 0.02 X10^3/uL; Basophil% 0.6 % (0-1); Eosinophil# 0.07 X10^3/uL; Eosinophils% 2.2 % (0-5); Hematocrit 40.1 % (37-47); Lymphocyte # 0.63 X10^3/ul (0.83-4.51); Lymphocyte % 19.5 % (19-41); Mean Corp Hgb Conc 32.4 g/dL (32-36); Mean Corpuscular Hgb 32.7 pg (27.0-32.0); Mean Platelet Vol. 10.5 fl (6.2-12.0); Monocyte# 0.29 X10^3/uL; NRBC Flagged by Analyzer 0 % (0-5); Neutrophil # 2.21 X10^3/uL (2.7-7.7); Neutrophil % 68.4 % (47-70); Platelet Count 180 K/mm3 (150-450); RBC Distribution Width CV 13.4 % (11.6-14.6); RBC Distribution Width SD 50.3 fl (35.1-43.9); Red Blood Count 3.97 M/mm3 (4.2-5.4); White Blood Count 3.2 K/mm3 (4.4-11.0)
[2022-11-20 11:35] LABS: Vitamin D,25 Hydroxy 54.6 ng/mL
[2022-11-20 11:42] LABS: ALB/GLOB Ratio 1.1 RATIO (0.9-2.4); AST(SGOT) 27 U/L (15-37); Alanine Aminotransfer ALT/SGPT 23 U/L (13-56); Albumin, Serum 3.6 g/dL (3.2-5.0); Alkaline Phosphatase 83 U/L (45-117); Anion Gap 7 (5-15); BUN 17 mg/dL (7-18); BUN/Creat Ratio 22.7 RATIO (10-20); Calcium,Total 8.9 mg/dL (8.5-10.1); Chloride 106 mmol/L (98-107); Creatinine, Serum 0.75 mg/dL (0.55-1.02); EST Glomerular Filtration Rate 80 mL/min (>60); Est Glom Filt Rate - Afr Amer 97 mL/min (>60); Globulin 3.4 g/dL (2.2-4.2); Glucose 121 mg/dL (74-106); Potassium 4.1 mmol/L (3.5-5.1); Sodium Level 140 mmol/L (136-145); Thyroid Stim Hormone (TSH) 2.21 uIU/mL (0.358-3.74)
== END | disposition home or self-care (01) ==
LOC: POLAB3 10:47
PROVIDERS: PCP Family Medicine Geriatric Medicine; Visit Provider Family Medicine Geriatric Medicine
DX: R53.83 Other fatigue (principal); E55.9 Vitamin D deficiency, unspecified
CPT/HCPCS: 36415; 80053; 82306; 84443; 85025

== ENCOUNTER → 2022-12-05 | Outpatient (CLI) | payer MEDICARE, SELFPAY ==
--- NOTE | 2022-12-05 13:15 | BI_ITS ---
MAMMOGRAPHY - BILATERAL SCREENING REASON FOR EXAM: Female, 77 years old. Routine annual screening examination. PERTINENT HISTORY: Non-contributory. Remote left excisional breast biopsy. TECHNIQUE: Digital bilateral breast troy (3D mammographic acquisition) in the CC and MLO projections. 2-D mediolateral oblique (MLO) and craniocaudad (CC) views of both breasts were obtained. CAD: Full Field Digital Mammography with Computer Added Detection was performed. COMPARISON: Comparison is made with prior study dated December 04, 2020 and August 25, 2018. FINDINGS: Breast Composition: The breasts are heterogeneously dense, which may obscure small masses. Stable focal area of architectural distortion is seen in the upper mid aspect of the left breast suggestive of a scarring from prior excisional breast biopsy. This is unchanged. No clustered microcalcification is seen. No other significant abnormalities are identified. BI/SCRN MAMM (CAD)W/TROY BILAT IMPRESSION: Stable bilateral screening mammogram. Yearly follow-up mammogram recommended. (A) ASSESSMENT CATEGORY: BIRADS Category 2: Benign. A letter regarding these results will be sent to the patient by the facility within 30 days. Approximately 10% of breast cancers are not detected by mammography. A normal mammogram should not delay biopsy of a clinically suspicious abnormality. [id number] Electronically Signed: Paulo Gray MD at 14:26 EDT ,
== END | disposition home or self-care (01) ==
LOC: OPBI 13:14
PROVIDERS: PCP Family Medicine Geriatric Medicine; Referring Provider Family Medicine Geriatric Medicine; Visit Provider Family Medicine Geriatric Medicine
DX: Z12.31 Encounter for screening mammogram for malignant neoplasm of breast (principal)
CPT/HCPCS: 77063; 77067

== ENCOUNTER → 2023-01-01 | Outpatient (CLI) | payer MEDICARE, SELFPAY | END | disposition home or self-care (01) | LOC: PSN 12:26 | PROVIDERS: PCP Family Medicine Geriatric Medicine; Referring Provider Family Medicine Geriatric Medicine; Visit Provider Family Medicine Geriatric Medicine | DX: R68.83 Chills (without fever) (principal) | CPT/HCPCS: 87635; 87804; 87807; C9803 ==

== ENCOUNTER 2023-02-24 16:06 | Outpatient (RCR) | payer SELFPAY | END 2023-03-23 23:59 | LOC: NS 16:06 | PROVIDERS: PCP Family Medicine Geriatric Medicine | DX: Z71.3 Dietary counseling and surveillance (principal); K81.9 Cholecystitis, unspecified ==

== ENCOUNTER → 2023-03-04 | Outpatient (CLI) | payer MEDICARE, SELFPAY ==
--- NOTE | 2023-03-04 10:52 | RAD_ITS ---
STUDY: X-RAY - CERVICAL SPINE REASON FOR EXAM: Female, 77 years old. TORTICOLLIS TECHNIQUE: 3 view(s) of the cervical spine were obtained. COMPARISON: None FINDINGS: Normal anterior atlantoaxial articulation. Normal odontoid process. Normal cervical lordosis. Normal vertebral bodies and endplates. Normal disc space heights. The soft tissue structures are unremarkable. There is no demonstrated fracture of the cervical spine. RAD/Cerv Spine 2 or 3 Views IMPRESSION: No definite acute or significant abnormality seen. Electronically Signed: Clem Hook MD at 22:48 EST ,
== END | disposition home or self-care (01) ==
LOC: RAD 10:50
PROVIDERS: PCP Family Medicine Geriatric Medicine; Referring Provider Family Medicine Geriatric Medicine; Visit Provider Family Medicine Geriatric Medicine
DX: M43.6 Torticollis (principal)
CPT/HCPCS: 72040

== ENCOUNTER → 2023-05-21 | Outpatient (CLI) | payer MEDICARE, SELFPAY ==
[2023-05-21 11:37] LABS: Absolute Lymphocyte Count 0.57 X10^3/uL (0.83-4.51); Absolute Neutrophil Count 1.5 X10^3/uL (2.0-7.7); Basophil# 0.02 X10^3/uL; Basophil% 0.8 % (0-1); Eosinophil# 0.06 X10^3/uL; Eosinophils% 2.4 % (0-5); Hematocrit 39.6 % (37-47); Lymphocyte # 0.57 X10^3/ul (0.83-4.51); Lymphocyte % 22.7 % (19-41); Mean Corp Hgb Conc 32.8 g/dL (32-36); Mean Corpuscular Hgb 32.6 pg (27.0-32.0); Mean Corpuscular Volume 99.2 fL (81-99); Mean Platelet Vol. 10.3 fl (6.2-12.0); Monocyte# 0.31 X10^3/uL; Monocyte% 12.4 % (0-10); NRBC Flagged by Analyzer 0 % (0-5); Neutrophil # 1.54 X10^3/uL (2.7-7.7); Neutrophil % 61.3 % (47-70); POSITIVE DIFFERENTIAL YES; Platelet Count 158 K/mm3 (150-450); RBC Distribution Width CV 12.9 % (11.6-14.6); RBC Distribution Width SD 47.1 fl (35.1-43.9); Red Blood Count 3.99 M/mm3 (4.2-5.4); White Blood Count 2.5 K/mm3 (4.4-11.0)
[2023-05-21 12:11] LABS: Differential Comment SCANNED
[2023-05-21 12:54] LABS: Vitamin D,25 Hydroxy 48.8 ng/mL
[2023-05-21 13:11] LABS: ALB/GLOB Ratio 1.1 RATIO (0.9-2.4); AST(SGOT) 27 U/L (15-37); Alanine Aminotransfer ALT/SGPT 24 U/L (13-56); Albumin, Serum 3.5 g/dL (3.2-5.0); Alkaline Phosphatase 63 U/L (45-117); Anion Gap 8 (5-15); BUN 16 mg/dL (7-18); Calcium,Total 8.9 mg/dL (8.5-10.1); Chloride 108 mmol/L (98-107); Creatinine, Serum 0.67 mg/dL (0.55-1.02); EST Glomerular Filtration Rate 91 mL/min (>60); Est Glom Filt Rate - Afr Amer 110 mL/min (>60); Globulin 3.1 g/dL (2.2-4.2); Glucose 88 mg/dL (74-106); Potassium 4.1 mmol/L (3.5-5.1); Protein, Total 6.6 g/dL (6.4-8.2); Sodium Level 141 mmol/L (136-145); Thyroid Stim Hormone (TSH) 2.27 uIU/mL (0.358-3.74)
[2023-05-23 10:14] LABS: Pathologist Review Reviewed
== END | disposition home or self-care (01) ==
LOC: POLAB3 11:16
PROVIDERS: PCP Family Medicine Geriatric Medicine; Visit Provider Family Medicine Geriatric Medicine
DX: R53.83 Other fatigue (principal); E55.9 Vitamin D deficiency, unspecified
CPT/HCPCS: 36415; 80053; 82306; 84443; 85025

== ENCOUNTER 2023-07-17 17:30 | Outpatient (RCR) | payer SELFPAY | END 2023-07-22 23:59 | LOC: NS 17:30 | PROVIDERS: PCP Family Medicine Geriatric Medicine | DX: Z71.3 Dietary counseling and surveillance (principal) ==

== ENCOUNTER → 2023-10-14 | Outpatient (CLI) | payer MEDICARE, SELFPAY ==
[2023-10-14 15:31] LABS: Absolute Lymphocyte Count 0.74 X10^3/uL (0.83-4.51); Absolute Neutrophil Count 2.9 X10^3/uL (2.0-7.7); Basophil# 0.02 X10^3/uL; Basophil% 0.5 % (0-1); Eosinophil# 0.05 X10^3/uL; Eosinophils% 1.2 % (0-5); Hematocrit 38.3 % (37-47); Hemoglobin 12.6 g/dL (12.0-15.0); Lymphocyte # 0.74 X10^3/ul (0.83-4.51); Lymphocyte % 17.9 % (19-41); Mean Corp Hgb Conc 32.9 g/dL (32-36); Mean Corpuscular Hgb 32.1 pg (27.0-32.0); Mean Corpuscular Volume 97.5 fL (81-99); Mean Platelet Vol. 10.8 fl (6.2-12.0); Monocyte# 0.43 X10^3/uL; Monocyte% 10.4 % (0-10); NRBC Flagged by Analyzer 0 % (0-5); Neutrophil # 2.88 X10^3/uL (2.7-7.7); Neutrophil % 69.8 % (47-70); Platelet Count 164 K/mm3 (150-450); RBC Distribution Width CV 13.2 % (11.6-14.6); RBC Distribution Width SD 47.4 fl (35.1-43.9); Red Blood Count 3.93 M/mm3 (4.2-5.4); White Blood Count 4.1 K/mm3 (4.4-11.0)
[2023-10-14 16:19] LABS: ALB/GLOB Ratio 1.1 RATIO (0.9-2.4); AST(SGOT) 33 U/L (15-37); Alanine Aminotransfer ALT/SGPT 27 U/L (13-56); Albumin, Serum 3.4 g/dL (3.2-5.0); Alkaline Phosphatase 66 U/L (45-117); Anion Gap 8 (5-15); BUN 20 mg/dL (7-18); BUN/Creat Ratio 28.5 RATIO (10-20); Calcium,Total 8.7 mg/dL (8.5-10.1); Chloride 106 mmol/L (98-107); EST Glomerular Filtration Rate 86 mL/min (>60); Est Glom Filt Rate - Afr Amer 104 mL/min (>60); Globulin 3.2 g/dL (2.2-4.2); Glucose 116 mg/dL (74-106); Potassium 3.6 mmol/L (3.5-5.1); Protein, Total 6.6 g/dL (6.4-8.2); Sodium Level 138 mmol/L (136-145); Thyroid Stim Hormone (TSH) 1.73 uIU/mL (0.358-3.74)
== END | disposition home or self-care (01) ==
LOC: LAB 14:36
PROVIDERS: PCP Family Medicine Geriatric Medicine; Referring Provider Family Medicine Geriatric Medicine; Visit Provider Family Medicine Geriatric Medicine
DX: R53.83 Other fatigue (principal); E86.0 Dehydration
CPT/HCPCS: 36415; 80053; 84443; 85025

== ENCOUNTER 2023-10-15 09:14 | Outpatient (CLI) | payer MEDICARE, SELFPAY ==
[2023-10-15] MEDS: 0.9% Normal Saline (1000mL) 1,000 ML 999 ML IV ×2 (12:04→13:13)
[2023-10-15] MEDS: 0.9% NaCl Peripheral Flush Adult/Peds IV (12:04)
[2023-10-15 12:06] VITALS: BP 112/59; PULSE 56; RESP 16; TEMP 35.8; O2SAT 96; BMI 23.3
[2023-10-15 14:26] VITALS: BP 104/65; PULSE 52; RESP 16; TEMP 36.6; O2SAT 100
== END 2023-10-15 23:59 | disposition home or self-care (01) ==
PROVIDERS: PCP Family Medicine Geriatric Medicine; Referring Provider Family Medicine Geriatric Medicine; Visit Provider Family Medicine Geriatric Medicine
DX: E86.0 Dehydration (principal); R68.83 Chills (without fever)
CPT/HCPCS: 96360; 96361; 87631; 96372; J7030; A4216

== ENCOUNTER → 2023-10-17 | Outpatient (CLI) | payer MEDICARE, SELFPAY | END | disposition home or self-care (01) | PROVIDERS: PCP Family Medicine Geriatric Medicine; Referring Provider Family Medicine Geriatric Medicine; Visit Provider Family Medicine Geriatric Medicine | DX: R19.7 Diarrhea, unspecified (principal) | CPT/HCPCS: 82274; 83630; 87177; 87209; 87493 ==

== ENCOUNTER → 2023-11-27 | Outpatient (CLI) | payer MEDICARE, SELFPAY ==
[2023-11-27 12:38] LABS: Absolute Lymphocyte Count 0.71 X10^3/uL (0.83-4.51); Absolute Neutrophil Count 3.1 X10^3/uL (2.0-7.7); Basophil# 0.02 X10^3/uL; Basophil% 0.5 % (0-1); Eosinophil# 0.06 X10^3/uL; Eosinophils% 1.4 % (0-5); Hematocrit 40.2 % (37-47); Hemoglobin 13.3 g/dL (12.0-15.0); Lymphocyte # 0.71 X10^3/ul (0.83-4.51); Lymphocyte % 16.6 % (19-41); Mean Corp Hgb Conc 33.1 g/dL (32-36); Mean Corpuscular Hgb 32.3 pg (27.0-32.0); Mean Corpuscular Volume 97.6 fL (81-99); Mean Platelet Vol. 10.6 fl (6.2-12.0); Monocyte# 0.43 X10^3/uL; NRBC Flagged by Analyzer 0 % (0-5); Neutrophil # 3.05 X10^3/uL (2.7-7.7); Neutrophil % 71.3 % (47-70); Platelet Count 144 K/mm3 (150-450); RBC Distribution Width CV 13.1 % (11.6-14.6); RBC Distribution Width SD 46.5 fl (35.1-43.9); Red Blood Count 4.12 M/mm3 (4.2-5.4); White Blood Count 4.3 K/mm3 (4.4-11.0)
[2023-11-27 13:01] LABS: Vitamin D,25 Hydroxy 50.1 ng/mL
[2023-11-27 13:08] LABS: ALB/GLOB Ratio 1.1 RATIO (0.9-2.4); AST(SGOT) 38 U/L (15-37); Alanine Aminotransfer ALT/SGPT 35 U/L (13-56); Albumin, Serum 3.7 g/dL (3.2-5.0); Alkaline Phosphatase 76 U/L (45-117); Anion Gap 7 (5-15); BUN 14 mg/dL (7-18); BUN/Creat Ratio 21.4 RATIO (10-20); Calcium,Total 8.9 mg/dL (8.5-10.1); Chloride 106 mmol/L (98-107); Creatinine, Serum 0.65 mg/dL (0.55-1.02); EST Glomerular Filtration Rate 93 mL/min (>60); Est Glom Filt Rate - Afr Amer 113 mL/min (>60); Globulin 3.4 g/dL (2.2-4.2); Glucose 90 mg/dL (74-106); Potassium 3.8 mmol/L (3.5-5.1); Protein, Total 7.1 g/dL (6.4-8.2); Sodium Level 140 mmol/L (136-145)
== END | disposition home or self-care (01) ==
LOC: POLAB3 12:06
PROVIDERS: PCP Family Medicine Geriatric Medicine; Visit Provider Family Medicine Geriatric Medicine
DX: E55.9 Vitamin D deficiency, unspecified (principal); R53.83 Other fatigue
CPT/HCPCS: 36415; 80053; 82306; 84443; 85025

== ENCOUNTER → 2024-02-04 | Outpatient (CLI) | payer MEDICARE, SELFPAY ==
--- NOTE | 2024-02-04 14:49 | RAD_ITS ---
INDICATION: L SIDED SCIATICA AND GROIN PAIN EXAMINATION/TECHNIQUE: X-RAY - XR Hip Unilateral with Pelvis when performed; 3 Views COMPARISON: FINDINGS: PELVIC BONES: No displaced fracture, destructive or sclerotic lesions. Sacroiliac joints are unremarkable. No widening of the pubic symphysis. HIPS: The articular structures are unremarkable. No displaced fracture seen in this frontal view. SOFT TISSUES: No soft tissue swelling or gas. RAD/HIP, UNI W/ Pelvis 2-3 Views IMPRESSION: No evidence of displaced pelvic or hip fracture. Electronically Signed: Eloy Peres DO at 9:45 EST Reading Location ID and State: [facility] / [place] Tel [phone], Service support ,
--- NOTE | 2024-02-04 14:49 | RAD_ITS ---
STUDY: X-RAY - LUMBAR SPINE REASON FOR EXAM: Female, 78 years old. LOW BACK PAIN TECHNIQUE: 5 view(s) of the lumbar spine were obtained. COMPARISON: None FINDINGS: Normal lumbar lordosis. There is no substantial scoliosis. There is a normal alignment of the vertebrae. Normal vertebral bodies with spurring at the endplates. Normal disc space heights. Generalized osteopenia. The soft tissue structures are unremarkable. RAD/L/S Spine Min 4 Views IMPRESSION: Degenerative changes of the lumbar spine. Electronically Signed: Eloy Peres DO at 9:42 EST Reading Location ID and State: [facility] / [place] Tel [phone], Service support ,
== END | disposition home or self-care (01) ==
LOC: RAD 14:46
PROVIDERS: PCP Family Medicine Geriatric Medicine; Referring Provider Family Medicine Geriatric Medicine; Visit Provider Family Medicine Geriatric Medicine
DX: M54.50 Low back pain, unspecified (principal); R10.32 Left lower quadrant pain; M54.32 Sciatica, left side
CPT/HCPCS: 72110; 73502

== ENCOUNTER → 2024-03-30 | Outpatient (CLI) | payer MEDICARE, SELFPAY ==
--- NOTE | 2024-03-30 12:44 | MRI_ITS ---
EXAM: MR PELVIS WITHOUT INTRAVENOUS CONTRAST CLINICAL INDICATION: LEFT GROIN PAIN TECHNIQUE: Multiplanar and multisequence MR images of the pelvis without intravenous contrast. COMPARISON: 09/24/22 FINDINGS: BOWEL: Mild circumferential wall thickening of the rectosigmoid colon. Consider proctocolitis. APPENDIX: No evidence of acute appendicitis. INTRAPERITONEAL SPACE: Unremarkable. No ascites or other fluid collection. BLADDER: Unremarkable. OVARIES: Unremarkable as visualized. No mass or complex cyst. UTERUS/CERVIX: Unremarkable. No mass. Endometrial stripe is normal in thickness and appearance. BONES/JOINTS: Moderate osteoarthritic changes involving both hips including the presence of prominent acetabular roof subchondral cysts bilaterally. Physiologic amounts of hip joint fluid. No osteonecrosis. No suspicious lytic or blastic abnormality. SOFT TISSUES: Unremarkable. . No inguinal hernia. LYMPH NODES: Unremarkable. No enlarged lymph nodes. MRI/Pelvis (Routine) IMPRESSION: 1. Moderate osteoarthritic changes involving both hips including the presence of prominent acetabular roof subchondral cysts bilaterally. 2. Mild circumferential wall thickening of the rectosigmoid colon. Consider proctocolitis. Electronically Signed: Mauro Barba MD at 15:48 EST ,
--- NOTE | 2024-03-30 12:44 | MRI_ITS ---
STUDY: MRI LUMBAR SPINE WITHOUT CONTRAST REASON FOR EXAM: Female, 78 years old. LEFT GROIN PAIN, DIFFICULTY WALKING TECHNIQUE: Standardized fat and water weighted pulse sequences were obtained in the sagittal and axial planes. COMPARISON: Lumbar spine radiographs 02/04/2024. FINDINGS: T10-T11: (Sagittal only). T10 inferior endplate is largely not included. Normal T11 superior endplate. Normal disc height, hydration and morphology. Normal central canal. Bilateral intervertebral neuroforamina are not included. T11-T12 and T12-L1: (Sagittal only). Normal endplates. Normal disc height, hydration and morphology. Normal central canal and bilateral intervertebral neural foramina. Normal lumbar lordosis. There is no substantial scoliosis. Normal conus medullaris that terminates at the T12-L1 disc space level. L1-2: Normal endplates. Minimal disc space height narrowing. Mild ventral extra dural defect is small posterior bulging annulus. Normal bilateral facet joints. Normal central canal and bilateral lateral recesses. Normal bilateral intervertebral neural foramina. L2-3: Normal endplates. Normal disc height, hydration and morphology. Normal bilateral facet joints. Normal central canal and bilateral lateral recesses. Normal bilateral intervertebral neural foramina. L3-4: Normal endplates. Normal disc height. Mild ventral extradural defect is small posterior bulging annulus. Normal bilateral facet joints. Normal central canal and bilateral lateral recesses. Normal bilateral intervertebral neural foramina. L4-5: Schmorl''s node in the anterior L4 inferior endplate with reactive marrow fatty infiltration. Mild Modic type II degenerative vertebral marrow fat infiltration underneath the left side of the vertebral endplates. Normal disc height. Minimal ventral extra dural defect due to small posterior bulging annulus. Normal bilateral facet joints. Normal central canal and bilateral lateral recesses. Normal bilateral intervertebral neural foramina. L5-S1: Normal endplates. Normal disc height, hydration and morphology. Mild asymmetric degenerative facet arthropathy, right greater than left. Normal central canal and bilateral lateral recesses. Normal bilateral intervertebral neural foramina. Normal visualized sacral ala. Normal visualized paraspinous soft tissue structures. MRI/Spine Lumbar (Routine) IMPRESSION: 1. No MRI evidence of lumbar extruded disc fragment, disc protrusion, spinal stenosis or nerve root displacement. 2. Mild Modic type II changes of the vertebral marrow underneath the left side of the vertebral endplates. 3. Small posterior bulging annulus at L1-L2, L3-L4 and L4-L5 disc space levels. Electronically Signed: Jarod Zelaya MD at 9:29 EST ,
== END | disposition home or self-care (01) ==
LOC: MRI 12:39
PROVIDERS: PCP Family Medicine Geriatric Medicine; Referring Provider Family Medicine Geriatric Medicine; Visit Provider Family Medicine Geriatric Medicine
DX: R10.32 Left lower quadrant pain (principal)
CPT/HCPCS: 72148; 72195

== ENCOUNTER 2024-05-20 12:30 | Outpatient (RCR) | payer MEDICARE, SELFPAY ==
--- NOTE | 2024-04-13 13:09 | HP.PTEVAL_ITS ---
Patient's Visit Information Visit Information Visit Information: RADHA ALEMAN is a 78 year old F referred to Physical Therapy by Dr. Neil Apdoaca MD with a diagnosis of B hip OA. Date of Evaluation: 04/13/24 Physical Therapist: NIVIA SimonT, OCS, CSCS Visit Plan Frequency: 2x /Week Duration: 4-6 Weeks Plan: 2x/week for 4-6 weeks for... IE HEP HS stretch supine, prone quad stretch 30 5x daily adn hip ROM when sitting, activity modification with HO Treat with ensure stretching HS and quad at home, may rollout out priformis area and HS L. mat based hip strength to HEP, then gym based LE machine instruct for hip stabs, core stabs and work to I as member. MH as needed. Subjective Subjective: L hip hurts more than R but both hurt. Pain is noticeable in L hip. X ray shows moderate OA changes in both hips and acetabular cysts. She has noticed pain since early January. Spent 5 hrs blowing leaves at that time and the next day could hardly walk on L leg due to hip pain. MRI 03/30/24 showed the above mentioned. No real pain prior to January incidence other than intermittent groin pulling. Still has L groin sensation of pulling if WB on L alot. Pain is in groin and can move into L leg and side of butt also. L knee degenerated also. Has bakers cyst in L knee.1/10 with walking in here but gets up to 5/10 at times. Squatting hurts as well as getting up from sitting after a while. Sleep is interrupted sometimes but not often, avoids sleeping on L side as it would hurt. Basic aDLs: all I. Not employed. Hobbies: walking but does not do it in the cold. Usually feels better with walking. Spends day : plays music bagpipes and clarinet, reads. Hip is fine. Ex 2x/week at and does them for arms but not a lot for legs. Pain L hip: Pain Intensity (Out of 10): 0 Pain Intensity Range: 0 and 5 Objective Objective: Walks into PT slowly but I without antalgia today. Trasnfers chair and bed I, steps reciprocally with one rail I, stiff elevating L leg to next step but I. LB AROM min limited in all directions but WFL. B hip PROM is WFL, er 55, ir 10 L and 12 R, flexion 110, 8 extension, 22 abduction R and 18 L. AROM is painfree today. reflexes 2/3 patella adn achilles Sensation LE WNL to gross light touch. strength hip abd 3+, ext 3 B hips, flexion 4-. knee flexion adn extension 4, ankles 4. + L FADDIR, - B NIGEL, - L NIGEL. - scouring B. Tender to palpation slightly lateral L hip torchanter area adn into piriformis Balance/Special Test Scores Functional Gait Assessment Score: 26 % Disability: 13.3400 Lower Extremity Functional Score: 53 Goals Goal 1:: I appropriate gyma dn home ex for B hip OA to limit future pain Goal Time Frame: 4-6 Weeks Goal 2:: sleep without interruption from L hip Goal Time Frame: 4-6 Weeks Goal 3:: Patient feel 75% better in overall hip pain at 1/10 at worst with daily activities Goal Time Frame: 4-6 Weeks Goal 4:: LEFS score 59 Goal Time Frame: 4-6 Weeks Rehabilitation Potential Physical Therapy Diagnosis: degenerative changes in hips leading to pain and limiting comfortable function. Rehabilitation Potential: Fair Anticipated Interventions Patient/Client Instruction: Educate patient on: Condition and Plan of Care For the Purpose of:: To decrease pain, To increase ROM, To improve muscle performance and motor function, To increase tolerance to activity/condition/position, To improve ability of physical actions for home/community/work/leisure and To improve gait and locomotor functions Therapeutic Exercise to Include: Strength training, Flexibilty training, Passive ROM and Active ROM For the Purpose of:: To decrease pain, To increase ROM, To improve nutrient delivery to tissue, To improve muscle performance and motor function and To increase tolerance to activity/condition/position Manual Therapy Techniques to Include: Mobilization, Passive ROM and Soft tissue mobilization For the Purpose of:: To decrease pain, To increase ROM and To improve nutrient delivery to tissue Thermo therapy (hot pack): Yes For the Purpose of:: To decrease pain, To increase ROM and To improve nutrient delivery to tissue Text: Thank you for the opportunity to evaluate your patient. For Medicare and Medicare HMO plans, please review the plan of care and approve it. It will need to be FAXED BACK to us at [phone] for Medicare purposes. For Medicare only, by signing this I certify the plan of care. Please let me know if there are questions or concerns regarding this plan of care. Physician Signature: Date:
--- NOTE | 2024-05-20 12:56 | HP.PTDCSUM ---
Discharge Summary D/C summary: It has been my pleasure to treat RADHA ALEMAN referred by Dr. Neil Apodaca MD, with the diagnosis of B hip OA for a total of 11 visit(s). Discharge Date: 05/20/24 Please see the following information for a summary of their discharge status. Subjective Subjective: Hips are feeling pretty good and getting stronger in the gym Is doing that on her own also. Pain this week only to 03/25/09. if walking too much will get it. Pain L hip: Pain Intensity (Out of 10): 0 Overall Improvement % Improvement: 90 Objective Objective/Function: Full AROM B hips without pain today, walking normal without antlagia, steps reciprocally without rail or pain. 4/5 hip flexiona dn abd strength without pain. Goals Goal 1:: I appropriate gyma dn home ex for B hip OA to limit future pain Goal Progress: Goal Met Goal 2:: sleep without interruption from L hip Goal Progress: Goal Met Goal 3:: Patient feel 75% better in overall hip pain at 1/10 at worst with daily activities Goal Progress: 90% Goal 4:: LEFS score 59 Goal Progress: Goal Met Plan Plan: d/c to I program. D/C Information Discharge Comments: Doing very well adn will continue I in gym. d/c sentence: If there are questions or concerns regarding this patient's physical therapy, please feel free to call me at [phone]. Thank you for the referral of this patient. Sincerely, Garth Garcia, DPT, OCS, CSCS Balance/Gait/Functional tests Balance/Special Test Scores Functional Gait Assessment Score: 26 % Disability: 13.3400 Lower Extremity Functional Score: 72 Improvement % Improvement: 90
== END 2024-05-20 14:35 | disposition home or self-care (01) ==
LOC: PT 12:30
PROVIDERS: PCP Family Medicine Geriatric Medicine; Referring Provider Family Medicine Geriatric Medicine; Visit Provider Family Medicine Geriatric Medicine
DX: M16.0 Bilateral primary osteoarthritis of hip (principal)
CPT/HCPCS: 97110; 97161; 97530

== ENCOUNTER → 2024-05-26 | Outpatient (CLI) | payer MEDICARE, SELFPAY ==
[2024-05-26 12:44] LABS: Absolute Lymphocyte Count 0.69 X10^3/uL (0.83-4.51); Absolute Neutrophil Count 2.3 X10^3/uL (2.0-7.7); Basophil# 0.02 X10^3/uL; Basophil% 0.6 % (0-1); Eosinophil# 0.06 X10^3/uL; Eosinophils% 1.7 % (0-5); Hematocrit 41.9 % (37-47); Hemoglobin 13.6 g/dL (12.0-15.0); Lymphocyte # 0.69 X10^3/ul (0.83-4.51); Mean Corp Hgb Conc 32.5 g/dL (32-36); Mean Corpuscular Hgb 32.6 pg (27.0-32.0); Mean Corpuscular Volume 100.5 fL (81-99); Mean Platelet Vol. 10.4 fl (6.2-12.0); Monocyte# 0.38 X10^3/uL; NRBC Flagged by Analyzer 0 % (0-5); Neutrophil # 2.29 X10^3/uL (2.7-7.7); Neutrophil % 66.4 % (47-70); Platelet Count 150 K/mm3 (150-450); RBC Distribution Width CV 13.1 % (11.6-14.6); RBC Distribution Width SD 48.5 fl (35.1-43.9); Red Blood Count 4.17 M/mm3 (4.2-5.4); White Blood Count 3.5 K/mm3 (4.4-11.0)
[2024-05-26 14:11] LABS: ALB/GLOB Ratio 1.4 RATIO (0.9-2.4); AST(SGOT) 40 U/L (<=31); Alanine Aminotransfer ALT/SGPT 27 U/L (<=34); Albumin, Serum 3.9 g/dL (3.4-4.8); Alkaline Phosphatase 62 U/L (35-104); Anion Gap 13 (5-15); BUN 16 mg/dL (4-19); BUN/Creat Ratio 25.7 RATIO (10-20); Calcium,Total 9.1 mg/dL (7.6-11.0); Carbon Dioxide 21.3 mmol/L (21.0-32.0); Chloride 105 mmol/L (98-108); Cholesterol 134 mg/dL (<=200); Creatinine, Serum 0.61 mg/dL (0.70-1.20); EST Glomerular Filtration Rate 92 (>60); Globulin 2.7 g/dL (2.2-4.2); Glucose 83 mg/dL (70-99); High Density Lipoprotein 69 mg/dL; Low Density Lipoprotein Calc. 58 mg/dL; Potassium 4.3 mmol/L (3.3-5.1); Protein, Total 6.6 g/dL (5.9-8.4); Sodium Level 139 mmol/L (133-145); Triglycerides 36 mg/dL; Very Low Density Lipoprotein 7 mg/dL (5-40); Vitamin D,25 Hydroxy 35.7 ng/mL (30-100); cholesterol:hdl ratio screen 1.96
== END | disposition home or self-care (01) ==
LOC: POLAB3 12:15
PROVIDERS: PCP Family Medicine Geriatric Medicine; Visit Provider Family Medicine Geriatric Medicine
DX: E55.9 Vitamin D deficiency, unspecified (principal); E78.5 Hyperlipidemia, unspecified
CPT/HCPCS: 36415; 80053; 80061; 82306; 84443; 85025

== ENCOUNTER → 2024-06-15 | Outpatient (CLI) | payer MEDICARE, SELFPAY ==
--- NOTE | 2024-06-15 15:03 | BD_ITS ---
EXAM: DEXA BONE DENSITY STUDY 06/15/2024 REASON FOR EXAM: F,78 y/o patient is postmenopausal. History of adult fracture. TECHNIQUE: DXA scan of the lumbar spine and total body less head, using make and model. REFERENCE LINKS: ISCD Pediatric Positions ISCD Adult Positions COMPARISON: None. FINDINGS: BMD and Z-SCORES DEXA examination of lumbar spine shows a bone mineral density measures 0.828 grams/centimeter squared. T-score measures -2.0 and Z-score measures 0.6. DEXA examination left femoral neck shows a bone mineral density measured 0.731 grams/centimeter squared. T-score measures -1.1 and Z-score measures 1.1. Total bone mineral density of the left hip measures 0.832 grams/centimeter squared. T-score measures -0.9 and Z-score measures 1.0. DEXA examination of the right femoral neck shows a bone mineral density measures 0.775 grams/centimeter squared. T-score measures -0.7 and Z-score measures 1.5. Total bone mineral density of the right hip measures 0.852 grams/centimeter squared. T-score measures -0.7 and Z-score measures 1.2. Fracture Risk Calculation: FRAX (10-year Fracture Risk) Score: the 10 year fracture risk index for major osteoporotic fracture is 16% and for hip fracture is 2.8%. The patient does meet the pharmacological treatment recommendations for prevention of osteoporosis BD/Dexa Bone Density Study IMPRESSION: Patient demonstrates osteopenia of the lumbar spine and left hip. Patient demo nstrates normal bone mineral density of the right hip. Recommend follow-up, if clinically warranted. Reading Location: [id number]
[2024-06-16 12:31] LABS: Absolute Lymphocyte Count 0.61 X10^3/uL (0.83-4.51); Absolute Neutrophil Count 3.2 X10^3/uL (2.0-7.7); Basophil# 0.02 X10^3/uL; Basophil% 0.5 % (0-1); Eosinophil# 0.08 X10^3/uL; Eosinophils% 1.9 % (0-5); Hematocrit 37.3 % (37-47); Hemoglobin 12.7 g/dL (12.0-15.0); Lymphocyte # 0.61 X10^3/ul (0.83-4.51); Lymphocyte % 14.1 % (19-41); Mean Corpuscular Hgb 32.8 pg (27.0-32.0); Mean Corpuscular Volume 96.4 fL (81-99); Mean Platelet Vol. 10.5 fl (6.2-12.0); Monocyte# 0.42 X10^3/uL; Monocyte% 9.7 % (0-10); NRBC Flagged by Analyzer 0 % (0-5); Neutrophil # 3.17 X10^3/uL (2.7-7.7); Neutrophil % 73.3 % (47-70); Platelet Count 164 K/mm3 (150-450); RBC Distribution Width CV 13.2 % (11.6-14.6); RBC Distribution Width SD 46.7 fl (35.1-43.9); Red Blood Count 3.87 M/mm3 (4.2-5.4); White Blood Count 4.3 K/mm3 (4.4-11.0)
[2024-06-16 13:41] LABS: ALB/GLOB Ratio 1.6 RATIO (0.9-2.4); AST(SGOT) 32 U/L (<=31); Alanine Aminotransfer ALT/SGPT 20 U/L (<=34); Alkaline Phosphatase 68 U/L (35-104); Anion Gap 11 (5-15); BUN 13 mg/dL (4-19); BUN/Creat Ratio 20.7 RATIO (10-20); Carbon Dioxide 21.8 mmol/L (21.0-32.0); Chloride 107 mmol/L (98-108); Creatinine, Serum 0.65 mg/dL (0.70-1.20); EST Glomerular Filtration Rate 91 (>60); Globulin 2.5 g/dL (2.2-4.2); Glucose 87 mg/dL (70-99); Potassium 3.7 mmol/L (3.3-5.1); Protein, Total 6.4 g/dL (5.9-8.4); Sodium Level 141 mmol/L (133-145); Total Bilirubin 0.33 mg/dL (0.00-1.30)
== END | disposition home or self-care (01) ==
PROVIDERS: PCP Family Medicine Geriatric Medicine; Referring Provider Family Medicine Geriatric Medicine; Visit Provider Family Medicine Geriatric Medicine
DX: M81.0 Age-related osteoporosis without current pathological fracture (principal); R53.83 Other fatigue
CPT/HCPCS: 36415; 77080; 80053; 85025

== ENCOUNTER → 2024-06-16 | Outpatient (CLI) | payer MEDICARE, SELFPAY | END | disposition home or self-care (01) | LOC: LABSPEC 14:38 | PROVIDERS: PCP Family Medicine Geriatric Medicine; Referring Provider Family Medicine Geriatric Medicine; Visit Provider Family Medicine Geriatric Medicine | DX: R19.7 Diarrhea, unspecified (principal) | CPT/HCPCS: 82274; 83630; 87177; 87209; 87493 ==

== ENCOUNTER → 2024-06-17 | Outpatient (CLI) | payer MEDICARE, SELFPAY ==
--- NOTE | 2024-06-17 10:03 | CT_ITS ---
EXAM: CT Abdomen and Pelvis With Intravenous Contrast CLINICAL INDICATION: DIARRHEA TECHNIQUE: Axial computed tomography images of the abdomen and pelvis with intravenous contrast. This CT exam was performed using one or more of the following dose reduction techniques: automated exposure control, adjustment of the mA and/or kV according to patient size, and/or use of iterative reconstruction technique. COMPARISON: CT Abdomen Pelvis dated 09/24/2022 FINDINGS: LUNG BASES: Unremarkable. No mass. No consolidation. MEDIASTINUM: Small esophageal hiatal hernia. ABDOMEN: LIVER: Hepatomegaly with fatty infiltration. GALLBLADDER AND BILE DUCTS: Unremarkable. No calcified stones. No ductal dilation. PANCREAS: Unremarkable. No mass. No ductal dilation. SPLEEN: Unremarkable. No splenomegaly. ADRENALS: Unremarkable. No mass. KIDNEYS AND URETERS: Unremarkable. No solid mass. No hydronephrosis. STOMACH AND BOWEL: Fecal retention in the colon consistent with constipation. No obstruction. No mucosal thickening. PELVIS: APPENDIX: No findings to suggest acute appendicitis. BLADDER: Unremarkable. No mass. REPRODUCTIVE: Unremarkable as visualized. ABDOMEN and PELVIS: INTRAPERITONEAL SPACE: Unremarkable. No free air. No significant fluid collection. BONES/JOINTS: No acute fracture. No dislocation. SOFT TISSUES: Umbilical hernia containing fat. VASCULATURE: Unremarkable. No abdominal aortic aneurysm. LYMPH NODES: Unremarkable. No enlarged lymph nodes. CT/Abdomen/Pelvis WITH Contrast IMPRESSION: 1. Hepatomegaly with fatty infiltration. 2. Fecal retention in the colon consistent with constipation. 3. Umbilical hernia containing fat. 4. Small esophageal hiatal hernia. Reading [facility]
== END | disposition home or self-care (01) ==
LOC: CT 10:01
PROVIDERS: PCP Family Medicine Geriatric Medicine; Referring Provider Family Medicine Geriatric Medicine; Visit Provider Family Medicine Geriatric Medicine
DX: R19.7 Diarrhea, unspecified (principal)
CPT/HCPCS: 74177; Q9967; A4216

== ENCOUNTER → 2024-06-28 | Outpatient (CLI) | payer MEDICARE, SELFPAY ==
--- NOTE | 2024-06-28 09:09 | US_ITS ---
PROCEDURE: ABD LIMITED W/ ELASTOGRAPHY (USABDLELPARO), 06/28/2024 REASON FOR EXAM: FATTY LIVER COMPARISON: 06/17/2024 TECHNIQUE: Grayscale and color Doppler imaging of the right upper quadrant was performed. Chatty S-shear wave elastography was performed for non-invasive assessment of liver tissue stiffness. FINDINGS: Liver: Grossly unremarkable. 14.7 cm in length. Gallbladder: Cholecystectomy. Biliary tree: Unremarkable. CBD measures 4 mm. Pancreas: Partially obscured by shadowing bowel gas, grossly unremarkable as visualized. Right kidney: Unremarkable. 10.7 cm in length. Other: No visualized free fluid. Hepatic elastography: Number of measurements: 15 measurements across 3 regions, 5 measurements per region,. US probe: CA1-7A. EQI median: 8.3 kPa EQI median velocity: 1.66 m/s Highest IQR/Med: 19.5% (kPa) and 9.7% (m/s). If the IQR/Med is IQR/median >30% (for kPa) or >15% in m/s, the variance in the measurements is a large and the accuracy of the measurement may be in question. US/ABD Limited w/ Elastography IMPRESSION: 1. Grossly unremarkable sonographic appearance of the hepatic echotexture. 2. Liver stiffness is 8.3 kPa. Per the below 2020 SRU criteria, this rules out compensated advanced chronic liver disease in the absence of other known clinical signs. If there are known clinical signs, furth er testing may be needed for confirmation. 3. Additional description as above. Assessment is per the Update to the SRU Liver Elastography Consensus Statement (2020) Note that the above assessment of liver fibrosis is vendor-neutral and intended for use in fibrosis related to viral etiologies and non-alcoholic fatty-liver disease (NAFLD); in causes other than viral hepat itis and NAFLD, the cutoff values are currently not well established. In some patients with NAFLD, the cutoff values for cACLD may be lower (7-9 kPa). Note also that in the setting of elevated LFTs, nonfasting or vascular congestion, the stage of lifer fibrosis may be overestimated. Previous SRU reference values: <1.37 m/s (5.7kPa): No to mild fibrosis 1.37 m/s - 2.2 m/s: Moderate to severe fibrosis >2.2 m/s (15kPa): Significant fibrosis / cirrhosis Reading Location: [id number]
== END | disposition home or self-care (01) ==
PROVIDERS: PCP Family Medicine Geriatric Medicine; Referring Provider Family Medicine Geriatric Medicine; Visit Provider Family Medicine Geriatric Medicine
DX: K76.0 Fatty (change of) liver, not elsewhere classified (principal)
CPT/HCPCS: 76705; 76981

== ENCOUNTER → 2024-08-18 | Outpatient (CLI) | payer MEDICARE, SELFPAY ==
--- NOTE | 2024-08-18 16:30 | RAD_ITS ---
PROCEDURE: KNEE 3 VIEWS 08/18/2024 REASON FOR EXAM: KNEE PAIN TECHNIQUE: 3 view(s) of the right knee; AP, tunnel and 2 lateral images, 4 total images COMPARISON: None available FINDINGS: No fracture, dislocation or joint effusion. The joint spaces appear within limits. Very mild spurring, osteoarthrosis noted. Very mild chondrocalcinosis suggested lateral compartment. Vascular calcifications. Suggestion of possible prepatellar soft tissue thickening, swelling, clinically correlate. RAD/Knee 3 Views IMPRESSION: Suggestion of possible prepatellar soft tissue thickening, swelling, clinically correlate. Mild osteoarthrosis. Reading Location: [id number]
== END | disposition home or self-care (01) ==
LOC: RAD 16:30
PROVIDERS: PCP Family Medicine Geriatric Medicine; Referring Provider Family Medicine Geriatric Medicine; Visit Provider Family Medicine Geriatric Medicine
DX: M25.561 Pain in right knee (principal)
CPT/HCPCS: 73562

== ENCOUNTER 2024-09-15 14:00 | Outpatient (RCR) | payer MEDICARE, SELFPAY ==
--- NOTE | 2024-08-24 13:59 | HP.PTEVAL_ITS ---
Patient's Visit Information Visit Information Visit Information: RADHA ALEMAN is a 78 year old F referred to Physical Therapy by Dr. Neil Apodaca MD with a diagnosis of Right Knee OA. Date of Evaluation: 08/24/24 Physical Therapist: Shanon Banegas DPT Visit Plan Frequency: 2x /Week Duration: 4 Weeks Plan: Focus on LE and core strength/stabilization and return to gym program HEP Given: SLR, hip abduction, bridge, hamstring stretch Subjective Subjective: Patient reports that her right knee goes back to December-it started out with her back- she was blowing leaves with a blower and then she was diagnosed with OA in her left hip and then in Apr she went in when her left knee was hurting. She was using a cream on her left knee for a Bakers Cyst. She saw ortho Dr. Busby and she had a cortisone injection and that knee has been good since then. About 3 weeks ago her right knee was feeling the same way with the cyst in the back- the things that she has always done like walk 3 miles she can't do anymore it sets it off and makes it painful. Agg: mowing the lawn, walking. X-ray shows OA in bilateral knees- and some swelling in the right k nee. Dr. Apodaca gave her a steroid injection but so far it does not seem to be helping. She also had an injection of anti-inflammatory and something else. He also gave her medication (Prednisone, Baclofen and Panto). She feels the knee is staying the same. She saw MD who recommended PT as well 08/18. Eases: getting up in the morning. Sleep: not disturbed. The pain is located in the posterior knee and both joint lines- radiates to the top of the calf. She describes the pain as dull and achy. No N/T in the toes. PMHx/Meds: no change since saw . Objective Objective: Posture: forward head, rounded shoulders Gait: slightly antalgic- no AD- decreased stance on the right LE with decreased heel strike HR/TR: able without UE A SLS: 10 seconds with mild increase in sway- does not fully extend in balance Palpation: not tender to touch- does have mild edema in posterior knee that can be felt- soft feel Observation: no bruising Strength: Core: fair minus, Hip: 4/5 throughout, Knee: Extn: 4 Flexion: 4, Ankle: 5/5 ROM: 5 degrees from neutral extn and 120 degrees flexion with pain at end range Flex: HS: mild, Gastroc: moderate Stairs: asc/desc recip Balance/Special Test Scores Lower Extremity Functional Score: 36 Goals Goal 1:: Patient will be I with HEP and progression Goal Time Frame: 4-6 Weeks Goal 2:: Patient will ambulate >150 feet with a normalized gait pattern Goal Time Frame: 4-6 Weeks Goal 3:: Patient will asc/desc 8 recip without pain Goal Time Frame: 4-6 Weeks Goal 4:: Patient will report 80% improvement Goal Time Frame: 4-6 Weeks Rehabilitation Potential Physical Therapy Diagnosis: Patient presents with hypomobility- she has decreased LE and core strength/stabilization, flex, proprioception and muscular endurance leading to abnormal gait pattern and increased pain with ADL's. Rehabilitation Potential: Fair Anticipated Interventions Patient/Client Instruction: Educate patient on: Benefits of Fitness Program Therapeutic Exercise to Include: Strength training, Endurance training, Balance training, Coordination, Agility training, Body mechanics, Postural training, Flexibilty training, Gait and locomotor training, Neuromotor development, Dynamic Lumbar Stabilization and Scapular Strength/Stabilization For the Purpose of:: To improve muscle performance and motor function TENS: Yes Cryotherapy (ice pack, ice massage): Yes Thermo therapy (hot pack): Yes Ultrasound (thermal/non thermal): Yes For the Purpose of:: To decrease pain Text: Thank you for the opportunity to evaluate your patient. For Medicare and Medicare HMO plans, please review the plan of care and approve it. It will need to be FAXED BACK to us at [phone] for Medicare purposes. For Medicare only, by signing this I certify the plan of care. Please let me know if there are questions or concerns regarding this plan of care. Physician Signature: Date:___
--- NOTE | 2024-09-15 14:47 | HP.PTDCSUM ---
Discharge Summary D/C summary: It has been my pleasure to treat RADHA ALEMAN referred by Dr. Neil Apodaca MD, with the diagnosis of Right Knee OA for a total of 8 visit(s). Discharge Date: Please see the following information for a summary of their discharge status. Subjective Subjective: Patient reports that she still feels that she still has right knee pain that is staying the same- she now has pain along the medial knee instead of the outside. She went to see her family MD about other issues and they recommended that she follow up with ortho. Dr. Busby helped with the left knee and did a cortisone injection so she plans to follow up with him. Pain R knee: Pain Intensity (Out of 10): 2 Overall Improvement % Improvement: 50 Objective Objective/Function: Posture: forward head, rounded shoulders Gait: no deviation noted- good arm swing and trunk rotation- improved heel strike HR/TR: able without UE A SLS: 15 seconds with mild increase in sway Palpation: not tender to touch- does have mild edema in posterior knee that can be felt- soft feel Observation: no bruising Strength: Core: fair minus, Hip: 4+/5 throughout, Knee: Extn: 4+/5 Flexion: 4+/5, Ankle: 5/5 ROM: 0-120 degrees Flex: HS: mild, Gastroc: moderate Stairs: asc/desc recip with HR Goals Goal 1:: Patient will be I with HEP and progression Goal Progress: Goal Met Goal 2:: Patient will ambulate >150 feet with a normalized gait pattern Goal Progress: Goal Met Goal 3:: Patient will asc/desc 8 recip without pain Goal Progress: Progressing Goal 4:: Patient will report 80% improvement Goal Progress: Progressing Plan Plan: 09/15/2024: Follow up with ortho and continue HEP (previous given at IE and gastroc stretch, HR, steps up, seated hip abd with band, hamstring curls with band) IE: Focus on LE and core strength/stabilization and return to gym program D/C Information d/c sentence: If there are questions or concerns regarding this patient's physical therapy, please feel free to call me at [phone]. Thank you for the referral of this patient. Sincerely, Shanon Banegas, DPT Balance/Gait/Functional tests Balance/Special Test Scores Lower Extremity Functional Score: 37 Improvement % Improvement: 50
== END 2024-09-15 19:00 | disposition home or self-care (01) ==
LOC: PT 14:00
PROVIDERS: PCP Family Medicine Geriatric Medicine; Referring Provider Family Medicine Geriatric Medicine; Visit Provider Family Medicine Geriatric Medicine
DX: M17.11 Unilateral primary osteoarthritis, right knee (principal); M25.561 Pain in right knee
CPT/HCPCS: 97110; 97162; 97530

== ENCOUNTER → 2024-10-12 | Outpatient (CLI) | payer MEDICARE, SELFPAY ==
--- NOTE | 2024-10-12 12:27 | US_ITS ---
PROCEDURE: EXT NON VASC LIMITED/SOFT TISS 10/12/2024 REASON FOR EXAM: LEFT BUTTOCK ABSCESS. Two lumps left buttock. TECHNIQUE: EXT NON VASC LIMITED/SOFT TISS. Superficial soft tissues of the left buttock were imaged using grayscale and color Doppler technique. COMPARISON: None. FINDINGS: In the lateral left buttock, there is an ill-defined, heterogeneously hyperechoic nonvascular structure measuring 1.5 x 0.7 x 1.3 cm, corresponding to the palpable lump. No abnormal surrounding vascularity. More medially in the left buttock, there is a 2nd heterogeneous, nonvascular structure measuring 0.8 x 1.2 x 0.4 cm. The surrounding soft tissues in this region appear edematous with increased vascularity, suggestive of inflammation. No discrete fluid collections or drainable abscesses are identified. US/Ext Non Vasc Limited/Soft Tiss IMPRESSION: Two nonvascular heterogeneous structures in the left buttock corresponding to t he palpable lumps. The medial lesion is associated with surrounding soft tissue edema and hyperemia, concerning for an inflammatory process. The lateral lesion could represent fat necrosis, organized hematoma or injection granuloma. Reading Location: [id number]
== END | disposition home or self-care (01) ==
PROVIDERS: PCP Family Medicine Geriatric Medicine; Referring Provider Family Medicine Geriatric Medicine; Visit Provider Family Medicine Geriatric Medicine
DX: L02.31 Cutaneous abscess of buttock (principal)
CPT/HCPCS: 76882

== ENCOUNTER → 2024-10-19 | Outpatient (CLI) | payer MEDICARE, SELFPAY ==
--- NOTE | 2024-10-19 14:12 | RAD_ITS ---
PROCEDURE: ABDOMEN SINGLE VIEW 10/19/2024 REASON FOR EXAM: CONSTIPATION TECHNIQUE: ABDOMEN SINGLE VIEW COMPARISON: CT 06/28/2024 FINDINGS: Lung bases are clear. No free air. Nonobstructed bowel pattern. Mild stool. RAD/Abdomen Single View IMPRESSION: Nonobstructed bowel-gas pattern with mild stool. Reading Location: [facility]
== END | disposition home or self-care (01) ==
LOC: RAD 14:10
PROVIDERS: PCP Family Medicine Geriatric Medicine
DX: R19.7 Diarrhea, unspecified (principal); K59.00 Constipation, unspecified
CPT/HCPCS: 74018

== ENCOUNTER → 2024-10-22 | Outpatient (CLI) | payer MEDICARE, SELFPAY ==
[2024-10-22 12:59] LABS: Hematocrit 43.2 % (37-47); Hemoglobin 14.6 g/dL (12.0-15.0); Immature Granulocytes Count 0.010 X10^3/uL (0.0-0.0); Mean Corp Hgb Conc 33.8 g/dL (32-36); Mean Corpuscular Volume 98.4 fL (81-99); Mean Platelet Vol. 10.1 fl (6.2-12.0); NRBC Flagged by Analyzer 0 % (0-5); Platelet Count 170 K/mm3 (150-450); RBC Distribution Width CV 13.6 % (11.6-14.6); RBC Distribution Width SD 50.0 fl (35.1-43.9); Red Blood Count 4.39 M/mm3 (4.2-5.4); White Blood Count 3.6 K/mm3 (4.4-11.0)
[2024-10-22 13:45] LABS: Prothrombin Time (Protime)PT. 14.1 SECONDS (11.7-14.9)
[2024-10-22 14:41] LABS: AST(SGOT) 45 U/L (<=31); Alanine Aminotransfer ALT/SGPT 34 U/L (<=34); Albumin, Serum 4.5 g/dL (3.4-4.8); Alkaline Phosphatase 81 U/L (35-104); Anion Gap 13 (5-15); BUN 16 mg/dL (4-19); BUN/Creat Ratio 22.3 RATIO (10-20); Calcium,Total 9.9 mg/dL (7.6-11.0); Carbon Dioxide 25.6 mmol/L (21.0-32.0); Chloride 102 mmol/L (98-108); Ferritin 60 ng/mL (22-378); Globulin 3.2 g/dL (2.2-4.2); Glucose 92 mg/dL (70-99); Potassium 4.4 mmol/L (3.3-5.1)
[2024-10-22 14:55] LABS: Iron Binding Capacity,Total 287 ug/dL (250-450)
[2024-10-22 14:57] LABS: CRP < 3.00 mg/L (0.0-3.0); Iron 142 ug/dL (50-170); Iron Binding Capacity,Unsat 145 ug/dL (228-428)
--- OUTSIDE RECORDS SUMMARY | 2024-10-22 18:36 | XMS RPT_ITS | CCD ---
Author Organization [facility] Care Team Providers Care Agricultural Aircraft Pilot Name Role Phone Paulie, Dr. Neil Nunez Primary Care Provider Paulie, Dr. Neil Nunez Referring Provider Vishnu KHAN, TABLE WORKER PACKAGERShreyas Hewitt Attending Provider KURT Caban Attending Provider Jacklyn, Dr. Watkins Attending Provider KURT Schreiber Attending Provider Paulie, Dr. Neil Nunez Primary Care Provider Paulie, Dr. Neil Nunez Referring Provider Dr. Michael Lepe Attending Provider Paulie, Dr. Neil Nunez Primary Care Provider Paulie, Dr. Neil Nunez Referring Provider Dr. Michael Lepe Attending Provider Paulie, Dr. Neil Nunez Other Provider Dr. Roland Villasenor Attending Provider Paulie, Dr. Neil Nunez Primary Care Provider Paulie, Dr. Neil Nunez Referring Provider Dr. Raphael Trujillo Emergency Provider Dr. Juan Diego Brand Attending Provider [phone] Paulie, Dr. Neil Nunez Primary Care Provider Dr. Raphael Trujillo Emergency Provider [phone] Juan Diego Brand Admit Provider Dr. Juan Diego Brand Referring Provider Dr. Juan Diego Brand Provider 1([facility])[phone] Dr. Tobi Villatoro Other Provider 1([facility])[phone] Dr. Kofi Santiago Attending Provider 1([facility])[phone] Dr. Roland Villasenor Attending Provider 1([facility])[phone] Ari Eaton Other Provider 1([facility])[phone] Ari Eaton Attending Provider 1([facility])[phone] Paulie, Dr. Neil Nunez Referring Provider 1([facility])[phone] Paulie, Dr. Neil Nunez Primary Care Provider 1([facility])[phone] Paulie, Dr. Neil Nunez Referring Provider 1([facility])[phone] Vishnu TABLE WORKER PACKAGER, TABLE WORKER PACKAGER-C Marcelina Attending Provider Dr. Roland Villasenor Attending Provider 1([facility])[phone] Vishnu TABLE WORKER PACKAGER, TABLE WORKER PACKAGER-C Marcelina Referring Provider Paulie LOGAN, Dr. Neil Nunez Primary Care Provider 1([facility] )[phone] Paulie LOGAN, Dr. Neil Nunez Attending Provider Paulie LOGAN, Dr. Neil Nunez Referring Provider 1([facility])[phone] Paulie LOGAN, Dr. Neil Nunez Primary Care Provider 1([facility] )[phone] Paulie LOGAN, Dr. Neil Nunez Attending Provider Paulie LOGAN, Dr. Neil Nunez Referring Provider 1([facility])[phone] Ron LOGAN, Dr. Calderon Attending Provider 1([facility])[phone] PAULIE LOGAN, DR PIERCE Primary Care Physician GHAZALA LOGAN, LAKESHA Attending Unavailable PAULIE LOGAN, DR PIERCE Primary Care Unavailable Rebel TABLE WORKER PACKAGER-CMehran Attending Provider 1([facility])[phone] Paulie LOGAN, Dr. Neil Nunez Primary Care Provider Paulie LOGAN, Dr. Neil Nunez Attending Provider Paulie LOGAN, Dr. Neil Nunez Referring Provider Paulie LOGAN, Dr. Neil Nunez Primary Care Provider Paulie LOGAN, Dr. Neil Nunez Attending Provider 1([facility])[phone] Dr. Kofi Chavarria DO Attending Provider Paulie LOGAN, Dr. Neil Nunez Primary Care Provider Paulie LOGAN, Dr. Neil Nunez Attending Provider Paulie LOGAN, Dr. Neil Nunez Referring Provider Manuel TABLE WORKER PACKAGER-C, Bessie Attending Provider Manuel TABLE WORKER PACKAGER-C, Bessie Referring Provider Paulie, Neil Chi Attending Unavailable Paulie, Neil Chi Referring Unavailable Paulie, Neil Chi Primary Care Unavailable Paulie, Neil Chi Primary Care Unavailable Paulie, Neil Chi Referring Unavailable Paulie, Neil Chi Attending Unavailable Paulie, Neil Chi Primary Care Unavailable Paulie, Niel Chi Referring Unavailable Paulie, Neil Chi Attending Unavailable Paulie, Neil Chi Primary Care Unavailable Paulie, Enil Chi Attending Unavailable Paulie, Neil Chi Referring Unavailable Paulie, Neil Chi Primary Care Unavailable Paulie, Neil Chi Referring Unavailable Paulie, Neil Chi Attending Unavailable Paulie, Neil Chi Primary Care Unavailable Paulie, Neil Chi Referring Unavailable Paulie, Neil Chi Attending Unavailable Paulie, Neil Chi Attending Unavailable Paulie, Neil Chi Primary Care Unavailable Paulie, Neil Chi Attending Unavailable Paulie, Neil Chi Referring Unavailable Paulie, Neil Chi Primary Care Unavailable Paulie, Neil Chi Primary Care Unavailable Paulie, Neil Chi Referring Unavailable Paulie, Neil Chi Attending Unavailable Paulie, Neil Chi Referring Unavailable Jackson, Bessie Attending Unavailable Paulie, Neil Chi Primary Care Unavailable Paulie, Neil Chi Referring Unavailable Paulie, Neil Chi Primary Care Unavailable Andrew Musa Attending Unavailable Jackson, Bessie Referring Unavailable Bessie Jackson Attending Unavailable Paulie, Neil Chi Primary Care Unavailable Paulie, Neil Chi Attending Unavailable Paulie, Neil Chi Referring Unavailable Paulie, Neil Chi Primary Care Unavailable Paulie, Neil Chi Attending Unavailable Pualie, Neil Chi Referring Unavailable Paulie, Neil Chi Primary Care Unavailable Paulie, Neil Chi Primary Care Unavailable Paulie, Neil Chi Referring Unavailable Roof Mehran KHAN Attending Unavailable Paulie, Neil Chi Referring Unavailable Paulie, Neil Chi Primary Care Unavailable Kofi Chavarria Attending Unavailable Paulie, Neil Chi Primary Care Unavailable Roland Villasenor Attending Unavailable Paulie, Neil Chi Primary Care Unavailable Paulie, Neil Chi Referring Unavailable Kvng Velasquez Attending Unavailable Paulie, Neil Chi Primary Care Unavailable Paulie, Neil Chi Referring Unavailable Kofi Chavarria Attending Unavailable Neil Apodaca Chi Attending Unavailable Neil Apodaca Chi Primary Care Unavailable Allergies Allergy Classification Reported Allergen(s) Allergy Type Date of Onset Reaction(s) Facility (20 sources) carBAMazepine Drug Allergy 09-13-2021 [facility] (20 sources) clonazePAM Drug Allergy 09-13-2021 Other [facility] Comment on above: DIDN'T WORK TO REDUC E SEIZURES (20 sources) Phenytoin; Translations: [phenytoin sodium] Drug Allergy 09-13-2021 [facility] (20 sources) Phenytoin; Translations: [phenytoin sodium extended] Drug Allergy 09-13-2021 [facility] (1 source) carBAMazepine Drug Allergy 10-19-2024 [facility] (1 source) clonazePAM Drug Allergy 10-19-2024 [facility] Medications Current Medications Medication Drug Class(es) Dates Sig (Normalized) Sig (Original) atorvastatin 40 mg oral tablet (20 sources) HMG-CoA Reductase Inhibitor Start: 07-22-2016 take 1 tablet by mouth at bedtime Atorvastatin 40 MG tablet Active 40 mg PO AT BEDTIME July 22, 2016 12:00am cholesterol calcium carbonate 1500 mg / cholecalciferol 500 unt oral capsule (20 sources) Vitamin D Start: 04-10-2020 Calcium Carbonate-Vitamin D3 (Calcium 600 With Vitamin D3) 600 mg(1,500mg) -500 unit capsule Active 1 NMA PO DAILY April 10, 2020 1:00am Start: 04-10-2020 take 1 capsule by [facility] once daily Calcium Carbonate-Vitamin D3 (Calcium 600 With Vitamin D3) 600 mg(1,500mg) -500 unit capsule Active 1 CAP PO DAILY April 10, 2020 1:00am levothyroxine sodium 0.1 mg oral tablet (20 sources) l-Thyroxine Start: 03-05-2021 take 1 tablet by mouth once daily Levothyroxine 100 mcg tablet Active 100 ug PO DAILY March 05, 2021 1:00am hypothyroid Start: 04-28-2017 End: 03-05-2021 take 1 capsule by mouth once daily Levothyroxine 100 mcg capsule Discontinued 100 ug PO daily 0 April 28, 2017 1:00am March 05, 2021 2:42pm Start: 09-24-2013 End: 04-28-2017 Levothyroxine 112 MCG tablet Discontinued 100 ug PO DAILY September 24, 2013 12:00am April 28, 2017 2:27pm Start: 09-24-2013 End: 04-28-2017 take 100 ug by mouth once daily Levothyroxine Disconti nued 100 MCG PO DAILY September 24, 2013 12:00am April 28, 2017 2:27pm metoprolol tartrate 25 mg oral tablet (20 sources) beta-Adrenergic Ivelisse Start: 09-07-2024 take 1 tablet by mouth twice daily Metoprolol Tartrate 25 mg tablet Active 25 mg PO TWICE A DAY September 07, 2024 12:00am Start: 10-15-2023 End: 09-07-2024 Metoprolol Tartrate 50 mg ta blet Discontinued 25 mg PO TWICE A DAY October 15, 2023 4:10pm September 07, 2024 11:19am BP Start: 04-03-2022 End: 10-15-2023 take 1 tablet by mouth twice daily Metoprolol Tartrate 50 mg tablet Discontinued 50 mg PO TWICE A DAY April 03, 2022 2:46pm October 15, 2023 4:10pm BP Start: 09-02-2019 End: 04-03-2022 Metoprolol Tartrate 50 mg ta blet Discontinued 75 mg PO TWICE A DAY September 02, 2019 12:00am April 03, 2022 2:46pm Start: 09-02-2019 End: 04-03-2022 take 75 mg by mouth twice daily Metoprolol Tartrate Di scontinued 75 MG PO TWICE A DAY September 02, 2019 12:00am April 03, 2022 2:46pm Start: 11-01-2016 End: 09-02-2019 take 3 tablets by mouth twice daily Metoprolol Tartrate 25 MG tablet Discontinued 75 mg PO TWICE A DAY 60 November 01, 2016 12:00am September 02, 2019 1:25pm Start: 11-01-2016 End: 09-02-2019 take 75 mg by mouth twice daily Metoprolol Tartrate Di scontinued 75 MG PO TWICE A DAY 60 November 01, 2016 12:00am September 02, 2019 1:25pm Start: 09-26-2013 End: 11-01-2016 take 1 tablet by mouth twice daily Metoprolol Tartrate 50 MG tablet Discontinued 50 mg PO TWICE A DAY 60 0 September 26, 2013 12:00am November 01, 2016 10:33am Multivitamin preparation (13 sources) Start: 07-22-2016 Multivitamin A ctive 1 EACH PO DAILY July 21, 2016 11:00pm Start: 07-22-2016 Multivitamin A ctive 1 EACH PO DAILY July 22, 2016 12:00am primidone 250 mg oral tablet (20 sources) Anti-epileptic Agent Start: 09-24-2013 take 1 tablet by mouth twice daily Primidone 250 MG tablet Active 250 mg PO TWICE A DAY September 24, 2013 12:00am seizure rivaroxaban 20 mg oral tablet (20 sources) Factor Xa Inhibitor Start: 09-29-2024 take 1 tablet by mouth once daily at dinner Rivaroxaban (Xarelto) 20 mg tablet Active 20 mg PO daily September 29, 2024 12:00am must administer with evening meal Start: 11-01-2016 End: 09-07-2024 take 1 tablet by mouth once daily Rivaroxaban 20 MG tablet Discontinued 20 mg PO DAILY@0600 30 0 November 01, 2016 12:00am September 07, 2024 11:21am A-Fib Completed/Discontinued Medications Medication Drug Class(es) Dates Sig (Normalized) Sig (Original) acetaminophen 325 mg oral tablet (17 sources) Start: 09-28-2022 End: 09-07-2024 take 2 tablets by mouth every four hours as needed for pain Acetaminophen 325 mg Tablet Discontinued 650 mg PO EVERY 4 HOURS NEEDED as needed for pain 1-10/fever 0 0 September 28, 2022 12:00am September 07, 2024 11:19am Start: 09-28-2022 take 650 mg by mouth every four hours as needed Acetaminophen Active 650 MG PO EVERY 4 HOURS NEEDED 0 September 28, 2022 12:00am alendronic acid 70 mg oral tablet (20 sources) Bisphosphonate Start: 10-31-2016 End: 04-03-2022 take 1 tablet by mouth every week Alendronate 70 MG tablet Discontinued 70 mg PO EVERY WEEK October 31, 2016 12:00am April 03, 2022 2:45pm aspirin 81 mg delayed release oral tablet (20 sources) Platelet Aggregation Inhibitor, Nonsteroidal Anti-inflammatory Drug Start: 07-22-2016 End: 07-25-2016 take 1 tablet by mouth once daily Aspirin (Aspir-Low) 81 MG Tablet. Discontinued 81 mg PO DAILY July 22, 2016 12:00am July 25, 2016 11:17am biotin 1 mg oral tablet (20 sources) Start: 12-01-2018 End: 04-10-2020 take 1 tablet by mouth once daily Biotin 1 MG tablet Discontinued 1 mg PO DAILY December 01, 2018 12:00am April 10, 2020 2:52pm calcium carbonate 1500 mg oral tablet (20 sources) Start: 07-22-2016 End: 04-10-2020 take 2 tablets by mouth once daily Calcium Carbonate 600 MG tablet Discontinued 1200 mg PO DAILY July 22, 2016 12:00am April 10, 2020 2:52pm Start: 07-22-2016 End: 04-10-2020 take 1200 mg by mouth once daily Calcium Carbonate Discontinued 1200 MG PO DAILY July 22, 2016 12:00am April 10, 2020 2:52pm cephalexin 500 mg oral capsule (11 sources) Cephalosporin Antibacterial Start: 01-09-2024 End: 07-21-2024 take 1 capsule by mouth three times daily Cephalexin 500 mg capsule Discontinued 500 mg PO THREE TIMES A DAY 30 0 January 09, 2024 12:00am July 21, 2024 12:35pm Cranberry (20 sources) Non-Standardized Food Allergenic Extract, Non-Standardized Plant Allergenic Extract Start: 07-22-2016 End: 09-02-2019 take 1 capsule by mouth once daily Cranberry 500 MG capsule Discontinued 500 mg PO DAILY July 22, 2016 12:00am September 02, 2019 1:24pm Start: 07-22-2016 End: 09-02-2019 take 500 mg by mouth once daily Cranberry Discontinued 500 MG PO DAILY July 21, 2016 11:00pm September 02, 2019 12:24pm Start: 07-22-2016 End: 09-02-2019 take 500 mg by mouth once daily Cranberry Discontinued 500 MG PO DAILY July 22, 2016 12:00am September 02, 2019 1:24pm diclofenac sodium 0.01 mg/mg topical gel (20 sources) Nonsteroidal Anti-inflammatory Drug Start: 09-07-2021 End: 06-09-2023 Diclofenac Sodium (Voltaren Arthritis Pain) 1 % gel Discontinued 4 g TOPICAL THREE TIMES A DAY 100 5 September 07, 2021 12:00am June 09, 2023 2:33pm apply to single knee doxycycline monohydrate 100 mg oral capsule (20 sources) Tetracycline-class Drug Start: 09-24-2013 End: 11-01-2016 Doxycycline Hyclate 100 MG capsule Discontinued 20 mg PO TWICE A DAY September 24, 2013 12:00am November 01, 2016 10:32am Start: 09-24-2013 End: 11-01-2016 take 20 mg by mouth twice daily Doxycycline Hyclate Discontinued 20 MG PO TWICE A DAY September 24, 2013 12:00am November 01, 2016 10:32am lutein 20 mg oral capsule (20 sources) Start: 07-22-2016 End: 09-07-2024 take 1 capsule by mouth once daily Lutein 20 MG capsule Discontinued 20 mg PO DAILY July 22, 2016 12:00am September 07, 2024 11:20am magnesium oxide 500 mg oral tablet (20 sources) Start: 04-10-2020 End: 09-07-2024 take 1 tablet by mouth once daily Magnesium Oxide 500 mg tablet Discontinued 500 mg PO DAILY April 10, 2020 2:52pm September 07, 2024 11:20am Start: 09-02-2019 End: 04-10-2020 take 1 tablet by mouth every other day Magnesium Oxide 500 mg tablet Discontinued 500 mg PO .qod September 02, 2019 12:00am April 10, 2020 2:52pm Multivitamin 1 EACH tablet (11 sources) Start: 07-22-2016 End: 09-07-2024 Multivitamin 1 EACH tablet Discontinued 1 NMA PO DAILY July 22, 2016 12:00am September 07, 2024 11:20am Start: 07-22-2016 Multivitamin 1 EACH tablet Active 1 NMA PO DAILY July 22, 2016 12:00am niacin 50 mg oral tablet (20 sources) Nicotinic Acid Start: 04-03-2022 End: 07-21-2024 take 1 tablet by mouth once daily Niacin 50 mg tablet Discontinued 50 mg PO DAILY April 03, 2022 1:00am July 21, 2024 1:26pm Start: 09-24-2013 End: 08-30-2020 take 1 tablet by mouth once daily Niacin 50 MG tablet Discontinued 50 mg PO DAILY September 24, 2013 12:00am August 30, 2020 1:42pm saccharomyces boulardii 250 mg oral capsule (20 sources) Start: 09-06-2021 End: 10-15-2023 take 1 capsule by mouth twice daily Saccharomyces Boulardii (Daily Probiotic (S. Boulardii)) 250 mg capsule Discontinued 250 mg PO TWICE A DAY September 06, 2021 12:00am October 15, 2023 12:05pm Turmeric extract (20 sources) Start: 04-03-2022 End: 10-15-2023 take 1 capsule by mouth once daily Turmeric 400 mg capsule Discontinued 400 mg PO DAILY April 03, 2022 1:00am October 15, 2023 12:05pm Start: 04-03-2022 take 400 mg by mouth once giuseppe y Turmeric Active 400 MG PO DAILY April 03, 2022 1:00am Start: 04-03-2022 take 400 mg by mouth once giuseppe y Turmeric Active 400 MG PO DAILY April 03, 2022 12:00am Vitamin B Complex (B Complex-Vitamin B12) tablet (20 sources) Start: 09-02-2019 End: 08-30-2020 Vitamin B Complex (B Complex-Vitamin B12) tablet Discontinued 1 {tbl} PO DAILY September 02, 2019 12:00am August 30, 2020 1:42pm Start: 09-02-2019 End: 08-30-2020 take 1 tablet by mouth once daily Vitamin B Complex (B Complex-Vitamin B12) tablet Discontinued 1 TABLET PO DAILY September 01, 2019 11:00pm August 30, 2020 12:42pm Start: 09-02-2019 End: 08-30-2020 take 1 tablet by mouth once daily Vitamin B Complex (B Complex-Vitamin B12) tablet Discontinued 1 TABLET PO DAILY September 02, 2019 12:00am August 30, 2020 1:42pm Problems Active Problems Problem Classification Problem Date Documented Da te Episodic/Chronic Acquired foot deformities (20 sources) Acquired hallux valgus; Translations: [Hallux valgus (acquired), right foot] 12-04-2018 Chronic Biliary tract disease (20 sources) Cholecystitis; Translations: [Cholecystitis, unspecified] 09-24-2022 Episodic Cardiac dysrhythmias (20 sources) Atrial flutter; Translations: [Unspecified atrial flutter] Chronic Cardiac dysrhythmias (11 sources) Bradycardia; Translations: [Bradycardia, unspecified] 10-15-2023 Episodic Disorders of lipid metabolism (20 sources) Hyperlipidemia; Translations: [Hyperlipidemia, unspecified] Chronic Epilepsy; convulsions (20 sources) Seizure disorder; Translations: [Epilepsy, unspecified, not intractable, without status epilepticus] 12-04-2018 Chronic Heart valve disorders (20 sources) Heart murmur; Translations: [Cardiac murmur, unspecified] 04-03-2022 Episodic Immunizations and screening for infectious disease (20 sources) Patient encounter status; Translations: [Encounter for screening for COVID-19] Episodic Joint disorders and dislocations; trauma-related (20 sources) Degeneration of cartilage AND/OR meniscus of knee; Translations: [Other meniscus derangements, unspecified meniscus, left knee] Chronic Nutritional deficiencies (1 source) Vitamin D deficiency, unspecified; Translations: [Vitamin D deficiency, unspecified] Onset: 12-20-2023 Chronic Osteoarthritis (20 sources) Osteoarthritis of left knee joint; Translations: [Unilateral primary osteoarthritis, left knee] Onset: 11-26-2023 Chronic Osteoporosis (1 source) Age-related osteoporosis without current pathological fracture; Translations: [Age-related osteoporosis without current pathological fracture] Onset: 06-21-2024 Chronic Other connective tissue disease (13 sources) Synovial cyst of left popliteal space; Translations: [Synovial cyst of popliteal space [Aragon], left knee] 04-01-2022 Episodic Other connective tissue disease (20 sources) Foot pain; Translations: [Pain in right foot] 12-04-2018 Episodic Other connective tissue disease (13 sources) Synovial cyst of popliteal space [Aragon], left knee; Translations: [Synovial cyst of popliteal space] Episodic Other gastrointestinal disorders (2 sources) Diarrhea; Translations: [Diarrhea, unspecified] 10-19-2024 Episodic Other gastrointestinal disorders (2 sources) Constipation; Translations: [Constipation, unspecified] 10-19-2024 Episodic Other gastrointestinal disorders (2 sources) Constipation, unspecified; Translations: [Constipation, unspecified] Onset: 10-19-2024 Episodic Other gastrointestinal disorders (2 sources) Diarrhea, unspecified; Translations: [Diarrhea, unspecified] Onset: 10-19-2024 Episodic Other liver diseases (13 sources) Fatty (change of) liver, not elsewhere classified; Translations: [Metabolic dysfunction-associat ed steatotic liver disease (MASLD)] Onset: 07-02-2024 07-21-2024 Chronic Other non-traumatic joint disorders (20 sources) Pain in left knee; Translations: [Left knee pain] 09-06-2021 Episodic Other non-traumatic joint disorders (1 source) Pain in right knee; Translations: [Pain in right knee] Onset: 09-20-2024 Episodic Pulmonary heart disease (20 sources) Pulmonary embolism; Translations: [Other pulmonary embolism without acute cor pulmonale] 04-28-2017 Episodic Residual codes; unclassified (6 sources) Acquired absence of other specified parts of digestive tract; Translations: [Other postprocedural status] 09-28-2022 Episodic Skin and subcutaneous tissue infections (12 sources) Paronychia of thumb; Translations: [Cellulitis of left finger] Onset: 10-18-2024 01-09-2024 Episodic Unclassified (1 source) Low back pain, unspecified; Translations: [Low back pain, unspecified] Onset: 03-03-2024 Past or Other Problems Problem Classification Problem Date Documented Da te Episodic/Chronic Abdominal pain (20 sources) Abdominal pain; Translations: [Unspecified abdominal pain] Onset: 04-19-2024 09-24-2022 Episodic Malaise and fatigue (1 source) Other fatigue; Translations: [Other fatigue] Onset: 06-09-2024 Episodic Results Test Name Value Interpretation Reference Range Facility Abdomen Single Viewon 2024 Abdomen Single View [facility] [address] [place] [address] [id number] Abdomen Single View MR#: [id number] Acct: [id number] Name: RADHA ALEMAN YUN Rep #: [id number] : 1945 F 78 From: Maco Torres MD PCP: Dr. Neil Apodaca MD Status: REG CLI Study: Abdomen Single View Date of Exam: 10/19/24 Exam# [id number] Ordering Dr: Bessie Jackson TABLE WORKER PACKAGER-C PROCEDURE: ABDOMEN SINGLE VIEW 10/19/2024 REASON FOR EXAM: CONSTIPATION TECHNIQUE: ABDOMEN SINGLE VIEW COMPARISON: CT 06/28/2024 FINDINGS: Lung bases are clear. No free air. Nonobstructed bowel pattern. Mild stool. RAD/Abdomen Single View IMPRESSION: Nonobstructed bowel-gas pattern with mild stool. Reading Location: [place] [id number] CC: ANNA Jackson; Dr. Neil Apodaca MD Aged Or Disabled Care Worker: Signed Normal [facility] Visit Repor ton 10-19-2024 Gastroenterology Visit Report [facility] [address] [place] [address] OFFICE VISIT Date of Service: 10/19/24 MR#: [id number] Acct: [id number] Name: RADHA ALEMAN Rep #: [id number] : 1945 Provider: ANNA vargas Age/Sex: 78/F Location: [facility] [place] Status: Signed Intake Vital Signs 09/29/24 10:41 Height 5 ft 5 in Weight: 135 lb 6 oz BMI 22.5 Intake Visit Reasons: GI ISSUES DIARRHEA Allergies carbamazepine (From Tegretol) Allergy (Verified 10/19/24 13:40) Hives clonazepam (From Klonopin) Allergy (Verified 10/19/24 13:40) Other phenytoin sodium (From Dilantin) Allergy (Verified 10/19/24 13:40) Hives phenytoin sodium extended (From Dilantin) Allergy (Verified 10/19/24 13:40) Hives Medications ???Medication ???Instructions ???Recorded ???Confirmed ???Type primidone 250 mg tablet 250 mg PO BID seizure 09/24/13 History atorvastatin 40 mg tablet 40 mg PO QHS cholesterol 07/22/16 10/19/24 History calcium 600 mg (as 1 cap PO DAILY 04/10/20 10/19/24 H istory carbonate)-vitamin D3 12.5 mcg (500 unit) capsule (Calcium with Vit D3) levothyroxine 100 mcg tablet 100 mcg PO DAILY hypothyroid 03/0510/19/24 History metoprolol tartrate 25 mg tablet 25 mg PO BID 09/07/24 10/19/24 His tory rivaroxaban 20 mg tablet (Xarelto) 20 mg PO QDAY 09/29/24 10/19/24 History Have you fallen in the past year?: No [facility] Medical History Diarrhea Hiatal hernia Hepatic fibrosis Wheezing Fecal impaction of colon Vitamin D deficiency Dehydration Portal hypertension Low back pain Abdominal pain Fatty liver Paronychia of left thumb Bradycardia Thyroiditis Post-menopausal Back pain due to injury High cholesterol History of stress test Scarlet fever Irregular heartbeat Encounter for screening for other viral diseases Encounter for screening for COVID-19 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], left knee Atrial flutter Basal cell carcinoma Hypothyroidism Pulmonary embolism Hyperlipidemia Paroxysmal atrial fibrillation Seizure disorder Surgical History S/P blepharoplasty Status post laparoscopic cholecystectomy History of ptosis repair ( 01/2021) History of bunionectomy of right great toe (12/04/18) left carpal tunnel release H/O basal cell carcinoma excision History of lumpectomy of left breast History of tonsillectomy Family History Father FHx: prostate cancer Other Diabetes Heart disease Social History Smoking Status: Never smoker alcohol intake: never substance use type: does not use caffeine: No what type of physical activity do you participate in: walking HPI HPI Details: RADHA ALEMAN, is a 78 F who presents to the office today for FU with GI issues/diarrhea. Dr. Apodaca referred for fatty liver. 06.16.24- Fib-[address] abd/pel 06.17.- Hepatomegaly with fatty infiltration, fecal retention consistent with constipation, umbilical hernia containing fat, small esophageal hiatal hernia US abd. elastography 4..25- Liver measures 14.7 cm, Stiffness measures 8.3 kPa BGI Est 0430.25 Feeling well. Multiple loose stool last several months but is improving. Patient stated that she was obese before but she lost about 20 pounds. 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 She denies significant alcohol drinking in the past. She said at the most she might of had 20 drinks in her whole life New patient, referred for evaluation of fatty liver/MASLD: visit per Dr. P. Ron vitals reviewed. BP normal. Labs reviewed. Glucose 87. Liver chemistry normal limit. Lipid profile in normal limit. TSH normal. Vitamin D 25-hydroxy normal. Hepatitis profile AB and C are negative. Liver ultrasound with elastography from June 2024 reviewed. Liver normal in size 14.7 cm. Reported grossly unremarkable. Median liver stiffness 8.3 kPa, median velocity 1.66 m/s. Patient states she lost 20 pounds and is good with the calorie restriction and exercise. Comprehensive labs ordered to rule out other causes of liver fibrosis. Advised to discontinue niacin. She also takes lutein as a supplement for macular degeneration. 10.19.24 OV She presents with GI concerns for diarrhea frequency and urgency. She acknowledges her appointment next month to follow up on her liver concerns. She states that since March of this year, she has not been experiencing complete bowel evacuation. She reports increased gas and bloating. She has been keeping a food and bowel movement journal, this I reviewed; frequency of BMs per day correlated directly (more content not included)... Normal [facility] Ext Non Vasc Limited/Soft Ti sson 10-12-2024 Ext Non Vasc Limited/Soft Tiss [facility] [address] [place], [place] [id number] Ext Non Vasc Limited/Soft Tiss MR#: [id number] Acct: [id number] Name: RADHA ALEMAN YUN Rep #: [id number] : 1945 F 78 From: Selin Borjas MD PCP: Dr. Neil Apodaca MD Status: REG CLI Study: Ext Non Vasc Limited/Soft Tiss Date of Exam: 0 10/12/24 Exam# [id number] Ordering Dr: Neil Apodaca MD PROCEDURE: EXT NON VASC LIMITED/SOFT TISS 10/12/2024 REASON FOR EXAM: LEFT BUTTOCK ABSCESS. Two lumps left buttock. TECHNIQUE: EXT NON VASC LIMITED/SOFT TISS. Superficial soft tissues of the left buttock were imaged using grayscale and color Doppler technique. COMPARISON: None. FINDINGS: In the lateral left buttock, there is an ill-defined, heterogeneously hyperechoic nonvascular structure measuring 1.5 x 0.7 x 1.3 cm, corresponding to the palpable lump. No abnormal surrounding vascularity. More medially in the left buttock, there is a 2nd heterogeneous, nonvascular structure measuring 0.8 x 1.2 x 0.4 cm. The surrounding soft tissues in this region appear edematous with increased vascularity, suggestive of inflammation. No discrete fluid collections or drainable abscesses are identified. US/Ext Non Vasc Limited/Soft Tiss IMPRESSION: Two nonvascular heterogeneous structures in the left buttock corresponding to the palpable lumps. The medial lesion is associated with surrounding soft tissue edema and hyperemia, concerning for an inflammatory process. The lateral lesion could represent fat necrosis, organized hematoma or injection granuloma. Reading Location: [id number] CC: Dr. Neil Apodaca MD Aged Or Disabled Care Worker: Signed Normal [facility] Orthopedic Visit Reporton Orthopedic Visit Report [facility] [address] [place] [address] OFFICE VISIT Date of Service: 09/29/24 MR#: [id number] Acct: [id number] Name: RADHA ALEMAN Rep #: [id number] : 1945 Provider: Dr. Kofi mari DO Age/Sex: 78/F Location: [facility] [place] Status: Signed Intake Vital Signs 09/07/24 11:23 09/29/24 10:41 Height 5 ft 5 in 5 ft 5 in Weight: 134 lb 135 lb 6 oz BMI 22.3 22.5 BP 116/75 Blood Pressure Location Lt brachial Position Sitting Respiration 16 Pulse 65 Pulse Source NIBP Intake Visit Reasons: RIGHT KNEE Allergies carbamazepine (From Tegretol) Allergy (Verified 09/29/24 10:45) Hives clonazepam (From Klonopin) Allergy (Verified 09/29/24 10:45) Other phenytoin sodium (From Dilantin) Allergy (Verified 09/29/24 10:45) Hives phenytoin sodium extended (From Dilantin) Allergy (Verified 09/29/24 10:45) Hives Medications ???Medication ???Instructions ???Recorded ???Confirmed ???Type primidone 250 mg tablet 250 mg PO BID seizure 09/24/1312/16 History atorvastatin 40 mg tablet 40 mg PO QHS cholesterol 07/22/16 09/29/24 History calcium 600 mg (as 1 cap PO DAILY 04/10/20 09/29/24 H istory carbonate)-vitamin D3 12.5 mcg (500 unit) capsule (Calcium with Vit D3) levothyroxine 100 mcg tablet 100 mcg PO DAILY hypothyroid 03/0509/29/24 History metoprolol tartrate 25 mg tablet 25 mg PO BID 09/07/24 09/29/24 His tory rivaroxaban 20 mg tablet (Xarelto) 20 mg PO QDAY 09/29/24 09/29/24 History Have you fallen in the past year?: Yes PFSH Medical History Diarrhea Hiatal hernia Hepatic fibrosis Wheezing Fecal impaction of colon Vitamin D deficiency Dehydration Portal hypertension Low back pain Abdominal pain Fatty liver Paronychia of left thumb Bradycardia Thyroiditis Post-menopausal Back pain due to injury High cholesterol History of stress test Scarlet fever Irregular heartbeat Encounter for screening for other viral diseases Encounter for screening for COVID-19 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], left knee Atrial flutter Basal cell carcinoma Hypothyroidism Pulmonary embolism Hyperlipidemia Paroxysmal atrial fibrillation Seizure disorder Surgical History S/P blepharoplasty Status post laparoscopic cholecystectomy History of ptosis repair ( 01/2021) History of bunionectomy of right great toe (12/04/18) left carpal tunnel release H/O basal cell carcinoma excision History of lumpectomy of left breast History of tonsillectomy Family History Father FHx: prostate cancer Other Diabetes Heart disease Social History Smoking Status: Never smoker alcohol intake: never substance use type: does not use caffeine: No what type of physical activity do you participate in: walking HPI RIGHT KNEE Details: This documentation accurately reflects the service provided and the decisions made by me, Dr. Kofi Chavarria, DO 09/29/24 0741. Part of today???s visit was documented by Irina MONSON, acting as scribe. RADHA ALEMAN is a 78 year old F here today for right knee pain. She has been having the right knee pain for 7 weeks. She denies any known injury to the knee or aggravating events. She states that he pain started on the anterior lateral aspect of the knee but is now on the anterior medial aspect of the knee. She denies having mechanical symptoms in the knee. She does get intermittent giving out of the knee. On 08/18/24 she saw her PCP gave her a steroid injection in the knee but this did not give her any relief. She did do physical therapy recently which ended about 2 weeks ago and she does feel that it helped with her knee. She denies taking anything for pain. She does note that her knee pain seems to be getting better starting Friday. She has been using a diclofenac gel on the knee which she has been using which has also gave her some minor relief. 11/26/2023 visit:here today for left knee pain. She previously saw John Lundberg for the left knee and he had prescribe her a diclofenac topical cream but it doesn't seem to help much with her pain. She is unable to take NSAIDs as she is on a blood thinner. Her pain is over her medial and posterior knee. She states that she has a bakers cyst in the knee. She takes Tylenol for the pain. She denies mechanical symptoms. Denies previous surgery. When she last saw John she was told that she does have a meniscus tear from an MRI 2020. Denies injections and physical therapy. She did have an injury about 30 years ago while skiing. Plan: Eduacted p (more content not included)... Normal [facility] PT D/C Summary (1)on 025 PT D/C Summary (1) [facility] [address] [place] [address]. [address] [place] [address] / REHABILITATION SERVICES DISCHARGE SUMMARY MR#: [id number] Acct: [id number] Name: RADHA ALEMAN YUN Rep #: [id number] : 1945 78 From: Shanon Banegas DPT Referring Dr.: Dr. Neil Apodaca MD Status: REG RCR Insurance: [employer] [facility] SELF PAY INSURANCE Discharge Summary D/C summary: It has been my pleasure to treat RADHA ALEMAN referred by Dr. Neil Apodaca MD, with the diagnosis of Right Knee OA for a total of 8 visit(s). Discharge Date: Please see the following information for a summary of their discharge status. Subjective Subjective: Patient reports that she still feels that she still has right knee pain that is staying the same- she now has pain along the medial knee instead of the outside. She went to see her family MD about other issues and they recommended that she follow up with ortho. Dr. Busby helped with the left knee and did a cortisone injection so she plans to follow up with him. Pain R knee: Pain Intensity (Out of 10): 2 Overall Improvement % Improvement: 50 Objective Objective/Function: Posture: forward head, rounded shoulders Gait: no deviation noted- good arm swing and trunk rotation- improved heel strike HR/TR: able without UE A SLS: 15 seconds with mild increase in sway Palpation: not tender to touch- does have mild edema in posterior knee that can be felt- soft feel Observation: no bruising Strength: Core: fair minus, Hip: 4+/5 throughout, Knee: Extn: 4+/5 Flexion: 4+/5, Ankle: 5/5 ROM: 0-120 degrees Flex: HS: mild, Gastroc: moderate Stairs: asc/desc recip with HR Goals Goal 1:: Patient will be I with HEP and progression Goal Progress: Goal Met Goal 2:: Patient will ambulate >150 feet with a normalized gait pattern Goal Progress: Goal Met Goal 3:: Patient will asc/desc 8 recip without pain Goal Progress: Progressing Goal 4:: Patient will report 80% improvement Goal Progress: Progressing Plan Plan: 09/15/2024: Follow up with ortho and continue HEP (previous given at IE and gastroc stretch, HR, steps up, seated hip abd with band, hamstring curls with band) IE: Focus on LE and core strength/stabilizatio n and return to gym program D/C Information d/c sentence: If there are questions or concerns regarding this patient's physical therapy, please feel free to call me at [phone]. Thank you for the referral of this patient. Sincerely, Shanon Banegas, NIVIAT Balance/Gait/Function al tests Balance/Special Test Scores Lower Extremity Functional Score: 37 Improvement % Improvement: 50 09/15/24 1447 CC: Dr. Neil Apodaca MD ELR Signed Normal [facility] Cardiology Visit Reporton Cardiology Visit Report [facility] [address] [place] [address] OFFICE VISIT Date of Service: 09/07/24 MR#: [id number] Acct: [id number] Name: RADHA ALEMAN YUN Rep #: [id number] : 1945 Provider: ANNA nation Age/Sex: 78/F Location: [facility] Status: Signed HPI HPI History of Present Illness Details: This is a 78-year-old white female who presents today for outpatient cardiovascular follow-up visit. She has a history of paroxysmal atrial fibrillation/flutter and hyperlipidemia. She is participating in [employer] Trial. She denies chest, arm, jaw, or neck discomfort. She denies palpitations. She denies bilateral lower extremity edema. She denies claudication. She denies shortness of breath with activity, shortness of breath at rest, orthopnea, or PND. She denies chronic cough. She denies significant, sudden weight gain. She denies lightheadedness, dizziness, near-syncope, or syncope. She denies blood in urine, blood in stool, or epistaxis. He denies fever with chills. She denies myalgia. She denies fatigue. Her exercise level has remained stable. Intake Vital Signs 06/09/23 14:23 11/26/23 10:42 01/09/24 16:15 06/15/24 15:02 09/07/24 11:23 Height 5 ft 5 in 5 ft 5 in 5 ft 5.5 in 5 ft 5.5 in 5 ft 5 in Weight: 134 lb BMI 22.3 BP 116/75 Blood Pressure Location Lt brachial Position Sitting Respiration 16 Pulse 65 Pulse Source NIBP Intake Visit Reasons: 1 Y FU Land Surveying Manager Required: No Is patient in pain?: No Allergies carbamazepine (From Tegretol) Allergy (Verified 09/07/24 11:18) Hives clonazepam (From Klonopin) Allergy (Verified 09/07/24 11:18) Other phenytoin sodium (From Dilantin) Allergy (Verified 09/07/24 11:18) Hives phenytoin sodium extended (From Dilantin) Allergy (Verified 09/07/24 11:18) Hives Medications ???Medication ???Instructions ???Recorded ???Confirmed ???Type primidone 250 mg tablet 250 mg PO BID seizure 09/24/13 History atorvastatin 40 mg tablet 40 mg PO QHS cholesterol 07/22/16 09/07/24 History calcium 600 mg (as 1 cap PO DAILY 04/10/20 09/07/24 H istory carbonate)-vitamin D3 12.5 mcg (500 unit) capsule (Calcium with Vit D3) levothyroxine 100 mcg tablet 100 mcg PO DAILY hypothyroid 03/0509/07/24 History metoprolol tartrate 25 mg tablet 25 mg PO BID 09/07/24 09/07/24 His tory Ejection fraction %: 70 Have you fallen in the past year?: No PFSH Medical History Diarrhea Hiatal hernia Hepatic fibrosis Wheezing Fecal impaction of colon Vitamin D deficiency Dehydration Portal hypertension Low back pain Abdominal pain Fatty liver Paronychia of left thumb Bradycardia Thyroiditis Post-menopausal Back pain due to injury High cholesterol History of stress test Scarlet fever Irregular heartbeat Encounter for screening for other viral diseases Encounter for screening for COVID-19 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], left knee Atrial flutter Basal cell carcinoma Hypothyroidism Pulmonary embolism Hyperlipidemia Paroxysmal atrial fibrillation Seizure disorder Surgical History S/P blepharoplasty Status post laparoscopic cholecystectomy History of ptosis repair ( 01/2021) History of bunionectomy of right great toe (12/04/18) left carpal tunnel release H/O basal cell carcinoma excision History of lumpectomy of left breast History of tonsillectomy Family History Father FHx: prostate cancer Other Diabetes Heart disease Social History Smoking Status: Never smoker alcohol intake: never substance use type: does not use caffeine: No what type of physical activity do you participate in: walking ROS Const Const: Negative for fatigue or weakness Eyes Eyes: Negative for change in vision ENT ENT: Negative for dizziness or balance problems Cardio Chest Pain: No Palpitations: No Edema: None Muscle aches with walking: None Resp Respiratory: Negative for SOB with activity, SOB at rest or SOB orthopnea SOB lying down GI GI: Negative nausea or heartburn : Negative for hematuria or frequent nighttime urination/ nocturia Musc Musc: Negative for balance problems Skin Skin: Negative non-healing lesions or rash Neuro Neuro: Negative for dizziness, lightheadedness, near syncope, syncope or weakness Endo Endo: Negative for fatigue Allergy Allergy/Immunology: Negative for rash Cardiology Exam Const Appearance: cooperative, healthy appearing, comfortable and no acute distress Nutritional Appearance: average body habitus and well nourished Orientation (more content not included)... Normal [facility] PRIMon 09-03-2024 Phenobarb Lvl 11 UG/ML Low 15-40 [facility] Comment on above: Result Comment: Dete ction Limit = 3 Performed At: [facility] [id number] Ronan Chacon MD Ph:[phone] Performed By: #### [id number] #### [id number] [place], [place] [address] Primidone Lvl 8.4 UG/ML Normal 5.0-12.0 [facility] Comment on above: Result Comment: Dete ction Limit = 2.5 <2.5 indicates None Detected Performed By: #### [id number] #### [id number] [place], [place] [address] Inital Evaluation (1) - PTon 08-24-2024 Inital Evaluation (1) - PT [facility] [place] [address] / REHABILITATION SERVICES INITIAL EVALUATION MR#: [id number] Acct: [id number] Name: ASHRADHA YUN Rep #: [id number] : 1945 78 From: Shanon Banegas DPT Referring Dr.: Dr. Neil Apodaca MD Status: REG RCR Insurance: [employer] [facility] SELF PAY INSURANCE Patient's Visit Information Visit Information Visit Information: RADHA ALEMAN is a 78 year old F referred to Physical Therapy by Dr. Neil Apodaca MD with a diagnosis of Right Knee OA. Date of Evaluation: 08/24/24 Physical Therapist: Shanon Banegas DPT Visit Plan Frequency: 2x /Week Duration: 4 Weeks Plan: Focus on LE and core strength/stabilizatio n and return to gym program HEP Given: SLR, hip abduction, bridge, hamstring stretch Subjective Subjective: Patient reports that her right knee goes back to December-it started out with her back- she was blowing leaves with a blower and then she was diagnosed with OA in her left hip and then in Apr she went in when her left knee was hurting. She was using a cream on her left knee for a Bakers Cyst. She saw ortho Dr. Busby and she had a cortisone injection and that knee has been good since then. About 3 weeks ago her right knee was feeling the same way with the cyst in the back- the things that she has always done like walk 3 miles she can't do anymore it sets it off and makes it painful. Agg: mowing the lawn, walking. X-ray shows OA in bilateral knees- and some swelling in the right knee. Dr. Apodaca gave her a steroid injection but so far it does not seem to be helping. She also had an injection of anti-inflammatory and something else. He also gave her medication (Prednisone, Baclofen and Panto). She feels the knee is staying the same. She saw MD who recommended PT as well 08/18. Eases: getting up in the morning. Sleep: not disturbed. The pain is located in the posterior knee and both joint lines- radiates to the top of the calf. She describes the pain as dull and achy. No N/T in the toes. PMHx/Meds: no change since saw . Objective Objective: Posture: forward head, rounded shoulders Gait: slightly antalgic- no AD- decreased stance on the right LE with decreased heel strike HR/TR: able without UE A SLS: 10 seconds with mild increase in sway- does not fully extend in balance Palpation: not tender to touch- does have mild edema in posterior knee that can be felt- soft feel Observation: no bruising Strength: Core: fair minus, Hip: 4/5 throughout, Knee: Extn: 4 Flexion: 4, Ankle: 5/5 ROM: 5 degrees from neutral extn and 120 degrees flexion with pain at end range Flex: HS: mild, Gastroc: moderate Stairs: asc/desc recip Balance/Special Test Scores Lower Extremity Functional Score: 36 Goals Goal 1:: Patient will be I with HEP and progression Goal Time Frame: 4-6 Weeks Goal 2:: Patient will ambulate >150 feet with a normalized gait pattern Goal Time Frame: 4-6 Weeks Goal 3:: Patient will asc/desc 8 recip without pain Goal Time Frame: 4-6 Weeks Goal 4:: Patient will report 80% improvement Goal Time Frame: 4-6 Weeks Rehabilitation Potential Physical Therapy Diagnosis: Patient presents with hypomobility- she has decreased LE and core strength/stabilizatio n, flex, proprioception and muscular endurance leading to abnormal gait pattern and increased pain with ADL's. Rehabilitation Potential: Fair Anticipated Interventions Patient/Client Instruction: Educate patient on: Benefits of Fitness Program Therapeutic Exercise to Include: Strength training, Endurance training, Balance training, Coordination, Agility training, Body mechanics, Postural training, Flexibilty training, Gait and locomotor training, Neuromotor development, Dynamic Lumbar Stabilization and Scapular Strength/Stabilizatio n For the Purpose of:: To improve muscle performance and motor function TENS: Yes Cryotherapy (ice pack, ice massage): Yes Thermo therapy (hot pack): Yes Ultrasound (thermal/non thermal): Yes For the Purpose of:: To decrease pain Text: Thank you for the opportunity to evaluate your patient. For Medicare and Medicare HMO plans, please review the plan of care and approve it. It will need to be FAXED BACK to us at [phone] for Medicare purposes. For Medicare only, by signing this I certify the plan of care. Please let me know if there are questions or concerns regarding this plan of care. Physician Signature: Date : 08/24/24 1359 CC: Dr. Neil Apodaca MD ELR Signed Normal [facility] Knee 3 Viewson 08-18-2024 Knee 3 Views [facility] [address] [place] [address] Knee 3 Views MR#: [id number] Acct: [id number] Name: RADHA ALEMAN YUN Rep #: [id number] : 1945 F 78 From: Aquilino Novoa MD PCP: Dr. Neil Apodaca MD Status: REG CLI Study: Knee 3 Views Date of Exam: 08/18/24 Exam# [id number] Ordering Dr: Neil Apodaca MD PROCEDURE: KNEE 3 VIEWS 08/18/2024 REASON FOR EXAM: KNEE PAIN TECHNIQUE: 3 view(s) of the right knee; AP, tunnel and 2 lateral images, 4 total images COMPARISON: None available FINDINGS: No fracture, dislocation or joint effusion. The joint spaces appear within limits. Very mild spurring, osteoarthrosis noted. Very mild chondrocalcinosis suggested lateral compartment. Vascular calcifications. Suggestion of possible prepatellar soft tissue thickening, swelling, clinically correlate. RAD/Knee 3 Views IMPRESSION: Suggestion of possible prepatellar soft tissue thickening, swelling, clinically correlate. Mild osteoarthrosis. Reading Location: [facility] CC: Dr. Neil Apodaca MD Aged Or Disabled Care Worker: Signed Normal [facility] Gastroenterology Visit Repor ton 07-21-2024 Gastroenterology Visit Report [facility] [address] [place] [address] OFFICE VISIT Date of Service: 07/21/24 MR#: [id number] Acct: [id number] Name: RADHA ALEMAN YUN Rep #: [id number] : 1945 Provider: Dr. Kvng pedersen MD Age/Sex: 78/F [place] [facility] [place]: Signed Intake Vital Signs 06/15/24 15:02 07/21/24 12:40 Height 5 ft 5.5 in 5 ft 5 in Weight: 141 lb BMI 23.4 BP 111/72 Blood Pressure Location Lt brachial Position Sitting Respiration 14 Pulse 54 L Pulse Source Monitor Pulse Oximetry (%) 98 Oxygen Delivery Method room air Intake Visit Reasons: fatty liver Land Surveying Manager Required: No Accompanied by: Self Is patient in pain?: No Allergies carbamazepine (From Tegretol) Allergy (Verified 07/21/24 12:34) Hives clonazepam (From Klonopin) Allergy (Verified 07/21/24 12:34) Other phenytoin sodium (From Dilantin) Allergy (Verified 07/21/24 12:34) Hives phenytoin sodium extended (From Dilantin) Allergy (Verified 07/21/24 12:34) Hives Medications ???Medication ???Instructions ???Recorded ???Confirmed ???Type primidone 250 mg tablet 250 mg PO BID seizure 09/24/1301/15 History atorvastatin 40 mg tablet 40 mg PO QHS cholesterol 07/22/16 07/21/24 History lutein 20 mg capsule 20 mg PO DAILY 07/22/16 07/01/24 H istory multivitamin 1 ea PO DAILY 07/22/16 07/01/24 Hi story rivaroxaban 20 mg tablet 20 mg PO DAILY@0600 A-Fib #30 tabs 11/01/16 07/01/24 Rx calcium 600 mg (as 1 cap PO DAILY 04/10/20 07/21/24 H istory carbonate)-vitamin D3 12.5 mcg (500 unit) capsule (Calcium with Vit D3) magnesium oxide 500 mg PO DAILY 04/10/20 07/01/24 History levothyroxine 100 mcg tablet 100 mcg PO DAILY hypothyroid 03/0507/01/24 History acetaminophen 325 mg tablet 650 mg (2 x 325 mg) PO Q4H PRN PRN 09/28/22 07/21/24 Rx pain 1-10/fever #0 tabs metoprolol tartrate 50 mg tablet 25 mg PO BID BP 10/15/23 07/01/24 History Have you fallen in the past year?: No PFSH Medical History Diarrhea Hiatal hernia Hepatic fibrosis Wheezing Fecal impaction of colon Vitamin D deficiency Dehydration Portal hypertension Low back pain Abdominal pain Fatty liver Paronychia of left thumb Bradycardia Thyroiditis Post-menopausal Back pain due to injury High cholesterol History of stress test Scarlet fever Irregular heartbeat Encounter for screening for other viral diseases Encounter for screening for COVID-19 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], left knee Atrial flutter Basal cell carcinoma Hypothyroidism Pulmonary embolism Hyperlipidemia Paroxysmal atrial fibrillation Seizure disorder Surgical History S/P blepharoplasty Status post laparoscopic cholecystectomy History of ptosis repair ( 01/2021) History of bunionectomy of right great toe (12/04/18) left carpal tunnel release H/O basal cell carcinoma excision History of lumpectomy of left breast History of tonsillectomy Family History Father FHx: prostate cancer Other Diabetes Heart disease Social History Smoking Status: Never smoker alcohol intake: never substance use type: does not use caffeine: No what type of physical activity do you participate in: walking HPI HPI Details: RADHA ALEMAN, is a 78 F who presents to the office today for Dr. Apodaca referred for ???fatty liver. 06.16.24- Fib-4 ???3.36 CT abd/pel 06.17.24- Hepatomegaly with fatty infiltration, fecal retention consistent with constipation, umbilical hernia containing fat, small esophageal hiatal hernia US abd. elastography .10.15- Liver measures 14.7 cm, Stiffness measures 8.3 kPa BGI Est 07.21.24 Feeling well. Multiple loose stool last several months but is improving. Patient is stated that she was obese before but she lost about 20 pounds. 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 She denies significant alcohol drinking in the past. She said at the most she might of 20 drinks in whole life ROS Const Constitutional: Positive for weight change; No fatigue, fever(s), frequent falls, headache(s) or weakness ENT ENT: No headache(s) or difficulty swallowing Resp Respiratory: No shortness of breath or wheezing Cardio Cardiology: No leg pain with exertion Gastro GI: Positive for excessive flatus and loose stools; No abdominal pain, bloating, change in bowel habits, constipation, diarrhea, heartburn, difficulty swallowing, Vomiting blood/hematemesis, Blood in stool, nausea/dyspepsia or vomiting Genitourinary-Fema (more content not included)... Normal [facility] ABD Limited w/ Elastographyo n 06-28-2024 ABD Limited w/ Elastography [facility] [address] [place], [place] [address] ABD Limited w/ Elastography MR#: [id number] Acct: [id number] Name: RADHA ALEMAN YUN Rep #: [id number] : 1945 F 78 From: Ari Barrett MD PCP: Dr. Neil Apodaca MD Status: REG CLI Study: ABD Limited w/ Elastography Date of Exam: 10/15 Exam# [id number] Ordering Dr: Neil Apodaca MD PROCEDURE: ABD LIMITED W/ ELASTOGRAPHY (USABDLELPARO), 06/28/2024 REASON FOR EXAM: FATTY LIVER COMPARISON: 06/17/2024 TECHNIQUE: Grayscale and color Doppler imaging of the right upper quadrant was performed. [employer] S-shear wave elastography was performed for non-invasive assessment of liver tissue stiffness. FINDINGS: Liver: Grossly unremarkable. 14.7 cm in length. Gallbladder: Cholecystectomy. Biliary tree: Unremarkable. CBD measures 4 mm. Pancreas: Partially obscured by shadowing bowel gas, grossly unremarkable as visualized. Right kidney: Unremarkable. 10.7 cm in length. Other: No visualized free fluid. Hepatic elastography: Number of measurements: 15 measurements across 3 regions, 5 measurements per region,. US probe: CA1-7A. EQI median: 8.3 kPa EQI median velocity: 1.66 m/s Highest IQR/Med: 19.5% (kPa) and 9.7% (m/s). If the IQR/Med is IQR/median >30% (for kPa) or >15% in m/s, the variance in the measurements is a large and the accuracy of the measurement may be in question. US/ABD Limited w/ Elastography IMPRESSION: 1. Grossly unremarkable sonographic appearance of the hepatic echotexture. 2. Liver stiffness is 8.3 kPa. Per the below 2020 SRU criteria, this rules out compensated advanced chronic liver disease in the absence of other known clinical signs. If there are known clinical signs, further testing may be needed for confirmation. 3. Additional description as above. Assessment is per the Update to the SRU Liver Elastography Consensus Statement (2020) Note that the above assessment of liver fibrosis is vendor-neutral and intended for use in fibrosis related to viral etiologies and non-alcoholic fatty-liver disease (NAFLD); in causes other than viral hepatitis and NAFLD, the cutoff values are currently not well established. In some patients with NAFLD, the cutoff values for cACLD may be lower (7-9 kPa). Note also that in the setting of elevated LFTs, nonfasting or vascular congestion, the stage of lifer fibrosis may be overestimated. Previous U reference values: <1.37 m/s (5.7kPa): No to mild fibrosis 1.37 m/s - 2.2 m/s: Moderate to severe fibrosis >2.2 m/s (15kPa): Significant fibrosis / cirrhosis Reading Location: [id number] CC: Dr. Neil Apodaca MD Aged Or Disabled Care Worker: Signed Normal [facility] Bone density reportOrdered B y: Lexy Laws on 06-18-2024 Study report Skeletal system DXA [facility] [address] [place] [id number] Dexa Bone Density Study MR#: [id number] Acct: [id number] Name: RADHA ALEMAN YUN Rep #: [id number] : 1945 F 78 From: Clarence Laws DO PCP: Dr. Neil Apodaca MD Status: BRADY VELAZCO Study:Dexa Bone Density Study Date of Exam: 06/15/24 Exam# [id number] Ordering Dr: Neil Apodaca MD EXAM: DEXA BONE DENSITY STUDY 06/15/2024 REASON FOR EXAM: F,78 y/o patient is postmenopausal. History of adult fracture. TECHNIQUE: DXA scan of the lumbar spine and total body less head, using make and model. REFERENCE LINKS: ISCD Pediatric Positions ISCD Adult Positions COMPARISON: None. FINDINGS: BMD and Z-SCORES DEXA examination of lumbar spine shows a bone mineral density measures 0.828 grams/centimeter squared. T-score measures -2.0 and Z-score measures 0.6. DEXA examination left femoral neck shows a bone mineral density measured 0.731 grams/centimeter squared. T-score measures -1.1 and Z-score measures 1.1. Total bone mineral density of the left hip measures 0.832 grams/centimeter squared. T-score measures -0.9 and Z-score measures 1.0. DEXA examination of the right femoral neck shows a bone mineral density measures0.775 grams/centimeter squared. T-score measures -0.7 and Z-score measures 1.5. Total bone mineral density of the righthip measures 0.852 grams/centimeter squared. T-score measures -0.7 and Z-score measures 1.2. Fracture Risk Calculation: FRAX (10-year Fracture Risk) Score: the 10 year fracture risk index for major osteoporotic fracture is 16% and for hip fracture is 2.8%. The patient does meet the pharmacological treatment recommendations for prevention of osteoporosis BD/Dexa Bone Density Study IMPRESSION: Patient demonstrates osteopenia of the lumbar spine and left hip. Patient demonstrates normal bone mineral density of the right hip. Recommend follow-up, if clinically warranted. Reading Location: [id number] CC: Dr. Neil Apodaca MD ~ Aged Or Disabled Care Worker: Signed [facility] L3410.9998on 06-18-2024 [facility]. COMMENT Normal . [facility] Comment on above: Order Comment: [id number] 4STOOL CULTURE Result Comment: Perf ormed at: - [facility] [address], [place], [place] [id number] Health Therapist: Popeye Lew PhD, Phone: [phone] Performed By: #### L 0983.2120, K781.9264, M100.8643, M100.0605 ####[facility] [address] [place], [address] Abdomen/Pelvis WITH Contrast on 06-17-2024 Abdomen/Pelvis WITH Contrast [facility] [address] [place], [place] [address] Abdomen/Pelvis WITH Contrast MR#: [id number] Acct: [id number] Name: RADHA ALEMAN YUN Rep #: [id number] : 1945 F 78 From: Ari Bucio MD PCP: Dr. Neil Apodaca MD Status: REG CLI Study: Abdomen/Pelvis WITH Contrast Date of Exam: Exam# [id number] Ordering Dr: Neil Apodaca MD EXAM: CT Abdomen and Pelvis With Intravenous Contrast CLINICAL INDICATION: DIARRHEA TECHNIQUE: Axial computed tomography images of the abdomen and pelvis with intravenous contrast. This CT exam was performed using one or more of the following dose reduction techniques: automated exposure control, adjustment of the mA and/or kV according to patient size, and/or use of iterative reconstruction technique. COMPARISON: CT Abdomen Pelvis dated 09/24/2022 FINDINGS: LUNG BASES: Unremarkable. No mass. No consolidation. MEDIASTINUM: Small esophageal hiatal hernia. ABDOMEN: LIVER: Hepatomegaly with fatty infiltration. GALLBLADDER AND BILE DUCTS: Unremarkable. No calcified stones. No ductal dilation. PANCREAS: Unremarkable. No mass. No ductal dilation. SPLEEN: Unremarkable. No splenomegaly. ADRENALS: Unremarkable. No mass. KIDNEYS AND URETERS: Unremarkable. No solid mass. No hydronephrosis. STOMACH AND BOWEL: Fecal retention in the colon consistent with constipation. No obstruction. No mucosal thickening. PELVIS: APPENDIX: No findings to suggest acute appendicitis. BLADDER: Unremarkable. No mass. REPRODUCTIVE: Unremarkable as visualized. ABDOMEN and PELVIS: INTRAPERITONEAL SPACE: Unremarkable. No free air. No significant fluid collection. BONES/JOINTS: No acute fracture. No dislocation. SOFT TISSUES: Umbilical hernia containing fat. VASCULATURE: Unremarkable. No abdominal aortic aneurysm. LYMPH NODES: Unremarkable. No enlarged lymph nodes. CT/Abdomen/Pelvis WITH Contrast IMPRESSION: 1. Hepatomegaly with fatty infiltration. 2. Fecal retention in the colon consistent with constipation. 3. Umbilical hernia containing fat. 4. Small esophageal hiatal hernia. Reading Location: [facility] CC: Dr. Neil Apodaca MD Aged Or Disabled Care Worker: Signed Normal [facility] Absolute lymphocyte countOrd ered By: Neil Apodaca on 06-16-2024 Lymphocytes Auto (Unsp spec) [#/Vol] 0.61 10*3/uL Low 0.83-4.51 [facility] Absolute neutrophil countOrd ered By: Neil Apodaca on 06-16-2024 Neutrophils (Bld) [#/Vol] 3.2 10*3/uL 2.0-7.7 [facility] Anion gap in Serum or Plasma Ordered By: Neil Apodaca on 06-16-2024 Anion gap [Moles/Vol] 11 mmol/L 5-15 [facility] Automated lymphocyte count a s percentage of total leukocytesOrdered By: Neil Apodaca on 06-16-2024 Lymphocytes/100 WBC Auto (Unsp spec) 14.1 % Low 19-41 [facility] BUN/creatinine ratioOrdered By: Neil Apodaca on 06-16-2024 Urea nitrogen/Creatinine [Mass ratio] 20.7 mg/mg High 10-20 [facility] Basophil percentageOrdered B y: Neil Apodaca on 06-16-2024 Basophils/100 WBC (Bld) 0.5 % 0-1 [facility] Bilirubin, totalOrdered By: Neil Apodaca on 06-16-2024 Bilirubin [Mass/Vol] 0.33 mg/dL 0.00-1.30 [facility] C. difficile DNA GRAYSON+probe Q l (Unsp spec)Ordered By: Neil Apodaca on 06-16-2024 Clostridioides difficile (PCR) [facility] CBC W/Diff, Automatedon 05-23 Absolute Lymph 0.61 X10 3/uL Low 0.83-4.51 [facility] Comment on above: Performed By: #### L 500.4050, L100.0100 ####[facility] [address] [place], [address] Absolute Neut 3.2 X10 3/uL Normal 2.0-7.7 [facility] Comment on above: Performed By: #### L 500.4050, L100.0100 ####[facility] [address] [place], [address] Basophils/100 WBC (Bld) 0.5 % Normal 0-1 [facility] Comment on above: Performed By: #### L 500.4050, L100.0100 ####[facility] [address] [place], [address] Eosinophils/100 WBC (Bld) 1.9 % Normal 0-5 [facility] Comment on above: Performed By: #### L 500.4050, L100.0100 ####[facility] [address] [place], [address] Erythrocyte distribution width (RBC) [Ratio] 13.2 % Normal 11.6-14.6 [facility] Comment on above: Performed By: #### L 500.4050, L100.0100 ####[facility] [address] [place], [address] Hematocrit (Bld) [Volume fraction] 37.3 % Normal 37-47 [facility] Comment on above: Performed By: #### L 500.4050, L100.0100 ####[facility] [address] [place], [address] Hemoglobin (Bld) [Mass/Vol] 12.7 g/dL Normal 12.0-15.0 [facility] Comment on above: Performed By: #### L 500.4050, L100.0100 ####[facility] [address] [place], [address] IG% 0.500 Normal 0.0-0.9 [facility] Comment on above: Result Comment: IG% - Immature Granulocytes (promyelocytes, myelocytes and metamyelocytes) > 1% indicates that a LEFT SHIFT is Present. Performed By: #### L 500.4050, L100.0100 ####[facility] [address] [place], [address] Lymphocytes/100 WBC (Bld) 14.1 % Low 19-41 [facility] Comment on above: Performed By: #### L 500.4050, L100.0100 ####[facility] [address] [place], [address] MCH (RBC) [Entitic mass] 32.8 pg High 27.0-32.0 [facility] Comment on above: Performed By: #### L 500.4050, L100.0100 ####[facility] [address] [place], [address] MCHC (RBC) [Mass/Vol] 34.0 g/dL Normal 32-36 [facility] Comment on above: Performed By: #### L 500.4050, L100.0100 ####[facility] [address] [place], [address] MCV (RBC) [Entitic vol] 96.4 fL Normal 81-99 [facility] Comment on above: Performed By: #### L 500.4050, L100.0100 ####[facility] [address] [place], [address] Monocytes/100 WBC (Bld) 9.7 % Normal 0-10 [facility] Comment on above: Performed By: #### L 500.4050, L100.0100 ####[facility] [address] [place], [address] Neutrophils/100 WBC (Bld) 73.3 % High 47-70 [facility] Comment on above: Performed By: #### L 500.4050, L100.0100 ####[facility] [address] [place], [address] Nucleated RBC (Bld) [#/Vol] 0 10*3/uL Normal 0-5 [facility] Comment on above: Performed By: #### L 500.4050, L100.0100 ####[facility] [address] [place], [address] Platelet mean volume (Bld) [Entitic vol] 10.5 fL Normal 6.2-12.0 [facility] Comment on above: Performed By: #### L 500.4050, L100.0100 ####[facility] [address] [place], [address] Platelets (Bld) [#/Vol] 164 10*3/uL Normal 150-450 [facility] Comment on above: Performed By: #### L 500.4050, L100.0100 ####[facility] [address] [place], [address] RBC (Bld) [#/Vol] 3.87 10*6/uL Low 4.2-5.4 [facility] Comment on above: Performed By: #### L 500.4050, L100.0100 ####[facility] [address] [place], [address] RDW SD 46.7 fl High 35.1-43.9 [facility] Comment on above: Performed By: #### L 500.4050, L100.0100 ####[facility] [address] [place], [address] WBC (Bld) [#/Vol] 4.3 10*3/uL Low 4.4-11.0 [facility] Comment on above: Performed By: #### L 500.4050, L100.0100 ####[facility] [address] [place], [address] CDIFF (PCR)on 06-16-2024 CDIFF Pending [phone] NAP1-B1 Presumptive Negative *for epidemiolologic???use C. Diff PCR Negative- No toxigenic C. Diff Detected Normal [facility] Comment on above: Performed By: #### L 3410.9998, M100.6796, M100.7900, M100.0605 ####[facility] [address] [place], [address] Carbon dioxide, total [Moles /volume] in Central venous bloodOrdered By: Neil Apodaca on 06-16-2024 CO2 [Moles/Vol] 21.8 mmol/L 21.0-32.0 [facility] Chloride assayOrdered By: Ike Apodaca on 06-16-2024 Chloride [Moles/Vol] 107 mmol/L 98-108 [facility] Clostridium difficile detect ion by polymerase chain reactionOrdered By: Neil Apodaca on 06-16-2024 C. difficile DNA GRAYSON+probe Ql (Unsp spec) [facility] Comprehensive Metabolic Prof ilon 06-16-2024 Albumin [Mass/Vol] 4.0 g/dL Normal 3.4-4.8 [facility] Comment on above: Performed By: #### L 500.4050, L100.0100 ####[facility] [address] [place], [address] Albumin/Globulin [Mass ratio] 1.6 {ratio} Normal 0.9-2.4 [facility] Comment on above: Performed By: #### L 500.4050, L100.0100 ####[facility] [address] [place], [address] ALK PHOS 68 U/L Normal 35-104 [facility] Comment on above: Performed By: #### L 500.4050, L100.0100 ####[facility] [address] [place], [address] ALT [Catalytic activity/Vol] 20 U/L Normal <=34 [facility] Comment on above: Performed By: #### L 500.4050, L100.0100 ####[facility] [address] [place], [address] AST [Catalytic activity/Vol] 32 U/L Normal <=31 [facility] Comment on above: Performed By: #### L 500.4050, L100.0100 ####[facility] [address] [place], [address] Bilirubin [Mass/Vol] 0.33 mg/dL Normal 0.00-1.30 [facility] Comment on above: Performed By: #### L 500.4050, L100.0100 ####[facility] [address] [place], [address] BUN/CRE 20.7 RATIO High 10-20 [facility] Comment on above: Performed By: #### L 500.4050, L100.0100 ####[facility] [address] [place], [address] Calcium [Mass/Vol] 9.0 mg/dL Normal 7.6-11.0 [facility] Comment on above: Performed By: #### L 500.4050, L100.0100 ####[facility] [address] [place], [address] Chloride [Moles/Vol] 107 mmol/L Normal 98-108 [facility] Comment on above: Performed By: #### L 500.4050, L100.0100 ####[facility] [address] [place], [address] CO2 [Moles/Vol] 21.8 mmol/L Normal 21.0-32.0 [facility] Comment on above: Performed By: #### L 500.4050, L100.0100 ####[facility] [address] [place], [address] Creatinine [Mass/Vol] 0.65 mg/dL Low 0.70-1.20 [facility] Comment on above: Performed By: #### L 500.4050, L100.0100 ####[facility] [address] [place], [address] GAP 11 Normal 5-15 [facility] Comment on above: Performed By: #### L 500.4050, L100.0100 ####[facility] [address] [place], [address] GFR/1.73 sq M.predicted among non-blacks MDRD (S/P/Bld) [Vol rate/Area] 91 mL/min/{1.73_m2} Normal >60 [facility] Comment on above: Result Comment: mL/m in/1.73m2 CKD-EPI Creatinine Equation (2020) Performed By: #### L 500.4050, L100.0100 ####[facility] [address] [place], [address] Globulin (S) [Mass/Vol] 2.5 g/dL Normal 2.2-4.2 [facility] Comment on above: Performed By: #### L 500.4050, L100.0100 ####[facility] [address] [place], [address] Glucose [Mass/Vol] 87 mg/dL Normal 70-99 [facility] Comment on above: Performed By: #### L 500.4050, L100.0100 ####[facility] [address] [place], [address] Potassium [Moles/Vol] 3.7 mmol/L Normal 3.3-5.1 [facility] Comment on above: Performed By: #### L 500.4050, L100.0100 ####[facility] [address] [place], [address] Sodium [Moles/Vol] 141 mmol/L Normal 133-145 [facility] Comment on above: Performed By: #### L 500.4050, L100.0100 ####[facility] [address] [place], [address] T PROT 6.4 g/dL Normal 5.9-8.4 [facility] Comment on above: Performed By: #### L 500.4050, L100.0100 ####[facility] [address] [place], [place], [address] Urea nitrogen [Mass/Vol] 13 mg/dL Normal 4-19 [facility] Comment on above: Performed By: #### L 500.4050, L100.0100 ####[facility] [address] [place], [address] Eosinophil percentageOrdered By: Neil Apodaca on 06-16-2024 Eosinophils/100 WBC (Bld) 1.9 % 0-5 [facility] Erythrocyte distribution wid th ratioOrdered By: Neil Apodaca on 06-16-2024 Erythrocyte distribution width (RBC) [Ratio] 13.2 % 11.6-14.6 [facility] Erythrocyte distribution wid th standard deviationOrdered By: Neil Apodaca 06-16-2024 Erythrocyte distribution width (RBC) [Entitic vol] 46.7 fL High 35.1-43.9 [facility] Erythrocyte distribution width (RBC) [Ratio] 46.7 fl High 35.1-43.9 [facility] GFR/1.73 sq M.predicted missy g non-blacks MDRD (S/P/Bld) [Vol rate/Area]Ordered By: Neil Apodaca 06-16-2024 Estimated GFR (MDRD) Non-Af Amer 91 >60 [facility] Comment on above: mL/min/1.73m2 CKD-EP I Creatinine Equation (2020) Glomerular filtration rate ( GFR) estimation/1.73 sq m using serum, plasma, or whole bOrdered By: Neil Apodaca 06-16-2024 GFR/1.73 sq M.predicted among non-blacks MDRD (S/P/Bld) [Vol rate/Area] 91 mL/min/{1.73_m2} >60 [facility] Comment on above: mL/min/1.73m2 CKD-EP I Creatinine Equation (2020) Hematocrit Auto (Bld) [Volum e fraction]Ordered By: Neil Apodaca 06-16-2024 Hematocrit (Bld) [Volume fraction] 37.3 % 37-47 [facility] Hemoglobin measurementOrdere d By: Neil Apodaca on 06-16-2024 Hemoglobin (Bld) [Mass/Vol] 12.7 g/dL 12.0-15.0 [facility] Immature granulocytes/100 WB C Auto (Bld)Ordered By: Neil Apodaca on 06-16-2024 Immature granulocytes/100 WBC (Bld) 0.500 % 0.0-0.9 [facility] Comment on above: IG% - Immature Granu locytes (promyelocytes, myelocytes and metamyelocytes) > 1% indicates that a LEFT SHIFT is Present. Laboratory - Chemistry and C hemistry - challengeOrdered By: Neil Apodaca on 06-16-2024 AST [Catalytic activity/Vol] 32 U/L <32 [facility] Lactoferrin IA Ql (Stl)Order ed By: Neil Apodaca on 06-16-2024 Stool Lactoferrin [facility] Lower GI hemoglobin IA Ql (S tl)Ordered By: Neil Apodaca on 06-16-2024 Stool Occult Blood (KHADIJAH) [facility] Lymphocytes Auto (Unsp spec) [#/Vol]Ordered By: Neil Apodaca 06-16-2024 Lymphocytes (Bld) [#/Vol] 0.61 10*3/uL Low 0.83-4.5 1 [facility] Lymphocytes/100 WBC Auto (Un sp spec)Ordered By: Neil Apodaca 06-16-2024 Lymphocytes/100 WBC (Bld) 14.1 % Low 19-41 [facility] MCV (mean corpuscular volume ) determinationOrdered By: Neil Apodaca 06-16-2024 MCV (RBC) [Entitic vol] 96.4 fL 81-99 [facility] Mean corpuscular hemoglobin (MCH) determinationOrdered By: Neil Aopdaca 06-16-2024 MCH (RBC) [Entitic mass] 32.8 pg High 27.0-32.0 [facility] Mean corpuscular hemoglobin concentration (MCHC) determinationOrdered By: Neil Apodaca 06-16-2024 MCHC (RBC) [Mass/Vol] 34.0 g/dL 32-36 [facility] Mean platelet volume determi nationOrdered By: Neil Apodaca 06-16-2024 Platelet mean volume (Bld) [Entitic vol] 10.5 fL 6.2-12.0 [facility] Monocyte percentageOrdered B y: Neil Apodaca on 06-16-2024 Monocytes/100 WBC (Bld) 9.7 % 0-10 [facility] Neutrophil percentageOrdered By: Neil Apodaca on 06-16-2024 Neutrophils/100 WBC (Bld) 73.3 % High 47-70 [facility] Nucleated red blood cell per centageOrdered By: Neil Apodaca on 06-16-2024 Nucleated RBC/100 WBC (Bld) [Ratio] 0 % 0-5 [facility] Platelet countOrdered By: Ike Apodaca on 06-16-2024 Platelets (Bld) [#/Vol] 164 10*3/uL 150-450 [facility] Potassium (Unsp spec) [Mass/ Vol]Ordered By: Neil Apodaca on 06-16-2024 Potassium [Moles/Vol] 3.7 mmol/L 3.3-5.1 [facility] Potassium measurement (mass/ volume)Ordered By: Neil Apodaca on 06-16-2024 Potassium (Unsp spec) [Mass/Vol] 3.7 mmol/L 3.3-5.1 [facility] RBC Auto (Bld) [#/Vol]Ordere d By: Neil Apodaca on 06-16-2024 RBC (Bld) [#/Vol] 3.87 10*6/uL Low 4.2-5.4 [facility] Serum creatinine measurement (mass/volume)Ordered By: Neil Apodaca on 06-16-2024 Creatinine [Mass/Vol] 0.65 mg/dL Low 0.70-1.20 [facility] Serum globulin measurementOr dered By: Neil Apodaca 06-16-2024 Globulin (S) [Mass/Vol] 2.5 g/dL 2.2-4.2 [facility] Serum glucose measurement (m ass/volume)Ordered By: Neil Apodaca on 06-16-2024 Glucose [Mass/Vol] 87 mg/dL 70-99 [facility] Serum or plasma alanine foreman otransferase (ALT) measurementOrdered By: Neil Apodaca on 06-16-2024 ALT [Catalytic activity/Vol] 20 U/L <35 [facility] Serum or plasma albumin elizabeth urement (mass/volume)Ordered By: Neil Apodaca on 06-16-2024 Albumin [Mass/Vol] 4.0 g/dL 3.4-4.8 [facility] Serum or plasma albumin/glob ulin mass ratioOrdered By: Neil Apodaca on 06-16-2024 Albumin/Globulin [Mass ratio] 1.6 {ratio} 0.9-2.4 [facility] Serum or plasma alkaline snehal sphatase measurementOrdered By: Neil Apodaca on 06-16-2024 ALP [Catalytic activity/Vol] 68 U/L 35-104 [facility] Serum or plasma calcium elizabeth urement (mass/volume)Ordered By: Neil Apodaca on 06-16-2024 Calcium [Mass/Vol] 9.0 mg/dL 7.6-11.0 [facility] Serum or plasma urea nitroge n measurement (mass/volume)Ordered By: Neil Apodaca on 06-16-2024 Urea nitrogen [Mass/Vol] 13 mg/dL 4-19 [facility] Sodium levelOrdered By: Neil Apodaca on 06-16-2024 Sodium [Moles/Vol] 141 mmol/L 133-145 [facility] Stool Lactoferrin/WBCon 05-23 [facility] Normal Reference Range = Negative Fecal WBC Lactoferrin Negative: No Fecal WBC Lactoferrin present Normal [facility] Comment on above: Performed By: #### L 3410.9998, M100.6796, M100.7900, M100.0605 ####[facility] [address] [place], [address] Stool Occult Blood iFOBon STOB Negative Normal [facility] Comment on above: Performed By: #### L 3410.9998, M100.6796, M100.7900, M100.0605 ####[facility] [address] [place], [address] Stool gastrointestinal hemog lobin detection by immunologic methodOrdered By: Neil Apodaca on 06-16-2024 Lower GI hemoglobin IA Ql (Stl) [facility] Stool lactoferrin detection by immunoassayOrdered By: Neil Apodaca on 06-16-2024 Lactoferrin IA Ql (Stl) [facility] Total proteinOrdered By: Neil Apodaca on 06-16-2024 Protein [Mass/Vol] 6.4 g/dL 5.9-8.4 [facility] White blood cell (WBC) count Ordered By: Neil Apodaca on 06-16-2024 WBC (Bld) [#/Vol] 4.3 10*3/uL Low 4.4-11.0 [facility] Dexa Bone Density Studyon Dexa Bone Density Study [facility] Imaging Services [address] [place], [place] [address] Dexa Bone Density Study MR#: [id number] Acct: [id number] Name: RADHA ALEMAN YUN Rep #: [id number] : 1945 F 78 From: Lexy Rowe PCP: Dr. Neil Apodaca MD Status: [facility] CLI Study: Dexa Bone Density Study Date of Exam: 06/15/24 Exam# [id number] Ordering Dr: Neil Apodaca MD EXAM: DEXA BONE DENSITY STUDY 06/15/2024 REASON FOR EXAM: F,78 y/o patient is postmenopausal. History of adult fracture. TECHNIQUE: DXA scan of the lumbar spine and total body less head, using make and model. REFERENCE LINKS: ISCD Pediatric Positions ISCD Adult Positions COMPARISON: None. FINDINGS: BMD and Z-SCORES DEXA examination of lumbar spine shows a bone mineral density measures 0.828 grams/centimeter squared. T-score measures -2.0 and Z-score measures 0.6. DEXA examination left femoral neck shows a bone mineral density measured 0.731 grams/centimeter squared. T-score measures -1.1 and Z-score measures 1.1. Total bone mineral density of the left hip measures 0.832 grams/centimeter squared. T-score measures -0.9 and Z-score measures 1.0. DEXA examination of the right femoral neck shows a bone mineral density measures 0.775 grams/centimeter squared. T-score measures -0.7 and Z-score measures 1.5. Total bone mineral density of the right hip measures 0.852 grams/centimeter squared. T-score measures -0.7 and Z-score measures 1.2. Fracture Risk Calculation: FRAX (10-year Fracture Risk) Score: the 10 year fracture risk index for major osteoporotic fracture is 16% and for hip fracture is 2.8%. The patient does meet the pharmacological treatment recommendations for prevention of osteoporosis BD/Dexa Bone Density Study IMPRESSION: Patient demonstrates osteopenia of the lumbar spine and left hip. Patient demonstrates normal bone mineral density of the right hip. Recommend follow-up, if clinically warranted. Reading Location: [id number] CC: Dr. Neil Apodaca MD Aged Or Disabled Care Worker: Signed Normal [facility] Absolute lymphocyte countOrd ered By: Neil Apodaca on 05-26-2024 Lymphocytes Auto (Unsp spec) [#/Vol] 0.69 10*3/uL Low 0.83-4.51 [facility] Absolute neutrophil countOrd ered By: Neil Apodaca on 05-26-2024 Neutrophils (Bld) [#/Vol] 2.3 10*3/uL 2.0-7.7 [facility] Anion gap in Serum or Plasma Ordered By: Neil Apodaca on 05-26-2024 Anion gap [Moles/Vol] 13 mmol/L 5-15 [facility] Automated lymphocyte count a s percentage of total leukocytesOrdered By: Neil Apodaca on 05-26-2024 Lymphocytes/100 WBC Auto (Unsp spec) 20.0 % 19-41 [facility] BUN/creatinine ratioOrdered By: Neil Apodaca on 05-26-2024 Urea nitrogen/Creatinine [Mass ratio] 25.7 mg/mg High 10-20 [facility] Basophil percentageOrdered B y: Neil Apodaca on 05-26-2024 Basophils/100 WBC (Bld) 0.6 % 0-1 [facility] Bilirubin, totalOrdered By: Neil Apodaca on 05-26-2024 Bilirubin [Mass/Vol] 0.30 mg/dL 0.00-1.30 [facility] CBC W/Diff, Automatedon 03-0 5-2024 Absolute Lymph 0.69 X10 3/uL Low 0.83-4.51 [facility] Comment on above: Performed By: #### L 500.4100, L500.4050, L501.9520, L506.1001, L100.0100 ####[facility] [address] [place], [address] Absolute Neut 2.3 X10 3/uL Normal 2.0-7.7 [facility] Comment on above: Performed By: #### L 500.4100, L500.4050, L501.9520, L506.1001, L100.0100 ####[facility] [address] [place], [address] Basophils/100 WBC (Bld) 0.6 % Normal 0-1 [facility] Comment on above: Performed By: #### L 500.4100, L500.4050, L501.9520, L506.1001, L100.0100 ####[facility] [address] [place], [address] Eosinophils/100 WBC (Bld) 1.7 % Normal 0-5 [facility] Comment on above: Performed By: #### L 500.4100, L500.4050, L501.9520, L506.1001, L100.0100 ####[facility] [address] [place], [address] Erythrocyte distribution width (RBC) [Ratio] 13.1 % Normal 11.6-14.6 [facility] Comment on above: Performed By: #### L 500.4100, L500.4050, L501.9520, L506.1001, L100.0100 ####[facility] [address] [place], [address] Hematocrit (Bld) [Volume fraction] 41.9 % Normal 37-47 [facility] Comment on above: Performed By: #### L 500.4100, L500.4050, L501.9520, L506.1001, L100.0100 ####[facility] [address] [place], [address] Hemoglobin (Bld) [Mass/Vol] 13.6 g/dL Normal 12.0-15.0 [facility] Comment on above: Performed By: #### L 500.4100, L500.4050, L501.9520, L506.1001, L100.0100 ####[facility] [address] [place], [address] IG% 0.300 Normal 0.0-0.9 [facility] Comment on above: Result Comment: IG% - Immature Granulocytes (promyelocytes, myelocytes and metamyelocytes) > 1% indicates that a LEFT SHIFT is Present. Performed By: #### L 500.4100, L500.4050, L501.9520, L506.1001, L100.0100 ####[facility] [address] [place], [address] Lymphocytes/100 WBC (Bld) 20.0 % Normal 19-41 [facility] Comment on above: Performed By: #### L 500.4100, L500.4050, L501.9520, L506.1001, L100.0100 ####[facility] [address] [place], [address] MCH (RBC) [Entitic mass] 32.6 pg High 27.0-32.0 [facility] Comment on above: Performed By: #### L 500.4100, L500.4050, L501.9520, L506.1001, L100.0100 ####[facility] [address] [place], [address] MCHC (RBC) [Mass/Vol] 32.5 g/dL Normal 32-36 [facility] Comment on above: Performed By: #### L 500.4100, L500.4050, L501.9520, L506.1001, L100.0100 ####[facility] [address] [place], [address] MCV (RBC) [Entitic vol] 100.5 fL High 81-99 [facility] Comment on above: Performed By: #### L 500.4100, L500.4050, L501.9520, L506.1001, L100.0100 ####[facility] [address] [place], [address] Monocytes/100 WBC (Bld) 11.0 % High 0-10 [facility] Comment on above: Performed By: #### L 500.4100, L500.4050, L501.9520, L506.1001, L100.0100 ####[facility] [address] [place], [address] Neutrophils/100 WBC (Bld) 66.4 % Normal 47-70 [facility] Comment on above: Performed By: #### L 500.4100, L500.4050, L501.9520, L506.1001, L100.0100 ####[facility] [address] [place], [address] Nucleated RBC (Bld) [#/Vol] 0 10*3/uL Normal 0-5 [facility] Comment on above: Performed By: #### L 500.4100, L500.4050, L501.9520, L506.1001, L100.0100 ####[facility] [address] [place], [address] Platelet mean volume (Bld) [Entitic vol] 10.4 fL Normal 6.2-12.0 [facility] Comment on above: Performed By: #### L 500.4100, L500.4050, L501.9520, L506.1001, L100.0100 ####[facility] [address] [place], [address] Platelets (Bld) [#/Vol] 150 10*3/uL Normal 150-450 [facility] Comment on above: Performed By: #### L 500.4100, L500.4050, L501.9520, L506.1001, L100.0100 ####[facility] [address] [place], [address] RBC (Bld) [#/Vol] 4.17 10*6/uL Low 4.2-5.4 [facility] Comment on above: Performed By: #### L 500.4100, L500.4050, L501.9520, L506.1001, L100.0100 ####[facility] [address] [place], [address] RDW SD 48.5 fl High 35.1-43.9 [facility] Comment on above: Performed By: #### L 500.4100, L500.4050, L501.9520, L506.1001, L100.0100 ####[facility] [address] [place], [address] WBC (Bld) [#/Vol] 3.5 10*3/uL Low 4.4-11.0 [facility] Comment on above: Performed By: #### L 500.4100, L500.4050, L501.9520, L506.1001, L100.0100 ####[facility] [address] [place], [address] Calculated very low density lipoprotein (VLDL) cholesterol measurementOrdered By: Neil Apodaca on 05-26-2024 Calculated very low density lipoprotein (VLDL) cholesterol measurement 7 mg/dL -40 [facility] VLDL Cholesterol 7 mg/dL [facility] Carbon dioxide, total [Moles /volume] in Central venous bloodOrdered By: Neil Apodaca on 05-26-2024 CO2 [Moles/Vol] 21.3 mmol/L 21.0-32.0 [facility] Chloride assayOrdered By: Ike Apodaca on 05-26-2024 Chloride [Moles/Vol] 105 mmol/L 98-108 [facility] Comprehensive Metabolic Prof ilon 05-26-2024 Albumin [Mass/Vol] 3.9 g/dL Normal 3.4-4.8 [facility] Comment on above: Performed By: #### L 500.4100, L500.4050, L501.9520, L506.1001, L100.0100 ####[facility] [address] [place], [address] Albumin/Globulin [Mass ratio] 1.4 {ratio} Normal 0.9-2.4 [facility] Comment on above: Performed By: #### L 500.4100, L500.4050, L501.9520, L506.1001, L100.0100 ####[facility] [address] [place], [address] ALK PHOS 62 U/L Normal 35-104 [facility] Comment on above: Performed By: #### L 500.4100, L500.4050, L501.9520, L506.1001, L100.0100 ####[facility] [address] [place], [address] ALT [Catalytic activity/Vol] 27 U/L Normal <=34 [facility] Comment on above: Performed By: #### L 500.4100, L500.4050, L501.9520, L506.1001, L100.0100 ####[facility] [address] [place], [address] AST [Catalytic activity/Vol] 40 U/L High <=31 [facility] Comment on above: Performed By: #### L 500.4100, L500.4050, L501.9520, L506.1001, L100.0100 ####[facility] [address] [place], [address] Bilirubin [Mass/Vol] 0.30 mg/dL Normal 0.00-1.30 [facility] Comment on above: Performed By: #### L 500.4100, L500.4050, L501.9520, L506.1001, L100.0100 ####[facility] [address] [place], [address] BUN/CRE 25.7 RATIO High 10-20 [facility] Comment on above: Performed By: #### L 500.4100, L500.4050, L501.9520, L506.1001, L100.0100 ####[facility] [address] [place], [address] Calcium [Mass/Vol] 9.1 mg/dL Normal 7.6-11.0 [facility] Comment on above: Performed By: #### L 500.4100, L500.4050, L501.9520, L506.1001, L100.0100 ####[facility] [address] [place], [address] Chloride [Moles/Vol] 105 mmol/L Normal 98-108 [facility] Comment on above: Performed By: #### L 500.4100, L500.4050, L501.9520, L506.1001, L100.0100 ####[facility] [address] [place], [address] CO2 [Moles/Vol] 21.3 mmol/L Normal 21.0-32.0 [facility] Comment on above: Performed By: #### L 500.4100, L500.4050, L501.9520, L506.1001, L100.0100 ####[facility] [address] [place], [address] Creatinine [Mass/Vol] 0.61 mg/dL Low 0.70-1.20 [facility] Comment on above: Performed By: #### L 500.4100, L500.4050, L501.9520, L506.1001, L100.0100 ####[facility] [address] [place], [address] GAP 13 Normal 5-15 [facility] Comment on above: Performed By: #### L 500.4100, L500.4050, L501.9520, L506.1001, L100.0100 ####[facility] [address] [place], [address] GFR/1.73 sq M.predicted among non-blacks MDRD (S/P/Bld) [Vol rate/Area] 92 mL/min/{1.73_m2} Normal >60 [facility] Comment on above: Result Comment: mL/m in/1.73m2 CKD-EPI Creatinine Equation (2020) Performed By: #### L 500.4100, L500.4050, L501.9520, L506.1001, L100.0100 ####[facility] [address] [place], [address] Globulin (S) [Mass/Vol] 2.7 g/dL Normal 2.2-4.2 [facility] Comment on above: Performed By: #### L 500.4100, L500.4050, L501.9520, L506.1001, L100.0100 ####[facility] [address] [place], [address] Glucose [Mass/Vol] 83 mg/dL Normal 70-99 [facility] Comment on above: Performed By: #### L 500.4100, L500.4050, L501.9520, L506.1001, L100.0100 ####[facility] [address] [place], [address] Potassium [Moles/Vol] 4.3 mmol/L Normal 3.3-5.1 [facility] Comment on above: Performed By: #### L 500.4100, L500.4050, L501.9520, L506.1001, L100.0100 ####[facility] [address] [place], [address] Sodium [Moles/Vol] 139 mmol/L Normal 133-145 [facility] Comment on above: Performed By: #### L 500.4100, L500.4050, L501.9520, L506.1001, L100.0100 ####[facility] [address] [place], [address] T PROT 6.6 g/dL Normal 5.9-8.4 [facility] Comment on above: Performed By: #### L 500.4100, L500.4050, L501.9520, L506.1001, L100.0100 ####[facility] [address] [place], [address] Urea nitrogen [Mass/Vol] 16 mg/dL Normal 4-19 [facility] Comment on above: Performed By: #### L 500.4100, L500.4050, L501.9520, L506.1001, L100.0100 ####[facility] [address] [place], [address] Eosinophil percentageOrdered By: Neil Apodaca on 05-26-2024 Eosinophils/100 WBC (Bld) 1.7 % 0-5 [facility] Erythrocyte distribution wid th ratioOrdered By: Neil Apodaca on 05-26-2024 Erythrocyte distribution width (RBC) [Ratio] 13.1 % 11.6-14.6 [facility] Erythrocyte distribution wid th standard deviationOrdered By: Neil Apodaca on 05-26-2024 Erythrocyte distribution width (RBC) [Entitic vol] 48.5 fL High 35.1-43.9 [facility] Erythrocyte distribution width (RBC) [Ratio] 48.5 fl High 35.1-43.9 [facility] GFR/1.73 sq M.predicted missy g non-blacks MDRD (S/P/Bld) [Vol rate/Area]Ordered By: Neil Apodaca on 05-26-2024 Estimated GFR (MDRD) Non-Af Amer 92 >60 [facility] Comment on above: mL/min/1.73m2 CKD-EP I Creatinine Equation (2020) Glomerular filtration rate ( GFR) estimation/1.73 sq m using serum, plasma, or whole bOrdered By: Neil Apodaca on 05-26-2024 GFR/1.73 sq M.predicted among non-blacks MDRD (S/P/Bld) [Vol rate/Area] 92 mL/min/{1.73_m2} >60 [facility] Comment on above: mL/min/1.73m2 CKD-EP I Creatinine Equation (2020) Hematocrit Auto (Bld) [Volum e fraction]Ordered By: Neil Apodaca on 05-26-2024 Hematocrit (Bld) [Volume fraction] 41.9 % 37-47 [facility] Hemoglobin measurementOrdere d By: Neil Apodaca on 05-26-2024 Hemoglobin (Bld) [Mass/Vol] 13.6 g/dL 12.0-15.0 [facility] Immature granulocytes/100 WB C Auto (Bld)Ordered By: Neil Apodaca on 05-26-2024 Immature granulocytes/100 WBC (Bld) 0.300 % 0.0-0.9 [facility] Comment on above: IG% - Immature Granu locytes (promyelocytes, myelocytes and metamyelocytes) > 1% indicates that a LEFT SHIFT is Present. L506.1001on 05-26-2024 Vitamin D 25-OH 35.7 ng/mL Normal 30-100 [facility] Comment on above: Result Comment: Ree min D Status Deficiency: <20 ng/mL (50nmol/L) Insufficiency: 20-30 ng/mL (50-75 nmol/L) Sufficiency: 30-100 ng/mL (75-250 nmol/L) Toxicity: >100 ng/mL (>250 nmol/L) Performed By: #### L 500.4100, L500.4050, L501.9520, L506.1001, L100.0100 ####[facility] [address], [address] LDL calc ser/plasOrdered By: Neil Apodaca on 05-26-2024 Cholesterol in LDL [Mass/Vol] 58 mg/dL [facility] Comment on above: Smefrxwseh=319-528 m g/dL & Higher Xpho=498 mg/dL or greater LDL Cholesterol, Calculated 58 mg/dL [facility] Comment on above: Bfpeqbtjvu=637-738 m g/dL & Higher Inub=074 mg/dL or greater Laboratory - Chemistry and C hemistry - challengeOrdered By: Neil Apodaca on 05-26-2024 AST [Catalytic activity/Vol] 40 U/L High <32 [facility] Lipid Profileon 05-26-2024 CHOL:HDL 1.96 Normal [facility] Comment on above: Performed By: #### L 500.4100, L500.4050, L501.9520, L506.1001, L100.0100 ####[facility] [address] [place], [address] Cholesterol [Mass/Vol] 134 mg/dL Normal <=200 [facility] Comment on above: Result Comment: Chol esterol level, Desirable <200 mg/dL Borderline high cholesterol 200-239 mg/dL High cholesterol >=240 mg/dL Recommendations of the NCEP Adult Treatment Panel for the following risk-cutoff thresholds for the [place] population. Performed By: #### L 500.4100, L500.4050, L501.9520, L506.1001, L100.0100 ####[facility] [address] [place], [address] Cholesterol in HDL [Mass/Vol] 69 mg/dL Normal [facility] Comment on above: Result Comment: Bryanna onal Cholesterol Education Program (NCEP) guidelines: <40 mg/dL: Low HDL-cholesterol (major risk factor for CHD) >= 60 mg/dL: High HDL-cholesterol (negative risk factor for CHD) HDL-cholesterol is affected by a number of factors, e.g. smoking, exercise, hormones, sex and age. Performed By: #### L 500.4100, L500.4050, L501.9520, L506.1001, L100.0100 ####[facility] [address] [place], [address] Cholesterol in LDL [Mass/Vol] 58 mg/dL Normal [facility] Comment on above: Result Comment: Bord laakef=778-019 mg/dL Higher Ofpp=312 mg/dL or greater Performed By: #### L 500.4100, L500.4050, L501.9520, L506.1001, L100.0100 ####[facility] [address] [place], [address] Cholesterol in VLDL [Mass/Vol] 7 mg/dL Normal 5-40 [facility] Comment on above: Performed By: #### L 500.4100, L500.4050, L501.9520, L506.1001, L100.0100 ####[facility] [address] [place], [address] Triglyceride [Mass/Vol] 36 mg/dL Normal [facility] Comment on above: Result Comment: The drugs N-Acetylcysteine and Metamizole may falsely depress this assay. Normal range: <150 mg/dL Borderline High: 150-199 mg/dL High: 200-499 mg/dL Very High: >500 mg/dL Performed By: #### L 500.4100, L500.4050, L501.9520, L506.1001, L100.0100 ####[facility] [address] [place], [address] Lymphocytes Auto (Unsp spec) [#/Vol]Ordered By: Neil Apodaca on 05-26-2024 Lymphocytes (Bld) [#/Vol] 0.69 10*3/uL Low 0.83-4.5 1 [facility] Lymphocytes/100 WBC Auto (Un sp spec)Ordered By: Neil Apodaca on 05-26-2024 Lymphocytes/100 WBC (Bld) 20.0 % 19-41 [facility] MCV (mean corpuscular volume ) determinationOrdered By: Neil Apodaca on 05-26-2024 MCV (RBC) [Entitic vol] 100.5 fL High 81-99 [facility] Mean corpuscular hemoglobin (MCH) determinationOrdered By: Neil Apodaca on 05-26-2024 MCH (RBC) [Entitic mass] 32.6 pg High 27.0-32.0 [facility] Mean corpuscular hemoglobin concentration (MCHC) determinationOrdered By: Neil Apodaca on 05-26-2024 MCHC (RBC) [Mass/Vol] 32.5 g/dL 32-36 [facility] Mean platelet volume determi nationOrdered By: Neil Apodaca on 05-26-2024 Platelet mean volume (Bld) [Entitic vol] 10.4 fL 6.2-12.0 [facility] Monocyte percentageOrdered B y: Neil Apodaca on 05-26-2024 Monocytes/100 WBC (Bld) 11.0 % High 0-10 [facility] Neutrophil percentageOrdered By: Neil Apodaca on 05-26-2024 Neutrophils/100 WBC (Bld) 66.4 % 47-70 [facility] Nucleated red blood cell per centageOrdered By: Neil Apodaca on 05-26-2024 Nucleated RBC/100 WBC (Bld) [Ratio] 0 % 0-5 [facility] Platelet countOrdered By: Ike Apodaca on 05-26-2024 Platelets (Bld) [#/Vol] 150 10*3/uL 150-450 [facility] Potassium (Unsp spec) [Mass/ Vol]Ordered By: Neil Apodaca on 05-26-2024 Potassium [Moles/Vol] 4.3 mmol/L 3.3-5.1 [facility] Potassium measurement (mass/ volume)Ordered By: Neil Apodaca on 05-26-2024 Potassium (Unsp spec) [Mass/Vol] 4.3 mmol/L 3.3-5.1 [facility] RBC Auto (Bld) [#/Vol]Ordere d By: Neil Apodaca on 05-26-2024 RBC (Bld) [#/Vol] 4.17 10*6/uL Low 4.2-5.4 [facility] Screening total cholesterol/ high density lipoprotein (HDL) cholesterol ratioOrdered By: Neil Apodaca on 05-26-2024 Cholesterol.total/Cholest byron in HDL [Mass ratio] 1.96 {ratio} [facility] Serum creatinine measurement (mass/volume)Ordered By: Neil Apodaca on 05-26-2024 Creatinine [Mass/Vol] 0.61 mg/dL Low 0.70-1.20 [facility] Serum globulin measurementOr dered By: Neil Apodaca on 05-26-2024 Globulin (S) [Mass/Vol] 2.7 g/dL 2.2-4.2 [facility] Serum glucose measurement (m ass/volume)Ordered By: Neil Apodaca 05-26-2024 Glucose [Mass/Vol] 83 mg/dL 70-99 [facility] Serum or plasma alanine foreman otransferase (ALT) measurementOrdered By: Neil Apodaca 05-26-2024 ALT [Catalytic activity/Vol] 27 U/L <35 [facility] Serum or plasma albumin elizabeth urement (mass/volume)Ordered By: Neil Apodaca 05-26-2024 Albumin [Mass/Vol] 3.9 g/dL 3.4-4.8 [facility] Serum or plasma albumin/glob ulin mass ratioOrdered By: Neil Apodaca 05-26-2024 Albumin/Globulin [Mass ratio] 1.4 {ratio} 0.9-2.4 [facility] Serum or plasma alkaline snehal sphatase measurementOrdered By: Neil Apodaca 05-26-2024 ALP [Catalytic activity/Vol] 62 U/L 35-104 [facility] Serum or plasma calcium elizabeth urement (mass/volume)Ordered By: Neil Apodaca 05-26-2024 Calcium [Mass/Vol] 9.1 mg/dL 7.6-11.0 [facility] Serum or plasma cholesterol in HDL measurement (mass/volume)Ordered By: Neil Apodaca 05-26-2024 Cholesterol in HDL [Mass/Vol] 69 mg/dL >40 [facility] Comment on above: National Cholesterol Education Program (NCEP) guidelines:<40 mg/dL: Low HDL-cholesterol (major risk factor for CHD)>= 60 mg/dL: High HDL-cholesterol (negative risk factor for CHD)HDL-cholesterol is affected by a number of factors, e.g. smoking, exercise, hormones, sex and age. Serum or plasma cholesterol measurement (mass/volume)Ordered By: Neil Apodaca on 05-26-2024 Cholesterol [Mass/Vol] 134 mg/dL <201 [facility] Comment on above: Cholesterol level, D esirable <200 mg/dLBorderline high cholesterol 200-239 mg/dLHigh cholesterol >=240 mg/dLRecommendations of the NCEP Adult Treatment Panel for the following risk-cutoff thresholds for the [place] population. Serum or plasma urea nitroge n measurement (mass/volume)Ordered By: Neil Apodaca on 05-26-2024 Urea nitrogen [Mass/Vol] 16 mg/dL 4-19 [facility] Sodium levelOrdered By: Neil Apodaca on 05-26-2024 Sodium [Moles/Vol] 139 mmol/L 133-145 [facility] TSH DL <= 0.005 mIU/L QnOrde red By: Neil Apodaca on 05-26-2024 Thyroid Stimulating Hormone (TSH) 1.210 uIU/mL 0.300-4.200 [facility] TSH Qn 1.210 uIU/mL 0.300-4.200 [facility] Thyroid Stim Hormone (TSH)on 05-26-2024 TSH 1.210 uIU/mL Normal 0.300-4.200 [facility] Comment on above: Performed By: #### L 500.4100, L500.4050, L501.9520, L506.1001, L100.0100 ####[facility] [address] [place], [address] Total proteinOrdered By: Neil Apodaca on 05-26-2024 Protein [Mass/Vol] 6.6 g/dL 5.9-8.4 [facility] Triglycerides measurementOrd ered By: Neil Apodaca on 05-26-2024 Triglyceride [Mass/Vol] 36 mg/dL <199 [facility] Comment on above: The drugs N-Acetylcy steine and Metamizole may falsely depress this assay. Normal range: <150 mg/dLBorderline High: 150-199 mg/dLHigh: 200-499 mg/dLVery High: >500 mg/dL Vitamin D, 25-hydroxyOrdered By: Neil Apodaca on 05-26-2024 Vitamin D 25-Hydroxy 35.7 ng/mL 30-100 [facility] Comment on above: Vitamin D StatusDefi ciency: <20 ng/mL (50nmol/L)Insufficiency: 20-30 ng/mL (50-75 nmol/L)Sufficiency: 30-100 ng/mL (75-250 nmol/L)Toxicity: >100 ng/mL (>250 nmol/L) White blood cell (WBC) count Ordered By: Neil Apodaca on 05-26-2024 WBC (Bld) [#/Vol] 3.5 10*3/uL Low 4.4-11.0 [facility] PT D/C Summary (1)on 025 PT D/C Summary (1) [facility] [place] [address] / REHABILITATION SERVICES DISCHARGE SUMMARY MR#: [id number] Acct: [id number] Name: RADHA ALEMAN Rep #: [id number] : 1945 78 From: Garth Garcia DPT, OCS, CSCS Referring Dr.: Dr. Neil Apodaca MD Status: REG R Insurance: [facility] [employer] Discharge Summary D/C summary: It has been my pleasure to treat RADHA ALEMAN referred by Dr. Neil Apodaca MD, with the diagnosis of B hip OA for a total of 11 visit(s). Discharge Date: 05/20/24 Please see the following information for a summary of their discharge status. Subjective Subjective: Hips are feeling pretty good and getting stronger in the gym Is doing that on her own also. Pain this week only to 03/25/09. if walking too much will get it. Pain L hip: Pain Intensity (Out of 10): 0 Overall Improvement % Improvement: 90 Objective Objective/Function: Full AROM B hips without pain today, walking normal without antlagia, steps reciprocally without rail or pain. 4/5 hip flexiona dn abd strength without pain. Goals Goal 1:: I appropriate gyma dn home ex for B hip OA to limit future pain Goal Progress: Goal Met Goal 2:: sleep without interruption from L hip Goal Progress: Goal Met Goal 3:: Patient feel 75% better in overall hip pain at 1/10 at worst with daily activities Goal Progress: 90% Goal 4:: LEFS score 59 Goal Progress: Goal Met Plan Plan: d/c to I program. D/C Information Discharge Comments: Doing very well adn will continue I in gym. d/c sentence: If there are questions or concerns regarding this patient's physical therapy, please feel free to call me at [phone]. Thank you for the referral of this patient. Sincerely, Garth Garcia DPT, OCS, CSCS Balance/Gait/Function al tests Balance/Special Test Scores Functional Gait Assessment Score: 26 % Disability: 13.3400 Lower Extremity Functional Score: 72 Improvement % Improvement: 90 05/20/24 1256 CC: Dr. Neil Apodaca MD EBG Signed Normal [facility] Inital Evaluation (1) - PTon 04-13-2024 Inital Evaluation (1) - PT [facility] [address] [place] [address] [address] [place] [address] / REHABILITATION SERVICES INITIAL EVALUATION MR#: [id number] Acct: [id number] Name: RADHA ALEMAN Rep #: [id number] : 1945 78 From: Garth Garcia DPT, MISTI, CSCS Referring Dr.: Dr. Neil Apodaca MD Status: REG RCR Insurance: [employer] [facility] SELF PAY INSURANCE Patient's Visit Information Visit Information Visit Information: RADHA ALEMAN is a 78 year old F referred to Physical Therapy by Dr. Neil Apodaca MD with a diagnosis of B hip OA. Date of Evaluation: 04/13/24 Physical Therapist: Garth Garcia DPT, MISTI, CSCS Visit Plan Frequency: 2x /Week Duration: 4-6 Weeks Plan: 2x/week for 4-6 weeks for... IE HEP HS stretch supine, prone quad stretch 30 5x daily adn hip ROM when sitting, activity modification with HO Treat with ensure stretching HS and quad at home, may rollout out priformis area and HS L. mat based hip strength to HEP, then gym based LE machine instruct for hip stabs, core stabs and work to I as member. MH as needed. Subjective Subjective: L hip hurts more than R but both hurt. Pain is noticeable in L hip. X ray shows moderate OA changes in both hips and acetabular cysts. She has noticed pain since early January. Spent 5 hrs blowing leaves at that time and the next day could hardly walk on L leg due to hip pain. MRI 03/30/24 showed the above mentioned. No real pain prior to January incidence other than intermittent groin pulling. Still has L groin sensation of pulling if WB on L alot. Pain is in groin and can move into L leg and side of butt also. L knee degenerated also. Has bakers cyst in L knee.1/10 with walking in here but gets up to 5/10 at times. Squatting hurts as well as getting up from sitting after a while. Sleep is interrupted sometimes but not often, avoids sleeping on L side as it would hurt. Basic aDLs: all I. Not employed. Hobbies: walking but does not do it in the cold. Usually feels better with walking. Spends day : plays music bagpipes and clarinet, reads. Hip is fine. Ex 2x/week at and does them for arms but not a lot for legs. Pain L hip: Pain Intensity (Out of 10): 0 Pain Intensity Range: 0 and 5 Objective Objective: Walks into PT slowly but I without antalgia today. Trasnfers chair and bed I, steps reciprocally with one rail I, stiff elevating L leg to next step but I. LB AROM min limited in all directions but WFL. B hip PROM is WFL, er 55, ir 10 L and 12 R, flexion 110, 8 extension, 22 abduction R and 18 L. AROM is painfree today. reflexes 2/3 patella adn achilles Sensation LE WNL to gross light touch. strength hip abd 3+, ext 3 B hips, flexion 4-. knee flexion adn extension 4, ankles 4. + L FADDIR, - B NIGEL, - L NIGEL. - scouring B. Tender to palpation slightly lateral L hip torchanter area adn into piriformis Balance/Special Test Scores Functional Gait Assessment Score: 26 % Disability: 13.3400 Lower Extremity Functional Score: 53 Goals Goal 1:: I appropriate gyma dn home ex for B hip OA to limit future pain Goal Time Frame: 4-6 Weeks Goal 2:: sleep without interruption from L hip Goal Time Frame: 4-6 Weeks Goal 3:: Patient feel 75% better in overall hip pain at 1/10 at worst with daily activities Goal Time Frame: 4-6 Weeks Goal 4:: LEFS score 59 Goal Time Frame: 4-6 Weeks Rehabilitation Potential Physical Therapy Diagnosis: degenerative changes in hips leading to pain and limiting comfortable function. Rehabilitation Potential: Fair Anticipated Interventions Patient/Client Instruction: Educate patient on: Condition and Plan of Care For the Purpose of:: To decrease pain, To increase ROM, To improve muscle performance and motor function, To increase tolerance to activity/condition/po sition, To improve ability of physical actions for home/community/work/l eisure and To improve gait and locomotor functions Therapeutic Exercise to Include: Strength training, Flexibilty training, Passive ROM and Active ROM For the Purpose of:: To decrease pain, To increase ROM, To improve nutrient delivery to tissue, To improve muscle performance and motor function and To increase tolerance to activity/con dition/position Manual Therapy Techniques to Include: Mobilization, Passive ROM and Soft tissue mobilization For the Purpose of:: To decrease pain, To increase ROM and To improve nutrient delivery to tissue Thermo therapy (hot pack): Yes For the Purpose of:: To decrease pain, To increase ROM and To improve nutrient delivery to tissue Text: Thank you for the opportunity to evaluate your patient. For Medicare and Medicare HMO plans, please review the plan of care and approve it. It will need to be FAXED BACK to us at [phone] for Medicare purposes. For Medicare only, by signing this I certify the plan of care. Please let me (more content not included)... Normal [facility] Pelvis (Routine)on 5 Pelvis (Routine) [facility] [address] [place] [address] Pelvis (Routine) MR#: [id number] Acct: [id number] Name: RADHA ALEMAN YUN Rep #: [id number] : 1945 F 78 From: Mauro Barba MD PCP: Dr. Neil Apodaca MD Status: REG CLI Study: Pelvis (Routine) Date of Exam: 03/30/24 Exam# [id number] Ordering Dr: Neil Apodaca MD [id number] EXAM: MR PELVIS WITHOUT INTRAVENOUS CONTRAST CLINICAL INDICATION: LEFT GROIN PAIN TECHNIQUE: Multiplanar and multisequence MR images of the pelvis without intravenous contrast. COMPARISON: 09/24/22 FINDINGS: BOWEL: Mild circumferential wall thickening of the rectosigmoid colon. Consider proctocolitis. APPENDIX: No evidence of acute appendicitis. INTRAPERITONEAL SPACE: Unremarkable. No ascites or other fluid collection. BLADDER: Unremarkable. OVARIES: Unremarkable as visualized. No mass or complex cyst. UTERUS/CERVIX: Unremarkable. No mass. Endometrial stripe is normal in thickness and appearance. BONES/JOINTS: Moderate osteoarthritic changes involving both hips including the presence of prominent acetabular roof subchondral cysts bilaterally. Physiologic amounts of hip joint fluid. No osteonecrosis. No suspicious lytic or blastic abnormality. SOFT TISSUES: Unremarkable. . No inguinal hernia. LYMPH NODES: Unremarkable. No enlarged lymph nodes. MRI/Pelvis (Routine) IMPRESSION: 1. Moderate osteoarthritic changes involving both hips including the presence of prominent acetabular roof subchondral cysts bilaterally. 2. Mild circumferential wall thickening of the rectosigmoid colon. Consider proctocolitis. Electronically Signed: Mauro Barba MD at 15:48 EST , CC: Dr. Neil Apodaca MD Aged Or Disabled Care Worker: Signed Normal [facility] Spine Lumbar (Routine)on Spine Lumbar (Routine) [facility] [address] [place] [address] [id number] Spine Lumbar (Routine) MR#: [id number] Acct: [id number] Name: RADHA ALEMAN YUN Rep #: [id number] : 1945 F 78 From: Jarod Zelaya MD PCP: Dr. Neil Apodaca MD Status: REG CLI Study: Spine Lumbar (Routine) Date of Exam: 03/30/24 Exam# [id number] Ordering Dr: Neil Apodaca MD [id number] STUDY: MRI LUMBAR SPINE WITHOUT CONTRAST REASON FOR EXAM: Female, 78 years old. LEFT GROIN PAIN, DIFFICULTY WALKING TECHNIQUE: Standardized fat and water weighted pulse sequences were obtained in the sagittal and axial planes. COMPARISON: Lumbar spine radiographs 02/04/2024. FINDINGS: T10-T11: (Sagittal only). T10 inferior endplate is largely not included. Normal T11 superior endplate. Normal disc height, hydration and morphology. Normal central canal. Bilateral intervertebral neuroforamina are not included. T11-T12 and T12-L1: (Sagittal only). Normal endplates. Normal disc height, hydration and morphology. Normal central canal and bilateral intervertebral neural foramina. Normal lumbar lordosis. There is no substantial scoliosis. Normal conus medullaris that terminates at the T12-L1 disc space level. L1-2: Normal endplates. Minimal disc space height narrowing. Mild ventral extra dural defect is small posterior bulging annulus. Normal bilateral facet joints. Normal central canal and bilateral lateral recesses. Normal bilateral intervertebral neural foramina. L2-3: Normal endplates. Normal disc height, hydration and morphology. Normal bilateral facet joints. Normal central canal and bilateral lateral recesses. Normal bilateral intervertebral neural foramina. L3-4: Normal endplates. Normal disc height. Mild ventral extradural defect is small posterior bulging annulus. Normal bilateral facet joints. Normal central canal and bilateral lateral recesses. Normal bilateral intervertebral neural foramina. L4-5: Schmorl''s node in the anterior L4 inferior endplate with reactive marrow fatty infiltration. Mild Modic type II degenerative vertebral marrow fat infiltration underneath the left side of the vertebral endplates. Normal disc height. Minimal ventral extra dural defect due to small posterior bulging annulus. Normal bilateral facet joints. Normal central canal and bilateral lateral recesses. Normal bilateral intervertebral neural foramina. L5-S1: Normal endplates. Normal disc height, hydration and morphology. Mild asymmetric degenerative facet arthropathy, right greater than left. Normal central canal and bilateral lateral recesses. Normal bilateral intervertebral neural foramina. Normal visualized sacral ala. Normal visualized paraspinous soft tissue structures. MRI/Spine Lumbar (Routine) IMPRESSION: 1. No MRI evidence of lumbar extruded disc fragment, disc protrusion, spinal stenosis or nerve root displacement. 2. Mild Modic type II changes of the vertebral marrow underneath the left side of the vertebral endplates. 3. Small posterior bulging annulus at L1-L2, L3-L4 and L4-L5 disc space levels. Electronically Signed: Jarod Zelaya MD at 9:29 EST Reading Location ID and State: [facility] / [place] , Service support , CC: Dr. Neil Apodaca MD Aged Or Disabled Care Worker: Signed Normal [facility] HIP, UNI W/ Pelvis 2-3 Views on 02-04-2024 HIP, UNI W/ Pelvis 2-3 Views [facility] [address] [place], [place] [id number] HIP, UNI W/ Pelvis 2-3 Views MR#: [id number] Acct: [id number] Name: RADHA ALEMAN YUN Rep #: [id number] : 1945 F 78 From: Eloy Peres DO PCP: Dr. Neil Apodaca MD Status: REG CL Study: HIP, UNI W/ Pelvis 2-3 Views Date of Exam: Exam# [id number] Ordering Dr: Neil Apodaca MD [id number] INDICATION: L SIDED SCIATICA AND GROIN PAIN EXAMINATION/TECHNIQUE : X-RAY - XR Hip Unilateral with Pelvis when performed; 3 Views COMPARISON: __ FINDINGS: PELVIC BONES: No displaced fracture, destructive or sclerotic lesions. Sacroiliac joints are unremarkable. No widening of the pubic symphysis. HIPS: The articular structures are unremarkable. No displaced fracture seen in this frontal view. SOFT TISSUES: No soft tissue swelling or gas. RAD/HIP, UNI W/ Pelvis 2-3 Views IMPRESSION: No evidence of displaced pelvic or hip fracture. Electronically Signed: Eloy Peres DO at 9:45 EST , CC: Dr. Neil Apodaca MD Aged Or Disabled Care Worker: Signed Normal [facility] L/S Spine Min 4 Viewson 01-22 L/S Spine Min 4 Views [facility] [address] [place] [address] L/S Spine Min 4 Views MR#: [id number] Acct: [id number] Name: RADHA ALEMAN YUN Rep #: [id number] : 1945 F 78 From: Eloy Peres DO PCP: Dr. Neil Apodaca MD Status: REG CLI Study: L/S Spine Min 4 Views Date of Exam: 02/04/24 Exam# [id number] Ordering Dr: Neil Apodaca MD [id number] STUDY: X-RAY - LUMBAR SPINE REASON FOR EXAM: Female, 78 years old. LOW BACK PAIN TECHNIQUE: 5 view(s) of the lumbar spine were obtained. COMPARISON: None FINDINGS: Normal lumbar lordosis. There is no substantial scoliosis. There is a normal alignment of the vertebrae. Normal vertebral bodies with spurring at the endplates. Normal disc space heights. Generalized osteopenia. The soft tissue structures are unremarkable. RAD/L/S Spine Min 4 Views IMPRESSION: Degenerative changes of the lumbar spine. Electronically Signed: Eloy Peres DO at 9:42 EST Reading Location ID and State: [facility] / [place] Tel [phone], Service support , CC: Dr. Neil Apodaca MD Aged Or Disabled Care Worker: Signed Normal [facility] Visit Reporton 1 Urgent Care Visit Report [facility] [address], [address] [place] [address] OFFICE VISIT Date of Service: 01/09/24 MR#: [id number] Acct: [id number] Name: RADHA ALEMAN YUN Rep #: [id number] : 1945 Provider: KURT Reed Age/Sex: 78/F Location: [facility] Status: Signed Intake Vital Signs 11/26/23 10:42 01/09/24 16:15 Height 5 ft 5 in 5 ft 5.5 in Weight: 142 lb 143 lb BMI 23.6 23.4 BP 118/72 Blood Pressure Location Lt brachial Position Sitting Respiration 14 Pulse 65 Pulse Source Monitor Temp 98.2 F Temp Source Oral Pulse Oximetry (%) 98 Oxygen Delivery Method room air Intake Visit Reasons: L THUMB PAIN Allergies carbamazepine (From Tegretol) Allergy (Verified 01/09/24 16:16) Hives clonazepam (From Klonopin) Allergy (Verified 01/09/24 16:16) Other phenytoin sodium (From Dilantin) Allergy (Verified 01/09/24 16:16) Hives phenytoin sodium extended (From Dilantin) Allergy (Verified 01/09/24 16:16) Hives Have you fallen in the past year?: No [facility] Medical History (Updated 01/09/24 @ 16:20 by Andrew HICKS, PA) Paronychia of left thumb Bradycardia Thyroiditis Post-menopausal Back pain due to injury High cholesterol History of stress test Scarlet fever Irregular heartbeat Encounter for screening for other viral diseases Encounter for screening for COVID-19 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], left knee Atrial flutter Basal cell carcinoma Hypothyroidism Pulmonary embolism Hyperlipidemia Paroxysmal atrial fibrillation Seizure disorder Surgical History Status post laparoscopic cholecystectomy History of ptosis repair ( 01/2021) History of bunionectomy of right great toe (12/04/18) left carpal tunnel release H/O basal cell carcinoma excision History of lumpectomy of left breast History of tonsillectomy Family History Father FHx: prostate cancer Other Diabetes Heart disease Social History Smoking Status: Never smoker alcohol intake: never substance use type: does not use caffeine: No HPI HPI Details: RADHA ALEMAN, is a 78 F who presents to the office today for left ulnar thumb eponychial fold erythema, swelling, tender, aggravated to touch and alleviated with rest. Patient notes she has been soaking it and alcohol without improvement. No complaints of fever, chills, sweats. No fisj-dzl-zpdaroa products taken to assist. No loss of sensation or strength or function to the same. PMH NC. Mszsz-jtoe-dtccuhhx. No other associated symptoms and no other alleviating/aggravati ng factors ROS Const Constitutional: No other (As above) Exam Const General: cooperative, healthy appearing and no acute distress Nutritional Appearance: average body habitus Orientation: alert and awake Resp Effort Inspection: normal respiratory effort and able to speak in complete sentences Cardio Rate: regular rate Pulses: radial pulses present Skin General: no rashes or lesions noted (Except left ulnar thumb paronychia) Neuro General: patient alert and patient awake Cognition: normal cognition Speech: speech normal Extrem General: normal to inspection Psych Appearance: grossly normal Mental Status: mental status grossly normal Mood: congruent mood Affect: normal affect Speech and Movement: speech and movement normal Attitude: cooperative Coding Level of Care Code Off vis,est,level 3 Diagnoses Paronychia of left thumb L03.012 Assessment and Plan Assessment and Plan (1) Paronychia of left thumb: Status: Acute Plan: Cephalexin as prescribed today. Twice daily wound care with Epsom salt soaks as instructed today. Supportive measures as instructed today. Pelvic PCP in 3 to 5 days should symptoms not improve, sooner should symptoms worsen or any other concerns develop. Patient states acknowledging understanding all the above. This note was generated with [employer] software. It may contain incorrect words, spelling, and punctuation that were not noted in checking the note before signing. Medications: New cephalexin 500 mg PO TID 30 caps 0RF Clinical Quality Measures Falls Risk Screening/Assistive Devices Have you fallen in the past year?: No 01/09/24 1621 Date Andrew Zavala Signature: Date (if applicable) CC: Normal [facility] CBC W/Diff, Automatedon 09-0 5-2023 Absolute Lymph 0.71 X10 3/uL Low 0.83-4.51 [facility] Comment on above: Performed By: #### L 506.1000, L500.4050, L501.9520, L100.0100 #### [facility] [address] [place], [address] Absolute Neut 3.1 X10 3/uL Normal 2.0-7.7 [facility] Comment on above: Performed By: #### L 506.1000, L500.4050, L501.9520, L100.0100 #### [facility] [address] [place], [address] Basophils/100 WBC (Bld) 0.5 % Normal 0-1 [facility] Comment on above: Performed By: #### L 506.1000, L500.4050, L501.9520, L100.0100 #### [facility] [address] [place], [address] Eosinophils/100 WBC (Bld) 1.4 % Normal 0-5 [facility] Comment on above: Performed By: #### L 506.1000, L500.4050, L501.9520, L100.0100 #### [facility] [address] [place], [address] Erythrocyte distribution width (RBC) [Ratio] 13.1 % Normal 11.6-14.6 [facility] Comment on above: Performed By: #### L 506.1000, L500.4050, L501.9520, L100.0100 #### [facility] [address] [place], [address] Hematocrit (Bld) [Volume fraction] 40.2 % Normal 37-47 [facility] Comment on above: Performed By: #### L 506.1000, L500.4050, L501.9520, L100.0100 #### [facility] [address] [place], [address] Hemoglobin (Bld) [Mass/Vol] 13.3 g/dL Normal 12.0-15.0 [facility] Comment on above: Performed By: #### L 506.1000, L500.4050, L501.9520, L100.0100 #### [facility] [address] [place], [address] IG% 0.200 Normal 0.0-0.9 [facility] Comment on above: Result Comment: IG% - Immature Granulocytes (promyelocytes, myelocytes and metamyelocytes) > 1% indicates that a LEFT SHIFT is Present. Performed By: #### L 506.1000, L500.4050, L501.9520, L100.0100 #### [facility] [address] [place], [address] Lymphocytes/100 WBC (Bld) 16.6 % Low 19-41 [facility] Comment on above: Performed By: #### L 506.1000, L500.4050, L501.9520, L100.0100 #### [facility] [address] [place], [address] MCH (RBC) [Entitic mass] 32.3 pg High 27.0-32.0 [facility] Comment on above: Performed By: #### L 506.1000, L500.4050, L501.9520, L100.0100 #### [facility] [address] [place], [address] MCHC (RBC) [Mass/Vol] 33.1 g/dL Normal 32-36 [facility] Comment on above: Performed By: #### L 506.1000, L500.4050, L501.9520, L100.0100 #### [facility] [address] [place], [address] MCV (RBC) [Entitic vol] 97.6 fL Normal 81-99 [facility] Comment on above: Performed By: #### L 506.1000, L500.4050, L501.9520, L100.0100 #### [facility] [address] [place], [address] Monocytes/100 WBC (Bld) 10.0 % Normal 0-10 [facility] Comment on above: Performed By: #### L 506.1000, L500.4050, L501.9520, L100.0100 #### [facility] [address] [place], [address] Neutrophils/100 WBC (Bld) 71.3 % High 47-70 [facility] Comment on above: Performed By: #### L 506.1000, L500.4050, L501.9520, L100.0100 #### [facility] [address] [place], [address] Nucleated RBC (Bld) [#/Vol] 0 10*3/uL Normal 0-5 [facility] Comment on above: Performed By: #### L 506.1000, L500.4050, L501.9520, L100.0100 #### [facility] [address] [place], [address] Platelet mean volume (Bld) [Entitic vol] 10.6 fL Normal 6.2-12.0 [facility] Comment on above: Performed By: #### L 506.1000, L500.4050, L501.9520, L100.0100 #### [facility] [address] [place], [address] Platelets (Bld) [#/Vol] 144 10*3/uL Low 150-450 [facility] Comment on above: Performed By: #### L 506.1000, L500.4050, L501.9520, L100.0100 #### [facility] [address] [place], [address] RBC (Bld) [#/Vol] 4.12 10*6/uL Low 4.2-5.4 [facility] Comment on above: Performed By: #### L 506.1000, L500.4050, L501.9520, L100.0100 #### [facility] [address] [place], [address] RDW SD 46.5 fl High 35.1-43.9 [facility] Comment on above: Performed By: #### L 506.1000, L500.4050, L501.9520, L100.0100 #### [facility] [address] [place], [address] WBC (Bld) [#/Vol] 4.3 10*3/uL Low 4.4-11.0 [facility] Comment on above: Performed By: #### L 506.1000, L500.4050, L501.9520, L100.0100 #### [facility] [address] [place], [address] Comprehensive Metabolic Prof ilon 11-27-2023 Albumin [Mass/Vol] 3.7 g/dL Normal 3.2-5.0 [facility] Comment on above: Performed By: #### L 506.1000, L500.4050, L501.9520, L100.0100 ####[facility] [address] [place], [address] Albumin/Globulin [Mass ratio] 1.1 {ratio} Normal 0.9-2.4 [facility] Comment on above: Performed By: #### L 506.1000, L500.4050, L501.9520, L100.0100 ####[facility] [address] [place], [address] ALK P 76 U/L Normal 45-117 [facility] Comment on above: Performed By: #### L 506.1000, L500.4050, L501.9520, L100.0100 ####[facility] [address] [place], [address] ALT [Catalytic activity/Vol] 35 U/L Normal 13-56 [facility] Comment on above: Performed By: #### L 506.1000, L500.4050, L501.9520, L100.0100 ####[facility] [address] [place], [address] AST [Catalytic activity/Vol] 38 U/L High 15-37 [facility] Comment on above: Performed By: #### L 506.1000, L500.4050, L501.9520, L100.0100 ####[facility] [address] [place], [address] Bilirubin [Mass/Vol] 0.30 mg/dL Normal 0.20-1.00 [facility] Comment on above: Result Comment: For patients on eltrombopag therapy, use of Dimension [place] TBIL is not recommended. Performed By: #### L 506.1000, L500.4050, L501.9520, L100.0100 ####[facility] [address] [place], [address] BUN/CRE 21.4 RATIO High 10-20 [facility] Comment on above: Performed By: #### L 506.1000, L500.4050, L501.9520, L100.0100 ####[facility] [address] [place], [address] CA,Total 8.9 mg/dL Normal 8.5-10.1 [facility] Comment on above: Performed By: #### L 506.1000, L500.4050, L501.9520, L100.0100 ####[facility] [address] [place], [address] Chloride [Moles/Vol] 106 mmol/L Normal 98-107 [facility] Comment on above: Performed By: #### L 506.1000, L500.4050, L501.9520, L100.0100 ####[facility] [address] [place], [address] CO2 [Moles/Vol] 27.0 mmol/L Normal 21.0-32.0 [facility] Comment on above: Performed By: #### L 506.1000, L500.4050, L501.9520, L100.0100 ####[facility] [address] [place], [address] Creatinine [Mass/Vol] 0.65 mg/dL Normal 0.55-1.02 [facility] Comment on above: Result Comment: The validity of the calculated GFR GFRAA in patients over 70 years has not been determined. Clinical correlation is essential. Performed By: #### L 506.1000, L500.4050, L501.9520, L100.0100 ####[facility] [address] [place], [address] EST GFR - AA 113 mL/min Normal >60 [facility] Comment on above: Result Comment: Afri can Qatari GFR Calc Performed By: #### L 506.1000, L500.4050, L501.9520, L100.0100 ####[facility] [address] [place], [address] GAP 7 Normal 5-15 [facility] Comment on above: Performed By: #### L 506.1000, L500.4050, L501.9520, L100.0100 ####[facility] [address] [place], [address] GFR/1.73 sq M.predicted among non-blacks MDRD (S/P/Bld) [Vol rate/Area] 93 mL/min/{1.73_m2} Normal >60 [facility] Comment on above: Result Comment: Non- GFR Calc Performed By: #### L 506.1000, L500.4050, L501.9520, L100.0100 ####[facility] [address] [place], [address] Globulin (S) [Mass/Vol] 3.4 g/dL Normal 2.2-4.2 [facility] Comment on above: Performed By: #### L 506.1000, L500.4050, L501.9520, L100.0100 ####[facility] [address] [place], [address] Glucose [Mass/Vol] 90 mg/dL Normal 74-106 [facility] Comment on above: Performed By: #### L 506.1000, L500.4050, L501.9520, L100.0100 ####[facility] [address] [place], [address] Potassium [Moles/Vol] 3.8 mmol/L Normal 3.5-5.1 [facility] Comment on above: Performed By: #### L 506.1000, L500.4050, L501.9520, L100.0100 ####[facility] [address] [place], [address] Sodium [Moles/Vol] 140 mmol/L Normal 136-145 [facility] Comment on above: Performed By: #### L 506.1000, L500.4050, L501.9520, L100.0100 ####[facility] [address] [place], [address] T PROT 7.1 g/dL Normal 6.4-8.2 [facility] Comment on above: Performed By: #### L 506.1000, L500.4050, L501.9520, L100.0100 ####[facility] [address] [place], [address] Urea nitrogen [Mass/Vol] 14 mg/dL Normal 7-18 [facility] Comment on above: Performed By: #### L 506.1000, L500.4050, L501.9520, L100.0100 ####[facility] [address] [place], [address] Thyroid Stim Hormone (TSH)on 11-27-2023 TSH 2.150 uIU/mL Normal 0.358-3.740 [facility] Comment on above: Performed By: #### L 506.1000, L500.4050, L501.9520, L100.0100 ####[facility] [address] [place], [address] Vitamin D,25 Hydroxyon 11-26 Vitamin D 25-OH 50.1 ng/mL Normal [facility] Comment on above: Result Comment: Ree min D 25(OH) Status Range Deficiency <20 ng/mL (50nmol/L) Insufficiency 20 - 30 ng/mL (50 - 75 nmol/L) Sufficiency 30 - 100 ng/mL (75 - 250 nmol/L) Toxicity >100 ng/mL (>250 nmol/L) Performed By: #### L 506.1000, L500.4050, L501.9520, L100.0100 ####[facility] [address] [place], [address] Knee 4 or More Viewson 11-25 Knee 4 or More Views [facility] [address] [place] [address] Knee 4 or More Views MR#: [id number] Acct: [id number] Name: RADHA ALEMAN YUN Rep #: [id number] : 1945 F 78 From: Denis Lund MD PCP: Dr. Neil Apodaca MD Status: DEP AMB Study: Knee 4 or More Views Date of Exam: 11/26/23 Exam# [id number] Ordering Dr: Kofi Chavarria DO [id number] STUDY: X-RAY - LEFT KNEE REASON FOR EXAM: Female, 78 years old. Pain. TECHNIQUE: 4 view(s) of the knee. COMPARISON: September 06, 2021 FINDINGS: Stable osteopenia. Moderate medial compartmental arthrosis unchanged. Normal lateral compartment. Mild arthrosis of the patellofemoral compartment unchanged. Small joint effusion. RAD/Knee 4 or More Views IMPRESSION: Stable osteopenia with medial and patellofemoral compartment arthrosis and small joint effusion Electronically Signed: Denis Lund MD at 11:41 EDT , CC: Dr. Kofi Chavarria DO; Dr. Neil Apodaca MD Aged Or Disabled Care Worker: Signed Normal [facility] Orthopedic Visit Reporton Orthopedic Visit Report [facility] [address] [place] [address] OFFICE VISIT Date of Service: 11/26/23 MR#: [id number] Acct: [id number] Name: RADHA ALEMAN Rep #: [id number] : 1945 Provider: Dr. Kofi Lilly so DO Age/Sex: 78/F Location: [facility] [place] Status: Signed Intake Vital Signs 10/15/23 15:31 11/12/23 12:52 11/26/23 10:42 Height 5 ft 5 in 5 ft 5 in 5 ft 5 in Weight: 148 lb 142 lb BMI 24.6 23.6 BP 125/65 H Blood Pressure Location Lt brachial Position Sitting Respiration 16 Pulse 50 L Pulse Source NIBP Intake Visit Reasons: RIGHT KNEE Chief Complaint: left knee Accompanied by: Self Is patient in pain?: No Allergies carbamazepine (From Tegretol) Allergy (Verified 11/26/23 10:42) Hives clonazepam (From Klonopin) Allergy (Verified 11/26/23 10:42) Other phenytoin sodium (From Dilantin) Allergy (Verified 11/26/23 10:42) Hives phenytoin sodium extended (From Dilantin) Allergy (Verified 11/26/23 10:42) Hives Medications ???Medication ???Instructions ???Recorded ???Confirmed ???Type primidone 250 mg tablet 250 mg PO BID seizure 09/24/13 11/26/23 History atorvastatin 40 mg tablet 40 mg PO QHS cholesterol 07/22/16 11/26/23 History lutein 20 mg capsule 20 mg PO DAILY 07/22/16 11/26/23 History multivitamin 1 ea PO DAILY 07/22/16 11/26/23 History rivaroxaban 20 mg tablet 20 mg PO DAILY@0600 A-Fib #30 tabs 11/01/16 11/26/23 Rx calcium carbonate 600 mg-vitamin 1 cap PO DAILY 04/10/20 11/26/23 History D3 12.5 mcg (500 unit) capsule (Calcium 600 with Vitamin D3) magnesium oxide 500 mg PO DAILY 04/10/20 11/26/23 History levothyroxine 100 mcg tablet 100 mcg PO DAILY hypothyroid 03/05/21 11/26/23 History niacin 50 mg tablet 50 mg PO DAILY 04/03/22 11/26/23 History acetaminophen 325 mg tablet 650 mg (2 x 325 mg) PO Q4H PRN PRN 09/28/22 11/26/23 Rx pain 1-10/fever #0 tabs metoprolol tartrate 50 mg tablet 25 mg PO BID BP 10/15/23 11/26/23 History Have you fallen in the past year?: No PFSH Medical History Bradycardia Thyroiditis Post-menopausal Back pain due to injury High cholesterol History of stress test Scarlet fever Irregular heartbeat Encounter for screening for other viral diseases Encounter for screening for COVID-19 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], left knee Atrial flutter Basal cell carcinoma Hypothyroidism Pulmonary embolism Hyperlipidemia Paroxysmal atrial fibrillation Seizure disorder Surgical History Status post laparoscopic cholecystectomy History of ptosis repair ( 01/2021) History of bunionectomy of right great toe (12/04/18) left carpal tunnel release H/O basal cell carcinoma excision History of lumpectomy of left breast History of tonsillectomy Family History Father FHx: prostate cancer Other Diabetes Heart disease Social History Smoking Status: Never smoker alcohol intake: never substance use type: does not use caffeine: No HPI RIGHT KNEE Chief Complaint: Left Knee Details: This documentation accurately reflects the service provided and the decisions made by me, Dr. Kofi Chavarria, DO 11/26/23 1039. Part of today???s visit was documented by Irina MONSON, acting as scribe. RADHA ALEMAN is a 78 year old F here today for left knee pain. She previously saw John Lundberg for the left knee and he had prescribe her a diclofenac topical cream but it doesn't seem to help much with her pain. She is unable to take NSAIDs as she is on a blood thinner. Her pain is over her medial and posterior knee. She states that she has a bakers cyst in the knee. She takes Tylenol for the pain. She denies mechanical symptoms. Denies previous surgery. When she last saw John she was told that she does have a meniscus tear from an MRI 2020. Denies injections and physical therapy. She did have an injury about 30 years ago while skiing. Ortho Exam Left Knee Knee ROM: Yes ROM-Extension -20 to 0 Examination: No med jt line tenderness, No Lat jt line tenderness and No Danie's Test Stability: NML: Anterior Drawer, NML: Posterior Drawer, NML: Valgus 30 and NML: Varus 30 Patella Grind: No KNEE: small bakers cyst thats tender no effusion Office Procedures Ortho Injections Injections Yes Knee Left Is this a patient provided medication?: No Details: Obtained consent for injection. Under sterile conditions, injected the patients left knee with 1.5cc bupivacaine 1.5cc lidocaine 1cc depo medrol. The patient tolerated the injection well without any noted complication. Patient should kathleen (more content not included)... Normal [facility] Absolute lymphocyte countOrd ered By: Neil Apodaca on 05-21-2023 Lymphocytes Auto (Unsp spec) [#/Vol] 0.57 10*3/uL 0.83-4.51 [facility] Automated lymphocyte count a s percentage of total leukocytesOrdered By: Neil Apodaca on 05-21-2023 Lymphocytes/100 WBC Auto (Unsp spec) 22.7 % 19-41 [facility] Basophil percentageOrdered B y: Neil Apodaca on 05-21-2023 Basophils/100 WBC (Bld) 0.8 % 0-1 [facility] Bilirubin [Mass/Vol] 0.40 mg/dL 0.20-1.00 [facility] Comment on above: For patients on eltr ombopag therapy, use of Dimension [place] TBIL is not recommended. Chloride [Moles/Vol] 108 mmol/L 98-107 [facility] Eosinophils/100 WBC (Bld) 2.4 % 0-5 [facility] Glucose [Mass/Vol] 88 mg/dL 74-106 [facility] Hemoglobin (Bld) [Mass/Vol] 13.0 g/dL 12.0-15.0 [facility] Monocytes/100 WBC (Bld) 12.4 % 0-10 [facility] Neutrophils (Bld) [#/Vol] 1.5 10*3/uL 2.0-7.7 [facility] Neutrophils/100 WBC (Bld) 61.3 % 47-70 [facility] Potassium [Moles/Vol] 4.1 mmol/L 3.5-5.1 [facility] Protein [Mass/Vol] 6.6 g/dL 6.4-8.2 [facility] Sodium [Moles/Vol] 141 mmol/L 136-145 [facility] WBC (Bld) [#/Vol] 2.5 10*3/uL 4.4-11.0 [facility] Blood manual differential co mment interpretation (narrative result)Ordered By: Neil Apodaca on 05-21-2023 Manual differential comment Cj (Bld) [Interp] SCANNED [facility] Determination of erythrocyte mean corpuscular volume (MCV)Ordered By: Neil Apodaca on 05-21-2023 MCV (RBC) [Entitic vol] 99.2 fL 81-99 [facility] Erythrocyte distribution wid th ratioOrdered By: Neil Apodaca on 05-21-2023 Erythrocyte distribution width (RBC) [Ratio] 12.9 % 11.6-14.6 [facility] Erythrocyte distribution wid th standard deviationOrdered By: Neil Apodaca on 05-21-2023 Erythrocyte distribution width (RBC) [Entitic vol] 47.1 fL 35.1-43.9 [facility] Hematocrit Auto (Bld) [Volum e fraction]Ordered By: Neil Apodaca 05-21-2023 Hematocrit (Bld) [Volume fraction] 39.6 % 37-47 [facility] Immature granulocytes/100 WB C Auto (Bld)Ordered By: Neil Apodaca on 05-21-2023 Immature granulocytes/100 WBC (Bld) 0.400 % 0.0-0.9 [facility] Comment on above: IG% - Immature Granu locytes (promyelocytes, myelocytes and metamyelocytes) > 1% indicates that a LEFT SHIFT is Present. Laboratory - Chemistry and C hemistry - challengeOrdered By: Neil Apodaca on 05-21-2023 Albumin/Globulin [Mass ratio] 1.1 {ratio} 0.9-2.4 [facility] ALP [Catalytic activity/Vol] 63 U/L 45-117 [facility] ALT [Catalytic activity/Vol] 24 U/L 13-56 [facility] CO2 [Moles/Vol] 25.0 mmol/L 21.0-32.0 [facility] Globulin (S) [Mass/Vol] 3.1 g/dL 2.2-4.2 [facility] Urea nitrogen/Creatinine [Mass ratio] 24.0 mg/mg 10-20 [facility] Laboratory - Hematology and Cell countsOrdered By: Neil Apodaca on 05-21-2023 MCH (RBC) [Entitic mass] 32.6 pg 27.0-32.0 [facility] MCHC (RBC) [Mass/Vol] 32.8 g/dL 32-36 [facility] Nucleated RBC/100 WBC (Bld) [Ratio] 0 % 0-5 [facility] Platelet mean volume (Bld) [Entitic vol] 10.3 fL 6.2-12.0 [facility] Platelets (Bld) [#/Vol] 158 10*3/uL 150-450 [facility] No Panel InformationOrdered By: Neil Apodaca on 05-21-2023 Estimated GFR (MDRD) Amer 110 mL/min >60 [facility] Comment on above: GFR Calc Estimated GFR (MDRD) Non-Af Amer 91 mL/min >60 [facility] Comment on above: Non- GFR Calc Vitamin D 25-Hydroxy 48.8 ng/mL [facility] Comment on above: Vitamin D 25(OH) Sta tus Range Deficiency <20 ng/mL (50nmol/L) Insufficiency 20 - 30 ng/mL (50 - 75 nmol/L) Sufficiency 30 - 100 ng/mL (75 - 250 nmol/L) Toxicity >100 ng/mL (>250 nmol/L) RBC Auto (Bld) [#/Vol]Ordere d By: Neil Apodaca on 05-21-2023 RBC (Bld) [#/Vol] 3.99 10*6/uL 4.2-5.4 [facility] Review by pathologistOrdered By: Neil Apodaca on 05-21-2023 Pathologist review Cj (Unsp spec) [Interp] Reviewed [facility] Comment on above: Previous reported re sult: Victoria zoya Edited by: RGOOD on 05/23/23:1014Leukopenia and neutropenia.Macrocytosis.Clinical correlation necessary.Vincenzo Pierre M.D. 05/23/23 AMENDED REPORT 05/23/23 1014 PATH REV previously reported as: Victoria kenny Serum or plasma calcium elizabeth urement (mass/volume)Ordered By: Neil Apodaca on 05-21-2023 Calcium [Mass/Vol] 8.9 mg/dL 8.5-10.1 [facility] Serum or plasma creatinine m easurement (mass/volume)Ordered By: Neil Apodaca on 05-21-2023 Creatinine [Mass/Vol] 0.67 mg/dL 0.55-1.02 [facility] Comment on above: The validity of the calculated GFR & GFRAA in patients over 70 years has not been determined. Clinical correlation is essential. Serum or plasma thyroid stim ulating hormone (TSH) measurement (units/volume)Ordered By: Neil Apodaca on 05-21-2023 TSH Qn 2.27 uIU/mL 0.358-3.74 [facility] Serum or plasma urea nitroge n measurement (mass/volume)Ordered By: Neil Apodaca on 05-21-2023 Urea nitrogen [Mass/Vol] 16 mg/dL 7-18 [facility] Thin prep Papanicolaou smear with manual screeningOrdered By: Neil Apodaca on 05-21-2023 Thin prep Papanicolaou smear with manual screening 3.5 g/dL 3.2-5.0 [facility] Thin prep Papanicolaou smear with manual screening 27 U/L 15-37 [facility] Thin prep Papanicolaou smear with manual screening 8 5-15 [facility] Laboratory - Microbiology an d Antimicrobial susceptibilityOrdered By: Neil Apodaca on 01-02-2023 SARS-CoV-2 (COVID-19) RNA GRAYSON+probe Ql (Unsp spec) [facility] No Panel InformationOrdered By: Neil Apodaca on 01-02-2023 Influenza Types A,B Direct FA (KHADIJAH) [facility] RSV Ag EIAOrdered By: Neil garcia on 01-02-2023 RSV Ag Immune stain Ql (Tiss) [facility] Laboratory - Microbiology an d Antimicrobial susceptibilityOrdered By: Neil Apodaca on 01-01-2023 SARS-CoV-2 (COVID-19) RNA GRAYSON+probe Ql (Unsp spec) [facility] No Panel InformationOrdered By: Neil Apodaca on 01-01-2023 Influenza Types A,B Direct FA (KHADIJAH) [facility] RSV Ag EIAOrdered By: Neil garcia on 01-01-2023 RSV Ag Immune stain Ql (Tiss) [facility] Absolute lymphocyte countOrd ered By: Neil Aopdaca on 11-20-2022 Lymphocytes Auto (Unsp spec) [#/Vol] 0.63 10*3/uL 0.83-4.51 [facility] Basophil percentageOrdered B y: Neil Apodaca on 11-20-2022 Basophils/100 WBC (Bld) 0.6 % 0-1 [facility] Bilirubin [Mass/Vol] 0.40 mg/dL 0.20-1.00 [facility] Comment on above: For patients on eltr ombopag therapy, use of Dimension [place] TBIL is not recommended. Chloride [Moles/Vol] 106 mmol/L 98-107 [facility] Eosinophils/100 WBC (Bld) 2.2 % 0-5 [facility] Glucose [Mass/Vol] 121 mg/dL 74-106 [facility] Comment on above: Fasting Glucose resu lt from 100 to 125 mg/dL suggests IMPAIRED HOMEOSTASIS per A.D.A. criteria. Neutrophils (Bld) [#/Vol] 2.2 10*3/uL 2.0-7.7 [facility] Neutrophils/100 WBC (Bld) 68.4 % 47-70 [facility] Potassium [Moles/Vol] 4.1 mmol/L 3.5-5.1 [facility] Protein [Mass/Vol] 7.0 g/dL 6.4-8.2 [facility] Sodium [Moles/Vol] 140 mmol/L 136-145 [facility] WBC (Bld) [#/Vol] 3.2 10*3/uL 4.4-11.0 [facility] Blood erythrocytes count (nu mber/volume)Ordered By: Neil Apodaca on 11-20-2022 RBC (Bld) [#/Vol] 3.97 10*6/uL 4.2-5.4 [facility] Blood hemoglobin measurement (mass/volume)Ordered By: Neil Apodaca on 11-20-2022 Hemoglobin (Bld) [Mass/Vol] 13.0 g/dL 12.0-15.0 [facility] Blood lymphocytes/100 leukoc ytesOrdered By: Neil Apodaca on 11-20-2022 Lymphocytes/100 WBC (Bld) 19.5 % 19-41 [facility] Blood monocytes/100 leukocyt esOrdered By: Neil Apodaca on 11-20-2022 Monocytes/100 WBC (Bld) 9.0 % 0-10 [facility] Blood platelet mean volumeOr dered By: Neil Apodaca on 11-20-2022 Platelet mean volume (Bld) [Entitic vol] 10.5 fL 6.2-12.0 [facility] Determination of erythrocyte mean corpuscular volume (MCV)Ordered By: Neil Apodaca on 11-20-2022 MCV (RBC) [Entitic vol] 101.0 fL 81-99 [facility] Hematocrit Auto (Bld) [Volum e fraction]Ordered By: Neil Paulie on 11-20-2022 Hematocrit (Bld) [Volume fraction] 40.1 % 37-47 [facility] Laboratory - Chemistry and C hemistry - challengeOrdered By: Neil Paulie on 11-20-2022 ALP [Catalytic activity/Vol] 83 U/L 45-117 [facility] ALT [Catalytic activity/Vol] 23 U/L 13-56 [facility] CO2 [Moles/Vol] 27.0 mmol/L 21.0-32.0 [facility] Globulin (S) [Mass/Vol] 3.4 g/dL 2.2-4.2 [facility] Urea nitrogen/Creatinine [Mass ratio] 22.7 mg/mg 10-20 [facility] Laboratory - Hematology and Cell countsOrdered By: Neil Apodaca on 11-20-2022 Erythrocyte distribution width (RBC) [Entitic vol] 50.3 fL 35.1-43.9 [facility] Erythrocyte distribution width (RBC) [Ratio] 13.4 % 11.6-14.6 [facility] Immature granulocytes/100 WBC (Bld) 0.300 % 0.0-0.9 [facility] Comment on above: IG% - Immature Granu locytes (promyelocytes, myelocytes and metamyelocytes) > 1% indicates that a LEFT SHIFT is Present. MCH (RBC) [Entitic mass] 32.7 pg 27.0-32.0 [facility] Nucleated RBC/100 WBC (Bld) [Ratio] 0 % 0-5 [facility] MCHC Auto (RBC) [Mass/Vol]Or dered By: Neil Apodaca on 11-20-2022 MCHC (RBC) [Mass/Vol] 32.4 g/dL 32-36 [facility] No Panel InformationOrdered By: Neil Apodaca on 11-20-2022 Estimated GFR (MDRD) Amer 97 mL/min >60 [facility] Comment on above: GFR Calc Estimated GFR (MDRD) Non-Af Amer 80 mL/min >60 [facility] Comment on above: Non- GFR Calc Thyroid Stimulating Hormone (TSH) 2.21 uIU/mL 0.358-3.74 [facility] Vitamin D 25-Hydroxy 54.6 ng/mL [facility] Comment on above: Vitamin D 25(OH) Sta tus Range Deficiency <20 ng/mL (50nmol/L) Insufficiency 20 - 30 ng/mL (50 - 75 nmol/L) Sufficiency 30 - 100 ng/mL (75 - 250 nmol/L) Toxicity >100 ng/mL (>250 nmol/L) Platelets bldOrdered By: Neil Apodaca on 11-20-2022 Platelets (Bld) [#/Vol] 180 10*3/uL 150-450 [facility] Serum or plasma albumin elizabeth urement (mass/volume)Ordered By: Neil Apodaca on 11-20-2022 Albumin [Mass/Vol] 3.6 g/dL 3.2-5.0 [facility] Serum or plasma albumin/glob ulin mass ratioOrdered By: Neil Apodaca on 11-20-2022 Albumin/Globulin [Mass ratio] 1.1 {ratio} 0.9-2.4 [facility] Serum or plasma calcium elizabeth urement (mass/volume)Ordered By: Neil Apodaca on 11-20-2022 Calcium [Mass/Vol] 8.9 mg/dL 8.5-10.1 [facility] Serum or plasma creatinine m easurement (mass/volume)Ordered By: Neil Apodaca on 11-20-2022 Creatinine [Mass/Vol] 0.75 mg/dL 0.55-1.02 [facility] Comment on above: The validity of the calculated GFR & GFRAA in patients over 70 years has not been determined. Clinical correlation is essential. Serum or plasma urea nitroge n measurement (mass/volume)Ordered By: Neil Apodaca on 11-20-2022 Urea nitrogen [Mass/Vol] 17 mg/dL 7-18 [facility] Thin prep Papanicolaou smear with manual screeningOrdered By: Neil Apodaca on 11-20-2022 Thin prep Papanicolaou smear with manual screening 27 U/L 15- [facility] Thin prep Papanicolaou smear with manual screening 7 5-15 [facility] Absolute lymphocyte countOrd ered By: Juan Diego Brand on 09-27-2022 Lymphocytes Auto (Unsp spec) [#/Vol] 0.52 10*3/uL 0.83-4.51 [facility] Basophil percentageOrdered B y: Juan Diego Brand on 09-27-2022 Basophils/100 WBC (Bld) 0.1 % 0-1 [facility] Bilirubin [Mass/Vol] 0.50 mg/dL 0.20-1.00 [facility] Comment on above: For patients on eltr ombopag therapy, use of Dimension [place] TBIL is not recommended. Chloride [Moles/Vol] 111 mmol/L 98-107 [facility] Eosinophils/100 WBC (Bld) 0.0 % 0-5 [facility] Glucose [Mass/Vol] 94 mg/dL 74-106 [facility] Neutrophils (Bld) [#/Vol] 6.4 10*3/uL 2.0-7.7 [facility] Neutrophils/100 WBC (Bld) 84.4 % 47-70 [facility] Potassium [Moles/Vol] 3.4 mmol/L 3.5-5.1 [facility] Protein [Mass/Vol] 5.8 g/dL 6.4-8.2 [facility] Sodium [Moles/Vol] 140 mmol/L 136-145 [facility] WBC (Bld) [#/Vol] 7.6 10*3/uL 4.4-11.0 [facility] Blood erythrocytes count (nu mber/volume)Ordered By: Juan Diego Brand on 09-27-2022 RBC (Bld) [#/Vol] 3.81 10*6/uL 4.2-5.4 [facility] Blood hemoglobin measurement (mass/volume)Ordered By: Juan Diego Brand on 09-27-2022 Hemoglobin (Bld) [Mass/Vol] 12.3 g/dL 12.0-15.0 [facility] Blood lymphocytes/100 leukoc ytesOrdered By: Juan Diego Brand on 09-27-2022 Lymphocytes/100 WBC (Bld) 6.8 % 19-41 [facility] Blood monocytes/100 leukocyt esOrdered By: Juan Diego Brand on 09-27-2022 Monocytes/100 WBC (Bld) 8.0 % 0-10 [facility] Blood platelet adequacy dete ction by light microscopyOrdered By: Juan Diego Brand on 09-27-2022 Platelets LM Ql (Bld) ADEQUATE ADEQ [facility] Blood platelet mean volumeOr dered By: Juan Diego Brand on 09-27-2022 Platelet mean volume (Bld) [Entitic vol] 11.1 fL 6.2-12.0 [facility] Determination of erythrocyte mean corpuscular volume (MCV)Ordered By: Juan Diego Brand on 09-27-2022 MCV (RBC) [Entitic vol] 98.7 fL 81-99 [facility] Hematocrit Auto (Bld) [Volum e fraction]Ordered By: Juan Diego Brand on 09-27-2022 Hematocrit (Bld) [Volume fraction] 37.6 % 37-47 [facility] Laboratory - Chemistry and C hemistry - challengeOrdered By: Juan Diego Brand on 09-27-2022 ALP [Catalytic activity/Vol] 52 U/L 45-117 [facility] ALT [Catalytic activity/Vol] 34 U/L 13-56 [facility] CO2 [Moles/Vol] 24.0 mmol/L 21.0-32.0 [facility] Globulin (S) [Mass/Vol] 3.7 g/dL 2.2-4.2 [facility] Urea nitrogen/Creatinine [Mass ratio] 22.8 mg/mg 10-20 [facility] - Hematology and Cell countsOrdered By: Juan Diego Brand on 09-27-2022 Erythrocyte distribution width (RBC) [Entitic vol] 50.0 fL 35.1-43.9 [facility] Erythrocyte distribution width (RBC) [Ratio] 13.6 % 11.6-14.6 [facility] Immature granulocytes/100 WBC (Bld) 0.700 % 0.0-0.9 [facility] Comment on above: IG% - Immature Granu locytes (promyelocytes, myelocytes and metamyelocytes) > 1% indicates that a LEFT SHIFT is Present. MCH (RBC) [Entitic mass] 32.3 pg 27.0-32.0 [facility] Nucleated RBC/100 WBC (Bld) [Ratio] 0 % 0-5 [facility] MCHC Auto (RBC) [Mass/Vol]Or dered By: Juan Diego Brand on 09-27-2022 MCHC (RBC) [Mass/Vol] 32.7 g/dL 32-36 [facility] No Panel InformationOrdered By: Juan Diego Brand on 09-27-2022 Estimated Creatinine Clearance Calc 43.74 ml/min [facility] Estimated GFR (MDRD) Amer 133 mL/min >60 [facility] Comment on above: GFR Calc Estimated GFR (MDRD) Non-Af Amer 110 mL/min >60 [facility] Comment on above: Non- GFR Calc Platelets bldOrdered By: Luis Brand on 09-27-2022 Platelets (Bld) [#/Vol] 152 10*3/uL 150-450 [facility] RBC morphologyOrdered By: Margaux Brand on 09-27-2022 RBC morphology finding Nom (Bld) NORM C+C NORMAL NORM C&C [facility] Serum or plasma albumin elizabeth urement (mass/volume)Ordered By: Juan Diego Brand on 09-27-2022 Albumin [Mass/Vol] 2.1 g/dL 3.2-5.0 [facility] Serum or plasma albumin/glob ulin mass ratioOrdered By: Juan Diego Brand on 09-27-2022 Albumin/Globulin [Mass ratio] 0.6 {ratio} 0.9-2.4 [facility] Serum or plasma calcium elizabeth urement (mass/volume)Ordered By: Juan Diego Brand on 09-27-2022 Calcium [Mass/Vol] 7.7 mg/dL 8.5-10.1 [facility] Serum or plasma creatinine m easurement (mass/volume)Ordered By: Juan Diego Brand on 09-27-2022 Creatinine [Mass/Vol] 0.57 mg/dL 0.55-1.02 [facility] Comment on above: The validity of the calculated GFR & GFRAA in patients over 70 years has not been determined. Clinical correlation is essential. Serum or plasma urea nitroge n measurement (mass/volume)Ordered By: Juan Diego Brand on 09-27-2022 Urea nitrogen [Mass/Vol] 13 mg/dL 7-18 [facility] Thin prep Papanicolaou smear with manual screeningOrdered By: Juan Diego Brand on 09-27-2022 Thin prep Papanicolaou smear with manual screening 43 U/L 15-37 [facility] Thin prep Papanicolaou smear with manual screening 5 5-15 [facility] No Panel InformationOrdered By: Heri Velasco on 09-26-2022 Thyroid Stimulating Hormone (TSH) 2.52 uIU/mL 0.358-3.74 [facility] Blood manual differential co mment interpretation (narrative result)Ordered By: Juan Diego Brand on 09-25-2022 Manual differential comment Cj (Bld) [Interp] SCANNED [facility] Comment on above: LYMPHOPENIA No Panel InformationOrdered By: Kofi Santiago on 09-25-2022 Hepatitis A IgM Antibody Negative Negative [facility] Hepatitis B Core IgM Antibody Negative Negative [facility] Hepatitis C Antibody (EIA) Non-Reactive Non Reactive [facility] Hepatitis C Antibody Comment Comment . [facility] Comment on above: Not infected with HC V unless early or acute infection issuspected (which may be delayed in an immunocompromisedindividual), or other evidence exists to indicate HCVinfection. Serum Mago Aguirre virus cap rnoak IgG antibody assay (units/volume)Ordered By: Kofi Santiago on 09-25-2022 EBV capsid IgG Qn (S) [arb'U]/mL 0.0-17.9 [facility] Comment on above: Negative <18.0 Equiv ocal 18.0 - 21.9 Positive >21.9 Serum Mago Aguirre virus cap ronak IgM antibody assay (units/volume)Ordered By: Kofi Santiago on 09-25-2022 EBV capsid IgM Qn (S) [arb'U]/mL 0.0-35.9 [facility] Comment on above: Negative <36.0 Equiv ocal 36.0 - 43.9 Positive >43.9 Serum Mago Aguirre virus nuc lear IgG antibody assay (units/volume)Ordered By: Kofi Santiago on 09-25-2022 EBV nuclear IgG Qn (S) 539.0 U/mL 0.0-17.9 [facility] Comment on above: Negative <18.0 Equiv ocal 18.0 - 21.9 Positive >21.9 Serum mitochondria antibody detectionOrdered By: Kofi Santiago on 09-25-2022 Mitochondria Ab Ql (S) <20.0 Units 0.0-20.0 [facility] Comment on above: Negative 0.0 - 20.0 Equivocal 20.1 - 24.9 Positive >24.9Mitochondrial (M2) Antibodies are found in 90-96% ofpatients with primary biliary cirrhosis.Performed at: [address] [id number] Director: Popeye Lew PhD, Phone: [phone] Serum or plasma actin IgG an tibody assay (units/volume)Ordered By: Kofi Santiago on 09-25-2022 Actin IgG Qn 20 Units 0-19 [facility] Comment on above: Negative 0 - 19 Weak positive 20 - 30 Moderate to strong positive >30 Actin Antibodies are found in 52-85% of patients with autoimmune hepatitis or chronic active hepatitis and in 22% of patients with primary biliary cirrhosis. Serum or plasma cytomegalovi mathew (CMV) IgM antibody assay (units/volume)Ordered By: Kofi Santigao on 09-25-2022 CMV IgM Qn < 30.0 AU/mL 0.0-29.9 [facility] Comment on above: Negative <30.0 Equiv ocal 30.0 - 34.9 Positive >34.9A positive result is generally indicative of acuteinfection, reactivation or persistent IgM production.Performed at: [employer] [id number] Director: Popeye Lew PhD, Phone: [phone] Serum or plasma hepatitis B virus surface antigen detection by immunoassayOrdered By: Kofi Santiago on 09-25-2022 HBV surface Ag IA Ql Negative Negative [facility] Thin prep Papanicolaou smear with manual screeningOrdered By: Kofi Santiago on 09-25-2022 Thin prep Papanicolaou smear with manual screening Comment . [facility] Comment on above: EBV Interpretation C sonjaKey: Antibody Present + Antibody Absent -Interpretation VCA-IgM VCA-IgG EBNA-IgGNo previous infection/ - - -SusceptiblePrimary infection (new + + -or recent)Past Infection +or- + +See comment below* + - -*Results indicate infection with EBV at some time however cannot predict the timing of the infection since antibodies to EBNA usually develop after primary infection or, alternatively, approximately 5-10% of patients with EBV never develop antibodies to EBNA. Thin prep Papanicolaou smear with manual screening 73 ug/dL 80-158 [facility] Comment on above: Detection Limit = 5P erformed at: [employer] [address] [id number] Director: Popeye Lew PhD, Phone: [phone] at: [facility] [employer] [id number] Director: Oswaldo Ferraro MD, Phone: [phone] Absolute lymphocyte countOrd ered By: Raphael Trujillo on 09-24-2022 Lymphocytes Auto (Unsp spec) [#/Vol] 0.20 10*3/uL 0.83-4.51 [facility] Basophil percentageOrdered B y: Raphael Trujillo on 09-24-2022 Basophil percentage 0-5 SEEN /hpf 0-5 [facility] Basophils/100 WBC (Bld) 0.2 % 0-1 [facility] Bilirubin [Mass/Vol] 0.40 mg/dL 0.20-1.00 [facility] Comment on above: For patients on eltr ombopag therapy, use of Dimension [place] TBIL is not recommended. Chloride [Moles/Vol] 107 mmol/L 98-107 [facility] Eosinophils/100 WBC (Bld) 0.0 % 0-5 [facility] Glucose [Mass/Vol] 125 mg/dL 74-106 [facility] Comment on above: Fasting Glucose resu lt from 100 to 125 mg/dL suggests IMPAIRED HOMEOSTASIS per A.D.A. criteria. Neutrophils (Bld) [#/Vol] 5.8 10*3/uL 2.0-7.7 [facility] Neutrophils/100 WBC (Bld) 92.0 % 47-70 [facility] Potassium [Moles/Vol] 3.8 mmol/L 3.5-5.1 [facility] Protein [Mass/Vol] 7.2 g/dL 6.4-8.2 [facility] Sodium [Moles/Vol] 138 mmol/L 136-145 [facility] WBC (Bld) [#/Vol] 6.3 10*3/uL 4.4-11.0 [facility] Bilirubin Test strip Ql (U)O rdered By: Raphael Trujillo on 09-24-2022 Bilirubin Ql (U) Negative Negative [facility] Blood erythrocytes count (nu mber/volume)Ordered By: Raphael Trujillo on 09-24-2022 RBC (Bld) [#/Vol] 4.20 10*6/uL 4.2-5.4 [facility] Blood hemoglobin measurement (mass/volume)Ordered By: Raphael Trujillo on 09-24-2022 Hemoglobin (Bld) [Mass/Vol] 14.2 g/dL 12.0-15.0 [facility] Blood lymphocytes/100 leukoc ytesOrdered By: Raphael Trujillo on 09-24-2022 Lymphocytes/100 WBC (Bld) 3.2 % 19-41 [facility] Blood manual differential co mment interpretation (narrative result)Ordered By: Rahpael Trujillo on 09-24-2022 Manual differential comment Cj (Bld) [Interp] SCANNED [facility] Blood monocytes/100 leukocyt esOrdered By: Raphael Trujillo on 09-24-2022 Monocytes/100 WBC (Bld) 4.4 % 0-10 [facility] Blood platelet mean volumeOr dered By: Raphael Trujillo on 09-24-2022 Platelet mean volume (Bld) [Entitic vol] 9.9 fL 6.2-12.0 [facility] Determination of erythrocyte mean corpuscular volume (MCV)Ordered By: Raphael Trujillo on 09-24-2022 MCV (RBC) [Entitic vol] 97.4 fL 81-99 [facility] Direct bilirubinOrdered By: Raphael Trujillo on 09-24-2022 Bilirubin.direct [Mass/Vol] 0.16 mg/dL 0.00-0.30 [facility] Hematocrit Auto (Bld) [Volum e fraction]Ordered By: Raphael Trujillo on 09-24-2022 Hematocrit (Bld) [Volume fraction] 40.9 % 37-47 [facility] Ketones Test strip Ql (U)Ord ered By: Raphael Trujillo on 09-24-2022 Ketones Ql (U) 150 mg/dl Negative [facility] Comment on above: CRITICAL VALUE *HCRI TICAL VALUE VERIFIED. CALLED TO JOEJIK95/04/23 Lit Bennett.RESULTS READ BACK BY SAME . Laboratory - Chemistry and C hemistry - challengeOrdered By: Raphael Trujillo on 09-24-2022 ALP [Catalytic activity/Vol] 69 U/L 45-117 [facility] ALT [Catalytic activity/Vol] 26 U/L 13-56 [facility] CO2 [Moles/Vol] 24.0 mmol/L 21.0-32.0 [facility] Globulin (S) [Mass/Vol] 3.4 g/dL 2.2-4.2 [facility] Lipase [Catalytic activity/Vol] 27 U/L 13-75 [facility] Comment on above: Please note:LIPASE r evised reference range effective 22. New Lipase methodology. Expected to produce lower values than the previous assay method. NEW Reference Range: 13 - 75 U/L Urea nitrogen/Creatinine [Mass ratio] 22.3 mg/mg 10-20 [facility] Laboratory - Hematology and Cell countsOrdered By: Raphael Trujillo on 09-24-2022 Erythrocyte distribution width (RBC) [Entitic vol] 48.1 fL 35.1-43.9 [facility] Erythrocyte distribution width (RBC) [Ratio] 13.4 % 11.6-14.6 [facility] Immature granulocytes/100 WBC (Bld) 0.200 % 0.0-0.9 [facility] Comment on above: IG% - Immature Granu locytes (promyelocytes, myelocytes and metamyelocytes) > 1% indicates that a LEFT SHIFT is Present. MCH (RBC) [Entitic mass] 33.8 pg 27.0-32.0 [facility] Nucleated RBC/100 WBC (Bld) [Ratio] 0 % 0-5 [facility] MCHC Auto (RBC) [Mass/Vol]Or dered By: Raphael Trujillo on 09-24-2022 MCHC (RBC) [Mass/Vol] 34.7 g/dL 32-36 [facility] Mucus LM Ql (Urine sed)Order ed By: Raphael Trujillo on 09-24-2022 Mucus Ql (Urine sed) 1+ /hpf [facility] Nitrite Test strip Ql (U)Ord ered By: Raphael Trujillo on 09-24-2022 Nitrite Ql (U) Negative Negative [facility] No Panel InformationOrdered By: Raphael Trujillo on 09-24-2022 Estimated Creatinine Clearance Calc 43.74 ml/min [facility] Estimated GFR (MDRD) Amer 110 mL/min >60 [facility] Comment on above: GFR Calc Estimated GFR (MDRD) Non-Af Amer 91 mL/min >60 [facility] Comment on above: Non- GFR Calc Troponin I High Sensitivity 17 pg/mL 3.0-54.0 [facility] Comment on above: Please Note: New Nataly t Units and Gender Specific Reference Ranges. For more information see Policy Stat Procedure [place] High Sensitivity Troponin (TNIH) and attachments. Platelets bldOrdered By: Mary Ellen Trujillo on 09-24-2022 Platelets (Bld) [#/Vol] 169 10*3/uL 150-450 [facility] Protein Test strip Ql (U)Ord ered By: Raphael Trujillo on 09-24-2022 Protein Ql (U) 15 mg/dl Negative [facility] Serum or plasma albumin elizabeth urement (mass/volume)Ordered By: Raphael Trujillo on 09-24-2022 Albumin [Mass/Vol] 3.8 g/dL 3.2-5.0 [facility] Serum or plasma calcium elizabeth urement (mass/volume)Ordered By: Raphael Trujillo on 09-24-2022 Calcium [Mass/Vol] 8.7 mg/dL 8.5-10.1 [facility] Serum or plasma creatinine m easurement (mass/volume)Ordered By: Raphael Trujillo on 09-24-2022 Creatinine [Mass/Vol] 0.67 mg/dL 0.55-1.02 [facility] Comment on above: The validity of the calculated GFR & GFRAA in patients over 70 years has not been determined. Clinical correlation is essential. Serum or plasma urea nitroge n measurement (mass/volume)Ordered By: Raphael Trujillo on 09-24-2022 Urea nitrogen [Mass/Vol] 15 mg/dL 7-18 [facility] Squamous epithelial cells de tection in urine sediment by light microscopyOrdered By: Raphael Trujillo on 09-24-2022 Epithelial cells.squamous LM Ql (Urine sed) 0 SEEN /hpf 5-10 [facility] Thin prep Papanicolaou smear with manual screeningOrdered By: Raphael Trujillo on 09-24-2022 Thin prep Papanicolaou smear with manual screening 30 U/L 15-37 [facility] Thin prep Papanicolaou smear with manual screening 7 5-15 [facility] Urine blood detectionOrdered By: Raphael Trujillo on 09-24-2022 RBC Ql (U) Negative Negative [facility] RBC Ql (U) 0 SEEN /hpf 0-5 [facility] Urine clarityOrdered By: Mary Ellen Trujillo on 09-24-2022 Clarity (U) Clear Clear [facility] Urine color determinationOrd ered By: Raphael Trujillo on 09-24-2022 Color (U) Yellow Yellow [facility] Urine glucose detectionOrder ed By: Raphael Trujillo on 09-24-2022 Glucose Ql (U) Normal mg/dl Normal [facility] Urine leukocyte esterase det ection by dipstickOrdered By: Raphael Trujillo on 09-24-2022 Leukocyte esterase Test strip Ql (U) 25 /ul Negative [facility] Urine pHOrdered By: Raphael hidalgo on 09-24-2022 pH (U) 6.0 [pH] 5.0 - 8.0 [facility] Urine sediment bacteria coun t by microscopy (number/high power field)Ordered By: Raphael Trujillo on 09-24-2022 Bacteria LM.HPF (Urine sed) [#/Area] 0 /[HPF] None Seen [facility] Urine specific gravity measu rementOrdered By: Raphael Trujillo on 09-24-2022 Specific gravity (U) [Rel density] 1.015 1.002-1.030 [facility] Urobilinogen Auto test strip Ql (U)Ordered By: Raphael Trujillo on 09-24-2022 Urobilinogen Ql (U) Normal mg/dl Normal [facility] Absolute lymphocyte countOrd ered By: Neil Apodaca on 05-15-2022 Lymphocytes Auto (Unsp spec) [#/Vol] 0.62 10*3/uL 0.83-4.51 [facility] Basophil percentageOrdered B y: Neil Apodaca on 05-15-2022 Basophils/100 WBC (Bld) 0.4 % 0-1 [facility] Bilirubin [Mass/Vol] 0.30 mg/dL 0.20-1.00 [facility] Comment on above: For patients on eltr ombopag therapy, use of Dimension [place] TBIL is not recommended. Chloride [Moles/Vol] 108 mmol/L 98-107 [facility] Eosinophils/100 WBC (Bld) 1.4 % 0-5 [facility] Glucose [Mass/Vol] 85 mg/dL 74-106 [facility] Neutrophils (Bld) [#/Vol] 1.8 10*3/uL 2.0-7.7 [facility] Neutrophils/100 WBC (Bld) 64.5 % 47-70 [facility] Potassium [Moles/Vol] 4.2 mmol/L 3.5-5.1 [facility] Protein [Mass/Vol] 6.8 g/dL 6.4-8.2 [facility] Sodium [Moles/Vol] 142 mmol/L 136-145 [facility] WBC (Bld) [#/Vol] 2.8 10*3/uL 4.4-11.0 [facility] Blood erythrocytes count (nu mber/volume)Ordered By: Neil Apodaca on 05-15-2022 RBC (Bld) [#/Vol] 4.07 10*6/uL 4.2-5.4 [facility] Blood hemoglobin measurement (mass/volume)Ordered By: Neil Apodaca on 05-15-2022 Hemoglobin (Bld) [Mass/Vol] 13.1 g/dL 12.0-15.0 [facility] Blood lymphocytes/100 leukoc ytesOrdered By: Neil Apodaca on 05-15-2022 Lymphocytes/100 WBC (Bld) 22.0 % 19-41 [facility] Blood monocytes/100 leukocyt esOrdered By: Neil Apodaca on 05-15-2022 Monocytes/100 WBC (Bld) 11.0 % 0-10 [facility] Blood platelet mean volumeOr dered By: Neil Apodaca on 05-15-2022 Platelet mean volume (Bld) [Entitic vol] 10.5 fL 6.2-12.0 [facility] Determination of erythrocyte mean corpuscular volume (MCV)Ordered By: Neil Apodaca on 05-15-2022 MCV (RBC) [Entitic vol] 97.1 fL 81-99 [facility] Hematocrit Auto (Bld) [Volum e fraction]Ordered By: Neil Apodaca 05-15-2022 Hematocrit (Bld) [Volume fraction] 39.5 % 37-47 [facility] Laboratory - Chemistry and C hemistry - challengeOrdered By: Neil Apodaca 05-15-2022 ALP [Catalytic activity/Vol] 54 U/L 45-117 [facility] ALT [Catalytic activity/Vol] 28 U/L 13-56 [facility] CO2 [Moles/Vol] 25.0 mmol/L 21.0-32.0 [facility] Globulin (S) [Mass/Vol] 3.2 g/dL 2.2-4.2 [facility] Urea nitrogen/Creatinine [Mass ratio] 25.8 mg/mg 10-20 [facility] Laboratory - Hematology and Cell countsOrdered By: Neil Apodaca on 05-15-2022 Erythrocyte distribution width (RBC) [Entitic vol] 45.5 fL 35.1-43.9 [facility] Erythrocyte distribution width (RBC) [Ratio] 12.7 % 11.6-14.6 [facility] Immature granulocytes/100 WBC (Bld) 0.700 % 0.0-0.9 [facility] Comment on above: IG% - Immature Granu locytes (promyelocytes, myelocytes and metamyelocytes) > 1% indicates that a LEFT SHIFT is Present. MCH (RBC) [Entitic mass] 32.2 pg 27.0-32.0 [facility] Nucleated RBC/100 WBC (Bld) [Ratio] 0 % 0-5 [facility] MCHC Auto (RBC) [Mass/Vol]Or dered By: Neil Apodaca on 05-15-2022 MCHC (RBC) [Mass/Vol] 33.2 g/dL 32-36 [facility] No Panel InformationOrdered By: Neil Apodaca on 05-15-2022 Estimated GFR (MDRD) Amer 112 mL/min >60 [facility] Comment on above: GFR Calc Estimated GFR (MDRD) Non-Af Amer 93 mL/min >60 [facility] Comment on above: Non- GFR Calc Thyroid Stimulating Hormone (TSH) 1.10 uIU/mL 0.358-3.74 [facility] Vitamin D 25-Hydroxy 54.4 ng/mL [facility] Comment on above: Vitamin D 25(OH) Sta tus Range Deficiency <20 ng/mL (50nmol/L) Insufficiency 20 - 30 ng/mL (50 - 75 nmol/L) Sufficiency 30 - 100 ng/mL (75 - 250 nmol/L) Toxicity >100 ng/mL (>250 nmol/L) Platelets bldOrdered By: Neil Apodaca on 05-15-2022 Platelets (Bld) [#/Vol] 160 10*3/uL 150-450 [facility] Serum or plasma albumin elizabeth urement (mass/volume)Ordered By: Neil Apodaca on 05-15-2022 Albumin [Mass/Vol] 3.6 g/dL 3.2-5.0 [facility] Serum or plasma albumin/glob ulin mass ratioOrdered By: Neil Apodaca on 05-15-2022 Albumin/Globulin [Mass ratio] 1.1 {ratio} 0.9-2.4 [facility] Serum or plasma calcium elizabeth urement (mass/volume)Ordered By: Neil Apodaca on 05-15-2022 Calcium [Mass/Vol] 9.1 mg/dL 8.5-10.1 [facility] Serum or plasma creatinine m easurement (mass/volume)Ordered By: Neil Paulie on 05-15-2022 Creatinine [Mass/Vol] 0.66 mg/dL 0.55-1.02 [facility] Comment on above: The validity of the calculated GFR & GFRAA in patients over 70 years has not been determined. Clinical correlation is essential. Serum or plasma urea nitroge n measurement (mass/volume)Ordered By: Neil Apodaca on 05-15-2022 Urea nitrogen [Mass/Vol] 17 mg/dL 7-18 [facility] Thin prep Papanicolaou smear with manual screeningOrdered By: [facility]22 Thin prep Papanicolaou smear with manual screening 33 U/L 15-37 [facility] Thin prep Papanicolaou smear with manual screening 9 5-15 [facility] Absolute lymphocyte counton 11-15-2021 Lymphocytes Auto (Unsp spec) [#/Vol] 0.76 10*3/uL 0.83-4.51 [facility] Work Phone: Basophil percentageon 2021 Basophils/100 WBC (Bld) 0.3 % 0-1 [facility] Work Phone: Bilirubin [Mass/Vol] 0.20 mg/dL 0.20-1.00 [facility] Work Phone: Comment on above: For patients on eltr ombopag therapy, use of Dimension [place] TBIL is not recommended. Chloride [Moles/Vol] 108 mmol/L 98-107 [facility] Work Phone: Eosinophils/100 WBC (Bld) 1.9 % 0-5 [facility] Work Phone: [phone] Glucose [Mass/Vol] 107 mg/dL 74-106 [facility] Work Phone: Comment on above: Fasting Glucose resu lt from 100 to 125 mg/dL suggests IMPAIRED HOMEOSTASIS per A.D.A. criteria. Neutrophils (Bld) [#/Vol] 2.6 10*3/uL 2.0-7.7 [facility] Work Phone: [phone] Neutrophils/100 WBC (Bld) 67.3 % 47-70 [facility] Work Phone: [phone] Potassium [Moles/Vol] 4.4 mmol/L 3.5-5.1 [facility] Work Phone: [phone] Comment on above: Slight Hemolysis, Re sult may be falsely increased. Protein [Mass/Vol] 6.7 g/dL 6.4-8.2 [facility] Work Phone: [phone] Sodium [Moles/Vol] 141 mmol/L 136-145 [facility] Work Phone: [phone] WBC (Bld) [#/Vol] 3.8 10*3/uL 4.4-11.0 [facility] Work Phone: Blood erythrocytes count (nu mber/volume)on 11-15-2021 RBC (Bld) [#/Vol] 3.94 10*6/uL 4.2-5.4 [facility] Work Phone: [phone] Blood hemoglobin measurement (mass/volume)on 11-15-2021 Hemoglobin (Bld) [Mass/Vol] 12.6 g/dL 12.0-15.0 [facility] Work Phone: Blood lymphocytes/100 leukoc yteson 11-15-2021 Lymphocytes/100 WBC (Bld) 20.1 % 19-41 [facility] Work Phone: Blood monocytes/100 leukocyt eson 11-15-2021 Monocytes/100 WBC (Bld) 10.1 % 0-10 [facility] Work Phone: [phone] Blood platelet mean volumeon 11-15-2021 Platelet mean volume (Bld) [Entitic vol] 10.6 fL 6.2-12.0 [facility] Work Phone: [phone] Determination of erythrocyte mean corpuscular volume (MCV)on 11-15-2021 MCV (RBC) [Entitic vol] 98.2 fL 81-99 [facility] Work Phone: [phone] Hematocrit Auto (Bld) [Volum e fraction]on 11-15-2021 Hematocrit (Bld) [Volume fraction] 38.7 % 37-47 [facility] Work Phone: [phone] Laboratory - Chemistry and C hemistry - challengeon 11-15-2021 ALP [Catalytic activity/Vol] 65 U/L 45-117 [facility] Work Phone: [phone] ALT [Catalytic activity/Vol] 26 U/L 13-56 [facility] Work Phone: [phone] CO2 [Moles/Vol] 27.0 mmol/L 21.0-32.0 [facility] Work Phone: [phone] Globulin (S) [Mass/Vol] 3.3 g/dL 2.2-4.2 [facility] Work Phone: [phone] Urea nitrogen/Creatinine [Mass ratio] 27.1 mg/mg 10-20 [facility] Work Phone: [phone] Laboratory - Hematology and Cell countson 11-15-2021 Erythrocyte distribution width (RBC) [Entitic vol] 46.9 fL 35.1-43.9 [facility] Work Phone: [phone] Erythrocyte distribution width (RBC) [Ratio] 13.1 % 11.6-14.6 [facility] Work Phone: [phone] Immature granulocytes/100 WBC (Bld) 0.300 % 0.0-0.9 [facility] Work Phone: [phone] Comment on above: IG% - Immature Granu locytes (promyelocytes, myelocytes and metamyelocytes) > 1% indicates that a LEFT SHIFT is Present. MCH (RBC) [Entitic mass] 32.0 pg 27.0-32.0 [facility] Work Phone: Nucleated RBC/100 WBC (Bld) [Ratio] 0 % 0-5 [facility] Work Phone: [phone] MCHC Auto (RBC) [Mass/Vol]on 11-15-2021 MCHC (RBC) [Mass/Vol] 32.6 g/dL 32-36 [facility] Work Phone: No Panel Informationon 11-15 Estimated GFR (MDRD) Amer 99 mL/min >60 [facility] Work Phone: Comment on above: GFR Calc Estimated GFR (MDRD) Non-Af Amer 81 mL/min >60 [facility] Work Phone: [phone] Comment on above: Non- GFR Calc Thyroid Stimulating Hormone (TSH) 1.44 uIU/mL 0.358-3.74 [facility] Work Phone: [phone] Vitamin D 25-Hydroxy 50.0 ng/mL [facility] Work Phone: [phone] Comment on above: Vitamin D 25(OH) Sta tus Range Deficiency <20 ng/mL (50nmol/L) Insufficiency 20 - 30 ng/mL (50 - 75 nmol/L) Sufficiency 30 - 100 ng/mL (75 - 250 nmol/L) Toxicity >100 ng/mL (>250 nmol/L) Platelets bldon 11-15-2021 Platelets (Bld) [#/Vol] 154 10*3/uL 150-450 [facility] Work Phone: [phone] Serum or plasma albumin elizabeth urement (mass/volume)on 11-15-2021 Albumin [Mass/Vol] 3.4 g/dL 3.2-5.0 [facility] Work Phone: [phone] Serum or plasma albumin/glob ulin mass ratioon 11-15-2021 Albumin/Globulin [Mass ratio] 1.0 {ratio} 0.9-2.4 [facility] Work Phone: [phone] Serum or plasma calcium elizabeth urement (mass/volume)on 11-15-2021 Calcium [Mass/Vol] 8.6 mg/dL 8.5-10.1 [facility] Work Phone: Serum or plasma creatinine m easurement (mass/volume)on 11-15-2021 Creatinine [Mass/Vol] 0.74 mg/dL 0.55-1.02 [facility] Work Phone: Comment on above: The validity of the calculated GFR & GFRAA in patients over 70 years has not been determined. Clinical correlation is essential. Serum or plasma urea nitroge n measurement (mass/volume)on 11-15-2021 Urea nitrogen [Mass/Vol] 20 mg/dL 7-18 [facility] Work Phone: Thin prep Papanicolaou smear with manual screeningon 11-15-2021 Thin prep Papanicolaou smear with manual screening 37 U/L 15-37 [facility] Work Phone: Comment on above: Slight Hemolysis, Re sult may be falsely increased. Thin prep Papanicolaou smear with manual screening 6 5-15 [facility] Work Phone: Absolute lymphocyte counton 10-16-2021 Lymphocytes Auto (Unsp spec) [#/Vol] 0.83 10*3/uL 0.83-4.51 [facility] Work Phone: Basophil percentageon 2021 Basophils/100 WBC (Bld) 0.3 % 0-1 [facility] Work Phone: Chloride [Moles/Vol] 108 mmol/L 98-107 [facility] Work Phone: [phone] Eosinophils/100 WBC (Bld) 1.8 % 0-5 [facility] Work Phone: Glucose [Mass/Vol] 97 mg/dL 74-106 [facility] Work Phone: Neutrophils (Bld) [#/Vol] 2.0 10*3/uL 2.0-7.7 [facility] Work Phone: Neutrophils/100 WBC (Bld) 61.2 % 47-70 [facility] Work Phone: Potassium [Moles/Vol] 4.1 mmol/L 3.5-5.1 [facility] Work Phone: [phone] Sodium [Moles/Vol] 140 mmol/L 136-145 [facility] Work Phone: [phone] WBC (Bld) [#/Vol] 3.3 10*3/uL 4.4-11.0 [facility] Work Phone: [phone] Blood erythrocytes count (nu mber/volume)on 10-16-2021 RBC (Bld) [#/Vol] 3.97 10*6/uL 4.2-5.4 [facility]: [phone] Blood hemoglobin measurement (mass/volume)on 10-16-2021 Hemoglobin (Bld) [Mass/Vol] 12.9 g/dL 12.0-15.0 [facility] Work Phone: [phone] Blood lymphocytes/100 leukoc yteson 10-16-2021 Lymphocytes/100 WBC (Bld) 25.2 % 19-41 [facility] Work Phone: [phone] Blood monocytes/100 leukocyt eson 10-16-2021 Monocytes/100 WBC (Bld) 11.2 % 0-10 [facility] Work Phone: [phone] Blood platelet mean volumeon 10-16-2021 Platelet mean volume (Bld) [Entitic vol] 10.8 fL 6.2-12.0 [facility] Work Phone: [phone] Determination of erythrocyte mean corpuscular volume (MCV)on 10-16-2021 MCV (RBC) [Entitic vol] 98.2 fL 81-99 [facility] Work Phone: Hematocrit Auto (Bld) [Volum e fraction]on 10-16-2021 Hematocrit (Bld) [Volume fraction] 39.0 % 37-47 [facility] Work Phone: Laboratory - Chemistry and C hemistry - challengeon 10-16-2021 CO2 [Moles/Vol] 27.0 mmol/L 21.0-32.0 [facility] Work Phone: [phone] Urea nitrogen/Creatinine [Mass ratio] 30.0 mg/mg 10-20 [facility] Work Phone: [phone] Laboratory - Hematology and Cell countson 10-16-2021 Erythrocyte distribution width (RBC) [Entitic vol] 47.5 fL 35.1-43.9 [facility] Work Phone: [phone] Erythrocyte distribution width (RBC) [Ratio] 13.2 % 11.6-14.6 [facility] Work Phone: [phone] Immature granulocytes/100 WBC (Bld) 0.300 % 0.0-0.9 [facility] Work Phone: [phone] Comment on above: IG% - Immature Granu locytes (promyelocytes, myelocytes and metamyelocytes) > 1% indicates that a LEFT SHIFT is Present. MCH (RBC) [Entitic mass] 32.5 pg 27.0-32.0 [facility] Work Phone: [phone] Nucleated RBC/100 WBC (Bld) [Ratio] 0 % 0-5 [facility] Work Phone: [phone] MCHC Auto (RBC) [Mass/Vol]on 10-16-2021 MCHC (RBC) [Mass/Vol] 33.1 g/dL 32-36 [facility] Work Phone: [phone] Panel Informationon 10-16 Estimated GFR (MDRD) Amer 118 mL/min >60 [facility] Work Phone: [phone] Comment on above: GFR Calc Estimated GFR (MDRD) Non-Af Amer 97 mL/min >60 [facility] Work Phone: [phone] Comment on above: Non- GFR Calc Platelets bldon 10-16-2021 Platelets (Bld) [#/Vol] 156 10*3/uL 150-450 [facility] Work Phone: [phone] Serum or plasma calcium elizabeth urement (mass/volume)on 10-16-2021 Calcium [Mass/Vol] 8.9 mg/dL 8.5-10.1 [facility] Work Phone: Serum or plasma creatinine m easurement (mass/volume)on 10-16-2021 Creatinine [Mass/Vol] 0.63 mg/dL 0.55-1.02 [facility] Work Phone: Comment on above: The validity of the calculated GFR & GFRAA in patients over 70 years has not been determined. Clinical correlation is essential. Serum or plasma urea nitroge n measurement (mass/volume)on 10-16-2021 Urea nitrogen [Mass/Vol] 19 mg/dL 7-18 [facility] Work Phone: Thin prep Papanicolaou smear with manual screeningon 10-16-2021 Thin prep Papanicolaou smear with manual screening 5 5-15 [facility] Work Phone: No Panel Informationon 09-13 POC SARS CoV-2 Antigen Negative [facility] Work Phone: Vital Signs Date Time Vital Sign Value Performing Clinician Faci lity 09-29-2024 10:41-0400 Body height 165.[address] Neil Apodaca MD Work Phone: [facility] 09-29-2024 10:41-0400 Body mass index (BMI) [Ratio] 22.5 kg/m2 Dr. Neil Apodaca MD Work Phone: [facility] 09-29-2024 10:41-0400 Body weight 61.[address] Neil Apodaca MD Work Phone: [facility] 09-07-2024 11:23-0400 Body height 165.[address] Neil Apodaca MD Work Phone: [facility] 09-07-2024 11:23-0400 Body mass index (BMI) [Ratio] 22.3 kg/m2 Dr. Neil Apodaca MD Work Phone: [facility] 09-07-2024 11:23-0400 Body weight 60.[address] Neil Apodaca MD Work Phone: [facility] 09-07-2024 11:23-0400 Diastolic blood pressure 75 mm[Hg] Dr. Neil Apodaca MD Work Phone: 4(370)328-288977 [place] [address] 09-07-2024 11:23-0400 Heart rate 65 /min Dr. Neil Apodaca MD Work Phone: 6(822)389-688510 [place] [address] 09-07-2024 11:23-0400 Respiratory rate 16 /min Dr. Neil Apodaca MD Work Phone: 4(158)081-616610 [place] [address] 09-07-2024 11:23-0400 Systolic blood pressure 116 mm[Hg] Dr. Neil Apodaca MD Work Phone: 7(946)566-007210 [place] [address] 07-21-2024 12:40-0400 Body mass index (BMI) [Ratio] 23.4 kg/m2 Dr. Neil Apodaca MD Work Phone: 7(906)509-872810 [place] [address] 07-21-2024 12:40-0400 Body weight 63.[address] Neil Apodaca MD Work Phone: 5(780)006-374510 [place] [address] 07-21-2024 12:40-0400 Diastolic blood pressure 72 mm[Hg] Dr. Neil Apodaca MD Work Phone: 8(144)693-817610 [place] [address] 07-21-2024 12:40-0400 Heart rate 54 /min Dr. Neil Apodaca MD Work Phone: 9(958)774-863110 [place] [address] 07-21-2024 12:40-0400 Respiratory rate 14 /min Dr. Neil Apodaca MD Work Phone: 9(254)205-141910 [place] [address] 07-21-2024 12:40-0400 SaO2% (BldA) [Mass fraction] 98 % Dr. Neil Apodaca MD Work Phone: 0(966)356-691010 [place] [address] 07-21-2024 12:40-0400 Systolic blood pressure 111 mm[Hg] Dr. Neil Apodaca MD Work Phone: 8(224)412-091710 [place] [address] 06-15-2024 15:02-0400 Body height 166.[address] Neil Apodaca MD Work Phone: 8(158)505-292710 [place] [address] 06-09-2023 14:23-0400 Body height 165.[address] Neil Apodaca Work Phone: 9(394)107-530910 [place] [address] 06-09-2023 14:23-0400 Body mass index (BMI) [Ratio] 24.3 kg/m2 Dr. Neil Apodaca Work Phone: 6(985)751-196077 [place] [address] 06-09-2023 14:23-0400 Body weight 66.[address] Neil Apodaca Work Phone: 8(206)025-411077 [place] [address] 06-09-2023 14:23-0400 Diastolic blood pressure 65 mm[Hg] Dr. Neil Apodaca Work Phone: 5(646)963-325910 [place] [address] 06-09-2023 14:23-0400 Heart rate 51 /min Dr. Neil Apodaca Work Phone: 2(110)303-853710 [place] [address] 06-09-2023 14:23-0400 Respiratory rate 18 /min Dr. Neil Apodaca Work Phone: 7(799)419-512910 [place] [address] 06-09-2023 14:23-0400 SaO2% (BldA) [Mass fraction] 98 % Dr. Neil Apodaca Work Phone: 4(391)255-153977 [place] [address] 06-09-2023 14:23-0400 Systolic blood pressure 108 mm[Hg] Dr. Neil Apodaca Work Phone: 7(167)421-165410 [place] [address] 09-28-2022 14:00-0400 Body temperature 98.4 [degF] Dr. Neil Apodaca Work Phone: 5(724)477-780777 [place] [address] 09-28-2022 14:00-0400 Diastolic blood pressure 62 mm[Hg] Dr. Neil Apodaca Work Phone: 0(856)973-620677 [place] [address] 09-28-2022 14:00-0400 Heart rate 56 /min Dr. Neil Apodaca Work Phone: 5(306)189-619577 [place] [address] 09-28-2022 14:00-0400 Respiratory rate 18 /min Dr. Neil Apodaca Work Phone: 1(539)651-632077 [place] [address] 09-28-2022 14:00-0400 SaO2% (BldA) [Mass fraction] 98 % Dr. Neil Apodaca Work Phone: 7(803)989-001077 [place] [address] 09-28-2022 14:00-0400 Systolic blood pressure 108 mm[Hg] Dr. Neil Apodaca Work Phone: [facility] 09-27-2022 13:27-0400 Body height 165.[address] Neil Apodaca Work Phone: [facility] 09-27-2022 13:27-0400 Body weight 64.[address] Neil Apodaca Work Phone: [facility] 09-27-2022 10:00-0400 Inhaled oxygen flow rate 2 L/min Dr. Neil Apodaca Work Phone: [facility] 09-26-2022 09:03-0400 Body mass index (BMI) [Ratio] 23.5 kg/m2 Dr. Neil Apodaca Work Phone: [facility] 09-24-2022 21:20-0400 Body temperature 97.6 [degF] Dr. Neil Apodaca Work Phone: [facility] 09-24-2022 21:20-0400 Diastolic blood pressure 89 mm[Hg] Dr. Neil Apodaca Work Phone: [facility] 09-24-2022 21:20-0400 Heart rate 84 /min Dr. Neil Apodaca Work Phone: [facility] 09-24-2022 21:20-0400 Respiratory rate 18 /min Dr. Neil Apodaca Work Phone: [facility] 09-24-2022 21:20-0400 SaO2% (BldA) [Mass fraction] 99 % Dr. Neil Apodaca Work Phone: [facility] 09-24-2022 21:20-0400 Systolic blood pressure 122 mm[Hg] Dr. Neil Apodaca Work Phone: [facility] 09-24-2022 14:21-0400 Body height 165.[address] Neil Apodaca Work Phone: [facility] 09-24-2022 14:21-0400 Body mass index (BMI) [Ratio] 23.4 kg/m2 Dr. Neil Apodaca Work Phone: [facility] 09-24-2022 14:21-0400 Body weight 63.[address] Neil Apodaca Work Phone: [facility] 04-03-2022 13:44-0500 Body height 167.[address] Neil Apdoaca Work Phone: [facility] 04-03-2022 13:44-0500 Body mass index (BMI) [Ratio] 23.6 kg/m2 Dr. Neil Apodaca Work Phone: [facility] 04-03-2022 13:44-0500 Body weight 66.[address] Neil Apodaca Work Phone: 6(322)647-083877 [place] [address] 04-03-2022 13:44-0500 Diastolic blood pressure 64 mm[Hg] Dr. Neil Apodaca Work Phone: 9(675)233-834177 [place] [address] 04-03-2022 13:44-0500 Heart rate 60 /min Dr. Neil Apodaca Work Phone: 2(915)848-887577 [place] [address] 04-03-2022 13:44-0500 Respiratory rate 16 /min Dr. Neil Apodaca Work Phone: 2(922)866-675477 [place] [address] 04-03-2022 13:44-0500 Systolic blood pressure 110 mm[Hg] Dr. Neil Apodaca Work Phone: [facility] 09-13-2021 14:45-0400 Body height 167.[address] Neil Apodaca Work Phone: [facility] Work Phone: 09-13-2021 14:45-0400 Body mass index (BMI) [Ratio] 23.6 kg/m2 Dr. Neil Apodaca Work Phone: [facility] Work Phone: 09-13-2021 14:45-0400 Body temperature 97.6 [degF] Dr. Neil Apodaca Work Phone: [facility] Work Phone: 09-13-2021 14:45-0400 Body weight 66.[address] Neil Apodaca Work Phone: [facility] Work Phone: 09-13-2021 14:45-0400 Diastolic blood pressure 58 mm[Hg] Dr. Neil Apodaca Work Phone: [facility] Work Phone: 09-13-2021 14:45-0400 Heart rate 74 /min Dr. Neil Apodaca Work Phone: [facility] Work Phone: 09-13-2021 14:45-0400 Respiratory rate 16 /min Dr. Neil Apodaca Work Phone: [facility] Work Phone: 09-13-2021 14:45-0400 SaO2% (BldA) [Mass fraction] 99 % Dr. Neil Apodaca Work Phone: [facility] Work Phone: 09-13-2021 14:45-0400 Systolic blood pressure 96 mm[Hg] Dr. Neil Apodaca Work Phone: [facility] Work Phone: 09-06-2021 13:28-0400 Body mass index (BMI) [Ratio] 23.2 kg/m2 Dr. Neil Apodaca Work Phone: [facility] Work Phone: 09-06-2021 13:28-0400 Body weight 65.[address] Neil Apodaca Work Phone: [facility] Work Phone: 08-31-2021 14:10-0400 Body mass index (BMI) [Ratio] 23.3 kg/m2 Dr. Neil Apodaca Work Phone: [facility] Work Phone: 08-31-2021 14:10-0400 Body weight 65.[address] Neil Apodaca Work Phone: [facility] Work Phone: 08-31-2021 14:10-0400 Diastolic blood pressure 62 mm[Hg] Dr. Neil Apodaca Work Phone: [facility] Work Phone: 08-31-2021 14:10-0400 Heart rate 52 /min Dr. Neil Apodaca Work Phone: [facility] Work Phone: 08-31-2021 14:10-0400 Respiratory rate 18 /min Dr. Neil Apodaca Work Phone: [facility] Work Phone: 08-31-2021 14:10-0400 SaO2% (BldA) [Mass fraction] 99 % Dr. Neil Apodaca Work Phone: [facility] Work Phone: 08-31-2021 14:10-0400 Systolic blood pressure 104 mm[Hg] Dr. Neil Apodaca Work Phone: [facility] Work Phone: Encounters Encounter Date Encounter Type Care Provider Facility Start: 10-19-2024 End: 10-19-2024 Patient encounter procedure Bessie CASTILLO -[facility] Work Phone: Start: 10-19-2024 End: 10-19-[address] Neil Apodaca MD Work Phone: -[facility] Start: 10-12-2024 End: 10-12-[address] Neil Apodaca MD Work Phone: [facility] Start: 10-12-2024 End: 10-12-[address] Neil Apodaca MD -[facility] Work Phone: Start: 10-12-2024 End: 10-12-2024 ambulatory Neil Apodaca Facility:[facility] Start: 09-29-2024 End: 09-29-[address] Kofi Chavarria DO -[facility] Work Phone: Start: 09-29-2024 End: 09-29-[address] Neil Apodaca MD Work Phone: -[facility] Start: 09-15-2024 End: 09-15-[address] Neil Apodaca MD Work Phone: -Physical Therapy Start: 09-15-2024 End: 09-15-[address] Neil Apodaca MD -Physical Therapy Work Phone: Start: 09-07-2024 End: 09-07-2024 Patient encounter procedure Mehran Luque NP-Carlos -[facility] Work Phone: Start: 09-07-2024 End: 09-07-[address] Neil Apodaca MD Work Phone: [facility] Work Phone: Start: 09-06-[address] Neil shelton MD -Physical Therapy Work Phone: Start: 08-31-2024 End: 08-31-2024 ambulatory LAKESHA VIVAR MD Facility:[facility] Start: 08-31-2024 End: 08-31-2024 Patient encounter procedure LAKESHA VIVAR MD [facility] Start: 08-18-2024 End: 08-18-[address] Neil Apodaca MD Work Phone: [facility] Work Phone: Start: 08-18-2024 End: 08-18-[address] Neil Apodaca MD -Radiology [facility] Work Phone: Start: 08-18-2024 End: 08-18-2024 ambulatory Neil Apodaca Facility:[facility] Start: 07-21-2024 End: 07-21-[address] Kvng Velasquez MD -[facility] Work Phone: Start: 07-21-2024 End: 07-21-2024 ambulatory Neil Apodaca Facility:[facility] Start: 06-28-2024 End: 06-28-[address] Neil Apodaca MD Work Phone: [facility] Work Phone: Start: 06-28-2024 End: 06-28-[address] Neil Apodaca MD -[facility] Work Phone: Start: 06-28-2024 End: 06-28-2024 ambulatory Neil Apoadca Facility:[facility] Start: 06-17-2024 End: 06-17-[address] Neil Apodaca MD Work Phone: [facility] Work Phone: Start: 06-17-2024 End: 06-17-[address] Neil Apodaca MD -Cat Scan, [facility] Work Phone: Start: 06-16-2024 End: 06-17-[address] Neil Apodaca MD Work Phone: [facility] Work Phone: Start: 06-16-2024 End: 06-16-[address] Neil Apodaca MD -Laboratory, Specimen Work Phone: Start: 06-15-2024 End: 06-16-[address] Neil Apodaca MD Work Phone: [facility] Work Phone: Start: 06-15-2024 End: 06-15-[address] Neil Apodaca MD -Outpatient Bone Densitometry Work Phone: Start: 06-15-2024 End: 06-15-2024 ambulatory Neil Apodaca Facility:[facility] Start: 05-26-2024 End: 05-26-[address] Neil Apodaca MD Work Phone: [facility] Work Phone: Start: 05-26-2024 End: 05-26-[address] Neil Apodaca MD -Laboratory, Phy Office 3rd Flr Start: 05-26-2024 End: 05-26-2024 ambulatory Neil Chi Paulie Facility:[facility] Start: 05-20-2024 End: 05-20-2024 ambulatory Neil Chi Paulie Facility:[facility] Start: 05-20-2024 End: 05-20-[address] Neil Apodaca MD -Physical Therapy Work Phone: Start: 03-30-2024 End: 03-30-[address] Neil Apodaca MD -[facility] Work Phone: Start: 03-30-2024 End: 03-30-2024 ambulatory Neil Chi [place]ie Facility:[facility] Start: 02-04-2024 End: 02-04-2024 ambulatory Neil Chi [place]ie Facility:[facility] Start: 01-09-2024 End: 01-09-2024 ambulatory Neil Chi [place]ie Facility:[facility] Start: 11-26-2023 End: 11-27-2023 ambulatory Neil Chi [place]ie Facility:[facility] Start: 07-17-2023 End: 07-22-[address] Neil Apodaca Work Phone: [facility] Work Phone: Start: 07-17-2023 End: 07-22-[address] [facility]aca [facility] Work [facility] Start: 06-17-[address] Neil garcia Work Phone: [facility]-Cardiovascular Services Work Phone: Start: 06-17-2023 End: 06-17-2023 Non-patient / Non-visit Dr. Neil Apodaca Work Phone: [facility] Work Phone: Start: 06-09-2023 End: 06-09-[address] Neil Apodaca Work Phone: [facility] Work Phone: Start: 05-21-2023 End: 05-21-2023 ambulatory [facility] Work Phone: Start: 05-21-2023 End: 05-21-2023 Patient encounter procedure [facility]-Laboratory, Phy Office 3rd Flr Start: 03-04-2023 End: 03-04-2023 ambulatory [facility] Work Phone: Start: 03-04-2023 End: 03-04-2023 Patient encounter procedure [facility]-Radiology, [facility] Work Phone: Start: 02-24-2023 End: 03-23-2023 Discharged Recurring [facility]-Nut[facility]al Services Work Phone: Start: 02-24-2023 Registered Recurring [facility] Work Phone: Start: 01-01-2023 End: 01-01-[address] Neil Apodaca Work Phone: [facility] Work Phone: Start: 01-01-2023 End: 01-01-[address] Neil Apodaca Work Phone: [facility]-Pulmonary Services/Neurology Work Phone: Start: 12-05-2022 End: 12-05-[address] Niel Apodaca Work Phone: [facility] Work Phone: Start: 12-05-2022 End: 12-05-[address] Neil Apodaca Work Phone: [facility]-Outpatient [facility] Imaging Work Phone: Start: 11-20-2022 End: 11-20-[address] Neil Apodaca Work Phone: [facility] Work Phone: Start: 11-20-2022 End: 11-20-[address] Neil Apodaca Work Phone: [facility]-Laboratory, Phy Office 3rd Flr Start: 10-14-2022 End: 10-14-[address] Neil Apodaca Work Phone: [facility] Work Phone: Start: 09-28-2022 Non-patient / Non-visit Dr. Neil Apodaca Work Phone: [facility] Work Phone: Start: 09-28-2022 Non-patient / Non-visit Dr. Neil Apodaca Work Phone: [facility] Start: 09-27-2022 Non-patient / Non-visit Dr. Neil Apodaca Work Phone: [facility] Work Phone: Start: 09-27-2022 Non-patient / Non-visit Dr. Neil Apodaca Work Phone: [facility] Start: 09-26-2022 Non-patient / Non-visit Dr. Neil Apodaca Work Phone: [facility] Work Phone: Start: 09-26-2022 Non-patient / Non-[facility] Start: 09-26-2022 End: 09-26-2022 Non-patient / Non-visit Dr. Neil Apodaca Work Phone: [facility] Work Phone: Start: 09-25-2022 Non-patient / Non-visit [facility] Start: 09-24-2022 Non-patient / Non-visit Dr. Neil Apodaca Work Phone: [facility] Start: 09-24-2022 End: 09-28-2022 Evaluation and management of inpatient Dr. Neil Apodaca [facility] Phone[facility] Work Phone: Start: 08-06-[address] Neil garcia [facility] Work [facility] Start: 07-10-2022 Non-patient / Non-visit Dr. Neil Apodaca Work Phone: [facility] Start: 07-08-2022 End: 07-08-[address] Neil Apodaca Work Phone: [facility] Work Phone: Start: 07-08-2022 End: 07-08-[address] Neil Apodaca Work Phone: [facility] Start: 06-28-2022 End: 06-28-[address] Neil Apodaca Work Phone: [facility] Work Phone: Start: 06-28-2022 End: 06-28-[address] Neil Apodaca Work Phone: [facility] Start: 05-15-2022 End: 05-15-[address] Neil Apodaca Work Phone: [facility] Work Phone: Start: 05-15-2022 End: 05-15-[address] Neil Apodaca Work Phone: [facility]-Laboratory, Phy Office 3rd Flr Start: 04-11-2022 Non-patient / Non-visit Dr. Neil Apodaca Work Phone: [facility] Start: 04-11-2022 End: 04-11-[address] Neil Apodaca Work Phone: [facility] Work Phone: Start: 04-11-2022 End: 04-11-[address] Neil Apodaca Work Phone: [facility]Cardi[facility] Services Start: 04-03-2022 End: 04-03-[address] Neil Apodaca Work Phone: [facility] Start: 12-18-2021 End: 12-18-[address] Neli Apodaca Work Phone: [facility] Work Phone: Start: 12-18-2021 End: 12-18-[address] Neil Apodaca [facility] Start: 11-15-2021 End: 11-15-[address] Neil Apodaca Work Phone: [facility] Work Phone: Start: 11-15-2021 End: 11-15-[address] Neil Apodaca [facility] Start: 10-16-2021 End: 10-16-[address] Neil Apodaca Work Phone: [facility], y Office 3rd Flr Start: 09-13-2021 End: 09-13-[address] Neil Apodaca Work Phone: [facility] Start: 09-06-2021 End: 09-06-[address] Neil Apodaca Work Phone: [facility] Start: 08-31-2021 End: 08-31-[address] Neil Apodaca Work Phone: [facility] Procedures Date Procedure Procedure Detail Performing Clinician Start: 10-12-[address] Neil Apodaca MD Work Phone: Start: 08-18-2024 XR knee, [address] Ike Apodaca MD Work Phone: Start: 06-28-2024 Ultrasound elastogra phy of liver Dr. Neil Apodaca MD Work Phone: Start: 06-17-2024 Computed tomography of abdomen and pelvis with contrast Dr. Neil Apodaca MD Work Phone: Start: 06-16-2024 Cl[address] diff[address] e detection Dr. Neil Apodaca MD Work Phone: Start: 06-16-[address] Neil Apodaca MD Work Phone: Start: 06-16-[address] Neil Apodaca MD Work Phone: Start: 06-16-2024 Measurement of occul t blood in stool specimen using immunoassay Dr. Neil Apodaca MD Work Phone: Start: 06-16-[address] Neil Apodaca MD Work Phone: Start: 06-15-2024 Dual energy X-ray absorptiometry Dr. Neil Apodaca MD Work Phone: Start: 05-26-2024 Vitamin D, 25-hydrox y measurement Dr. Neil Apodaca MD Work Phone: Comment on above: Vitamin D StatusDefi ciency: <20 ng/mL (50nmol/L)Insufficiency: 20-30 ng/mL (50-75 nmol/L)Sufficiency: 30-100 ng/mL (75-250 nmol/L)Toxicity: >100 ng/mL (>250 nmol/L) Start: 03-30-2024 MRI of lumbar spine Dr. Neil Apodaca MD Work Phone: Start: 03-30-[address] Neil villalobos MD Work Phone: Start: 03-04-2023 X-ray of cervical spine Start: 01-01-2023 Coronavirus COVID-[address] Neil Apodaca Work Phone: Start: 01-01-2023 Influenza Types A,B Direct FA (KHADIJAH) Dr. Neil Apodaca Work Phone: Start: 01-01-2023 Respiratory syncytia l virus antigen assay Dr. Neil Apodaca Work Phone: Start: 12-05-2022 Screening mammography Jared Apodaca Work Phone: Start: 09-26-2022 Total cholecystectom y and exploration of common bile duct Dr. Neil Apodaca Work Phone: Start: 09-26-[address] Neil villalobos Work Phone: Start: 09-26-2022 Fluoroscopic guidance Jared Apodaca Work Phone: Start: 09-25-2022 Radionuclide imaging of liver and/or biliary tract using radioactive isotope Dr. Neil Apodaca Work Phone: Start: 09-24-2022 US scan of gallbladder Dr. Neil Apodaca Work Phone: Start: 09-24-2022 Computed tomography of abdomen and pelvis with intravenous contrast Dr. Neil Apodaca Work Phone: Start: 07-08-2022 Plain x-ray of hand Dr. Neil Apodaca Work Phone: Start: 07-08-2022 Plain x-ray of wrist Dr Carmelo Apodaca Work Phone: Start: 07-08-2022 CT of head without contrast Dr. Neil Apodaca Work Phone: Start: 06-28-2022 CT angiography of coronary arteries Dr. Neil Apodaca Work Phone: Start: 12-18-2021 X-ray of lumbar spin e, two or three views Dr. Neil Apodaca Work Phone: Start: 12-18-2021 Plain x-ray of pelvi s and lower extremity Dr. Neil Apodaca Work Phone: Start: 09-06-2021 Radiologic examinati on of knee Dr. Neil Apodaca Work Phone: History of cholecystectomy Status post laparoscopic cholecystectomy Dr. Neil Apodaca Work Phone: Plan of Treatment Date Care Activity Detail Author Start: 10-19-2024 Plain X-ray abdomen Abdomen Single View [facility] Start: 10-19-2024 XR Abdomen Single view [facility] Start: 06-16-2024 Ova and Parasites Ova and Parasites [facility] Start: 09-28-2022 Patient discharge [facility] Start: 09-25-2022 Nil by mouth [facility] Start: 09-25-2022 Hepatobilliary Imaging Hepatobilliary Imaging [facility] Start: 09-25-2022 Radionuclide imaging of liver and/or biliary tract using radioactive isotope [facility] Start: 09-25-2022 [facility] Start: 09-24-2022 Application of intermittent pneumatic compression device [facility] Start: 09-24-2022 End: 09-24-2022 Following clinical pathway protocol [facility] Start: 09-24-2022 Ambulation without limitation [facility] Start: 09-24-2022 Consultation [facility] Start: 09-24-2022 Referral to gastroenterology service [facility] Start: 09-24-2022 Taking patient vital signs [facility] Start: 09-24-2022 [facility] Start: 09-24-2022 Admission procedure [facility] Alanine aminotransfe rase [Enzymatic activity/volume] in Serum or Plasma [facility] Albumin [Mass/volume ] in Serum or Plasma [facility] Alkaline phosphatase [Enzymatic activity/volume] in Serum or Plasma [facility] Anion gap measurement [facility] Aspartate aminotrans ferase [Enzymatic activity/volume] in Serum or Plasma [facility] Bilirubin, total measurement [facility] BUN/Creatinine ratio [facility] C reactive protein [Mass/volume] in Serum or Plasma [facility] Calcium [Mass/volume ] in Serum or Plasma [facility] Carbon dioxide, tota l [Moles/volume] in Serum or Plasma [facility] CBC W Auto Different ial panel - Blood [facility] Ceruloplasmin [Mass/ volume] in Serum or Plasma [facility] Chloride [Moles/volu me] in Serum or Plasma [facility] Comprehensive metabo lic 2000 panel - Serum or Plasma [facility] Copper [Moles/volume ] in Serum or Plasma [facility] Creatinine [Moles/vo lume] in Serum or Plasma [facility] Cytoplasmic ANCA Screen [facility] Ferritin [Mass/volum e] in Serum or Plasma [facility] Glucose [Mass/volume ] in Serum or Plasma [facility] Hematocrit [Volume Fraction] of Blood [facility] Hemoglobin [Mass/vol ume] in Blood [facility] Hemoglobin A1c/Hemoglobin.total in Blood [facility] Hepatitis A virus Ig M Ab [Presence] in Serum [facility] Hepatitis B core ant ibody measurement, IgM type [facility] Hepatitis B surface antigen measurement [facility] Hepatitis B virus garza rface Ab [Presence] in Serum [facility] Hepatitis C antibody measurement [facility] Iron and Iron bindin g capacity panel - Serum or Plasma [facility] Leukocytes [#/volume ] in Blood [facility] Mean corpuscular hem oglobin concentration determination [facility] Mean corpuscular hem oglobin determination [facility] Measurement of renal function [facility] Mitochondria Ab [Pre sence] in Serum [facility] Mitochondria Ab [Pre sence] in Serum [facility] Neutrophil count [facility] Neutrophil percent differential count [facility] Ova OR parasites identification [facility] Patient referral [facility] Work Phone: Platelets [#/volume] in Blood [facility] Potassium [Moles/vol ume] in Serum or Plasma [facility] Prothrombin time [facility] Red blood cell count [facility] Red cell distributio n width determination [facility] Serum immunofixation [facility] Smooth muscle Ab [Pr esence] in Serum [facility] Smooth muscle Ab [Pr esence] in Serum [facility] Sodium [Moles/volume ] in Serum or Plasma [facility] Total protein measurement [facility] Urea nitrogen [Mass/ volume] in Serum or Plasma [facility] XR Abdomen Single view [facility] Immunizations Immunization Date Immunization Notes Care Provider [facility] 12-22-[address] Neil Apodaca Work Phone: [facility] 09-21-[address] Neil Apodaca Work Phone: [facility] Work Phone: 09-21-2012 pneumococcal vaccine , unspecified formulation Dr. Neil Apodaca Work Phone: [facility] Payers Date Payer Category Payer Private Health Insurance [id number] 2023 Self-pay [id number] 2016 Private Health Insurance [id number] 1945 Unknown [id number] 2.16. [id number] Unknown [id number] Unknown [id number] 2.16.8 40.1.767948.3.579.2.462 Unknown [id number] 2.16.8 40.1.096883.3.579.2.462 Unknown [id number] 2.16.8 40.1.322431.3.579.2.462 Unknown [id number] 2.16.8 40.1.858532.3.579.2.462 Unknown [id number] 2.16.8 40.1.486288.3.579.2.462 Unknown [id number] 2.16.8 40.1.378744.3.579.2.462 Unknown [id number] 2.16.8 40.1.844159.3.579.2.462 Unknown [id number] 2.16.8 40.1.364814.3.579.2.462 Unknown [id number] 2.16.8 40.1.066404.3.579.2.462 Unknown [id number] 2.16.8 40.1.209973.3.579.2.462 Unknown [id number] 2.16.8 40.1.070105.3.579.2.462 Unknown [id number] 2.16.8 40.1.670512.3.579.2.462 Unknown [id number] 2.16.8 40.1.960509.3.579.2.462 Unknown [id number] 2.16.8 40.1.177449.3.579.2.462 Unknown [id number] 2.16.8 40.1.248604.3.579.2.462 Unknown [id number] 2.16.8 40.1.782546.3.579.2.462 Unknown [id number] 2.16.8 40.1.836398.3.579.2.462 Unknown [id number] 2.16.8 40.1.742789.3.579.2.462 Unknown [id number] 2.16.8 40.1.151807.3.579.2.462 Unknown [id number] 2.16.8 40.1.848652.3.579.2.462 Social History Date Type Detail Facility Start: 09-13-2021 End: 09-24-2022 Tobacco smoking status KSIS Unknown if ever smoked [facility] Start: 12-01-2018 Non-smoker [facility] Start: 1945 Sex Assigned At Female [facility] Start: 09-25-2013 None [facility] Start: 11-12-2023 End: 07-21-2024 Tobacco smoking status NHIS Never smoked tobacco (finding) [facility] Start: 06-09-2024 End: 07-02-2024 Sex Female (finding) [facility] NEGATED: Highlighted row [facility] Medical Equipment Procedure Code Equipment Code Equipment Origin al Text Equipment Identifier Dates Total cholecystectomy with exploration of common bile duct CLIP,MISTY DHILLON FDA Start: 09-26-2022 Total cholecystectomy with exploration of common bile duct CLIP,HEMLIBAN DHILLON FDA Start: 09-26-2022 Total cholecystectomy with exploration of common bile duct Plant polysaccharide haemostatic agent, bioabsorbable [id number] TABETR FDA Start: 09-26-2022 Total cholecystectomy with exploration of common bile duct CLIP,MISTY DHILLON FDA Start: 09-26-2022 Total cholecystectomy with exploration of common bile duct CLIP,MISTY DHILLON FDA Start: 09-26-2022 Total cholecystectomy with exploration of common bile duct CLIP,MISTY DHILLON FDA Start: 09-26-2022 Total cholecystectomy with exploration of common bile duct CLIP,MISTY DHILLON FDA Start: 09-26-2022 Total cholecystectomy with exploration of common bile duct CLIP,MISTY DHILLON FDA Start: 09-26-2022 Total cholecystectomy with exploration of common bile duct CLIP,MISTY DHILLON FDA Start: 09-26-2022 Total cholecystectomy with exploration of common bile duct CLIP,MISTY DHILLON FDA Start: 09-26-2022 Total cholecystectomy with exploration of common bile duct CLIP,MISTY DHILLON FDA Start: 09-26-2022 Total cholecystectomy with exploration of common bile duct CLIP,MISTY DHILLON FDA Start: 09-26-2022 Total cholecystectomy with exploration of common bile duct CLIP,MISTY DHILLON FDA Start: 09-26-2022 Total cholecystectomy with exploration of common bile duct CLIP,MISTY DHILLON FDA Start: 09-26-2022 Total cholecystectomy with exploration of common bile duct CLIP,MISTY DHILLON FDA Start: 09-26-2022 Total cholecystectomy with exploration of common bile duct CLIP,MISTY DHILLON FDA Start: 09-26-2022 Total cholecystectomy with exploration of common bile duct CLIP,MISTY DHILLON FDA Start: 09-26-2022 Total cholecystectomy with exploration of common bile duct CLIP,MISTY DHILLON FDA Start: 09-26-2022 Total cholecystectomy with exploration of common bile duct CLIP,MISTY DHILLON FDA Start: 09-26-2022 Total cholecystectomy with exploration of common bile duct CLIP,MISTY DHILLON FDA Start: 09-26-2022 Total cholecystectomy with exploration of common bile duct CLIP,MISTY DHILLON FDA Start: 09-26-2022 Total cholecystectomy with exploration of common bile duct CLIP,MISTY DHILLON FDA Start: 09-26-2022 Total cholecystectomy with exploration of common bile duct CLIP,HEMLIBAN STEELE WECK FDA Start: 09-26-2022 Total cholecystectomy with exploration of common bile duct CLIP,HEMLIBNA STEELE WECK FDA Start: 09-26-2022 Total cholecystectomy with exploration of common bile duct CLIP,HEMLIBAN STEELE WECK FDA Start: 09-26-2022 Total cholecystectomy with exploration of common bile duct CLIP,NOELPHU IVETTE WECK FDA Start: 09-26-2022 Total cholecystectomy with exploration of common bile duct CLIP,HEMLIBAN STEELE WECK FDA Start: 09-26-2022 Total cholecystectomy with exploration of common bile duct CLIP,HEMLIBAN SETELE WECK FDA Start: 09-26-2022 Total cholecystectomy with exploration of common bile duct CLIP,HEMLIBAN STEELE WECK FDA Start: 09-26-2022 Total cholecystectomy with exploration of common bile duct CLIP,MISTY STEELE WECK FDA Start: 09-26-2022 Total cholecystectomy with exploration of common bile duct CLIP,MISTY GRECOPHU FDA Start: 09-26-2022 Total cholecystectomy with exploration of common bile duct CLIP,MISTY GRECOPHU FDA Start: 09-26-2022 Total cholecystectomy with exploration of common bile duct CLIP,MISTY GRECOPHU FDA Start: 09-26-2022 Total cholecystectomy with exploration of common bile duct CLIP,MISTY GRECOPHU FDA Start: 09-26-2022 Total cholecystectomy with exploration of common bile duct CLIP,MISTY GRECOCK FDA Start: 09-26-2022 Bunionectomy 2.3 MM LAG SCREW CANNULATED FDA Start: 12-04-2018 Bunionectomy 2.3MM LAG SCREW CANNULATED FDA Start: 12-04-2018 Bunionectomy COMPRESSION FT SCREW FDA St art: 12-04-2018 Bunionectomy 2.3 MM LAG SCREW CANNULATED FDA Start: 12-04-2018 Bunionectomy 2.3MM LAG SCREW CANNULATED FDA Start: 12-04-2018 Bunionectomy COMPRESSION FT SCREW FDA St art: 12-04-2018 Bunionectomy 2.3 MM LAG SCREW CANNULATED FDA Start: 12-04-2018 Bunionectomy 2.3MM LAG SCREW CANNULATED FDA Start: 12-04-2018 Bunionectomy COMPRESSION FT SCREW FDA St art: 12-04-2018 Bunionectomy 2.3 MM LAG SCREW CANNULATED FDA Start: 12-04-2018 Bunionectomy 2.3MM LAG SCREW CANNULATED FDA Start: 12-04-2018 Bunionectomy COMPRESSION FT SCREW FDA St art: 12-04-2018 Bunionectomy 2.3 MM LAG SCREW CANNULATED FDA Start: 12-04-2018 Bunionectomy 2.3MM LAG SCREW CANNULATED FDA Start: 12-04-2018 Bunionectomy COMPRESSION FT SCREW FDA St art: 12-04-2018 Bunionectomy 2.3 MM LAG SCREW CANNULATED FDA Start: 12-04-2018 Bunionectomy 2.3MM LAG SCREW CANNULATED FDA Start: 12-04-2018 Bunionectomy COMPRESSION FT SCREW FDA St art: 12-04-2018 Bunionectomy 2.3 MM LAG SCREW CANNULATED FDA Start: 12-04-2018 Bunionectomy 2.3MM LAG SCREW CANNULATED FDA Start: 12-04-2018 Bunionectomy COMPRESSION FT SCREW FDA St art: 12-04-2018 Bunionectomy 2.3 MM LAG SCREW CANNULATED FDA Start: 12-04-2018 Bunionectomy 2.3MM LAG SCREW CANNULATED FDA Start: 12-04-2018 Bunionectomy COMPRESSION FT SCREW FDA St art: 12-04-2018 Bunionectomy 2.3 MM LAG SCREW CANNULATED FDA Start: 12-04-2018 Bunionectomy 2.3MM LAG SCREW CANNULATED FDA Start: 12-04-2018 Bunionectomy COMPRESSION FT SCREW FDA St art: 12-04-2018 Bunionectomy 2.3 MM LAG SCREW CANNULATED FDA Start: 12-04-2018 Bunionectomy 2.3MM LAG SCREW CANNULATED FDA Start: 12-04-2018 Bunionectomy COMPRESSION FT SCREW FDA St art: 12-04-2018 Bunionectomy 2.3 MM LAG SCREW CANNULATED FDA Start: 12-04-2018 Bunionectomy 2.3MM LAG SCREW CANNULATED FDA Start: 12-04-2018 Bunionectomy COMPRESSION FT SCREW FDA St art: 12-04-2018 Bunionectomy 2.3 MM LAG SCREW CANNULATED FDA Start: 12-04-2018 Bunionectomy 2.3MM LAG SCREW CANNULATED FDA Start: 12-04-2018 Bunionectomy COMPRESSION FT SCREW FDA St art: 12-04-2018 Bunionectomy 2.3 MM LAG SCREW CANNULATED FDA Start: 12-04-2018 Bunionectomy 2.3MM LAG SCREW CANNULATED FDA Start: 12-04-2018 Bunionectomy COMPRESSION FT SCREW FDA St art: 12-04-2018 Bunionectomy 2.3 MM LAG SCREW CANNULATED FDA Start: 12-04-2018 Bunionectomy 2.3MM LAG SCREW CANNULATED FDA Start: 12-04-2018 Bunionectomy COMPRESSION FT SCREW FDA St art: 12-04-2018 Bunionectomy 2.3 MM LAG SCREW CANNULATED FDA Start: 12-04-2018 Bunionectomy 2.3MM LAG SCREW CANNULATED FDA Start: 12-04-2018 Bunionectomy COMPRESSION FT SCREW FDA St art: 12-04-2018 Bunionectomy 2.3 MM LAG SCREW CANNULATED FDA Start: 12-04-2018 Bunionectomy 2.3MM LAG SCREW CANNULATED FDA Start: 12-04-2018 Bunionectomy COMPRESSION FT SCREW FDA St art: 12-04-2018 Bunionectomy 2.3 MM LAG SCREW CANNULATED FDA Start: 12-04-2018 Bunionectomy 2.3MM LAG SCREW CANNULATED FDA Start: 12-04-2018 Bunionectomy COMPRESSION FT SCREW FDA St art: 12-04-2018 Bunionectomy 2.3 MM LAG SCREW CANNULATED FDA Start: 12-04-2018 Bunionectomy 2.3MM LAG SCREW CANNULATED FDA Start: 12-04-2018 Bunionectomy COMPRESSION FT SCREW FDA St art: 12-04-2018 Bunionectomy 2.3 MM LAG SCREW CANNULATED FDA Start: 12-04-2018 Bunionectomy 2.3MM LAG SCREW CANNULATED FDA Start: 12-04-2018 Bunionectomy COMPRESSION FT SCREW FDA St art: 12-04-2018 Bunionectomy 2.3 MM LAG SCREW CANNULATED FDA Start: 12-04-2018 Bunionectomy 2.3MM LAG SCREW CANNULATED FDA Start: 12-04-2018 Bunionectomy COMPRESSION FT SCREW FDA St art: 12-04-2018 Bunionectomy 2.3 MM LAG SCREW CANNULATED FDA Start: 12-04-2018 Bunionectomy 2.3MM LAG SCREW CANNULATED FDA Start: 12-04-2018 Bunionectomy COMPRESSION FT SCREW FDA St art: 12-04-2018 Bunionectomy 2.3 MM LAG SCREW CANNULATED FDA Start: 12-04-2018 Bunionectomy 2.3MM LAG SCREW CANNULATED FDA Start: 12-04-2018 Bunionectomy COMPRESSION FT SCREW FDA St art: 12-04-2018 Bunionectomy 2.3 MM LAG SCREW CANNULATED FDA Start: 12-04-2018 Bunionectomy 2.3MM LAG SCREW CANNULATED FDA Start: 12-04-2018 Bunionectomy COMPRESSION FT SCREW FDA St art: 12-04-2018 Bunionectomy 2.3 MM LAG SCREW CANNULATED FDA Start: 12-04-2018 Bunionectomy 2.3MM LAG SCREW CANNULATED FDA Start: 12-04-2018 Bunionectomy COMPRESSION FT SCREW FDA St art: 12-04-2018 Goals Date Patient Goal Desired Activity /State Functional Status Date Assessment Result Facility 09-28-2022 Functional status Ambulates [facility] Work Phone: Mental Status Date Assessment Result Facility 09-28-2022 Cognitive function Voice/Name [facility] Work Phone: Clinical Notes 06-17-2024 to 10-15-2024 Note Date & Type Note Facility 10-15-2024 Radiology Diagnostic study note [facility] Imaging Services [address] [place] [address] Ext Non Vasc Limited/Soft Tiss MR#: [id number] Acct: [id number] Name: RADHA ALEMAN YUN Rep #: [id number] : 1945 F 78 From: Isi Borjas MD PCP: Dr. Neil Apodaca MD Status: REG Carlos VELAZCO Study:Ext Non Vasc Limited/Soft Tiss Date of Exam: 10/12/24 Exam# [id number] Ordering Dr: Neil Apodaca MD PROCEDURE: EXT NON VASC LIMITED/SOFT TISS 10/12/2024 REASON FOR EXAM: LEFT BUTTOCK ABSCESS. Two lumps left buttock. TECHNIQUE: EXT NON VASC LIMITED/SOFT TISS. Superficial soft tissues of the left buttock were imaged using grayscale and color Doppler technique. COMPARISON: None. FINDINGS: In the lateral left buttock, there is an ill-defined, heterogeneously hyperechoic nonvascular structure measuring 1.5 x 0.7 x 1.3 cm, corresponding to the palpable lump. No abnormal surrounding vascularity. More medially in the left buttock, there is a 2nd heterogeneous, nonvascular structure measuring 0.8 x 1.2 x 0.4 cm. The surrounding soft tissues in this region appear edematous with increased vascularity, suggestive of inflammation. No discrete fluid collections or drainable abscesses are identified. US/Ext Non Vasc Limited/Soft Tiss IMPRESSION: Two nonvascular heterogeneous structures in the left buttock corresponding to the palpable lumps. The medial lesion is associated with surrounding soft tissue edema and hyperemia, concerning for an inflammatory process. The lateral lesion could represent fat necrosis, organized hematoma or injection granuloma. Reading Location: [id number] CC: Dr. Neil Apodaca MD ~ Aged Or Disabled Care Worker: Signed [facility] 09-15-2024 Discharge summary Note Date/Time September 15, 2024 7:00 pm [facility] [address] [place] [address] / REHABILITATION SERVICES DISCHARGE SUMMARY MR#: [id number] Acct: [id number] Name: RADHA ALEMAN Rep #: [id number] : 1945 78 From: Shanon Carbajal Referring Dr.: Dr. Neil Apodaca MD Status: REG R Insurance: [facility] SELF PAY INSURANCE Discharge Summary D/C summary: It has been my pleasure to treat RADHA ALEMAN referred by Dr. Neil Apodaca MD,with the diagnosis of Right Knee OA for a total of 8 visit(s). Discharge Date: Please see the following information for a summary of their discharge status. Subjective Subjective: Patient reports that she still feels that she still has right knee pain that is staying the same- she now has pain along the medial knee instead ofthe outside. She went to see her family MD about other issues and they recommended that she follow up with ortho. Dr. Busby helped with the left knee and did a cortisone injection so she plans to follow up with him. Pain R knee: Pain Intensity (Out of 10): 2 Overall Improvement % Improvement: 50 Objective Objective/Function: Posture: forward head, rounded shoulders Gait: no deviation noted- good arm swing and trunk rotation- improved heel strike HR/TR: able without UE A SLS: 15 seconds with mild increase in sway Palpation: not tender to touch- does have mild edema in posterior knee that can be felt- soft feel Observation: no bruising Strength: Core: fair minus, Hip: 4+/5 throughout, Knee: Extn: 4+/5 Flexion: 4+/5, Ankle: 5/5 ROM: 0-120 degrees Flex: HS: mild, Gastroc: moderate Stairs: asc/desc recip with HR Goals Goal 1:: Patient will be I with HEP and progression Goal Progress: Goal Met Goal 2:: Patient will ambulate >150 feet with a normalized gait pattern Goal Progress: Goal Met Goal 3:: Patient will asc/desc 8 recip without pain Goal Progress: Progressing Goal 4:: Patient will report 80% improvement Goal Progress: Progressing Plan Plan: 09/15/2024: Follow up with ortho and continue HEP (previous given at IE and gastroc stretch, HR, steps up, seated hip abd with band, hamstring curls with band) IE: Focus on LE and core strength/stabilization and return to gym program D/C Information d/c sentence: If there are questions or concerns regarding this patient's physical therapy, please feel free to call me at [phone]. Thank you for the referral of thispatient. Sincerely, Shanon Banegas, ANAMIKA Balance/Gait/Functional tests Balance/Special Test Scores Lower Extremity Functional Score: 37 Improvement % Improvement: 50 <Electronically signed by Shanon Banegas DPT> 09/15/24 [id number] CC: Dr. Neil Apodaca MD ~ ELR Signed [facility] Work Phone: 1(101) 735-984106-25-2025 Discharge summary [facility] [address] [place] [address] [address] [place] [address] / REHABILITATION SERVICES DISCHARGE SUMMARY MR#: [id number] Acct: [id number] Name: RADHA ALEMAN Rep #: [id number] : 1945 78 From: Shanon Carbajal Referring Dr.: Dr. Neil Apodaca MD Status: REG RCR Insurance: [facility] Discharge Summary D/C summary: It has been my pleasure to treat RADHA ALEMAN referred by Dr. Neil Apodaca MD,with the diagnosis of Right Knee OA for a total of 8 visit(s). Discharge Date: Please see the following information for a summary of their discharge status. Subjective Subjective: Patient reports that she still feels that she still has right knee pain that is stayingthe same- she now has pain along the medial knee instead ofthe outside. She went to see her family MD about other issues and they recommended that she follow up with ortho. Dr. Busby helped with the left knee and did a cortisone injection so she plans to follow up with him. Pain R knee: Pain Intensity (Out of 10): 2 Overall Improvement % Improvement: 50 Objective Objective/Function: Posture: forward head, rounded shoulders Gait: no deviation noted- good arm swing and trunk rotation- improved heel strike HR/TR: able without UE A SLS: 15 seconds with mild increase in sway Palpation: not tender to touch- does have mild edema in posterior knee that can be felt- soft feel Observation: no bruising Strength: Core: fair minus, Hip: 4+/5 throughout, Knee: Extn: 4+/5 Flexion: 4+/5, Ankle: 5/5 ROM: 0-120 degrees Flex: HS: mild, Gastroc: moderate Stairs: asc/desc recip with HR Goals Goal 1:: Patient will be I with HEP and progression Goal Progress: Goal Met Goal 2:: Patient will ambulate >150 feet with a normalized gait pattern Goal Progress: Goal Met Goal 3:: Patient will asc/desc 8 recip without pain Goal Progress: Progressing Goal 4:: Patient will report 80% improvement Goal Progress: Progressing Plan Plan: 09/15/2024: Follow up with ortho and continue HEP (previous given at IE and gastroc stretch, HR, steps up, seated hip abd with band, hamstring curls with band) IE: Focus on LE and core strength/stabilization and return to gym program D/C Information d/c sentence: If there are questions or concerns regarding this patient's physical therapy, please feel free to call me at [phone]. Thank you for the referral of thispatient. Sincerely, Shanon Banegas, DPT Balance/Gait/Functional tests Balance/Special Test Scores Lower Extremity Functional Score: 37 Improvement % Improvement: 50 09/15/24 1447 CC: Dr. Neil Apodaca MD ~ ELR Signed [facility]06-10-2025 Evaluation + Plan note Diagnostic Tests Pending * Primidone and Metabolite 08/31/24 [facility] 05-29-2025 Radiology Diagnostic study note [facility] Imaging Services [address] [place] [address] Knee 3 Views MR#: [id number] Acct: [id number] Name: RADHA ALEMAN YUN Rep #: [id number] : 1945 F 78 From: Joe Novoa MD PCP: Dr. Neil Apodaca MD Status: REG C JUAN A Study:Knee 3 Views Date of Exam: 5 Exam# [id number] Ordering Dr: Neil Apodaca MD PROCEDURE: KNEE 3 VIEWS 08/18/2024 REASON FOR EXAM: KNEE PAIN TECHNIQUE: 3 view(s) of the right knee; AP, tunnel and 2 lateral images, 4 total images COMPARISON: None available FINDINGS: No fracture, dislocation or joint effusion. The joint spaces appear within limits. Very mild spurring, osteoarthrosis noted. Very mild chondrocalcinosis suggested lateral compartment. Vascular calcifications. Suggestion of possible prepatellar soft tissue thickening, swelling, clinically correlate. RAD/Knee 3 Views IMPRESSION: Suggestion of possible prepatellar soft tissue thickening, swelling, clinically correlate. Mild osteoarthrosis. Reading Location: [facility] CC: Dr. 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 July 21, 2024 12:22pm [facility] Work Phone: 1(233) 870-268504-30-2025 Evaluation note* Diagnosis Onset Date Resolution Status Admit Date Metabolic dysfunction-associ ated steatotic liver disease (MASLD) chronic July 21, 2024 12:22pm Cardiac murmur chronic September 07, 2024 11:12am Hyperlipidemia chronic September 07, 2024 11:12am Paroxysmal atrial fibrillation chron ic September 07, 2024 11:12am [facility] Work Phone: 1(232) 648-446304-30-2025 Evaluation note* Diagnosis Onset Date Resolution Status Admit Date Metabolic dysfunction-associ ated steatotic liver disease (MASLD) chronic July 21, 2024 12:22pm Cardiac murmur chronic September 07, 2024 11:12am Hyperlipidemia chronic September 07, 2024 11:12am Paroxysmal atrial fibrillation chron ic September 07, 2024 11:12am Right knee DJD acute September 29, 2024 10:36am [facility] Work Phone: 1(966) 247-568104-30-2025 Evaluation note* Diagnosis Onset Date Resolution Status Admit Date Metabolic dysfunction-associ ated steatotic liver disease (MASLD) chronic July 21, 2024 12:22pm Cardiac murmur chronic September 07, 2024 11:12am Hyperlipidemia chronic September 07, 2024 11:12am Paroxysmal atrial fibrillation chron ic September 07, 2024 11:12am Right knee DJD acute September 29, 2024 10:36am Constipation acute October 19, 2 025 1:34pm Diarrhea acute October 19 1:34pm [facility] Work Phone: 1(200) 876-258104-07-2025 Radiology Diagnostic study note [facility] Imaging Services [address] [place], [place] [address] ABD Limited w/ Elastography MR#: [id number] Acct: [id number] Name: RADHA ALEMAN YUN Rep #: [id number] : 1945 F 78 From: Fany Barrett MD PCP: Dr. Neil Apodaca MD Status: REG C JUAN A Study:ABD Limited w/ Elastography Date of Exa m: 06/28/24 Exam# [id number] Ordering Dr: Neil Apodaca MD PROCEDURE: ABD LIMITED W/ ELASTOGRAPHY (USABDLELPARO), 06/28/2024 REASON FOR EXAM: FATTY LIVER COMPARISON: 06/17/2024 TECHNIQUE: Grayscale and color Doppler imaging of the right upper quadrant was performed. [employer] S-shear waveelastography was performed for non-invasive assessment of liver tissue stiffness. FINDINGS: Liver: Grossly unremarkable. 14.7 cm in length. Gallbladder: Cholecystectomy. Biliary tree: Unremarkable. CBD measures 4 mm. Pancreas: Partially obscured by shadowing bowel gas, grossly unremarkable as visualized. Right kidney: Unremarkable. 10.7 cm in length. Other: No visualized free fluid. Hepatic elastography: Number of measurements: 15 measurements across 3 regions, 5 measurements per region,. US probe: CA1-7A. EQI median: 8.3 kPa EQI median velocity: 1.66 m/s Highest IQR/Med: 19.5% (kPa) and 9.7% (m/s). If the IQR/Med is IQR/median >30% (for kPa) or >15% in m/s, the variance in the measurements is a large and the accuracy of the measurement may be in question. US/ABD Limited w/ Elastography IMPRESSION: 1. Grossly unremarkable sonographic appearance of the hepatic echotexture. 2. Liver stiffness is 8.3 kPa. Per the below 2020 SRU criteria, this rules out compensated advancedchronic liver disease in the absence of other known clinical signs. If there are known clinical signs, further testing may be needed for confirmation. 3. Additional description as above. Assessment is per the Update to the SRU Liver Elastography Consensus Statement (2020) Note that the above assessment of liver fibrosis is vendor-neutral and intended for use in fibrosisrelated to viral etiologies and non-alcoholic fatty-liver disease (NAFLD); in causes other than viral hepatitis and NAFLD, the cutoff values are currently not well established. In some patients with NAFLD, the cutoff values for cACLD may be lower (7-9 kPa). Note also that in the setting of elevated LFTs, nonfasting or vascular congestion, the stage of lifer fibrosis may be overestimated. Previous SRU reference values: <1.37 m/s (5.7kPa): No to mild fibrosis 1.37 m/s - 2.2 m/s: Moderate to severe fibrosis >2.2 m/s (15kPa): Significant fibrosis / cirrhosis Reading Location: [id number] CC: Dr. Neil Apodaca MD ~ Aged Or Disabled Care Worker: Signed [facility]03-27-2025 Radiology Diagnostic study note [facility] Imaging Services [address] [place], [place] [id number] Abdomen/Pelvis WITH Contrast MR#: [id number] Acct: [id number] Name: RADHA ALEMAN YUN Rep #: [id number] : 1945 F 78 From: Fany Bucio MD PCP: Dr. Neil Apodaca MD Status: BRADY VELAZCO Study:Abdomen/Pelvis WITH Contrast Date of Ex am: 06/17/24 Exam# [id number] Ordering Dr: Neil pAodaca MD EXAM: CT Abdomen and Pelvis With Intravenous Contrast CLINICAL INDICATION: DIARRHEA TECHNIQUE: Axial computed tomography images of the abdomen and pelvis with intravenous contrast. This CT exam was performed using one or more of the following dose reduction techniques: automated exposure control, adjustment of the mA and/or kV according to patient size, and/or use of iterative reconstruction technique. COMPARISON: CT Abdomen Pelvis dated 09/24/2022 FINDINGS: LUNG BASES: Unremarkable. No mass. No consolidation. MEDIASTINUM: Small esophageal hiatal hernia. ABDOMEN: LIVER: Hepatomegaly with fatty infiltration. GALLBLADDER AND BILE DUCTS: Unremarkable. No calcified stones. No ductal dilation. PANCREAS: Unremarkable. No mass. No ductal dilation. SPLEEN: Unremarkable. No splenomegaly. ADRENALS: Unremarkable. No mass. KIDNEYS AND URETERS: Unremarkable. No solid mass. No hydronephrosis. STOMACH AND BOWEL: Fecal retention in the colon consistent with constipation. No obstruction. No mucosal thickening. PELVIS: APPENDIX: No findings to suggest acute appendicitis. BLADDER: Unremarkable. No mass. REPRODUCTIVE: Unremarkable as visualized. ABDOMEN and PELVIS: INTRAPERITONEAL SPACE: Unremarkable. No free air. No significant fluid collection. BONES/JOINTS: No acute fracture. No dislocation. SOFT TISSUES: Umbilical hernia containing fat. VASCULATURE: Unremarkable. No abdominal aortic aneurysm. LYMPH NODES: Unremarkable. No enlarged lymph nodes. CT/Abdomen/Pelvis WITH Contrast IMPRESSION: 1. Hepatomegaly with fatty infiltration. 2. Fecal retention in the colon consistent with constipation. 3. Umbilical hernia containing fat. 4. Small esophageal hiatal hernia. Reading Location: [facility] CC: Dr. Neil Apodaca MD ~ Aged Or Disabled Care Worker: [facility] Diagnosis Onset Date Resolution Status Hyperlipidemia chronic Paroxysmal atrial fibrillation chronic Degeneration of meniscus of left knee acute Osteoarthritis of left knee acute Synovial cyst of popliteal space [Aragon], left knee acute Encounter for screening for other viral diseases acute [facility] Work Phone: Evaluation note* Diagnosis Onset Date Resolution Status Cardiac murmur acute Hyperlipidemia chronic Paroxysmal atrial fibrillation chronic [facility] Work Phone: Evaluation note* Diagnosis Onset Date Resolution Status Cholecystitis acute Intractable abdominal pain a cute [facility] Work Phone: Evaluation note* Diagnosis Onset Date Resolution Status Status post laparoscopic cholecystectomy acute Acute cholecystitis resolved Cholecystitis resolved Intractable abdominal pain r esolved Status post laparoscopic cholecystectomy acute [facility] Work Phone: Evaluation noteNo assessment information available [facility] Work Phone: History and physical note Author Juan Diego Brand [facility] September 24, 2022 8:37pm Note Date/Time September 24, 2022 8:35p m [facility] Medical Records Department [address] [place] [id number] H&P Exam - Surgical 09/24/222033 MR#: [id number] Acct: [id number] Name: RADHA ALEMAN YUN Rep #:[id number] : 1945 76 From: Juan Diego gudino MD PCP: Dr. Neil Apodaca MD Status:REG E R Location: ED HPI - General HPI Narrative RADHA ALEMAN is a 76 F who presents with abdominal pain. She reports abdominal pain started this morning. She reports no nausea or vomiting. She says the pain is in her epigastric and right upper quadrant. She says she had similar pain about a month ago and a month before that. It is usually after eating fatty foods. Patient does not report any radiation of pain. She denies any other abdominal pain. [facility] Medical History Atrial flutter Basal cell carcinoma Degeneration of meniscus of left knee Encounter for screening for COVID-19 Encounter for screening for other viral diseases Hyperlipidemia Hypothyroidism Paroxysmal atrial fibrillation Pulmonary embolism Seizure disorder Synovial cyst of popliteal space [Aragon], left knee Home Medications primidone 250 mg tablet 250 mg PO BID 09/24/13 [History Last Taken 10/30/16] atorvastatin 40 mg tablet 40 mg PO QHS 07/22/16 [History Last Taken 10/30/16] lutein 20 mg capsule 20 mg PO DAILY 07/22/16 [History Last Taken 10/30/16] multivitamin 1 ea PO DAILY 07/22/16 [History Last Taken 10/30/16] rivaroxaban 20 mg tablet 20 mg PO DAILY@0600 #30 tabs 11/01/16 [Rx Last Taken 12/01/18] calcium carbonate 600 mg-vitamin D3 12.5 mcg (500 unit) capsule (Calcium 600 with Vitamin D3) 1 cap PO DAILY 04/10/20 [History Last Taken Unknown] magnesium oxide 500 mg tablet 500 mg PO DAILY 04/10/20 [History Last Taken Unknown] levothyroxine 100 mcg tablet 100 mcg PO DAILY 03/05/21 [History Last Taken Unknown] Saccharomyces boulardii 250 mg capsule (Daily Probiotic (S. boulardii)) 250 mg PO BID 09/06/21 [History Last Taken Unknown] diclofenac sodium 1 % topical gel (Voltaren Arthritis Pain) 4 g topical TID #100grams 09/07/21 [Rx Last Taken Unknown] metoprolol tartrate 50 mg tablet 50 mg PO BID 04/03/22 [History Last Taken Unknown] niacin 50 mg tablet 50 mg PO DAILY 04/03/22 [History Last Taken Unknown] turmeric 400 mg capsule 400 mg PO DAILY 04/03/22 [History Last Taken Unknown] Allergy/AdvReac Type Severity Reaction Status Date / Time carbamazepine [From Tegretol] Allergy Hives Verified 04/03/22 13:44 clonazepam [From Klonopin] Allergy Other Verified 04/03/22 13:44 phenytoin sodium Allergy Hives Verified 04/03/22 13:44 [From Dilantin] phenytoin sodium extended Allergy Hives Verified 04/03/22 13:44 [From Dilantin] Surgical History H/O basal cell carcinoma excision History of bunionectomy of right great toe (12/04/18) History of lumpectomy of left breast History of ptosis repair (~01/2021) History of tonsillectomy left carpal tunnel release Social History Smoking Status: Never smoker alcohol intake: never substance use type: does not use caffeine: No ROS Constitutional Constitutional: Denies anorexia, chills, fatigue or fever(s) Eyes Eyes: Denies blurry vision ENT HEENT: Denies abnormal hearing Cardiovascular Cardiovascular: Denies chest pain Respiratory/Chest Respiratory/Chest: Denies cough or dyspnea Gastrointestinal Gastrointestinal: Reports abdominal pain and diarrhea; Denies dysphagia, hematemesis, nausea or vomiting Genitourinary Genitourinary: Denies change in urinary stream Musculoskeletal Musculoskeletal: Denies abnormal gait Integumentary Integumentary: Denies jaundice Neurologic Neurologic: Denies dizziness Psychiatric Psychiatric: Denies anxiety Endocrine Endocrinology: Denies flushing Hematologic/Lymphatic Hematologic/Lymphatic: Denies easy bleeding Vital Signs Vital Signs Vital Signs: 09/24/22 14:21 09/24/22 17:52 Temperature 97.5 F L Temperature Source Temporal Pulse Rate 58 L 50 L Respiratory Rate 16 16 Blood Pressure 145/60 H 111/54 L Blood Pressure Mean 88 73 Pulse Ox 97 98 Oxygen Delivery Method Room Air Room Air Weight Weight: 141 lb Body Mass Index (BMI) 23.4 Physical Exam Const oriented x3 and no apparent distress Resp normal respiratory effort Cardio regular rate and regular rhythm GI soft to palpation Inspection: Negative for abdominal distention Palpation: tender RUQ Extremity normal to inspection Results Lab / Micro Data 09/24/22 17:07 09/24/22 17:07 Labs: Laboratory Results - last 24 hr 09/24/22 16:30: Sodium Cancelled, Potassium Cancelled, Chloride Cancelled, Carbon Dioxide Cancelled, Anion Gap Cancelled, BUN Cancelled, Creatinine Cancelled, Estim Creat Clear Calc Cancelled, Est GFR (MDRD) Af Amer Cancelled, Est GFR (MDRD) Non-Af Cancelled, BUN/Creatinine Ratio Cancelled, Glucose Cancelled, Calcium Cancelled, Troponin I High Sens Cancelled, Lipase Cancelled 09/24/22 17:07: WBC 6.3, RBC 4.20, Hgb 14.2, Hct 40.9, MCV 97.4, MCH 33.8 H, MCHC 34.7, RDW Std Deviation 48.1 H, RDW Coeff of Ismael 13.4, Plt Count 169, MPV 9.9, Immature Gran % (Auto) 0.200, Neut % (Auto) 92.0 H, Lymph % (Auto) 3.2 L, Mccormick % (Auto) 4.4, Eos % (Auto) 0.0, Baso % (Auto) 0.2, Absolute Neuts (auto) 5.8, Absolute Lymphs (auto) 0.20 L, Nucleated RBC % 0, Differential Comment SCANNED, Sodium 138, Potassium 3.8, Chloride 107, Carbon Dioxide 24.0, Anion Gap 7, BUN 15, Creatinine 0.67, Estim Creat Clear Calc 43.74, Est GFR (MDRD) Af [id number], Est GFR (MDRD) Non-Af 91, BUN/Creatinine Ratio 22.3 H, Glucose 125 H, Calcium 8.7, Total Bilirubin 0.40, Direct Bilirubin 0.16, AST 30, ALT 26, Alkaline Phosphatase 69, Troponin I High Sens 17, Total Protein 7.2, Albumin 3.8, Globulin 3.4, Lipase 27 09/24/22 17:45: Urine Color Yellow, Urine Clarity Clear, Urine pH 6.0, Ur Specific [place] 1.015, Urine Protein 15 H, Urine Glucose (UA) Normal, Urine Ketones 150 A*, Urine Occult Blood Negative, Urine Nitrite Negative, Urine Bilirubin Negative, Urine Urobilinogen Normal, Ur Leukocyte Esterase 25 H, UrineRBC 0 SEEN, Urine WBC 0-5 SEEN, Ur Squamous Epith Cells 0 SEEN, Urine Bacteria 0SEEN, Urine Mucus 1+ Radiology Impression Abdomen/Pelvis CT 09/24/22 16:14 IMPRESSION: 1. Biliary stasis with suspected acalculous cholecystitis. 2. Distal large bowel thickening, urinary bladder wall thickening, and periportal edema raise suspicion for portal hypertension. Electronically Signed: Michael Aguilar MD at 19:29 EDT , Gallbladder Ultrasound 09/24/22 16:15 IMPRESSION: Diffuse biliary dilation suspicious for distal obstruction. Distended gallbladder with debris and sludge, gallbladder wall thickening, and pericholecystic fluid is suspicious for acute cholecystitis. Electronically Signed: Michael Aguilar MD at 18:21 EDT , Assessment & Plan Assessment/Plan (1) Cholecystitis: PLAN: The patient presents to the emergency room with right upper quadrant pain. Her white count is normal but she does have a left shift. Patient's ultrasoundshowed thickening of the gallbladder wall but no gallstones. The patient CT scan shows biliary stasis and a thickened ascending colon and thickened bladder and there was suggestion of portal hypertension. Patient's LFTs are normal. This seems confusing as the picture does not line up to acute cholecystitis. Itwould be abnormal for somebody to get a calculus cholecystitis at her age who isnormal eating a regular diet. I will admit the patient and start her on antibiotics and check a HIDA in the morning. I am also consulting medicine and GI for their input to see if they have any idea as to what is going on. I will hold the patient's Xarelto and her turmeric. Juan Diego Brand MD Pager: [facility] [address] [place] [address], [address] [place] [address] Office: 09/24/222036 <Electronically signed by Juan Diego Brand MD> Cosigner Signature (if applicable): CC: Dr. Juan Diego Brand MD; Dr. Neil Apodaca MD~ Signed [facility] Work Phone: Hospital course Narrative No data available for this section [facility] Hospital Discharge instructions No data available for this section [facility] Progress note No data available for this section [facility] Reason for referral (narrative)No reason for referral information available[facility] Work Phone: Chief Complaint and Reason for Visit Chief Complaint 6 M FU LEFT KNEE xray ANTIGEN TEST/EVENT Reason for Visit Hyperlipidemia Paroxysmal atrial fibrillation Degeneration of meniscus of left knee Osteoarthritis of left knee Synovial cyst of popliteal space [Aragon], left knee Encounter for screening for other viral diseases Chief Complaint 6 M FU LEFT KNEE xray ANTIGEN TEST/EVENT LOW BACK PAIN, HIP PAIN Reason for Visit Hyperlipidemia Paroxysmal atrial fibrillation Degeneration of meniscus of left knee Osteoarthritis of left knee Synovial cyst of popliteal space [Aragon], left knee Encounter for screening for other viral diseases Chief Complaint 6 M FU MURMUR Reason for Visit Cardiac murmur Hyperlipidemia Paroxysmal atrial fibrillation Chief Complaint 6 M FU MURMUR CHEST PAIN Reason for Visit Cardiac murmur Hyperlipidemia Paroxysmal atrial fibrillation Chief Complaint 6 M FU MURMUR CHEST PAIN CLOSED HEAD INJURY CHEST PAIN Reason for Visit Cardiac murmur Hyperlipidemia Paroxysmal atrial fibrillation Chief Complaint CHEST PAIN CLOSED HEAD INJURY CHEST PAIN JULIO CESAR'S GROCERY TOUR CHOLECYSTITIS ABD PAIN Reason for Visit Cholecystitis Intractable abdominal pain Chief Complaint JULIO CESAR'S GROCERY TO UR CHOLECYSTITIS CHOLECYSTITIS ABD PAIN CHOLECYSTITIS PREOP CHOLECYSTITIS CHOLECYSTITIS CHOLECYSTITIS CHOLECYSTITIS CHOLECYSTITIS CHOLECYSTITIS GALLBLADDER 7-8 Reason for Visit Status post laparosc opic cholecystectomy Acute cholecystitis Cholecystitis Intractable abdominal pain Status post laparoscopic cholecystectomy Chief Complaint CHOLECYSTITIS CHOLECYSTITIS ABD PAIN CHOLECYSTITIS PREOP CHOLECYSTITIS CHOLECYSTITIS CHOLECYSTITIS CHOLECYSTITIS CHOLECYSTITIS CHOLECYSTITIS GALLBLADDER 7-8 SCREENING Reason for Visit Status post laparosc opic cholecystectomy Acute cholecystitis Cholecystitis Intractable abdominal pain Status post laparoscopic cholecystectomy Chief Complaint CHOLECYSTITIS CHOLECYSTITIS ABD PAIN CHOLECYSTITIS PREOP CHOLECYSTITIS CHOLECYSTITIS CHOLECYSTITIS CHOLECYSTITIS CHOLECYSTITIS CHOLECYSTITIS GALLBLADDER 7-8 SCREENING VIRAL SYMPTOMS Reason for Visit Status post laparosc opic cholecystectomy Acute cholecystitis Cholecystitis Intractable abdominal pain Status post laparoscopic cholecystectomy Chief Complaint CLASS Chief Complaint 1 y fu 30 DAY MONITOR Atrial Fibrillation Jacklyn CLASS Reason for Visit Cardiac murmur Hyperlipidemia Paroxysmal atrial fibrillation Chief Complaint SCREENING VIRAL SYMPTOMS CLASS Chief Complaint Admit Date LEFT GROIN PAIN Left lower quadrant pain March 30, 2024 12:38pm OA BOTH HIPS RX HERE May 20, 2024 12:30pm Chief Complaint Admit Date LEFT GROIN PAIN Left lower quadrant pain March 30, 2024 12:38pm OA BOTH HIPS RX HERE May 20, 2024 12:30pm OSTEO June 15, 2024 2:4 2pm Diarrhea June 17, 2024 10: 01am Chief Complaint Admit Date LEFT GROIN PAIN Left lower quadrant pain March 30, 2024 12:38pm OA BOTH HIPS RX HERE May 20, 2024 12:30pm OSTEO June 15, 2024 2:4 2pm Diarrhea June 17, 2024 10: 01am FATTY LIVER June 28, 2024 8:38 am Chief Complaint Admit Date OA BOTH HIPS RX HERE May 20, 2024 12:30pm OSTEO June 15, 2024 2:4 2pm Diarrhea June 17, 2024 10: 01am FATTY LIVER June 28, 2024 8:38 am fatty liver July 21, 2024 12: 22pm Reason for Visit Admit Date Metabolic dysfunction-associ ated steatotic liver disease (MASLD) July 21, 2024 12:22pm Chief Complaint Admit Date OA BOTH HIPS RX HERE May 20, 2024 12:30pm OSTEO June 15, 2024 2:4 2pm Diarrhea June 17, 2024 10: 01am FATTY LIVER June 28, 2024 8:38 am fatty liver July 21, 2024 12: 22pm RIGHT KNEE PAIN. RX HERE September 06, 2024 2:00pm 1 Y FU September 07, 2024 11:1 2am Reason for Visit Admit Date Metabolic dysfunction-associ ated steatotic liver disease (MASLD) July 21, 2024 12:22pm Cardiac murmur September 07, 2024 11:1 2am Hyperlipidemia September 07, 2024 11:1 2am Paroxysmal atrial fibrillation August 11:12am Chief Complaint Admit Date OSTEO June 15, 2024 2:4 2pm Diarrhea June 17, 2024 10: 01am FATTY LIVER June 28, 2024 8:38 am fatty liver July 21, 2024 12: 22pm 1 Y FU September 07, 2024 11:1 2am RIGHT KNEE PAIN. RX HERE September 15, 2024 2:00pm Chief Complaint Admit Date OSTEO June 15, 2024 2:4 2pm Diarrhea June 17, 2024 10: 01am FATTY LIVER June 28, 2024 8:38 am fatty liver July 21, 2024 12: 22pm 1 Y FU September 07, 2024 11:1 2am RIGHT KNEE PAIN. RX HERE September 15, 2024 2:00pm RIGHT KNEE September 29, 2024 10:36 am Chief Complaint Admit Date FATTY LIVER June 28, 2024 8:38 am fatty liver July 21, 2024 12: 22pm 1 Y FU September 07, 2024 11:1 2am RIGHT KNEE PAIN. RX HERE September 15, 2024 2:00pm RIGHT KNEE September 29, 2024 10:36 am abscess of left buttock October 12, 2024 12:01pm Reason for Visit Admit Date Metabolic dysfunction-associ ated steatotic liver disease (MASLD) July 21, 2024 12:22pm Cardiac murmur September 07, 2024 11:1 2am Hyperlipidemia September 07, 2024 11:1 2am Paroxysmal atrial fibrillation August 11:12am Right knee DJD September 29, 2024 10:36 am Chief Complaint Admit Date FATTY LIVER June 28, 2024 8:38 am fatty liver July 21, 2024 12: 22pm 1 Y FU September 07, 2024 11:1 2am RIGHT KNEE PAIN. RX HERE September 15, 2024 2:00pm RIGHT KNEE September 29, 2024 10:36 am abscess of left buttock October 12, 2024 12:01pm GI ISSUES DIARRHEA October 19, 2024 1:34 pm Reason for Visit Admit Date Metabolic dysfunction-associ ated steatotic liver disease (MASLD) July 21, 2024 12:22pm Cardiac murmur September 07, 2024 11:1 2am Hyperlipidemia September 07, 2024 11:1 2am Paroxysmal atrial fibrillation August 11:12am Right knee DJD September 29, 2024 10:36 am Constipation October 19, 2024 1:34 pm Diarrhea October 19, 2024 1:34 pm Family History No Family History Records Found Relationship Condition Age at Onset Recorded Date/T unique Unknown Family History?No pe rtinent history Unknown September 25, 2013 10:59am Family History?No pe rtinent history Unknown December 01, 2018 10:01am Relationship Condition Age at Onset Recorded Date/T unique Unknown Family History?No pe rtinent history Unknown September 25, 2013 9:59am Family History?No pe rtinent history Unknown December 01, 2018 9:01am Relationship Condition Age at Onset Recorded Date/T unique Not Specified Diabetes mellitus Unknown Cardiac disease Unknown father Family history of ma lignant neoplasm of prostate Unknown Advance Directives No Advanced Directives Records Found Advance Directive Response Recorded Date/ Time Advance Directives Yes September 25 2:28am Living Will Yes December 01, 2018 10:01am Power of Instructor Of Sociology Yes November 10:01am Advance Directive Response Recorded Date/ Time Advance Directives Yes September 25 1:28am Living Will Yes December 01, 2018 9:01am Power of Instructor Of Sociology Yes November 9:01am Advance Directive Response Recorded Date/ Time Advance Directives Yes September 25 2:28am Living Will No September 24, 2022 4 :14pm Power of Instructor Of Sociology No September 24, 2022 4:14pm Advance Directive Response Recorded Date/ Time Name of Medical Power of Instructor Of Sociology Cari Stern Justice September 24, 2022 9:36pm Advance Directives Yes September 25 2:28am Living Will Yes September 24, 2022 9 :36pm Power of Instructor Of Sociology Yes September 24, 2022 9:36pm Advance Directive Response Recorded Date/ Time Advance Directives Yes September 25 1:28am Living Will Yes September 24, 2022 8 :36pm Power of Instructor Of Sociology Yes September 24, 2022 8:36pm Advance Directive Response Recorded Date/ Time Advance Directives Yes September 25 2:28am Living Will Yes September 24, 2022 9 :36pm Power of Instructor Of Sociology Yes September 24, 2022 9:36pm Advance Directive Response Recorded Date/ Time Advance Directives Yes November 12, 2023 12:52pm Advance Directive Response Recorded Date/ Time Advance Directives Yes July 21, 2 025 1:19pm Advance Directive Response Recorded Date/ Time Living Will Yes November 11 12:52pm Do you have a Healthcare Power of Instructor Of Sociology? Yes November 12, 2023 12:52pm Advance Directives Yes July 21 025 1:19pm Summary Purpose Additional Source Comments Goals (unrecognized section and content) Goals may be documented in a n alternate sectionGoals may be documented in an alternate sectionGoals may be documented in an alternate sectionGoals may be documented in an alternate sectionGoals may be documented in an alternate sectionGoals may be documented in an alternate sectionGoals may be documented in an alternate sectionGoals may be documented in an alternate sectionGoals may be documented in an alternate sectionGoals may be documented in an alternate sectionGoals may be documented in an alternate sectionGoals may be documented in an alternate sectionGoals may be documented in an alternate sectionGoals may be documented in an alternate sectionGoals may be documented in an alternate sectionGoals may be documented in an alternate section No data available for this sectionGoals may be documented in an alternate sectionGoals may be documented in an alternate sectionGoals may be documented in an alternate sectionGoals may be documented in an alternate sectionGoals may be documented in an alternate section Care Teams (unrecognized sec tion and content) Team Status: Active Member Role Status Dates Dr. Neil Apodaca MD Family Provider Active Dr. Neil Apodaca MD Primary Care Provider Active Team Status: Inactive Member Role Status Dates Dr. Neil Apodaca MD Primary Care Provider, Referring Provider Active Dr. Michael Lepe MD Attending Provider Active Team Status: Active Member Role Status Dates Dr. Neil Apodaca MD Primary Care Provider Active Dr. Michael Lepe MD Attending Provider Active Team Status: Inactive Member Role Status Dates Dr. Neil Apodaca MD Primary Care Provider Active Dr. Michael Lepe MD Attending Provider Active Team Status: Inactive Member Role Status Dates Dr. Neil Apodaca MD Primary Care Provider Active Neil Apodaca MD Attending Provider Active Team Status: Inactive Member Role Status Dates Dr. Neil Apodaca MD Primary Care Provider Active Neil AARON MD Attending Provider Active Team Status: Inactive Member Role Status Dates Dr. Neil Apodaca MD Primary Care Provi rasheeda, Attending Provider, Referring Provider Active Team Status: Active Member Role Status Dates Dr. Neil Apodaca MD Primary Care Provi rasheeda, Referring Provider, Other Provider Active Dr. Roland Villasenor MD Attending Provider Active Team Status: Active Member Role Status Dates Dr. Neil Apodaca MD Primary Care Provider Active Dr. Raphael Trujillo DO Emergency Provider Active Dr. Juan Diego Brand MD Attending Provider Active Team Status: Active Member Role Status Dates Dr. Neil Apodaca MD Primary Care Provider Active Self Referred Attending Provider Active Team Status: Active Member Role Status Dates Dr. Neil Apodaca MD Primary Care Provider Active Dr. Raphael Trujillo DO Emergency Provider Active Dr. Juan Diego Brand MD Admit Provider, Attending Provider Active Dr. Kofi Santiago MD Other Provider Active Team Status: Active Member Role Status Dates Dr. Neil Apodaca MD Primary Care Provider Active Dr. Raphael Trujillo DO Emergency Provider Active Dr. Juan Diego Brand MD Admit Provid er, Referring Provider, Other Provider Active Dr. Tobi Villatoro MD Other Provider Active Dr. Kofi Santiago MD Attending Provider Active Team Status: Active Member Role Status Dates Dr. Neil Apodaca MD Primary Care Provider Active Dr. Raphael Trujillo DO Emergency Provider Active Dr. Juan Diego Brand MD Admit Provid er, Attending Provider, Other Provider Active Dr. Tobi Villatoro MD Other Provider Active Team Status: Active Member Role Status Dates Dr. Neil Apodaca MD Primary Care Provider Active Dr. Raphael Trujillo DO Emergency Provider Active Dr. Juan Diego Brand MD Admit Provid er, Attending Provider, Other Provider Active Dr. Tobi Villatoro MD Other Provider Active Dr. Ari Eaton DO Other Provider Active Team Status: Active Member Role Status Dates Dr. Neil Apodaca MD Primary Care Provider Active Dr. Raphael Trujillo DO Emergency Provider Active Dr. Juan Diego Brand MD Admit Provider, Other Prov ider Active Dr. Tobi Villatoro MD Other Provider Active Dr. Ari Eaton DO Attending Provider, Other Pro vider Active Team Status: Inactive Member Role Status Dates Dr. Neil Apodaca MD Primary Care Provider, Referring Provider Active Dr. Juan Diego Brand MD Attending Provider Active Team Status: Active Member Role Status Dates Dr. Neil Apodaca MD Primary Care Provider Active Dr. Roland Villasenor MD Attending Provider Active Dr. Juan Diego Brand MD Referring Provider Active Team Status: Inactive Member Role Status Dates Dr. Neil Apodaca MD Primary Care Provider Active Dr. Raphael Trujillo DO Emergency Provider Active Dr. Juan Diego Brand MD Admit Provider, Attending Provider Active Dr. Tobi Villatoro MD Other Provider Active Dr. Ari Eaton DO Other Provider Active Team Status: Inactive Member Role Status Dates Dr. Neil Apodaca MD Primary Care Provider, Attending Provider Active Team Status: Inactive Member Role Status Dates Dr. Neil Apodaca MD Primary Care Provider Active Self Referred Attending Provider Active Team Status: Inactive Member Role Status Dates Dr. Neil Apodaca MD Primary Care Provider, Referring Provider Active Marcelina Mares TABLE WORKER PACKAGER, TABLE WORKER PACKAGER-C Attending Provider Active Team Status: Active Member Role Status Dates Dr. Neil Apodaca MD Primary Care Provider Active Dr. Roland Villasenor MD Attending Provider Active Marcelina Mares TABLE WORKER PACKAGER, TABLE WORKER PACKAGER-C Referring Provider Active Team Status: Active Member Role Status Dates Dr. Neil Apodaca MD Primary Care Provider Active Marcelina Mares TABLE WORKER PACKAGER, TABLE WORKER PACKAGER-C Attending Provider Active Team Status: Active Member Role Status Dates Dr. Neil Apodaca MD Primary Care Provider Active Team Status: Inactive Member Role Status Dates Dr. Neil Apodaca MD Primary Care Provider Active Start: March 30, 2024 End: March 30, 2024 Dr. Neil Apodaca MD Attending Provider Active Start: March 30, 2024 End: March 30, 2024 Dr. Neil Apodaca MD Referring Provider Active Start: March 30, 2024 End: March 30, 2024 Team Status: Inactive Member Role Status Dates Dr. Neil Apodaca MD Primary Care Provider Active Start: May 20, 2024 End: May 20, 2024 Dr. Neil Apodaca MD Attending Provider Active Start: May 20, 2024 End: May 20, 2024 Dr. Neil Apodaca MD Referring Provider Active Start: May 20, 2024 End: May 20, 2024 Team Status: Inactive Member Role Status Dates Dr. Neil Apodaca MD Primary Care Provider Active Start: May 26, 2024 End: May 26, 2024 Dr. Neil Apodaca MD Attending Provider Active Start: May 26, 2024 End: May 26, 2024 Team Status: Inactive Member Role Status Dates Dr. Neil Apodaca MD Primary Care Provider Active Start: June 15, 2024 End: June 15, 2024 Dr. Neil Apodaca MD Attending Provider Active Start: June 15, 2024 End: June 15, 2024 Dr. Neil Apodaca MD Referring Provider Active Start: June 15, 2024 End: June 15, 2024 Team Status: Active Member Role Status Dates Dr. Neil Apodaca MD Primary Care Provider Active Start: June 16, 2024 Dr. Neil Apodaca MD Attending Provider Active Start: June 16, 2024 Dr. Neil Apodaca MD Referring Provider Active Start: June 16, 2024 Team Status: Active Member Role Status Dates Dr. Neil Apodaca MD Primary Care Provider Active Start: June 17, 2024 Dr. Neil Apodaca MD Attending Provider Active Start: June 17, 2024 Dr. Neil Apodaca MD Referring Provider Active Start: June 17, 2024 Team Status: Inactive Member Role Status Dates Dr. Neil Apodaca MD Primary Care Provider Active Start: June 16, 2024 End: June 16, 2024 Dr. Neil Apodaca MD Attending Provider Active Start: June 16, 2024 End: June 16, 2024 Dr. Neil Apodaca MD Referring Provider Active Start: June 16, 2024 End: June 16, 2024 Team Status: Inactive Member Role Status Dates Dr. Neil Apodaca MD Primary Care Provider Active Start: June 17, 2024 End: June 17, 2024 Dr. Neil Apodaca MD Attending Provider Active Start: June 17, 2024 End: June 17, 2024 Dr. Neil Apodaca MD Referring Provider Active Start: June 17, 2024 End: June 17, 2024 Team Status: Inactive Member Role Status Dates Dr. Neil Apodaca MD Primary Care Provider Active Start: June 28, 2024 End: June 28, 2024 Dr. Neil Apodaca MD Attending Provider Active Start: June 28, 2024 End: June 28, 2024 Dr. Neil Apodaca MD Referring Provider Active Start: June 28, 2024 End: June 28, 2024 Team Status: Inactive Member Role Status Dates Dr. Neil Apodaca MD Primary Care Provider Active Start: July 21, 2024 End: July 21, 2024 Dr. Neil Apodaca MD Referring Provider Active Start: July 21, 2024 End: July 21, 2024 Dr. Kvng Velasquez MD Attending Provider Active Start: July 21, 2024 End: July 21, 2024 Team Status: Inactive Member Role Status Dates Dr. Neil Apodaca MD Primary Care Provider Active Start: August 18, 2024 End: August 18, 2024 Dr. Neil Apodaca MD Attending Provider Active Start: August 18, 2024 End: August 18, 2024 Dr. Neil Apodaca MD Referring Provider Active Start: August 18, 2024 End: August 18, 2024 Team Status: Active Member Role Status Dates Dr. Neil Apodaca MD Primary Care Provider Active Start: September 06, 2024 Dr. Neil Apodaca MD Attending Provider Active Start: September 06, 2024 Dr. Neil Apodaca MD Referring Provider Active Start: September 06, 2024 Team Status: Inactive Member Role Status Dates Dr. Neil Apodaca MD Primary Care Provider Active Start: September 07, 2024 End: September 07, 2024 Dr. Neil Apodaca MD Referring Provider Active Start: September 07, 2024 End: September 07, 2024 Mehran Luque TABLE WORKER PACKAGER, TABLE WORKER PACKAGER-C Attending Provider Active S tart: September 07, 2024 End: September 07, 2024 Team Status: Active Member Role/Relationship Status Dates Dr. Neil Apodaca MD Primary Care Provider Active Team Status: Inactive Member Role/Relationship Status Dates Dr. Neil Apodaca MD Primary Care Provider Active Start: May 26, 2024 End: May 26, 2024 Dr. Neil Apodaca MD Attending Provider Active Start: May 26, 2024 End: May 26, 2024 Team Status: Inactive Member Role/Relationship Status Dates Dr. Neil Apodaca MD Primary Care Provider Active Start: June 15, 2024 End: June 15, 2024 Dr. Neil Apodaca MD Attending Provider Active Start: June 15, 2024 End: June 15, 2024 Dr. Neil Apodaca MD Referring Provider Active Start: June 15, 2024 End: June 15, 2024 Team Status: Inactive Member Role/Relationship Status Dates Dr. Neil Apodaca MD Primary Care Provider Active Start: June 16, 2024 End: June 16, 2024 Dr. Neil Apodaca MD Attending Provider Active Start: June 16, 2024 End: June 16, 2024 Dr. Neil Apodaca MD Referring Provider Active Start: June 16, 2024 End: June 16, 2024 Team Status: Inactive Member Role/Relationship Status Dates Dr. Neil Apodaca MD Primary Care Provider Active Start: June 17, 2024 End: June 17, 2024 Dr. Neil Apodaca MD Attending Provider Active Start: June 17, 2024 End: June 17, 2024 Dr. Neil Apodaca MD Referring Provider Active Start: June 17, 2024 End: June 17, 2024 Team Status: Inactive Member Role/Relationship Status Dates Dr. Neil Apodaca MD Primary Care Provider Active Start: June 28, 2024 End: June 28, 2024 Dr. Neil Apodaca MD Attending Provider Active Start: June 28, 2024 End: June 28, 2024 Dr. Neil Apodaca MD Referring Provider Active Start: June 28, 2024 End: June 28, 2024 Team Status: Inactive Member Role/Relationship Status Dates Dr. Neil Apodaca MD Primary Care Provider Active Start: July 21, 2024 End: July 21, 2024 Dr. Neil Apodaca MD Referring Provider Active Start: July 21, 2024 End: July 21, 2024 Dr. Kvng Velasquez MD Attending Provider Active Start: July 21, 2024 End: July 21, 2024 Team Status: Inactive Member Role/Relationship Status Dates Dr. Neil Apodaca MD Primary Care Provider Active Start: August 18, 2024 End: August 18, 2024 Dr. Neil Apodaca MD Attending Provider Active Start: August 18, 2024 End: August 18, 2024 Dr. Neil Apodaca MD Referring Provider Active Start: August 18, 2024 End: August 18, 2024 Team Status: Inactive Member Role/Relationship Status Dates Dr. Neil Apodaca MD Primary Care Provider Active Start: September 07, 2024 End: September 07, 2024 Dr. Neil Apodaca MD Referring Provider Active Start: September 07, 2024 End: September 07, 2024 Mehran Luque NP, TABLE WORKER PACKAGER-C Attending Provider Active S tart: September 07, 2024 End: September 07, 2024 Team Status: Inactive Member Role/Relationship Status Dates Dr. Neil Apodaca MD Primary Care Provider Active Start: September 15, 2024 End: September 15, 2024 Dr. Neil Apodaac MD Attending Provider Active Start: September 15, 2024 End: September 15, 2024 Dr. Neil Apodaca MD Referring Provider Active Start: September 15, 2024 End: September 15, 2024 Team Status: Inactive Member Role/Relationship Status Dates Dr. Neil Apodaca MD Primary Care Provider Active Start: June 15, 2024 End: June 15, 2024 Dr. Neil Apodaca MD Attending Provider Active Start: June 15, 2024 End: June 15, 2024 Dr. Neil Apodaca MD Referring Provider Active Start: June 15, 2024 End: June 15, 2024 Team Status: Inactive Member Role/Relationship Status Dates Dr. Neil Apodaca MD Primary Care Provider Active Start: June 16, 2024 End: June 16, 2024 Dr. Neil Apodaca MD Attending Provider Active Start: June 16, 2024 End: June 16, 2024 Dr. Neil Apodaca MD Referring Provider Active Start: June 16, 2024 End: June 16, 2024 Team Status: Inactive Member Role/Relationship Status Dates Dr. Neil Apodaca MD Primary Care Provider Active Start: June 17, 2024 End: June 17, 2024 Dr. Neil Apodaca MD Attending Provider Active Start: June 17, 2024 End: June 17, 2024 Dr. Neil Apodaca MD Referring Provider Active Start: June 17, 2024 End: June 17, 2024 Team Status: Inactive Member Role/Relationship Status Dates Dr. Neil Apodaca MD Primary Care Provider Active Start: June 28, 2024 End: June 28, 2024 Dr. Neil Apodaca MD Attending Provider Active Start: June 28, 2024 End: June 28, 2024 Dr. Neil Apodaca MD Referring Provider Active Start: June 28, 2024 End: June 28, 2024 Team Status: Inactive Member Role/Relationship Status Dates Dr. Neil Apodaca MD Primary Care Provider Active Start: July 21, 2024 End: July 21, 2024 Dr. Neil Apodaca MD Referring Provider Active Start: July 21, 2024 End: July 21, 2024 Dr. Kvng Velasquez MD Attending Provider Active Start: July 21, 2024 End: July 21, 2024 Team Status: Inactive Member Role/Relationship Status Dates Dr. Neil Apodaca MD Primary Care Provider Active Start: August 18, 2024 End: August 18, 2024 Dr. Neil Apodaca MD Attending Provider Active Start: August 18, 2024 End: August 18, 2024 Dr. Neil Apodaca MD Referring Provider Active Start: August 18, 2024 End: August 18, 2024 Team Status: Inactive Member Role/Relationship Status Dates Dr. Neil Apodaca MD Primary Care Provider Active Start: September 07, 2024 End: September 07, 2024 Dr. Neil Apodaca MD Referring Provider Active Start: September 07, 2024 End: September 07, 2024 Mehran Luque NP, TABLE WORKER PACKAGER-C Attending Provider Active S tart: September 07, 2024 End: September 07, 2024 Team Status: Inactive Member Role/Relationship Status Dates Dr. Neil Apodaca MD Primary Care Provider Active Start: September 15, 2024 End: September 15, 2024 Dr. Neil Apodaca MD Attending Provider Active Start: September 15, 2024 End: September 15, 2024 Dr. Neil Apodaca MD Referring Provider Active Start: September 15, 2024 End: September 15, 2024 Team Status: Inactive Member Role/Relationship Status Dates Dr. Neil Apodaca MD Primary Care Provider Active Start: September 29, 2024 End: September 29, 2024 Dr. Neil Apodaca MD Referring Provider Active Start: September 29, 2024 End: September 29, 2024 Dr. Kofi Chavarria DO Attending Provider Active Start: September 29, 2024 End: September 29, 2024 Team Status: Inactive Member Role/Relationship Status Dates Dr. Neil Apodaca MD Primary Care Provider Active Start: June 28, 2024 End: June 28, 2024 Dr. Neil Apodaca MD Attending Provider Active Start: June 28, 2024 End: June 28, 2024 Dr. Neil Apodaca MD Referring Provider Active Start: June 28, 2024 End: June 28, 2024 Team Status: Inactive Member Role/Relationship Status Dates Dr. Neil Apodaca MD Primary Care Provider Active Start: July 21, 2024 End: July 21, 2024 Dr. Neil Apodaca MD Referring Provider Active Start: July 21, 2024 End: July 21, 2024 Dr. Kvng Velasquez MD Attending Provider Active Start: July 21, 2024 End: July 21, 2024 Team Status: Inactive Member Role/Relationship Status Dates Dr. Neil Apodaca MD Primary Care Provider Active Start: August 18, 2024 End: August 18, 2024 Dr. Neil Apodaca MD Attending Provider Active Start: August 18, 2024 End: August 18, 2024 Dr. Neil Apodaca MD Referring Provider Active Start: August 18, 2024 End: August 18, 2024 Team Status: Inactive Member Role/Relationship Status Dates Dr. Neil Apodaca MD Primary Care Provider Active Start: September 07, 2024 End: September 07, 2024 Dr. Neil Apodaca MD Referring Provider Active Start: September 07, 2024 End: September 07, 2024 Mehran Luque TABLE WORKER PACKAGER, TABLE WORKER PACKAGER-C Attending Provider Active S tart: September 07, 2024 End: September 07, 2024 Team Status: Inactive Member Role/Relationship Status Dates Dr. Neil Apodaca MD Primary Care Provider Active Start: September 15, 2024 End: September 15, 2024 Dr. Neil Apodaca MD Attending Provider Active Start: September 15, 2024 End: September 15, 2024 Dr. Neil Apodaca MD Referring Provider Active Start: September 15, 2024 End: September 15, 2024 Team Status: Inactive Member Role/Relationship Status Dates Dr. Neil Apodaca MD Primary Care Provider Active Start: September 29, 2024 End: September 29, 2024 Dr. Neil Apodaca MD Referring Provider Active Start: September 29, 2024 End: September 29, 2024 Dr. Kofi Chavarria DO Attending Provider Active Start: September 29, 2024 End: September 29, 2024 Team Status: Inactive Member Role/Relationship Status Dates Dr. Neil Apodaca MD Primary Care Provider Active Start: October 12, 2024 End: October 12, 2024 Dr. Neil Apodaca MD Attending Provider Active Start: October 12, 2024 End: October 12, 2024 Dr. Neil Apodaca MD Referring Provider Active Start: October 12, 2024 End: October 12, 2024 Team Status: Inactive Member Role/Relationship Status Dates Dr. Neil Apodaca MD Primary Care Provider Active Start: October 19, 2024 End: October 19, 2024 Dr. Neil Apodaca MD Referring Provider Active Start: October 19, 2024 End: October 19, 2024 ANNA Barnett Attending Provider Active S tart: October 19, 2024 End: October 19, 2024 Team Status: Active Member Role/Relationship Status Dates Dr. Neil Apodaca MD Primary Care Provider Active Start: October 19, 2024 ANNA Barnett Attending Provider Active S tart: October 19, 2024 ANNA Barnett Referring Provider Active S tart: October 19, 2024 INFORMATION SOURCE (unrecogn ized section and content) DATE CREATED AUTHOR 09/06/2024 [facility] DATE CREATED AUTHOR AUTHOR'S ORGANIZ ATION 10/21/2024 [facility] FOR RECORDS PERTAINING TO PATIENTS WHO ARE OR HAVE BEEN ENROLLED IN A CHEMICAL DEPENDENCY/SUBSTANCEABUSE PROGRAM, SOME INFORMATION MAY BE OMITTED. This clinical summary was aggregated from multiple sources. Caution should be exercised in using it in the provision of clinical care. This summary normalizes information from multiple sources, and as a consequence, information in this document may materially change the coding, format and clinical context of patient data. In addition, data may be omitted in some cases. CLINICAL DECISIONS SHOULD BE BASED ON THE PRIMARY CLINICAL RECORDS. [email or web address] provides no warranty or guarantee of the accuracy or completeness of information in this document.
[2024-10-25 14:08] LABS: ANTINUCLEAR ANTIBODIES DIRECT Negative (Negative)
[2024-10-26 14:08] LABS: Albumin 3.8 g/dL (2.9-4.4); Anti-Smooth Muscle ABS 26 Units (0-19); Gamma Globulin 1.2 g/dL (0.4-1.8); Immunoglobulin A 141 mg/dL (64-422); Immunoglobulin G 1126 mg/dL (586-1602); Immunoglobulin M 98 mg/dL (26-217); PROEL- TOTAL PROTEIN 7.0 g/dL (6.0-8.5)
== END | disposition home or self-care (01) ==
LOC: POLAB3 12:09 → LAB 12:27
PROVIDERS: PCP Family Medicine Geriatric Medicine; Referring Provider Internal Medicine; Visit Provider Internal Medicine
DX: K76.0 Fatty (change of) liver, not elsewhere classified (principal); R73.03 Prediabetes
CPT/HCPCS: 36415; 80053; 82390; 82728; 82784; 83036; 83516; 83540; 83550; 84165; 85025; 85610; 86038; 86140; 86225; 86334; 86706

== ENCOUNTER → 2024-11-29 | Outpatient (CLI) | payer MEDICARE, SELFPAY ==
[2024-11-29 13:53] LABS: Hematocrit 39.4 % (37-47); Hemoglobin 13.1 g/dL (12.0-15.0); Immature Granulocytes Count 0.010 X10^3/uL (0.0-0.0); Mean Corp Hgb Conc 33.2 g/dL (32-36); Mean Corpuscular Volume 98.7 fL (81-99); Mean Platelet Vol. 10.4 fl (6.2-12.0); NRBC Flagged by Analyzer 0 % (0-5); Platelet Count 180 K/mm3 (150-450); RBC Distribution Width CV 12.8 % (11.6-14.6); RBC Distribution Width SD 46.5 fl (35.1-43.9); Red Blood Count 3.99 M/mm3 (4.2-5.4); White Blood Count 3.9 K/mm3 (4.4-11.0)
[2024-11-29 14:33] LABS: AST(SGOT) 57 U/L (<=31); Alanine Aminotransfer ALT/SGPT 44 U/L (<=34); Albumin, Serum 4.1 g/dL (3.4-4.8); Alkaline Phosphatase 71 U/L (35-104); Anion Gap 12 (5-15); BUN 15 mg/dL (4-19); BUN/Creat Ratio 25.8 RATIO (10-20); Calcium,Total 9.0 mg/dL (7.6-11.0); Carbon Dioxide 23.8 mmol/L (21.0-32.0); Chloride 105 mmol/L (98-108); Globulin 2.6 g/dL (2.2-4.2); Glucose 105 mg/dL (70-99); Potassium 4.3 mmol/L (3.3-5.1); Vitamin D,25 Hydroxy 44.1 ng/mL (30-100)
[2024-11-29 21:39] LABS: Xtra Tube Kwok EXTRA TUBE
== END | disposition home or self-care (01) ==
LOC: POLAB3 13:39
PROVIDERS: PCP Family Medicine Geriatric Medicine; Visit Provider Family Medicine Geriatric Medicine
DX: E55.9 Vitamin D deficiency, unspecified (principal); R53.83 Other fatigue
CPT/HCPCS: 36415; 80053; 82306; 84443; 85025

== ENCOUNTER → 2024-12-01 | Outpatient (CLI) | payer MEDICARE, SELFPAY ==
[2024-12-01 14:06] LABS: Hematocrit 37.3 % (37-47); Hemoglobin 12.5 g/dL (12.0-15.0); Immature Granulocytes Count 0.000 X10^3/uL (0.0-0.0); Mean Corp Hgb Conc 33.5 g/dL (32-36); Mean Corpuscular Volume 97.1 fL (81-99); Mean Platelet Vol. 10.2 fl (6.2-12.0); NRBC Flagged by Analyzer 0 % (0-5); POSITIVE DIFFERENTIAL YES; Platelet Count 155 K/mm3 (150-450); RBC Distribution Width CV 12.9 % (11.6-14.6); RBC Distribution Width SD 46.1 fl (35.1-43.9); Red Blood Count 3.84 M/mm3 (4.2-5.4); White Blood Count 3.4 K/mm3 (4.4-11.0)
[2024-12-01 14:24] LABS: Prothrombin Time (Protime)PT. 13.0 SECONDS (11.7-14.9)
[2024-12-01 15:08] LABS: AST(SGOT) 49 U/L (<=31); Alanine Aminotransfer ALT/SGPT 38 U/L (<=34); Albumin, Serum 3.9 g/dL (3.4-4.8); Alkaline Phosphatase 67 U/L (35-104); Anion Gap 11 (5-15); BUN 19 mg/dL (4-19); BUN/Creat Ratio 30.3 RATIO (10-20); CPK Total, Creatine Kinase 88 U/L (24-195); Calcium,Total 9.1 mg/dL (7.6-11.0); Carbon Dioxide 23.4 mmol/L (21.0-32.0); Chloride 106 mmol/L (98-108); Globulin 2.6 g/dL (2.2-4.2); Glucose 79 mg/dL (70-99); Potassium 4.2 mmol/L (3.3-5.1)
[2024-12-01 16:54] LABS: CRP < 3.00 mg/L (0.0-3.0); LDH 225 U/L (84-246)
== END | disposition home or self-care (01) ==
LOC: LAB 13:08
PROVIDERS: PCP Family Medicine Geriatric Medicine; Referring Provider Internal Medicine; Visit Provider Internal Medicine
DX: K76.0 Fatty (change of) liver, not elsewhere classified (principal); R74.8 Abnormal levels of other serum enzymes; E03.9 Hypothyroidism, unspecified
CPT/HCPCS: 36415; 80053; 82550; 83615; 84443; 85025; 85610; 86140

== ENCOUNTER → 2024-12-15 | Outpatient (CLI) | payer MEDICARE, SELFPAY ==
[2024-12-20 10:08] LABS: KEPPRA (LEVETIRACETAM) 5.4 ug/mL (10.0-40.0)
== END | disposition home or self-care (01) ==
LOC: LAB.FUTURE 12:47 → LAB 12:48
PROVIDERS: PCP Family Medicine Geriatric Medicine; Referring Provider Physician Assistant; Visit Provider Physician Assistant
DX: G40.909 Epilepsy, unspecified, not intractable, without status epilepticus (principal)
CPT/HCPCS: 36415; 80177